=== PATIENT | male | born 1950 | race Caucasian/White ===

== ENCOUNTER 2023-01-12 11:41 | Outpatient (OUT) | payer MEDICARE, OTHER, SELFPAY ==
[2023-01-12 14:39] LABS: Prostate Specific Antigen Dx <0.13 ng/mL (<=4.00)
== END 2023-01-12 11:42 ==
LOC: LAB 11:49
PROVIDERS: PCP Internal Medicine; Visit Provider Urology
DX: N40.1 Benign prostatic hyperplasia with lower urinary tract symptoms (principal); Z85.46 Personal history of malignant neoplasm of prostate; N39.41 Urge incontinence; R31.21 Asymptomatic microscopic hematuria
CPT/HCPCS: 36415; 84153

== ENCOUNTER 2023-02-23 19:06 | Observation (INO) | payer MEDICARE, SELFPAY ==
[2023-02-23] VITALS (27 sets, daily range): BP systolic 121–160; BP diastolic 70–99; PULSE 66–111; RESP 12–23; TEMP 36.4; O2SAT 91–99; BMI 35.8
--- NOTE | 2023-02-23 19:41 | CT_ITS ---
The [address] [address] Patient Name: JERONIMO GOMEZ MRN: [id number] date: 1950 Sex: M Assigned Patient Location: ER Current Patient Location: ER Accession/Order Number: [id number] Exam Date: 02/23/2023 19:50 Report Date: 02/23/2023 20:12 At the request of: RAMIREZ LESTER Procedure: CT stroke head/brain wo con CT stroke head/brain wo con, 02/23/2023 7:50 PM EDT INDICATION: stroke COMPARISON: 12/19/2020 TECHNIQUE: Axial CT images of the brain from skull base to vertex, including portions of the face and sinuses, were obtained without contrast. Multiplanar reformatted images were generated and reviewed as needed. Dose reduction techniques were achieved by using automated exposure control and/or adjustment of mA and/or kV according to patient size and/or use of iterative reconstruction technique. FINDINGS: CEREBRUM: Age-appropriate atrophy is present, without visible acute hemorrhage or lesion. Periventricular low density change is demonstrated, consistent with chronic small vessel disease. CEREBELLUM: No edema, hemorrhage, mass, acute infarction, or inappropriate atrophy. BRAINSTEM: No acute infarct, hemorrhage or gross structural abnormality. CSF SPACES: Ventricles, cisterns, and sulci are appropriate for age. No hydrocephalus, subarachnoid hemorrhage, or mass. SKULL: No mass or other significant visible lesion. SINUSES: Limited views demonstrate no significant mucosal thickening or fluid. ORBITS: Limited views are unremarkable. OTHER: None. CT/CT stroke head/brain wo con IMPRESSION: Age-related deep white matter changes consistent with chronic small vessel disease superimposed on overall findings of age-appropriate cortical atrophy. No acute intracranial abnormality is otherwise identified. Critical results were NOTIFIED by TELEPHONE BY Dr. Linda Yen MD to JESSY Coulter At 02/23/2023 8:07 PM EDT. Electronically authenticated by: Linda YEN Date: 02/23/2023 20:12
--- NOTE | 2023-02-23 19:46 | CT_ITS ---
The [address] [address] Patient Name: JERONIMO GOMEZ MRN: [id number] date: 1950 Sex: M Assigned Patient Location: ER Current Patient Location: ER Accession/Order Number: [id number] Exam Date: 02/23/2023 20:00 Report Date: 02/23/2023 21:17 At the request of: RAMIREZ LESTER Procedure: CT angio head CT angio head, CT angio neck HISTORY: left hand weakness TECHNIQUE: CTA head and neck. Post-processed images {Maximum intensity Projection (MIP), Volume-rendered (VR), or Surface shaded display images (SSD)} were created, reviewed and archived. All CT scans at this facility use dose modulation, iterative reconstruction, and/or weight based dosing when appropriate to reduce radiation dose to as low as reasonably achievable. Contrast: IV administration of 100 cc Omnipaque 350 COMPARISON: MRI brain 02/28/2018 RESULT: NECK: Soft tissues: Within normal limits. Spine: Alignment is normal. Mild degenerative changes are present. Lungs: The imaged lungs are clear. CT ARTERIOGRAM: EXTRACRANIAL CIRCULATION: Aortic arch and branch vessels: Conventional 3-vessel arch branch anatomy. No significant stenosis in the proximal brachiocephalic vessels. Carotid Stenosis: Right Common: No significant stenosis. Right Internal Carotid Plaque: No significant plaque formation. Right Internal Carotid Stenosis (% by NASCET Criteria): 0% Left Common: No significant stenosis. Left Internal Carotid Plaque: There is progressive caliber attenuation of the left internal carotid artery with abrupt cutoff at the laceral segment to the level of the ICA/MCA junction. The left cavernous, clinoid and supraclinoid ICAs are markedly diminutive in caliber relative to the right. Left Internal Carotid Stenosis (% by NASCET Criteria): 0% Cervical Vertebral Arteries: Patency: Bilateral Dominance: Codominant INTRACRANIAL CIRCULATION: Anterior circulation: Azygous configuration of the ORA. Mild atherosclerotic calcification of the carotid siphons, clinoid and supraclinoid ICA, greater on the right without hemodynamically significant stenosis. As described above, there is marked caliber attenuation of the left cavernous, clinoid and supraclinoid ICA. The distal ACAs and MCAs are otherwise normal in caliber. A1 segments are codominant. Posterior circulation:. left [employer]. Mild atherosclerotic calcification of the bilateral distal V3 and V4 segments, slightly more prominent on the left without hemodynamically significant stenosis. Otherwise, the distal vertebral arteries, basilar trunk and fabric stretcher are normal in caliber. Proximal SCAs, AICAs and PICAs are patent. No vessel cut off, filling defect, significant focal narrowing or evidence of aneurysm. Opacified dural venous sinuses and major deep and superficial draining veins are patent. CT/CT angio head IMPRESSION: Abrupt cut off of the left ICA at the laceral segment to the cavernous segment, with marked caliber attenuation of the cavernous, clinoid and supraclinoid left ICA as described above. Otherwise, scattered calcified and noncalcified plaque throughout the intracranial and extracranial circulation without hemodynamically significant stenosis. COMMUNICATION: Communicated with: Emergency room physician by Eduardo on 02/23/2023 at 9:16 PM. Electronically authenticated by: STACIA HOOD Date: 02/23/2023 21:17
--- NOTE | 2023-02-23 19:46 | XR_ITS ---
[address] [address] Patient Name: JERONIMO GOMEZ MRN: [id number] date: 1950 Sex: M Assigned Patient Location: ER Current Patient Location: ER Accession/Order Number: [id number] Exam Date: 02/23/2023 20:10 Report Date: 02/23/2023 20:26 At the request of: RAMIREZ LESTER Procedure: XR chest 1V EXAMINATION: CHEST RADIOGRAPH (PORTABLE SINGLE VIEW AP) Exam Date/Time: 02/23/2023 8:10 PM EDT Clinical History: left hand weakness Comparison: Chest radiograph 12/19/2020 RESULT: Lines, tubes, and devices: None. Lungs and pleura: No focal consolidation. No pneumothorax. No pleural effusion. Cardiomediastinal silhouette: Stable cardiomediastinal silhouette. Other: No acute osseous process. XR/XR chest 1V IMPRESSION: No acute cardiopulmonary abnormality. Electronically authenticated by: STACIA HOOD Date: 02/23/2023 20:26
--- NOTE | 2023-02-23 19:46 | CT_ITS ---
The [address] [address] Patient Name: JERONIMO GOMEZ MRN: [id number] date: 1950 Sex: M Assigned Patient Location: ER Current Patient Location: ER Accession/Order Number: [id number] Exam Date: 02/23/2023 20:00 Report Date: 02/23/2023 21:17 At the request of: RAMIREZ LESTER Procedure: CT angio neck CT angio head, CT angio neck HISTORY: left hand weakness TECHNIQUE: CTA head and neck. Post-processed images {Maximum intensity Projection (MIP), Volume-rendered (VR), or Surface shaded display images (SSD)} were created, reviewed and archived. All CT scans at this facility use dose modulation, iterative reconstruction, and/or weight based dosing when appropriate to reduce radiation dose to as low as reasonably achievable. Contrast: IV administration of 100 cc Omnipaque 350 COMPARISON: MRI brain 02/28/2018 RESULT: NECK: Soft tissues: Within normal limits. Spine: Alignment is normal. Mild degenerative changes are present. Lungs: The imaged lungs are clear. CT ARTERIOGRAM: EXTRACRANIAL CIRCULATION: Aortic arch and branch vessels: Conventional 3-vessel arch branch anatomy. No significant stenosis in the proximal brachiocephalic vessels. Carotid Stenosis: Right Common: No significant stenosis. Right Internal Carotid Plaque: No significant plaque formation. Right Internal Carotid Stenosis (% by NASCET Criteria): 0% Left Common: No significant stenosis. Left Internal Carotid Plaque: There is progressive caliber attenuation of the left internal carotid artery with abrupt cutoff at the laceral segment to the level of the ICA/MCA junction. The left cavernous, clinoid and supraclinoid ICAs are markedly diminutive in caliber relative to the right. Left Internal Carotid Stenosis (% by NASCET Criteria): 0% Cervical Vertebral Arteries: Patency: Bilateral Dominance: Codominant INTRACRANIAL CIRCULATION: Anterior circulation: Azygous configuration of the ORA. Mild atherosclerotic calcification of the carotid siphons, clinoid and supraclinoid ICA, greater on the right without hemodynamically significant stenosis. As described above, there is marked caliber attenuation of the left cavernous, clinoid and supraclinoid ICA. The distal ACAs and MCAs are otherwise normal in caliber. A1 segments are codominant. Posterior circulation:. left CAD INTERN. Mild atherosclerotic calcification of the bilateral distal V3 and V4 segments, slightly more prominent on the left without hemodynamically significant stenosis. Otherwise, the distal vertebral arteries, basilar trunk and cell maker are normal in caliber. Proximal SCAs, AICAs and PICAs are patent. No vessel cut off, filling defect, significant focal narrowing or evidence of aneurysm. Opacified dural venous sinuses and major deep and superficial draining veins are patent. CT/CT angio neck IMPRESSION: Abrupt cut off of the left ICA at the laceral segment to the cavernous segment, with marked caliber attenuation of the cavernous, clinoid and supraclinoid left ICA as described above. Otherwise, scattered calcified and noncalcified plaque throughout the intracranial and extracranial circulation without hemodynamically significant stenosis. COMMUNICATION: Communicated with: Emergency room physician by Eduardo on 02/23/2023 at 9:16 PM. Electronically authenticated by: STACIA HOOD Date: 02/23/2023 21:17
--- NOTE | 2023-02-23 19:46 | ECG_ITS ---
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
--- NOTE | 2023-02-23 19:48 | ED.GENADUL1 ---
Documented by User: JESSY Salmon 02/23/23 21:55 HPI - General Adult General Chief complaint: Neuro Symptoms/Deficit Stated complaint: LEFT HAND UPPER INJURY Time Seen by Provider: 02/23/23 19:41 Source: patient Mode of arrival: walk-in History of Present Illness HPI narrative: patient is a 73-year-old male with a history of lung cancer in remission who presents to the emergency department for left hand weakness that began three hours ago. He states he was feeling weakness and numbness in his left hand. He feels as though the weakness and numbness slightly better at this time and he is able to move his fingers a little better but he still has the sensation of weakness. He has no history of stroke. He states he had a similar episode about a year ago but does not know what may have been the cause. He denies any injuries. He has no pain at this time. He takes a baby aspirin daily. He is able to ambulate. He denies headache, visual changes, chest pain, shortness of breath. No recent illness. He has no other extremity weakness. He has not had any changes in his speech. Related Data Home Medications Medication Instructions Recorded Confirmed amlodipine 5 mg tablet 5 mg PO BID 02/23/23 02/23/23 aspirin 81 mg capsule 81 mg PO DAILY 02/23/23 02/23/23 atenolol 50 mg tablet 50 mg PO Q24H 02/23/23 02/23/23 atorvastatin 40 mg tablet 40 mg PO DAILY 02/23/23 02/23/23 cetirizine 10 mg tablet 10 mg PO DAILY 02/23/23 02/23/23 fluticasone propionate 50 1 spray intranasal Q12H 02/23/23 02/23/23 mcg/actuation nasal spray,suspension glipizide 10 mg tablet 10 mg PO BID 02/23/23 02/23/23 levothyroxine 125 mcg tablet 125 mcg PO DAILY 02/23/23 02/23/23 (Euthyrox) metformin 1,000 mg tablet 1,000 mg PO BID 02/23/23 02/23/23 solifenacin 5 mg tablet 5 mg PO DAILY 02/23/23 02/23/23 tamsulosin 0.4 mg capsule 0.4 mg PO DAILY 02/23/23 02/23/23 Allergies Allergy/AdvReac Type Severity Reaction Status Date / Time No Known Drug Allergies Allergy Verified 02/23/23 19:34 Review of Systems ROS Constitutional Denies: fever or chills Eyes Denies: change in vision Cardiovascular Denies: chest pain Respiratory Denies: shortness of breath or cough Gastrointestinal Denies: nausea or vomiting Musculoskeletal Denies: back pain or neck pain Integumentary/Breast Denies: rash Neurological Reports: weakness in extremities; Denies: headache Exam Narrative Exam Narrative: Gen.: Awake, alert, in no distress Head: Normocephalic, atraumatic ENT: Moist mucous membranes Respiratory: No respiratory distress, lungs clear bilaterally Cardio: Regular rate and rhythm Extremities: weakness to burrer hand strength in the left hand Psych: Normal mood and affect Neuro: left hand burrer hand strength is slightly weaker than the right hand, patient is slow to move the fingers of the left hand Skin: Warm, dry, intact Constitutional Vital Signs, click to edit/add: Last Vital Signs Temp 97.6 F 02/23/23 19:29 Pulse 76 02/23/23 22:00 Resp 19 02/23/23 22:00 BP 151/86 H 02/23/23 22:00 Pulse Ox 95 02/23/23 22:00 O2 Del Method Room Air 02/23/23 19:29 Course Vital Signs Vital signs: Vital Signs Temperature 97.6 F 02/23/23 19:29 Pulse Rate 98 H 02/23/23 19:29 Respiratory Rate 16 02/23/23 19:29 Blood Pressure 148/99 H 02/23/23 19:29 Pulse Oximetry 99 02/23/23 19:29 Oxygen Delivery Method Room Air 02/23/23 19:29 Temperature 97.6 F 02/23/23 19:29 Pulse Rate 76 02/23/23 22:00 Respiratory Rate 19 02/23/23 22:00 Blood Pressure 151/86 H 02/23/23 22:00 Pulse Oximetry 95 02/23/23 22:00 Oxygen Delivery Method Room Air 02/23/23 19:29 Medical Decision Making MDM Narrative Medical decision making narrative: patient with no complaints of pain or nausea in the Emergency Room. Labs studies are stable and the patient was immediately sent for a noncontrast CT as well as CT and she'll of the head and neck. 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 Throughout his stay in the emergency department, the patient did have improvement of numbness to the left hand but did have continued symptoms. I discussed the case with Dr. Santa at [facility] for neuro-interventional service (2135pm) who was made aware of the patient's presentation to the Emergency Room and reviewed the patient's scans personally. He recommended aspirin and a loading dose of Plavix, admission to this facility for further workup and MRI. Tele-neurology consult as indicated. Dr. pugh was contacted ([phone]) for the hospitalist service and the patient is admitted to [facility] with telemetry for further evaluation and treatment. Patient is stable with stable blood pressure at time of admission to hospitalist service. Medical Records Medical records reviewed: Yes I reviewed the patient's medical records Lab Data Lab results reviewed: Yes I reviewed the patient's lab results Labs: Lab Results 02/23/23 02/23/23 Range/Units 19:45 19:49 WBC 9.2 (4.0-11.0) 10^3/uL RBC 4.69 L (4.70-6.10) 10^6/uL Hgb 14.8 (14.0-18.0) g/dL Hct 44.2 (42.0-54.0) % MCV 94.2 H (80.0-94.0) fL MCH 31.6 (25.9-34.0) pg MCHC 33.5 (29.9-35.2) g/dL RDW 14.2 (11.0-15.0) % Plt Count 149 L (150-450) 10^3/uL MPV 10.0 (9.5-13.5) fL Neut % (Auto) 74.4 (43.0-75.0) % Lymph % (Auto) 18.1 L (20.5-60.0) % [place] % (Auto) 6.0 (1.7-12.0) % Eos % (Auto) 0.9 (0.9-7.0) % Baso % (Auto) 0.3 (0.2-2.0) % Neut # (Auto) 6.9 H (1.4-6.5) 10^3/uL Lymph # (Auto) 1.7 (1.2-3.8) 10^3/uL [place] # (Auto) 0.6 (0.3-0.8) 10^3/uL Eos # (Auto) 0.1 (0.0-0.7) 10^3/uL Baso # (Auto) 0.0 (0.0-0.1) 10^3/uL Abs Immat Gran (auto) 0.03 (0.00-0.03) 10^3/uL Imm/Tot Granulo (auto) 0.3 (0.0-0.5) % PT 10.7 (9.0-11.6) sec INR 1.01 APTT 26.2 (22.3-36.2) sec Sodium 138 (136-145) mmol/L Potassium 4.0 (3.5-5.1) mmol/L Chloride 102 (98-107) mmol/L Carbon Dioxide 27.7 (21.0-32.0) mmol/L Anion Gap 12.3 BUN 14.0 (7.0-18.0) mg/dL Creatinine 1.20 (0.70-1.30) mg/dL Est GFR ( Amer) >60 (>=60) Est GFR (Non-Af Amer) 59 L (>=60) BUN/Creatinine Ratio 11.7 Glucose 106 (74-106) mg/dL Calcium 9.3 (8.5-10.1) mg/dL Total Bilirubin 0.6 (0.2-1.0) mg/dL AST 15 (15-37) U/L ALT 36 (16-63) U/L Alkaline Phosphatase 43 L (46-116) U/L Troponin I High Sens 10.4 (4.0-76.1) pg/mL Total Protein 7.9 (6.4-8.2) g/dL Albumin 4.5 (3.4-5.0) g/dL Globulin 3.4 g/dL Albumin/Globulin Ratio 1.3 Urine Color Lt. yellow (YELLOW) Urine Clarity Clear (CLEAR) Urine pH 6.5 (5.0-9.0) Ur Specific Stuart <=1.005 A (1.005-1.025) Urine Protein Negative (NEG/TRACE) mg/dL Urine Glucose (UA) Negative (NEGATIVE) mg/dL Urine Ketones Negative (NEGATIVE) mg/dL Urine Occult Blood Negative (NEGATIVE) Urine Nitrite Negative (NEGATIVE) Urine Bilirubin Negative (NEGATIVE) Urine Urobilinogen 0.2 (0.2-1.0) EU/dL Ur Leukocyte Esterase Negative (NEGATIVE) Imaging Data CT scan - head: Attestation: I have reviewed the pertinent imaging results. Radiologist's impression: Procedure: CT stroke head/brain wo con CT stroke head/brain wo con, 02/23/2023 7:50 PM EDT INDICATION: stroke COMPARISON: 12/19/2020 TECHNIQUE: Axial CT images of the brain from skull base to vertex, including portions of the face and sinuses, were obtained without contrast. Multiplanar reformatted images were generated and reviewed as needed. Dose reduction techniques were achieved by using automated exposure control and/or adjustment of mA and/or kV according to patient size and/or use of iterative reconstruction technique. FINDINGS: CEREBRUM: Age-appropriate atrophy is present, without visible acute hemorrhage or lesion. Periventricular low density change is demonstrated, consistent with chronic small vessel disease. CEREBELLUM: No edema, hemorrhage, mass, acute infarction, or inappropriate atrophy. BRAINSTEM: No acute infarct, hemorrhage or gross structural abnormality. CSF SPACES: Ventricles, cisterns, and sulci are appropriate for age. No hydrocephalus, subarachnoid hemorrhage, or mass. SKULL: No mass or other significant visible lesion. SINUSES: Limited views demonstrate no significant mucosal thickening or fluid. ORBITS: Limited views are unremarkable. OTHER: None. IMPRESSION: Age-related deep white matter changes consistent with chronic small vessel disease superimposed on overall findings of age-appropriate cortical atrophy. No acute intracranial abnormality is otherwise identified. Critical results were NOTIFIED by TELEPHONE BY Dr. Linda Yen MD to JESSY Coulter At 02/23/2023 8:07 PM EDT. Electronically authenticated by: Linda YEN Date: 02/23/2023 20:12 Procedure: CT angio head CT angio head, CT angio neck HISTORY: left hand weakness TECHNIQUE: CTA head and neck. Post-processed images {Maximum intensity Projection (MIP), Volume-rendered (VR), or Surface shaded display images (SSD)} were created, reviewed and archived. All CT scans at this facility use dose modulation, iterative reconstruction, and/or weight based dosing when appropriate to reduce radiation dose to as low as reasonably achievable. Contrast: IV administration of 100 cc Omnipaque 350 COMPARISON: MRI brain 02/28/2018 RESULT: NECK: Soft tissues: Within normal limits. Spine: Alignment is normal. Mild degenerative changes are present. Lungs: The imaged lungs are clear. CT ARTERIOGRAM: EXTRACRANIAL CIRCULATION: Aortic arch and branch vessels: Conventional 3-vessel arch branch anatomy. No significant stenosis in the proximal brachiocephalic vessels. Carotid Stenosis: Right Common: No significant stenosis. Right Internal Carotid Plaque: No significant plaque formation. Right Internal Carotid Stenosis (% by NASCET Criteria): 0% Left Common: No significant stenosis. Left Internal Carotid Plaque: There is progressive caliber attenuation of the left internal carotid artery with abrupt cutoff at the laceral segment to the level of the ICA/MCA junction. The left cavernous, clinoid and supraclinoid ICAs are markedly diminutive in caliber relative to the right. Left Internal Carotid Stenosis (% by NASCET Criteria): 0% Cervical Vertebral Arteries: Patency: Bilateral Dominance: Codominant INTRACRANIAL CIRCULATION: Anterior circulation: Azygous configuration of the ORA. Mild atherosclerotic calcification of the carotid siphons, clinoid and supraclinoid ICA, greater on the right without hemodynamically significant stenosis. As described above, there is marked caliber attenuation of the left cavernous, clinoid and supraclinoid ICA. The distal ACAs and MCAs are otherwise normal in caliber. A1 segments are codominant. Posterior circulation:. left IRON WORKER. Mild atherosclerotic calcification of the bilateral distal V3 and V4 segments, slightly more prominent on the left without hemodynamically significant stenosis. Otherwise, the distal vertebral arteries, basilar trunk and contamination consultant are normal in caliber. Proximal SCAs, AICAs and PICAs are patent. No vessel cut off, filling defect, significant focal narrowing or evidence of aneurysm. Opacified dural venous sinuses and major deep and superficial draining veins are patent. IMPRESSION: Abrupt cut off of the left ICA at the laceral segment to the cavernous segment, with marked caliber attenuation of the cavernous, clinoid and supraclinoid left ICA as described above. Otherwise, scattered calcified and noncalcified plaque throughout the intracranial and extracranial circulation without hemodynamically significant stenosis. COMMUNICATION: Communicated with: Emergency room physician by [employer] on 02/23/2023 at 9:16 PM. Electronically authenticated by: STACIA HOOD Date: 02/23/2023 21:17 ECG Data Attestation: I personally reviewed and interpreted this ECG as follows: (normal sinus rhythm at a rate of seventy-three, first-degree AV block, no acute ST elevation or ectopy. EKG reviewed by attending physician) Discharge Plan Discharge Chief Complaint: Neuro Symptoms/Deficit Clinical Impression: Transient cerebral ischemia Patient Disposition: Admitted as Observation Time of Disposition Decision: 21:53 Condition: Good Documented by User: Ava Reed MD 02/23/23 23:14 HPI - General Adult General Chief complaint: Neuro Symptoms/Deficit Stated complaint: LEFT HAND UPPER INJURY Time Seen by Provider: 02/23/23 19:41 Related Data Home Medications Medication Instructions Recorded Confirmed amlodipine 5 mg tablet 5 mg PO BID 02/23/23 02/23/23 aspirin 81 mg capsule 81 mg PO DAILY 02/23/23 02/23/23 atenolol 50 mg tablet 50 mg PO Q24H 02/23/23 02/23/23 atorvastatin 40 mg tablet 40 mg PO DAILY 02/23/23 02/23/23 cetirizine 10 mg tablet 10 mg PO DAILY 02/23/23 02/23/23 fluticasone propionate 50 1 spray intranasal Q12H 02/23/23 02/23/23 mcg/actuation nasal spray,suspension glipizide 10 mg tablet 10 mg PO BID 02/23/23 02/23/23 levothyroxine 125 mcg tablet 125 mcg PO DAILY 02/23/23 02/23/23 (Euthyrox) metformin 1,000 mg tablet 1,000 mg PO BID 02/23/23 02/23/23 solifenacin 5 mg tablet 5 mg PO DAILY 02/23/23 02/23/23 tamsulosin 0.4 mg capsule 0.4 mg PO DAILY 02/23/23 02/23/23 Allergies Allergy/AdvReac Type Severity Reaction Status Date / Time No Known Drug Allergies Allergy Verified 02/23/23 19:34 Exam Constitutional Vital Signs, click to edit/add: Last Vital Signs Temp 97.6 F 02/23/23 19:29 Pulse 76 02/23/23 22:00 Resp 19 02/23/23 22:00 BP 151/86 H 02/23/23 22:00 Pulse Ox 95 02/23/23 22:00 O2 Del Method Room Air 02/23/23 19:29 Course Vital Signs Vital signs: Vital Signs Temperature 97.6 F 02/23/23 19:29 Pulse Rate 98 H 02/23/23 19:29 Respiratory Rate 16 02/23/23 19:29 Blood Pressure 148/99 H 02/23/23 19:29 Pulse Oximetry 99 02/23/23 19:29 Oxygen Delivery Method Room Air 02/23/23 19:29 Temperature 97.6 F 02/23/23 19:29 Pulse Rate 76 02/23/23 22:00 Respiratory Rate 19 02/23/23 22:00 Blood Pressure 151/86 H 02/23/23 22:00 Pulse Oximetry 95 02/23/23 22:00 Oxygen Delivery Method Room Air 02/23/23 19:29 Medical Decision Making MDM Narrative Medical decision making narrative: patient with no complaints of pain or nausea in the Emergency Room. Labs studies are stable and the patient was immediately sent for a noncontrast CT as well as CT and she'll of the head and neck. 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 Throughout his stay in the emergency department, the patient did have improvement of numbness to the left hand but did have continued symptoms. I discussed the case with Dr. Santa at [facility] for neuro-interventional service (5pm) who was made aware of the patient's presentation to the Emergency Room and reviewed the patient's scans personally. He recommended aspirin and a loading dose of Plavix, admission to this facility for further workup and MRI. Tele-neurology consult as indicated. Dr. pugh was contacted ([phone]) for the hospitalist service and the patient is admitted to [facility] with telemetry for further evaluation and treatment. Patient is stable with stable blood pressure at time of admission to hospitalist service. Attending physician attestation I have seen and evaluated this patient. I have reviewed the mid-level provider?s documentation medical decision making and treatment plan. I agree with the mid-level provider?s assessment, and plan. Lab Data Labs: Lab Results 02/23/23 02/23/23 Range/Units 19:45 19:49 WBC 9.2 (4.0-11.0) 10^3/uL RBC 4.69 L (4.70-6.10) 10^6/uL Hgb 14.8 (14.0-18.0) g/dL Hct 44.2 (42.0-54.0) % MCV 94.2 H (80.0-94.0) fL MCH 31.6 (25.9-34.0) pg MCHC 33.5 (29.9-35.2) g/dL RDW 14.2 (11.0-15.0) % Plt Count 149 L (150-450) 10^3/uL MPV 10.0 (9.5-13.5) fL Neut % (Auto) 74.4 (43.0-75.0) % Lymph % (Auto) 18.1 L (20.5-60.0) % [place] % (Auto) 6.0 (1.7-12.0) % Eos % (Auto) 0.9 (0.9-7.0) % Baso % (Auto) 0.3 (0.2-2.0) % Neut # (Auto) 6.9 H (1.4-6.5) 10^3/uL Lymph # (Auto) 1.7 (1.2-3.8) 10^3/uL [place] # (Auto) 0.6 (0.3-0.8) 10^3/uL Eos # (Auto) 0.1 (0.0-0.7) 10^3/uL Baso # (Auto) 0.0 (0.0-0.1) 10^3/uL Abs Immat Gran (auto) 0.03 (0.00-0.03) 10^3/uL Imm/Tot Granulo (auto) 0.3 (0.0-0.5) % PT 10.7 (9.0-11.6) sec INR 1.01 APTT 26.2 (22.3-36.2) sec Sodium 138 (136-145) mmol/L Potassium 4.0 (3.5-5.1) mmol/L Chloride 102 (98-107) mmol/L Carbon Dioxide 27.7 (21.0-32.0) mmol/L Anion Gap 12.3 BUN 14.0 (7.0-18.0) mg/dL Creatinine 1.20 (0.70-1.30) mg/dL Est GFR ( Amer) >60 (>=60) Est GFR (Non-Af Amer) 59 L (>=60) BUN/Creatinine Ratio 11.7 Glucose 106 (74-106) mg/dL Calcium 9.3 (8.5-10.1) mg/dL Total Bilirubin 0.6 (0.2-1.0) mg/dL AST 15 (15-37) U/L ALT 36 (16-63) U/L Alkaline Phosphatase 43 L (46-116) U/L Troponin I High Sens 10.4 (4.0-76.1) pg/mL Total Protein 7.9 (6.4-8.2) g/dL Albumin 4.5 (3.4-5.0) g/dL Globulin 3.4 g/dL Albumin/Globulin Ratio 1.3 Urine Color Lt. yellow (YELLOW) Urine Clarity Clear (CLEAR) Urine pH 6.5 (5.0-9.0) Ur Specific Stuart <=1.005 A (1.005-1.025) Urine Protein Negative (NEG/TRACE) mg/dL Urine Glucose (UA) Negative (NEGATIVE) mg/dL Urine Ketones Negative (NEGATIVE) mg/dL Urine Occult Blood Negative (NEGATIVE) Urine Nitrite Negative (NEGATIVE) Urine Bilirubin Negative (NEGATIVE) Urine Urobilinogen 0.2 (0.2-1.0) EU/dL Ur Leukocyte Esterase Negative (NEGATIVE) Discharge Plan Discharge Chief Complaint: Neuro Symptoms/Deficit Clinical Impression: Transient cerebral ischemia Patient Disposition: Admitted as Observation Time of Disposition Decision: 21:53 Condition: Good
[2023-02-23 20:00] LABS: Basophils Percent Auto 0.3 % (0.2-2.0); Eosinophils Absolute Auto 0.1 10^3/uL (0.0-0.7); Eosinophils Percent Auto 0.9 % (0.9-7.0); Hematocrit 44.2 % (42.0-54.0); Hemoglobin 14.8 g/dL (14.0-18.0); Immature Granulocytes Abs Auto 0.03 10^3/uL (0.00-0.03); Immature Granulocytes Pct Auto 0.3 % (0.0-0.5); Lymphocytes Absolute Auto 1.7 10^3/uL (1.2-3.8); Lymphocytes Percent Auto 18.1 % (20.5-60.0); Mean Corpuscular HGB Conc 33.5 g/dL (29.9-35.2); Mean Corpuscular Hemoglobin 31.6 pg (25.9-34.0); Mean Corpuscular Volume 94.2 fL (80.0-94.0); Monocytes Absolute Auto 0.6 10^3/uL (0.3-0.8); Neutrophils Absolute Auto 6.9 10^3/uL (1.4-6.5); Neutrophils Percent Auto 74.4 % (43.0-75.0); Platelet Count 149 10^3/uL (150-450); Red Blood Count 4.69 10^6/uL (4.70-6.10); Red Cell Distribution Width 14.2 % (11.0-15.0); White Blood Count 9.2 10^3/uL (4.0-11.0)
[2023-02-23 20:14] LABS: Alanine Aminotransferase 36 U/L (16-63); Albumin Globulin Ratio 1.3; Albumin Level 4.5 g/dL (3.4-5.0); Alkaline Phosphatase 43 U/L (46-116); Anion Gap 12.3; Aspartate Amino Transferase 15 U/L (15-37); BUN Creatinine Ratio 11.7; Bilirubin Total 0.6 mg/dL (0.2-1.0); Calcium 9.3 mg/dL (8.5-10.1); Carbon Dioxide 27.7 mmol/L (21.0-32.0); Chloride 102 mmol/L (98-107); Estimated GFR (African America >60 (>=60); Estimated GFR (Non-African Ame 59 (>=60); Globulin 3.4 g/dL; Glucose 106 mg/dL (74-106); INR 1.01; Partial Thromboplastin Time 26.2 sec (22.3-36.2); Prothrombin Time 10.7 sec (9.0-11.6); Sodium 138 mmol/L (136-145); Total Protein 7.9 g/dL (6.4-8.2)
[2023-02-23 20:15] LABS: Bilirubin Urine NEGATIVE (NEGATIVE); Blood Urine NEGATIVE (NEGATIVE); Clarity Urine CLEAR (CLEAR); Color Urine LT. YELLOW (YELLOW); Glucose Urine UA NEGATIVE (NEGATIVE); Ketones Urine NEGATIVE (NEGATIVE); Leukocyte Esterase Urine NEGATIVE (NEGATIVE); Nitrite Urine NEGATIVE (NEGATIVE); Protein Urine NEGATIVE (NEG/TRACE); Specific Gravity Urine <=1.005 (1.005-1.025); Urobilinogen Urine 0.2 EU/dL (0.2-1.0); pH Urine 6.5 (5.0-9.0)
[2023-02-23 20:16] LABS: Troponin I High Sensitivity 10.4 pg/mL (4.0-76.1)
[2023-02-23 20:23] LABS: Urine Microscopic Indicated NO
[2023-02-23] MEDS: ASPIRIN 81 MG TAB.CHEW 324 MG PO (22:18)
[2023-02-23] MEDS: CLOPIDOGREL BISULFATE 75 MG TABLET 300 MG PO (22:18)
[2023-02-24] VITALS (51 sets, daily range): BP systolic 107–156; BP diastolic 51–87; PULSE 54–83; RESP 7–23; TEMP 36.5–36.6; O2SAT 92–97; BMI 35.0
--- NOTE | 2023-02-24 03:45 | CA_ITS ---
Patient: JERONIMO GOMEZ Exam Date: 02/24/2023 : 1950 Gender:M Ordering : DR Burke Cai . Admission #: [id number] Family : Order #: [id number] CLICK HERE TO VIEW EXAM ECHOCARDIOGRAM REPORT PROCEDURE: CA ECHO DOPPLER COMPLETE INDICATIONS: CVA COMPARISON: None. DESCRIPTION: COMPLETE ECHOCARDIOGRAM Real-time transthoracic echocardiography with 2D, M-mode, spectral and color flow Doppler performed. QUALITY: Technical quality was adequate. LEFT VENTRICLE: Normal chamber size. Mild concentric left ventricular hypertrophy. Global left ventricular systolic function is normal. LV EF: Visual estimation of left ventricular ejection fraction is 60%. DIASTOLIC: Diastolic function is indeterminate. ATRIAL SEPTUM: Intact atrial septum. Agitated saline contrast does not reveal an intra-cardiac shunt. LEFT ATRIUM: Normal chamber size. RIGHT ATRIUM: Normal chamber size. RIGHT VENTRICLE: Normal chamber size. Normal right ventricular systolic function. TRICUSPID VALVE: Normal mobility and thickness. No stenosis with trivial regurgitation. Unable to assess right-sided pressures due to lack of measurable tricuspid regurgitation. MITRAL VALVE: Normal mobility and thickness. No evidence of mitral valve stenosis. There is no mitral annular calcification. Trivial mitral regurgitation. AORTIC VALVE: Normal trileaflet appearance. Mildly calcified aortic valve. Normal mobility. No evidence of aortic valve stenosis. No aortic regurgitation. AORTIC ROOT: Normal diameter and appearance. PULMONIC VALVE: Normal thickness and mobility. No stenosis. No regurgitation. PERICARDIUM: No evidence of pericardial effusion. IVC: Not well visualized. PLEURA: CONCLUSION: 1. Mild concentric left-ventricular hypertrophy with normal systolic function. LVEF is 60%. 2. Normal right ventricular size and systolic function. 3. No significant valvular dysfunction. 4. No evidence of intracardiac shunt by agitated saline injection. Adult Echocardiography Procedure Report Left Ventricle LVEDD (3.7 - 5.6 cm): 4.39 cm LVESD (2.2 - 4.0 cm): 2.90 cm LVIVS thickness (0.6 - 1.2 cm): 1.23 cm LVPW thickness (0.5 - 1.0 cm): 1.25 cm e': 0.06 m/s E - e': 11.44 LVOT Max Gradient: 2.83 mm[Hg] LVOT Area (cm2): 0.84 m/s Peak Velocity (LVOT): 0.84 m/s Mean Velocity (LVOT): 0.58 m/s LVOT Diameter 1.91 cm Left Atrium LA Volume Index (2D A2C): 29.09 ml/m2 Left Atrium Systolic Dimension: 3.88 cm Mitral Valve MV E to A Ratio: 0.84 Mitral Valve A-Wave Peak Velocity: 0.84 m/s Mitral Valve E-Wave Peak Velocity: 0.71 m/s Right Ventricle RV Internal Diastolic Dimension: 2.81 cm Aorta AO Root Diam: 3.27 cm Ascending Ao Diam: 3.47 cm Aortic Valve AoV Area (Peak Gina): 1.82 cm2, 1.82 cm2 AoV Area (VTI): 2.02 cm2, 2.02 cm2 Peak Velocity(Antegrade Flow): 1.33 m/s Peak Gradient(Antegrade Flow): 7.03 mm[Hg] Mean Velocity(Antegrade Flow): 0.82 m/s Mean Gradient(Antegrade Flow): 3.22 mm[Hg] Velocity Time Integral: 29.49 cm Tricuspid Valve Peak Velocity (Regurgitant Flow): 1.89 m/s Pulmonic Valve Peak Velocity: 1.07 m/s Peak Gradient: 3.95 mm[Hg], 5.17 mm[Hg] Right Atrium Right Atrium Systolic Pressure: 27.28 ml, 27.28 ml Dictated by: Tray Flores M.D. on 02/25/2023 at 16:59 Approved by: Tray Flores M.D. on 02/25/2023 at 17:05
--- NOTE | 2023-02-24 03:55 | P.PN_ITS ---
Progress Note: Subjective Subjective Interval history: CC: Right upper extremity weakness HPI: Mr. Rinaldi is a very pleasant 73 years old gentleman who presents with above complaints. Patient stating that he been barbecuing when he suddenly felt weakness in his right arm. He continued to have difficulties to move with. Patient stating that he had similar episodes in the past but much less. Patient's past medical history significant for hypertension, dyslipidemia, diabetes. Patient has a history of lung cancer and last 4 years has been disease-free. Initial evaluation in the emergency room has been negative for acute findings. A full consultation was obtained with the teleneurologist who recommended hospital stay with a expanded work-up including MRI of the brain and echocardiogram with bubbles Exam Narrative Exam Narrative: Physical Exam: Not in distress, pleasant, lucid, cooperative, Head - atraumatic, eyes - pupils equal, round, reactive to light, extra ocular movement intact, MMM Neck - supple, thyroid not enlarged, LN not palpated Lungs - clear to auscultation, no dullness on percussion CVS - heart sounds S1, S2, no additional murmurs gallop, regular rate and rhythm Gastrointestinal?abdomen is soft, non-tender, non-distended, no organomegaly, positive bowel sounds Extremities no clubbing, cyanosis or edema Neurological?cranial nerve II?XII grossly intact, no meningeal signs, no cerebellar signs, no sensory deficit Musculoskeletal - joints, no effusions, ROM preserved Dermatological - the skin dry, warm, no rashes Psychiatric?patient is AAO X3, patient has normal affect Constitutional Vital Signs, click to edit/add: Last Vital Signs Temp 97.6 F 02/23/23 19:29 Pulse 67 02/24/23 03:20 Resp 16 02/24/23 03:20 BP 148/83 H 02/24/23 03:01 Pulse Ox 93 L 02/24/23 02:10 O2 Del Method Room Air 02/23/23 19:29 Progress Note: Objective Labs Labs: Short CBC 02/23/23 Range/Units 19:49 WBC 9.2 (4.0-11.0) 10^3/uL Hgb 14.8 (14.0-18.0) g/dL Hct 44.2 (42.0-54.0) % Plt Count 149 L (150-450) 10^3/uL BMP 02/23/23 19:49 Sodium 138 Potassium 4.0 Chloride 102 Carbon Dioxide 27.7 BUN 14.0 Creatinine 1.20 Glucose 106 Calcium 9.3 Liver Function 02/23/23 Range/Units 19:49 Total Bilirubin 0.6 (0.2-1.0) mg/dL AST 15 (15-37) U/L ALT 36 (16-63) U/L Alkaline Phosphatase 43 L (46-116) U/L Albumin 4.5 (3.4-5.0) g/dL Urine 02/23/23 Range/Units 19:45 Urine Color Lt. yellow (YELLOW) Urine Clarity Clear (CLEAR) Urine pH 6.5 (5.0-9.0) Ur Specific [place] <=1.005 A (1.005-1.025) Urine Protein Negative (NEG/TRACE) mg/dL Urine Glucose (UA) Negative (NEGATIVE) mg/dL ABG Attestation: I personally reviewed and interpreted this ABG as follows: Progress Note: A&P Assessment and Plan (1) Transient cerebral ischemia: Assessment and Plan: - patient admitted with acute neurological deficit - As per evaluation in ER patient did not qualify for a tPa treatment - Admit to telemetry - Frequent neuro-checks - Will obtain MRI of the brain - Will obtain an ECHO with bubbles - F/U with Neurologist for further recommendations Secondary prevention ? will make sure patient is on Full dose of EC ASA and at least moderate potency dose of Atorvastatin unless contraindicated Tertiary prevention ? fall/aspiration precautions are in place - DVT prophylaxis (2) HTN (hypertension): Assessment and Plan: Permissive hypertension going to be allowed Resume home medications, adjust as needed (3) Diabetes: Assessment and Plan: DM- continue with ADA diet - hold off oral hypoglycemic agents while in the hospital to avoid hypoglycemic episodes - frequent accuchecks (TID AC + HS) - will provide coverage with long acting insulin as well as short acting insulin with meals - adjust as needed - hypoglycemia protocol in place Plan Dyslipidemia ?started on statin As the provider for the telehealth service, I attest that I introduced myself to the patient, provided my credentials, disclosed by location and determined that based on a review of the patient's chart and discussion with members of the patient's treatment team, telemedicine via real-time, 2 way, and interactive audio and video platform is an appropriate and effective means of providing the service. ?The patient and I mutually agree this visit is appropriate for telemedicine. ?The virtual encounter was taken place from? [place], [place]. ?The encounter took approximately 35 minutes. ?The nurse was present during the entire time and I was able to move the stethoscope in appropriate directions. ?The patient was evaluated at the Hospital ? Portions of this note may be dictated using [employer] voice recognition software. Variances in spelling and vocabulary are possible and unintentional. Not all errors may be caught and/or corrected. Please notify the author if any discrepancies are noted and/or if the meaning of any statement is unclear.? ? Patient verbally consented for treatment via video visit with patient currently located at [facility] and provider located in [place]. Telemedicine Attestation Telemedicine Attestation I conducted this encounter from [[place]] via secure live, [id number] video conference with the patient, located at [facility] with [CVA]. Prior to the interview, the risks and benefits of telemedicine were discussed with the patient and verbal consent was obtained.
--- NOTE | 2023-02-24 04:12 | MR_ITS ---
[place] [id number] Patient Name: JERONIMO GOMEZ MRN: [id number] date: 1950 Sex: M Assigned Patient Location: [place] Current Patient Location: [place] Accession/Order Number: [id number] Exam Date: 02/24/2023 08:00 Report Date: 02/24/2023 09:08 At the request of: SAE Rafa SISTER Procedure: MR head/brain wo con EXAM: MR head/brain wo con CLINICAL INDICATION: Left hand weakness COMPARISON: CT head and CTA head/neck 02/23/2023. TECHNIQUE/PROTOCOL: Standard noncontrast protocol brain MRI performed (Sagittal T1 with axial T1, T2, GRE, FLAIR, and diffusion-weighted imaging). FINDINGS: Small patchy restricted diffusion in the posterior right frontal lobe/centrum semiovale (5904:43) demonstrates hyperintense T2/FLAIR parenchymal signal. This extends towards the cortical surface. Loss of normal flow void signal in the left ICA with reconstitution just before its terminus corresponds with occlusion seen on CTA 02/23/2023. Remainder of the intracranial flow voids are maintained. No extra-axial fluid collection, hydrocephalus, midline shift, or other mass effect. Faint patchy hyperintense T2/FLAIR periventricular and subcortical foci are likely on the basis of chronic microvascular angiopathic changes. Mild to moderate symmetric global volume loss without lobar predominance. Commensurate ventricular system caliber prominence. Small old right centrum semiovale lacunar infarction. Normal marrow signal. No soft tissue abnormalities. Mild scattered paranasal sinus mucosal thickening. Scant left mastoid effusion. MR/MR head/brain wo con IMPRESSION: 1. Small recent (acute/subacute) infarct in the posterior right frontal lobe/centrum semiovale. 2. Loss of normal flow void signal in the left ICA with reconstitution just before its terminus corresponds with occlusion seen on CTA 02/23/2023. Report was submitted to the clinical operation support team for expedited review by the provider. Electronically authenticated by: MICHELLE ZELAYA Date: 02/24/2023 09:08
[2023-02-24 05:51] LABS: PCO2 VBG 42.8 mmHg (40.0-52.0)
[2023-02-24 06:00] LABS: Anion Gap 10.8; BUN Creatinine Ratio 10.4; Calcium 8.6 mg/dL (8.5-10.1); Carbon Dioxide 28.8 mmol/L (21.0-32.0); Chloride 105 mmol/L (98-107); Estimated GFR (African America >60 (>=60); Estimated GFR (Non-African Ame >60 (>=60); Glucose 129 mg/dL (74-106); Magnesium 1.8 mg/dL (1.8-2.4); Potassium 3.6 mmol/L (3.5-5.1); Sodium 141 mmol/L (136-145)
[2023-02-24 07:01] LABS: Glucometer 109 mg/dL (74-106)
[2023-02-24] MEDS: ASPIRIN 81 MG TAB.CHEW PO (09:58)
[2023-02-24] MEDS: CETIRIZINE HCL 10 MG TABLET PO (09:58)
[2023-02-24] MEDS: SOLIFENACIN SUCCINATE 5 MG TABLET PO (09:58)
[2023-02-24] MEDS: FLUTICASONE PROPIONATE 50 MCG NASAL SPRAY 1 SPRAY NS (09:58)
[2023-02-24] MEDS: TAMSULOSIN HCL 0.4 MG CAPSULE PO (09:58)
[2023-02-24] MEDS: ATENOLOL 50 MG TABLET PO (09:58)
[2023-02-24] MEDS: LEVOTHYROXINE SODIUM 125 MCG TABLET PO (09:58)
--- NOTE | 2023-02-24 10:00 | P.HP_ITS ---
H&P: HPI History of Present Illness Chief complaint: LEFT HAND UPPER INJURY Narrative: Patient presented to the emergency room after acute episode of left hand weakness. His able to move his thumb but not significantly. Much weaker than the right. No difficulty with speech no difficulty swallowing. Evaluation emergency room was essentially unremarkable other than slowly improving left hand weakness. Patient was discussed with telestroke team. 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 They would like given the symptoms he currently has. Work-up to be completed [facility] Medical History (Updated 02/24/23 @ 20:23 by Burke Cai MD) Meds Home Medications and Allergies Home Medications Medication Instructions Recorded Confirmed Type amlodipine 5 mg tablet 5 mg PO BID 02/23/23 02/23/23 History aspirin 81 mg capsule 81 mg PO DAILY 02/23/23 02/23/23 History atenolol 50 mg tablet 50 mg PO Q24H 02/23/23 02/23/23 History atorvastatin 40 mg tablet 40 mg PO DAILY 02/23/23 02/23/23 History cetirizine 10 mg tablet 10 mg PO DAILY 02/23/23 02/23/23 History fluticasone propionate 50 1 spray intranasal Q12H 02/23/23 02/23/23 History mcg/actuation nasal spray,suspension glipizide 10 mg tablet 10 mg PO BID 02/23/23 02/23/23 History levothyroxine 125 mcg tablet 125 mcg PO DAILY 02/23/23 02/23/23 History (Euthyrox) metformin 1,000 mg tablet 1,000 mg PO BID 02/23/23 02/23/23 History solifenacin 5 mg tablet 5 mg PO DAILY 02/23/23 02/23/23 History clopidogrel 75 mg tablet 75 mg PO QDAY #30 tabs 02/24/23 Rx insulin NPH-regular 70-30 U-100 25 unit subcut QAM 02/24/23 02/24/23 History insulin 100 unit/mL subcutaneous pen (Humulin 70/30 U-100 MarkPen) tamsulosin 0.4 mg capsule (Flomax) 0.4 mg PO BID 02/24/23 02/24/23 History Allergies Allergy/AdvReac Type Severity Reaction Status Date / Time No Known Drug Allergies Allergy Verified 02/23/23 19:34 Exam Constitutional Vital Signs, click to edit/add: Last Vital Signs Temp 97.7 F 02/24/23 07:37 Pulse 63 02/24/23 07:37 Resp 18 02/24/23 07:37 BP 156/87 H 02/24/23 07:37 Pulse Ox 96 02/24/23 07:37 O2 Del Method Room Air 02/24/23 07:37 Common normals: no apparent distress Chest Common normals: inspection of chest normal Respiratory Common normals: normal respiratory effort, no retractions and clear to auscultation bilaterally Cardio Common normals: regular rhythm and no murmurs Jugular venous distention: JVD and other GI Common normals: Normal to inspection, nondistended, normoactive bowel sounds present Neuro Common normals: oriented x3, CN's II-XII intact bilaterally and moves all extremities (Noted decreased resolute professional strength left hand. Some disc of the coordination as ) Results Labs Labs: Short CBC 02/23/23 Range/Units 19:49 WBC 9.2 (4.0-11.0) 10^3/uL Hgb 14.8 (14.0-18.0) g/dL Hct 44.2 (42.0-54.0) % Plt Count 149 L (150-450) 10^3/uL BMP 02/23/23 02/24/23 19:49 05:40 Sodium 138 141 Potassium 4.0 3.6 Chloride 102 105 Carbon Dioxide 27.7 28.8 BUN 14.0 12.0 Creatinine 1.20 1.15 Glucose 106 129 H Calcium 9.3 8.6 Liver Function 02/23/23 Range/Units 19:49 Total Bilirubin 0.6 (0.2-1.0) mg/dL AST 15 (15-37) U/L ALT 36 (16-63) U/L Alkaline Phosphatase 43 L (46-116) U/L Albumin 4.5 (3.4-5.0) g/dL Urine 02/23/23 Range/Units 19:45 Urine Color Lt. yellow (YELLOW) Urine Clarity Clear (CLEAR) Urine pH 6.5 (5.0-9.0) Ur Specific [place] <=1.005 A (1.005-1.025) Urine Protein Negative (NEG/TRACE) mg/dL Urine Glucose (UA) Negative (NEGATIVE) mg/dL ABG ABG results: 02/24/23 05:40 VBG pH 7.430 VBG pCO2 42.8 Assessment and Plan Assessment and Plan (1) Transient cerebral ischemia: (2) HTN (hypertension): (3) Diabetes: (4) Right frontal lobe lesion: Plan Patient seen and evaluated in the emergency room for left hand weakness this is slowly improving. Not back to normal yet but definitely improved from previous. 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 He was given loading dose of Plavix. Recommendation from telestroke team will be to maintain on aspirin and Plavix. And follow-up as an outpatient. Patient comfortable discharge to home. Discharge patient home in improving but not resolved condition. Medications see list. See PCP STEFANO.
[2023-02-24] MEDS: AMLODIPINE BESYLATE 5 MG TABLET PO (10:13)
[2023-02-24] MEDS: CLOPIDOGREL BISULFATE 75 MG TABLET PO (10:30)
[2023-02-24 12:25] LABS: Glucometer 238 mg/dL (74-106)
--- NOTE | 2023-02-24 16:08 | SWNOTE1 ---
SW met with pt to discuss dc needs. Pt lives at home with his . Pt does have a walker and cane at home, he does sometimes use his cane. Pt is not current with any Home health and he does not feel at this time he needs any therapy in the home. Pt lives in a 1 story home. At this time pt denies any discharge needs. SW to follow as needed. SW reviewed DAILEY form with pt, pt voiced understanding, no questions at this time. Pt signed form, original given to pt and copy placed on chart.
[2023-02-24 16:24] LABS: Glucometer 249 mg/dL (74-106)
[2023-02-24] MEDS: INSULIN ASPART 300 UNIT/3 ML PEN SUBQ (17:19)
--- NOTE | 2023-02-24 18:29 | CA_ITS ---
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
--- NOTE | 2023-03-02 15:35 | CM.DCFOLLOWU ---
Person spoke with: patient How are you feeling? well How is your pain? no pain Did you understand your discharge instructions? yes Do you have any questions about your discharge instructions? no Were you given any prescriptions at discharge? yes Were you able to get your prescriptions filled? yes Do you understand how to take your medications as ordered? yes Do you have any questions about your follow up appointment and do you plan to keep your follow up appointment? no questions, has follow up on Monday 03/05 Is there anything else that you would like to discuss? voiced concerns about his extended stay down in the ER and not having access to bathroom, except urinal. Questions/Comments/Concerns/Other:
== END 2023-02-24 20:00 | disposition home or self-care (01) ==
LOC: ER 21:54 → MS 02-24 07:23
PROVIDERS: Internal Medicine; Physician Assistant; Admitting Provider Family Medicine; Emergency Provider Emergency Medicine; PCP Internal Medicine; Visit Provider Family Medicine
DX: I63.9 Cerebral infarction, unspecified (principal); I65.22 Occlusion and stenosis of left carotid artery; E11.9 Type 2 diabetes mellitus without complications; I10 Essential (primary) hypertension; E78.5 Hyperlipidemia, unspecified; I51.7 Cardiomegaly; R53.1 Weakness; Z85.118 Personal history of other malignant neoplasm of bronchus and lung; Z79.82 Long term (current) use of aspirin; Z79.84 Long term (current) use of oral hypoglycemic drugs; Z79.890 Hormone replacement therapy; Z79.4 Long term (current) use of insulin
CPT/HCPCS: 36415; 70450; 70496; 70498; 70551; 71045; 80048; 80053; 81003; 82800; 82948; 83735; 84484; 85025; 85610; 85730; 92610; 93005; 93270; 93306; 93356; 97162; 99285; G0378; Q3014; Q9967

== ENCOUNTER 2024-03-20 21:10 | Emergency (ER) | payer OTHER, MEDICARE, SELFPAY ==
[2024-03-20 21:20] VITALS: BP 142/80; PULSE 87; TEMP 36.6; O2SAT 95; BMI 34.7
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
--- NOTE | 2024-03-20 21:32 | ECG_ITS ---
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
[2024-03-20 22:08] VITALS: BP 122/90; PULSE 88; O2SAT 97
[2024-03-20 22:13] LABS: Basophils Percent Auto 0.5 % (0.2-2.0); Eosinophils Absolute Auto 0.1 10^3/uL (0.0-0.7); Eosinophils Percent Auto 1.2 % (0.9-7.0); Hematocrit 39.8 % (42.0-54.0); Hemoglobin 13.3 g/dL (14.0-18.0); Immature Granulocytes Abs Auto 0.04 10^3/uL (0.00-0.03); Immature Granulocytes Pct Auto 0.6 % (0.0-0.5); Lymphocytes Absolute Auto 1.3 10^3/uL (1.2-3.8); Lymphocytes Percent Auto 20.3 % (20.5-60.0); Mean Corpuscular HGB Conc 33.4 g/dL (29.9-35.2); Mean Corpuscular Hemoglobin 31.4 pg (25.9-34.0); Mean Corpuscular Volume 93.9 fL (80.0-94.0); Mean Platelet Volume 10.3 fL (9.5-13.5); Monocytes Absolute Auto 0.5 10^3/uL (0.3-0.8); Monocytes Percent Auto 7.4 % (1.7-12.0); Neutrophils Absolute Auto 4.6 10^3/uL (1.4-6.5); Platelet Count 139 10^3/uL (150-450); Red Blood Count 4.24 10^6/uL (4.70-6.10); Red Cell Distribution Width 14.1 % (11.0-15.0); White Blood Count 6.6 10^3/uL (4.0-11.0)
[2024-03-20] MEDS: ONDANSETRON PF 4 MG/2 ML VIAL IV (22:14)
[2024-03-20] MEDS: 0.9 % SODIUM CHLORIDE 1,000 ML 125 ML IV (22:14)
[2024-03-20] MEDS: MORPHINE SULFATE 4 MG/ML VIAL IV (22:23)
[2024-03-20 22:32] LABS: Alanine Aminotransferase 27 U/L (16-63); Albumin Globulin Ratio 1.3; Albumin Level 3.7 g/dL (3.4-5.0); Alkaline Phosphatase 46 U/L (46-116); Anion Gap 13.8; Aspartate Amino Transferase 8 U/L (15-37); BUN Creatinine Ratio 10.9; Bilirubin Total 0.6 mg/dL (0.2-1.0); Calcium 8.8 mg/dL (8.5-10.1); Carbon Dioxide 29.2 mmol/L (21.0-32.0); Chloride 98 mmol/L (98-107); Estimated GFR (African America >60 (>=60); Estimated GFR (Non-African Ame 55 (>=60); Globulin 2.8 g/dL; Glucose 178 mg/dL (74-106); Sodium 137 mmol/L (136-145); Total Protein 6.5 g/dL (6.4-8.2)
[2024-03-20 22:34] LABS: Troponin I High Sensitivity 9.3 pg/mL (4.0-76.1)
[2024-03-20] MEDS: ADACEL DIPH,PERTUSS(ACELL),TET VAC/PF 0.5 ML ADULT SYRINGE IM (23:05)
[2024-03-20] MEDS: 0.9 % SODIUM CHLORIDE 500 ML IV (23:19)
[2024-03-21] MEDS: BACITRACIN OINTMENT 28.4 GM TUBE 1 APPLIC TOPICAL (01:24)
[2024-03-21] MEDS: HYDROCODONE/ACET 5-325 MG TABLET 2 TAB PO (01:44)
== END 2024-03-21 02:00 | disposition home or self-care (01) ==
PROVIDERS: Emergency Provider Emergency Medicine; PCP Internal Medicine
DX: S20.212A Contusion of left front wall of thorax, initial encounter (principal); S30.1XXA Contusion of abdominal wall, initial encounter; S80.12XA Contusion of left lower leg, initial encounter; S80.11XA Contusion of right lower leg, initial encounter; M54.6 Pain in thoracic spine; M54.50 Low back pain, unspecified; V43.52XA Car driver injured in collision with other type car in traffic accident, initial encounter; E66.9 Obesity, unspecified; Z68.34 Body mass index [BMI] 34.0-34.9, adult; Z86.73 Personal history of transient ischemic attack (TIA), and cerebral infarction without residual deficits; Z23 Encounter for immunization
CPT/HCPCS: 36415; 71260; 72128; 72131; 73070; 73590; 74177; 80053; 84484; 85025; 90471; 90715; 93005; 96374; 96375; 99285; J2270; J2405; Q9967

== ENCOUNTER 2024-09-11 09:48 | Outpatient (OUT) | payer MEDICARE, OTHER, SELFPAY ==
--- NOTE | 2024-09-11 09:58 | XR_ITS ---
The [address] [address] Patient Name: JERONIMO GOMEZ MRN: [id number] date: 1950 Sex: M Assigned Patient Location: [facility] Current Patient Location: [facility] Accession/Order Number: [id number] Exam Date: 09/11/2024 10:00 Report Date: 09/11/2024 14:11 At the request of: FAYE MIRANDA Procedure: XR chest 2V EXAM: XR chest 2V HISTORY: Community Acquired Pneumonia due to Influenza A COMPARISON: 02/23/2023 TECHNIQUE: Upright PA and lateral chest x-ray FINDINGS: The heart is near the upper limits of normal in size. The vasculature is not distended. No acute infiltrate, effusion or pneumothorax is identified. Degenerative changes are seen in the spine, the osseous structures are grossly intact. XR/XR chest 2V IMPRESSION: No acute infiltrate or evidence of cardiac decompensation. The overall appearance of the chest is essentially unchanged. Electronically authenticated by: DAMI CADET Date: 09/11/2024 14:11
== END 2024-09-11 09:49 | disposition home or self-care (01) ==
LOC: RAD 09:51
DX: J09.X1 Influenza due to identified novel influenza A virus with pneumonia (principal)
CPT/HCPCS: 71046

== ENCOUNTER 2025-04-09 10:08 | Outpatient (OUT) | payer MEDICARE, SELFPAY ==
--- OUTSIDE RECORDS SUMMARY | 2025-03-28 14:00 | XMS_ITS | Encounter Summary ---
Author Organization [facility] Address [address] [place] [address] Care Team Providers Care Doctor Of Osteopathy Name Role Phone Tami Navarro WHITE GOODS APPLIANCE TECH.COOLING TOWER OPERATOR Unavailable [phone] Lizzy Stark RN Unavailable [phone] Shaikh MAVIS Dickerson Primary Care Provider [phone] Axel Liz MD Unavailable [phone] Source Comments In the event this information is protected by the Federal Confidentiality of Alcohol and Drug AbusePatient Records regulations: The Federal rules restrict any use of the information to criminally investigate or prosecute any alcohol or drug abuse patient.[facility] Reason for Referral * MRI/CT (Routine) - New Request Specialty Diagnoses / Procedures Referred By Contac t Referred To Contact CT IMAGING Diagnoses 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) Procedures CT CHEST W IVCON DIAGNOSTIC COMPUTED TOMOGRAPHY THORAX W/CONTRAST Axel Liz MD [address] [place] [address] [place] [address] Phone: tel: fax: [place] [phone] Referral ID Status Reason Start Date Expiration Date Visits Requested Visits Authorized [id number] New Request Auto-Generat ed Referral 03/27/2026 04/27/2026 1 1 Reason for Visit * Reason Comments Lung Cancer KEY Encounter Details Date Type Department Care Team (Latest Contact Info) Description 03/28/2025 2:00 PM EDT Visit (SP) Office Hematology/Oncology [address] [address] [place] [address] Axel Liz MD [address] [place] [address] [place] [address] 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) (Primary Dx); Malignant neoplasm of upper lobe, right bronchus or lung (HCC); Personal history of malignant neoplasm of prostate; Pneumonitis due to inhalation of other solids and liquids (HCC) Social History Tobacco Use Types Packs/Day Years Used Date Smoking Tobacco: Former Passive Smoke Exposure: Past Smokeless Tobacco: Never Comments:during high school Alcohol Use Standard Drinks/Week Comments No 0 (1 standard drink = 0.6 oz pur e alcohol) PHQ-2 Answer Date Recorded PHQ-2 score 0 03/16/2024 Area Deprivation Index Answer Date Juan rded National Score (1-100), lower number is lower ri sk 94 03/18/2023 State Score (1-10), lower number is lower risk 9 03/18/2023 Data from: https://www.neighborhoodatlas.medicine.[facility].edu/. Last address used for calculation [address] 03/18/2023 Sex and Gender Information Value Date Recorded Sex Assigned at Not on file Legal Sex Male 10:13 AM EST Gender Identity Not on file Sexual Orientation Not on file documented as of this encounter Last Filed Vital Signs Vital Sign Reading Time Taken Comments Blood Pressure 129/72 03/28/2025 1:58 PM EDT Pulse 72 03/28/2025 1:58 PM EDT Temperature 36.3 C (97.3 F) 03/28/2025 1:58 PM EDT Respiratory Rate 16 03/28/2025 1:58 PM EDT Oxygen Saturation 96% 03/28/2025 1:58 PM EDT Inhaled Oxygen Concentration - - Weight 107.2 kg (236 lb 5.3 oz) 03/28/2025 1:58 PM EDT Height 175 cm (5' 8.9 ) 03/28/2025 1:58 PM EDT Body Mass Index 35 03/28/2025 1:58 PM EDT documented in this encounter Patient Instructions * Patient Instructions* Axel Liz MD - 03/28/2025 2:[address] scans with labs in 51 weeks RTC in 52 weeks. documented in this encounter Progress Notes * Axel Liz MD - 03/28/2025 2:00 PM EDT Images from the original note were not included. NAME: Harrison Rinaldi [facility] NO.: [id number] DATE OF SERVICE: March 28, 2025 (Agusto) Some elements in this clinic note that are critical to medical decision making have been carefully reviewed and included from a prior clinic note dated: March 16, 2024 (Agusto) Referring Provider: Additional Clinicians involved in Harrison Rinaldi's care: Dr. Shaikh Dickerson (PCP in [place]), Dr. Alexander, Dr. Barrett, Dr. Morin DIAGNOSIS: NSCLCA Stage IV - NEL. CASE SUMMARY / ASSESSMENT: 75 year old man with. 1. 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 The patient presented with recurrent postobstructive pneumonia, and his baseline chest CT scan revealed a right lower lobe mass and suspicious mediastinal adenopathy. He underwent a bronchoscopy on 02/09/2018 and was found to have a mass in the right lower lobe bronchus, biopsy proven to be squamous cell carcinoma. PET scan obtained 03/02/2018 revealed a large right lung mass, mediastinal adenopathy, and a separate right paraspinal mass. CT directed biopsy of the right paraspinal mass 03/09/2018 revealed squamous cell carcinoma consistent with metastatic disease. Systemic therapy with carboplatin, taxol and pembrolizumab started 03/17/2018. The patient improved significantly after starting treatment. He had an apparent Taxol reaction after cycle 3. With cycle 4 the Taxol was changed to Abraxane. He received his fourth cycle of chemotherapy on 05/19/2018. Follow-up PET scan 06/02/2018 significantly improved. The patient subsequently received involved field radiation to the right lower lung, right hilar/precarinal area, and right paraspinal mass 07/04/18-07/25/18. The patient was started on maintenance pembrolizumab every 3 weeks on 06/09/2018. He had been tolerating pembrolizumab well and last received it on 05/12/2019. He subsequently developed cough with hypoxia, and his chest CT obtained 05/29/2019 revealed interval development of extensive patchy groundglass opacity throughout both lungs suspicious for immunotherapy induced pneumonitis. It was elected to discontinue pembrolizumab after his April 2019 infusion. Since then the patient has remained clinically stable with no evidence of disease recurrence. Most recent chest CT 03/09/2024 stable. At this time would recommend continued routine surveillance. Per patient request we will continue to see him on a yearly basis for follow-up, to include a yearly chest CT and labs. 2. Type 2 diabetes mellitus (HCC) - ICD9: 250.00, ICD10: E11.9 Currently stable. Continue medications per PCP/endocrinology. 3. Essential hypertension - ICD9: 401.9, ICD10: I10 Currently stable. Continue medications per PCP. 4. History of prostate cancer - ICD9: V10.46, ICD10: Z85.46 Diagnosed 2008. Status post seed implant with complete remission. No evidence of recurrence since. Continue follow-up with urology as indicated. 5. Chronic right knee arthritis Right total knee replacement 10/24/[address] Fajardo. 6. Hypothyroidism - ICD9: 244.9, ICD10: E03.9 Acquired hypothyroidism diagnosed July 2018, most likely secondary to pembrolizumab. Synthroid started at the time of diagnosis, with dose escalation as indicated. Currently on Synthroid 125 ??g daily. We will monitor the patient's TFTs and adjust accordingly. 7. Chronic lower back pain The patient has a long history of lower back pain, most likely secondary to spinal stenosis and unrelated to his lung cancer and treatment. Continue management per PCP/neurosurgery. 8. Acute CVA On 02/24/2023 the patient presented with acute left hand weakness and was diagnosed with an acute CVA. He was initially seen at [place] emergency room and transferred to [facility] for further management. Apparently intervention was not recommended and he was started on antiplatelet agents. With therapy his symptoms resolved. Continue management per PCP/neurology. SUMMARIZED PLAN OF CARE: CT scans with labs in 51 weeks RTC in 52 weeks. AI Assisted A/P: 1. 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) (C34.91) 2. Malignant neoplasm of upper lobe, right bronchus or lung (HCC) (C34.11) 3. Pneumonitis due to inhalation of other solids and liquids (HCC) (J69.8) Completed pembrolizumab infusions in 2019, with subsequent development of pneumonitis. Most recent CT scan demonstrates a stable 1.5 cm right lower lobe patchy opacity and additional subcentimeter nodular opacities (<5 mm), unchanged since 2019. Right parahilar opacities are most likely post-radiation changes. No evidence of disease progression. - Continue annual follow-up. - Discussed rationale for ongoing surveillance given history of stage IV disease. 4. Personal history of malignant neoplasm of prostate (Z85.46) History of prostate cancer diagnosed in 2008, managed with radiation therapy by Dr. Caraballo; ongoingsurveillance by Dr. Marquez. - Continue routine follow-up with Dr. Marquez. CASE HISTORY: Reverse Chronological Order 03/20/2025 - CT Chest: 1. No interval change since 03/09/24. 2. 1.5 cm right lower lobe patchy opacity and additional subcentimeter nodular opacities measuring less than 5 mm , stable. 3. Right perihilar opacities most likely related to post radiation change and other infectious/inflammatory etiologies, stable. 03/09/2024 CT chest: 1. No interval change since 03/11/23. 2. 1.6 cm right lower lobe patchy opacity and additional subcentimeter nodular opacities measuring less than 5 mm. 3. Right perihilar opacities most likely related to post radiation change and other infectious/inflammatory etiologies, stable. 03/11/2023 CT CHEST: 1. 1.8 cm nodular opacity at the right lower lobe is stable from prior examination of . Additional bilateral subcentimeter pulmonary nodules, unchanged. 2. Right perihilar opacities, stable. 3. No substantial intrathoracic adenopathy is identified. 09/10/2022 CT chest: 1. Stable appearance of 1.9 cm nodular opacity in the posterior right lower lobe. Additional bilateral nodular opacities also appear unchanged. No new or enlarging nodules are visualized. 2. Increasing consolidative opacity in the right perihilar and infrahilar regions, likely on the basis of evolving posttreatment change. 3. No evidence of bulky intrathoracic lymphadenopathy. 03/09/2022 CT brain: No evidence of enhancing intracranial lesion to suggest metastasis. 03/09/2022 CT CAP: 1. Dominant, 1.9 cm right lower lobe nodular opacity is again appreciated, stable from the prior summation of 09/10/2021, slightly more conspicuous in size from the more remote examination of 11/17/2019. Correlation with continued follow-up summations is recommended. 2. Numerous additional bilateral subcentimeter pulmonary nodules, unchanged. 3. No substantial intrathoracic adenopathy is identified. Stable CT examination of the abdomen and pelvis, without evidence for metastatic disease. 09/10/2021 CT CAP: 1. The dominant, 1.9 cm right lower lobe nodular opacity appears stable from prior study of 03/14/2021. 2. Persistent right perihilar airspace opacities, soft tissue prominence at the right infrahilar region, unchanged. Stable examination of the abdomen and pelvis, without CT evidence for metastatic disease. 03/14/2021 CT CAP: 1. 1.8 cm right lower lobe patchy opacity and additional subcentimeter nodular opacities measuring less than 5 mm, stable since 09/09/20. 2. Right perihilar opacities most likely related to post radiation change and other infectious/inflammatory etiologies, stable. 3. Mild groundglass opacities in bi lateral lung tobin, decreased. Consider follow-up to complete resolution. 1. No evidence of intra-abdominal/pelvic metastases. No interval change since 09/09/2020. 2. Diffuse colonic diverticulosis without evidence of diverticulitis. 3. Persistent subtle mucosal enhancement of the urinary bladder wall is suggestive of a cystitis. 12/19/[address] ([facility]): No acute intracranial abnormalities 09/09/2020 CT CAP: 1. Stable appearance of the 1.9 cm right lower lobe nodule. 2. Slight interval increase in size of a left lower lobe nodule which now measures 4 mm in size. Other previously visualized subcentimeter nodules are stable. No new nodules are visualized. 3. No evidence of bulky intrathoracic adenopathy.4. New patchy groundglass opacity noted throughout both lungs, possibly infectious/inflammatory in nature. 1. Stable CT of the abdomen and pelvis. No definite findings to suggest metastatic disease in the abdomen or pelvis. 2. Hepatic steatosis. 3. Colonic diverticulosis without evidence of diverticulitis. 03/11/2020 CT CAP 1. 1.9 cm right lower lobe patchy opacity and additional subcentimeter nodular opacities measuring is a 5 mm, stable since 11/17/2019. 2. Right perihilar opacities most likely related to post radiation change and other infectious/inflammatory etiologies, stable. 3. Mild groundglass opacities in leftlower lobe, decreased. 4. No evidence of new intrathoracic abnormalities. 1. No evidence of intra-abdominal/pelvic metastases. No interval change since 11/17/2019. 2. Diffusecolonic diverticulosis without evidence of diverticulitis. 01/19/2019 PET SCAN: 1. Neck: No suspicious hypermetabolic foci 2. Chest: Relatively stable right hilar/infrahilar soft tissue prominence with mild activity. Relatively stable right lower lobe lung nodule with mild activity with adjacent mildly active consolidative changes. 3. Abdomen and pelvis: No evidence of FDG avid metastases 4. Skeleton: No hypermetabolic osseous lesions. 07/11/2018 CT BRAIN: No new/acute intracranial pathology or abnormal enhancement. 06/02/2018 PET SCAN: 1. NECK: * No FDG avid neoplastic process.. 2. CHEST: * No new hypermetabolic lesions. Interval decreased in size and FDG uptake of previously noted right in infrahilar lung mass and subcarinal lymphadenopathy with mild residual FDG activity at the intensity level of the mediastinal blood pool background. * Previously noted hypermetabolic right lung base infiltrate have significantly decreased in size and FDG activity. Now appears as a 1.6x 1 cm nodule with minimal FDG activity. 3. ABDOMEN/PELVIS: * No FDG avid neoplastic process. 4. EXTREMITIES/SKELETON:* No suspicious FDG avid osseous lesion. HPI: Updated Visit, March 28, 2025: Alone today - also complains of productive cough. On 04/2019, patient with a history of prostate cancer diagnosed in 2008, was diagnosed with stage IV lung cancer. He was treated with pembrolizumab from 2018 to 2019, which resulted in pneumonitis. He completed his infusions in 2019, and since then, his condition has remained stable. A CT scan performed on 03/09/2024 showed no changes since 2019. A recent scan from a few weeks ago revealed a 1.5 cm right lower lobe patchy opacity and additional subcentimeter nodular opacities measuring less than 5 mm, both of which were stable. Opacities in the right parahilar region were noted, likely due to radiation changes. Patient's father from lung cancer in 2000 at the age of 73. 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 (Today???s Transcript does discuss diagnostic tests, so we will list them.) - CT Scan (most recent, date not provided): No interval change. 1.5 cm right lower lobe patchy opacity and additional subcentimeter nodular opacities (<5 mm), both stable. Right parahilar region opacities likely due to prior radiation. - (03/09/2024) CT Scan: No changes since 2019. Updated Visit, March 16, 2024 (Germain): This is a 74 year old male with a history of metastatic lung cancer, seen for scheduled follow-up. Since the patient's last visit here he has had no significant medical changes. He denies any unusualpain. No significant cough, shortness of breath, or other pulmonary symptoms. 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 He remains very active doing his hobbies and work around his house. REVIEW OF SYSTEMS Per HPI and otherwise negative by full review of organ systems. ECOG PERFORMANCE STATUS: 0 PHYSICAL EXAMINATION: Vitals: BP 129/72 Pulse 72 Temp (Src) 97.3 (Temporal) Resp 16 Ht 5' 8.898 (1.75m) Wt 236lb 5.3 oz (107.2kg) SpO2 96% BMI 35.00 kg/(m^2). Body surface area is 2.28 meters squared. Exam limited to gross visualization where appropriate. Gen.: This is an age-appropriate patient in no acute distress. Head: Appears atraumatic with no visible lesions. Eyes: Pupils equally round and reactive to light, extraocular muscles are intact. Neck: Supple. Respiratory: Appears to be respiring comfortably. Neurologic: Nonfocal to gross visualization. Alert and oriented ??3. Psychiatric: No evidence of inappropriate anxiety or depression. Skin: Visible areas of skin without rash, lesions, wounds or petechiae. ALLERGIES: ALLERGIES No Known Allergies MEDICATIONS: clopidogrel (PLAVIX) 75 mg tablet Take 75 mg by mouth. levothyroxine (SYNTHROID) 125 mcg tablet Take 1 tablet by mouth once daily. aspirin (ASPIR-81 ORAL) Take 81 mg by mouth once daily. solifenacin 10 mg tablet Take 10 mg by mouth once daily. glipiZIDE (GLUCOTROL) 5 mg tablet Take 10 mg by mouth twice daily. atorvastatin (LIPITOR) 20 mg tablet atorvastatin 20 mg tablet TAKE 1 TABLET BY MOUTH ONE TIME A DAY diclofenac, EC, (VOLTAREN) 75 mg EC tablet Take 75 mg by mouth twice daily. tamsulosin (FLOMAX) 0.4 mg Take 0.4 mg by mouth twice daily. atenolol (TENORMIN) 50 mg tablet Take 50 mg by mouth daily at bedtime. metFORMIN (GLUCOPHAGE) 500 mg tablet Take 500 mg by mouth twice daily with meals. amLODIPine (NORVASC) 5 mg tablet Take 5 mg by mouth once daily. insulin NPH-insulin regular injection (HumuLIN, NovoLIN 70/30) Inject subcutaneously twice daily with meals. albuterol HFA (VENTOLIN HFA) 90 mcg/actuation inhaler Inhale 2 Puffs as instructed. Cetirizine 10 mg cap Take by mouth. FISH OIL-DHA-EPA ORAL Take by mouth. fluticasone (FLONASE) 50 mcg/actuation nasal spray Use 1 [place] in each nostril once daily. lansoprazole (PREVACID) 15 mg capsule Take 15 mg by mouth every other day. iv contrast (will be provided with radiology test) CT Chest W -Inject, intravenously, once for 1 dose.No IV access, insert saline lock prior to the beginning of sedation, infusion, injection of imaging exam. Discontinue saline lock post exam. If Pt. has a central line or IVAD, may access for administration according to line specific nursing protocol. Once exam is complete flush line and de-accessaccording to line specific nursing protocol in the CT contrast administration guidelines link. amoxicillin-clavulanate potassium (AUGMENTIN) 875-125 mg per tablet Take 1 tablet by mouth every 12hours for 10 days. LABORATORY VALUES: WBC (k/uL) Date Value 03/20/2025 6.28 RBC (m/uL) Date Value 03/20/2025 4.37 Hemoglobin (g/dL) Date Value 03/20/2025 13.9 Hematocrit (%) Date Value 03/20/2025 41.2 MCV (fL) Date Value 03/20/2025 94.3 MCH (pg) Date Value 03/20/2025 31.8 MCHC (g/dL) Date Value 03/20/2025 33.7 RDW-CV (%) Date Value 03/20/2025 13.9 Platelet Count (k/uL) Date Value 03/20/2025 151 MPV (fL) Date Value 03/20/2025 9.5 Glucose (mg/dL) Date Value 03/20/2025 207 (H) BUN (mg/dL) Date Value 03/20/2025 13 Creatinine (mg/dL) Date Value 03/20/2025 0.99 Sodium (mmol/L) Date Value 03/20/2025 136 Potassium (mmol/L) Date Value 03/20/2025 4.6 Chloride (mmol/L) Date Value 03/20/2025 98 CO2 (mmol/L) Date Value 03/20/2025 27 Protein, Total (g/dL) Date Value 03/20/2025 6.4 Albumin (g/dL) Date Value 03/20/2025 4.3 Calcium, Total (mg/dL) Date Value 03/20/2025 9.9 Alkaline Phosphatase (U/L) Date Value 03/20/2025 61 Bilirubin, Total (mg/dL) Date Value 03/20/2025 0.6 AST (U/L) Date Value 03/20/2025 13 (L) ALT (U/L) Date Value 03/20/2025 17 Cholesterol, Total (mg/dL) Date Value 12/27/2024 117 Triglyceride (mg/dL) Date Value 12/27/2024 87 DIAGNOSIS: (C34.91) 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) (primary encounter diagnosis) Plan: CT CHEST W IVCON, iv contrast (will be provided with radiology test), COMPLETE BLOOD COUNT AND DIFFERENTIAL, COMPREHENSIVE METABOLIC PANEL (C34.11) Malignant neoplasm of upper lobe, right bronchus or lung (HCC) (Z85.46) Personal history of malignant neoplasm of prostate (J69.8) Pneumonitis due to inhalation of other solids and liquids (HCC) PAST MEDICAL HISTORY Diagnosis Date Carotid artery occlusion COVID Diabetes (HCC) type 1 History of prostate cancer Hyperlipidemia Hypertension Lung mass Squamous cell carcinoma Stroke (HCC) PAST SURGICAL HISTORY Procedure Laterality Date BRONCHOSCOPY PAST SURGICAL HISTORY OF Right 03/05/2023 Angioplasty-Rt stent SOCIAL HISTORY[1] FAMILY HISTORY Problem Relation Age of Onset other (lung cancer) Father I spent a total of 30 minutes on the date of service which included preparing to see the patient, [id number] patient care, completing clinical documentation, obtaining and/or reviewing separately obtained history, performing a medically appropriate examination, counseling and educating the patient/family/caregiver, ordering medications, tests, or procedures, independently interpreting results (not separately reported), communicating results to the patient/family/caregiver, and care coordination (not separately reported). Axel Liz MD, CPE Hematology and Oncology Services Provided at: [place], [place] CC: Abdoulaye Groves ([facility]) Shaikh Jayla MD [address] [address] [1] Social History Tobacco Use Smoking status: Former Passive exposure: Past Smokeless tobacco: Never Tobacco comments: during high school Vaping Use Vaping status: Never Used Substance Use Topics Alcohol use: No Drug use: Never documented in this encounter Plan of Treatment Upcoming Encounters Date Type Department Care Team (Latest Contact Info) Description 03/27/2026 1:45 PM EDT Appointment Radiology Pet CT [address] [address] [place] [address] Ct Chest with contrast 04/03/2026 2:00 PM EDT Visit (SP) Office Hematology/Oncology [address] [place] [address] Axel Liz MD [address] [place] [address] [place] [address] 1 year follow up Scheduled Orders Name Type Priority Associated Diagnoses Orde r Schedule CT CHEST W IVCON Radiology Routine 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) Expected: 03/27/2026 (Approximate), Expires: 04/27/2026 COMPLETE BLOOD COUNT AND DIFFERENTIAL Lab Routine 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) Expected: 03/27/2026 (Approximate), Expires: 03/28/2026 COMPREHENSIVE METABOLIC PANEL Lab Routine 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) Expected: 03/27/2026 (Approximate), Expires: 03/28/2026 documented as of this encounter Visit Diagnoses Diagnosis 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)- Primary Malignant neoplasm of upper lobe, right bronchus or lung (HCC) Personal history of malignant neoplasm of prostate Pneumonitis due to inhalation of other solids and liquids (HCC) documented in this encounter Care Teams Doctor Of Osteopathy Relationship Specialty Start Date End Date Shaikh Dickerson MD [address] [place] [address] PCP - General Primary Care 09/17/21 Tami Navarro APRN.COOLING TOWER OPERATOR [address] [place] [address] [place] [address] Nurse Practitioner Hematology/Oncology 03/11/18 Lizzy Stark, RN [address] [place] [address] Specialty Thermoforming Machine Operator Hematology/Oncology 03/09/19 Axel Liz MD [address] [facility] [address] [place] [address] Physician Hematology/Oncology 01/29/25 documented as of this encounter
--- OUTSIDE RECORDS SUMMARY | 2025-04-09 10:10 | XMS_ITS | Encounter Summary ---
Author Organization [facility] Address [address] [place] [address] Care Team Providers Care Oven Attendant Name Role Phone Kiran Terrell MD Primary Care Provider [phone] Susy Dickson HYBRID TECHNOLOGIST Unavailable [phone] Ravin Carr MD Primary Care Provider [phone] Encounter Details Date Type Department Care Team (Late st Contact Info) Description 03/17/2024 Orders Only [facility] [address] [place] [address] Shaikh Dickerson MD [address] [place] [address] Social History Tobacco Use Types Packs/Day Years Used Date Smoking Tobacco: Never Passive Smoke Exposure: Never Smokeless Tobacco: Never Alcohol Use Standard Drinks/Week Comments Never 0 (1 standard drink = 0.6 oz pur e alcohol) caffeine: 1-2 cups/day Humiliation, Afraid, Rape, and Kick questionnair e Answer Date Recorded Within the last year, have y ou been afraid of your partner or ex-partner? No 06/28/2023 Within the last year, have y ou been humiliated or emotionally abused in other ways by your partner or ex-partner? No Within the last year, have y ou been kicked, hit, slapped, or otherwise physically hurt by your partner or ex-partner? No 06/28/2023 Within the last year, have y ou been raped or forced to have any kind of sexual activity by your partner or ex-partner? No 06/28/2023 Social Connection and Isolat ion Panel [NHANES] Answer Date Recorded In a typical week, how many times do you talk on the phone with family, friends, or neighbors? Twice a week 06/28/2023 How often do you get togethe r with friends or relatives? Twice a week 06/28/2023 How often do you attend chur or orthodoxy services? More than 4 times per year 06/28/2023 Do you belong to any clubs o r organizations such as holiness groups, unions, fraternal or athletic groups, or school groups? Yes 06/28/2023 How often do you attend meet ings of the clubs or organizations you belong to? More than 4 times per year 06/28/2023 Are you , , di vorced, , never , or living with a partner? 06/28/2023 AUDIT-C Answer Date Recorded Q1: How often do you have a drink containing alcohol? Never 06/28/2023 Q2: How many drinks containi ng alcohol do you have on a typical day when you are drinking? Patient does not drink Q3: How often do you have si x or more drinks on one occasion? Never 06/28/2023 Overall Financial Resource Strain (CARDIA) Answe r Date Recorded How hard is it for you to pa y for the very basics like food, housing, medical care, and heating? Somewhat hard 06/28/2023 PHQ-2 Answer Date Recorded Patient Health Questionnaire-2 Score 0 01/03/2024 [facility] - Occupational Stress Questionnaire Answer Date Recorded Do you feel stress - tense, restless, nervous, or anxious, or unable to sleep at night because your mind is troubled all the time - these days? Only a little 06/28/2023 Exercise Vital Sign Answer Date Recorde d On average, how many days pe r week do you engage in moderate to strenuous exercise (like a brisk walk)? 3 days 06/28/2023 On average, how many minutes do you engage in exercise at this level? 30 min 06/28/2023 Hunger Vital Sign Answer Date Recorded Within the past 12 months, y ou worried that your food would run out before you got the money to buy more. Never true 06/28/20 Within the past 12 months, t he food you bought just didn't last and you didn't have money to get more. Never true 06/28/2023 PRAPARE - Transportation Answer Date Re corded In the past 12 months, has l ack of transportation kept you from medical appointments or from getting medications? No 10/2022 In the past 12 months, has l ack of transportation kept you from meetings, work, or from getting things needed for daily living? No 06/28/2023 Housing Stability Vital Sign Answer Alberto e Recorded In the last 12 months, was t here a time when you were not able to pay the mortgage or rent on time? No 06/28/2023 Number of Places Lived in the Last Year Not on f ile 06/28/2023 In the last 12 months, was t here a time when you did not have a steady place to sleep or slept in a fci (including now)? No 06/28/2023 Sex and Gender Information Value Date Recorded Sex Assigned at Not on file Legal Sex Male 7:34 PM EDT Gender Identity Not on file Sexual Orientation Not on file documented as of this encounter Plan of Treatment Upcoming Encounters Date Type Department Care Team (Late st Contact Info) Description 08/02/2025 1:45 PM EST Procedure Visit [facility] [address] [place] [address] Anne Lux, DPRalph [address] [place] [address] documented as of this encounter Procedures Procedure Name Priority Date/Time Associated Diagnosis Comments SCANNED LABS Routine 03/17/2024 9:32 AM EDT SCANNED LABS Routine 03/17/2024 8:03 AM EDT documented in this encounter Results * SCANNED LABS (03/17/2024 9:32 AM EDT) us [facility]G PERFORMABLES Final Resu lt * SCANNED LABS (03/17/2024 8:03 AM EDT) us [facility]G PERFORM[facility]LES Final Resu lt documented in this encounter Visit Diagnoses Not on filedocumented in this encounter Care Teams Oven Attendant Relationship Specialty Start Date End Date Kiran Terrell MD PCP - General Family Medicine 03/02/24 11/13/24 Ravin Crar MD [address] [place] [address] PCP - General Family Medicine 11/14/24 Susy Dickson NP Nurse Practitioner Family Medicine 03/02/24 11/13/24 documented as of this encounter
--- OUTSIDE RECORDS SUMMARY | 2025-04-09 10:10 | XMS_ITS | Clinical Summary ---
Author Organization [facility] Address [address] [place] [address] Care Team Providers Care Cornice Maker Name Role Phone Ravin Carr MD Primary Care Provider [phone] Allergies Active Allergy Reactions Criticality Noted Date Comments Dust Mite Extract Shortness of breath High 3 Molds & Smuts Shortness of breath High 03/02/2023 Medications aspirin 81 MG EC tablet as directed Orally Active fluticasone (Flonase) 50 MCG/ACT nasal spray instill 2 (TWO) spray IN EACH NOSTRIL DAILY Active insulin NPH-insulin regular (NovoLIN 70/30) (70-30) 100 UNIT/ML injection Inject 25 Units under the skin in the morning and 25 Units in the evening. Inject before meals. Active lansoprazole (Prevacid) [address] capsule 1 capsule 1 (one) time each day at the same time. Active Flomax 0.4 MG 24 hr capsule 1 capsule 1 (one) time each day at the same time. Active Multiple Vitamins-Minerals (CENTRUM SILVER 50+MEN PO) Take 1 tablet by mouth in the morning. 3 Active Insulin Syringe 31G X 12/08 0.5 ML misc Inject 1 Syringe under the skin 4 (four) times a day as needed. Active ascorbic acid (Vitamin C) 500 MG tablet Take 1 tablet by mouth in the morning. Active solifenacin (VESIcare) 10 MG tablet Take 1 tablet by mouth in the morning. Swallow tablet whole; do not crush, chew, or split.. Active loratadine (Claritin) 10 MG tablet Take by mouth Active levothyroxine (Synthroid) 137 MCG tabletIndications: Hypothyroidism, adult Take 137 mcg by mouth in the morning. Take before meals. 90 tablet 1 4 Active metFORMIN (Glucophage) 1000 MG tabletIndications: Type 2 diabetes mellitus with hyperglycemia (HCC) Take 1 tablet (1,000 mg) by mouth in the morning and 1 tablet (1,000 mg) before bedtime. 180 tablet 1 4 Active glipiZIDE (Glucotrol) 10 MG tabletIndications: Type 2 diabetes mellitus with hyperglycemia (HCC) Take 1 tablet (10 mg) by mouth in the morning and 1 tablet (10 mg) before bedtime. 180 tablet 1 4 Active atenolol (Tenormin) 50 MG tabletIndications: Essential (primary) hypertension TAKE 1 TABLET BY MOUTH DAILY 90 tablet 4 Active amLODIPine (Norvasc) 5 MG tabletIndications: Essential (primary) hypertension Take 1 tablet (5 mg) by mouth Daily 90 tablet 1 4 Active clopidogrel (Plavix) 75 MG tabletIndications: H/O: CVA (cerebrovascular accident) Take 1 tablet (75 mg) by mouth Daily 90 tablet 5 Active atorvastatin (Lipitor) 40 MG tabletIndications: Hyperlipidemia, unspecified TAKE 1 TABLET BY MOUTH DAILY 90 tablet 5 Active albuterol HFA 90 mcg/act inhaler Inhale 2 puffs every 4 (four) hours if needed 5 Active benzonatate (Tessalon) 100 MG capsule Take 100 mg by mouth in the morning and 100 mg in the evening and 100 mg before bedtime. 5 Active Active Problems Problem Noted Date Diagnosed Date Community acquired pneumonia due to influenza A virus 09/11/2024 Assessment & Plan (09/11/2024 9:43 AM EST): Went to urgent care on 09/06/2024 for influenza A symptoms. CXR was done. Showed pneumonia. Was treated with Azithromycin and prednisone. Completed course of both. Was given tessalon pearles for cough Admits: Mild cough intermittently Post nasal drip Wheezing noted to lungs bilaterally. Will order repeat CXR today and tx accordingly. Continue Flonase/Claritin/Tessalon Perles/albuterol PRN. Status post total right knee replacement 024 Benign prostatic hyperplasia (BPH) with post-voi d barbie 09/27/2023 Assessment & Plan (04/04/2024 10:37 AM EDT): Follows Dr. Marquez [facility]. Continue current regimen Urge incontinence 09/27/2023 Benign essential HTN 06/28/2023 Hyperlipidemia, mixed 06/28/2023 Assessment & Plan (04/04/2024 1:26 PM EDT): Currently taking Atorvastatin 40mg Denies any myalgias. Most recent Lipid panel Triglycerides were elevated slightly. Dietary modifications implemented. Continue current regimen. Assessment & Plan (01/03/2024 10:14 AM EDT): On lipitor. Check Lipid panel. Assessment & Plan (06/28/2023 3:33 PM EST): Co-morbidities: CVA, HTN, T2 DM Check Lipid panel Hypothyroidism, adult 06/28/2023 Overview (06/28/2023): Chemotherapy induced. Assessment & Plan (01/03/2024 10:12 AM EDT): Chemo induced. TSH above goal - levothyroxine increased to 137 mcg. Repeat TSH 12/16 -at goal. Assessment & Plan (09/27/2023 10:23 AM EST): Chemo induced. TSH above goal. Increase levothyroxine to 137 mcg. Check tsh in 2 months Assessment & Plan (06/28/2023 3:29 PM EST): On Levothyroxine. Check TSH, T3,T4 Essential hypertension 06/28/2023 Assessment & Plan (04/04/2024 1:25 PM EDT): Currently taking Amlodipine 5mg; Atenolol 50mg Checks BP at home; Averages are 130's Denies orthostatic changes, dizziness, cough, shortness of breath, swelling in extremities. Continue current regimen. Given BP log, advised pt to record BP and bring log back to next visit. Assessment & Plan (01/03/2024 10:09 AM EDT): BP well controlled. On average less than 130/90. Tolerating Anti hypertensive w/o adverse effects. C/w current regimen Assessment & Plan (09/27/2023 10:23 AM EST): BP well controlled. On average less than 130/90. Tolerating Anti hypertensive w/o adverse effects. Denies lightheadedness, dizziness, syncope, presyncope. Patient encouraged to continue with home BP monitoring and call office if he experiences orthostatic symptoms or persistently elevated BP. C/w current regimen Assessment & Plan (06/28/2023 3:28 PM EST): BP well controlled. On average less than 130/90. Tolerating Anti hypertensive w/o adverse effects. Denies lightheadedness, dizziness, syncope, presyncope. Patient encouraged to continue with home BP monitoring and call office if he experiences orthostatic symptoms or persistently elevated BP. C/w current regimen H/O: CVA (cerebrovascular accident) 06/28/2023 Assessment & Plan (06/28/2023 3:33 PM EST): Minimal residual numbness On ASA, PLAVIX and statin No weakness. Occlusion of left carotid artery 06/28/2023 Assessment & Plan (06/28/2023 3:29 PM EST): Occlusion of left carotid artery. Not Amenable for revascularization. Medical management. On ASA, Plavix and Statin. Encounter for Medicare annual wellness exam 10/2022 Assessment & Plan (06/28/2023 3:37 PM EST): Recommend Flu and Pneumonia Vaccine Negative Cologuard 04/16 Recommended to see Ophthalmology and Podiatry for Diabetic screening. Discussed code status with patient. He would prefer to remain Full code for now. He was encouraged to establish a living will and he agreed that he should and will start working on it. Lung cancer 07/26/2019 Overview (06/28/2023): Remission. In remission Recent CT CHEST 09/17 - a few lung nodules - unchanged, followed by Oncology. Assessment & Plan (04/04/2024 10:37 AM EDT): [facility] in [place]; Is in remission currently; Follows Dr. Groves yearly. Recommended yearly CT scans of chest Diabetes mellitus, type II 02/25/2018 Assessment & Plan (01/03/2024 10:14 AM EDT): A1C 7.7 07/17 On metformin, glipizide and Novolin 70/30 Reviewed FSBS - Range from 100-180, on average less than 150 No hypoglycemia C/w same. Order A1C. Asked patient to see an commercial relationship manager for an eye exam. Assessment & Plan (06/28/2023 3:33 PM EST): Follows Dr Zamorano. Check A1C, urine albumin/Creatinine History of prostate cancer 02/25/2018 Malignant neoplasm of lower lobe of right lung 0 02/25/2018 Type 2 diabetes mellitus with diabetic neuropath y 07/21/2013 Assessment & Plan (04/04/2024 10:38 AM EDT): Most recent labs: hemoglobin A1C 7.4% Average FSBS range from BGs range between 150 and 170 No episode of hypoglycemia No medication adverse effects reported by the patient. Patient educated on lifestyle modifications, dietary restrictions, signs and symptoms of hypoglycemia/hyperglycemia and importance of eating regular consistent meals. Stressed upon importance of checking blood glucose at home and bring blood glucose log to appointments. All questions, concerns answered and addressed. Encouraged to call office if persistent hypoglycemia/hyperglycemia on home glucose monitoring noted. Diabetic foot exam: Done @ Dr. Lux's office in [place], [place]: 02/2024 DM Eye Exam: Needs done; Assessment & Plan (09/27/2023 10:23 AM EST): A1C 7.7 07/[address] Zamorano, asking to take over his care. He is on metformin, glipizide and novolin/regular insulin Will follow up in 3 months. C/w same regimen Encounters Date Type Department Care Team Description 03/20/2025 1:45 PM EDT Procedure [facility] [address] [place] [address] Anne Lux W, DPM Type II or unspecified type diabetes mellitus with neurological manifestations, not stated as uncontrolled(250.60) (HCC) (Primary Dx); Onychomycosis; Pain in toes of both feet; Hammer toes of both feet 03/20/2025 Travel 03/20/2025 Clinisync Result Encounter [facility] External Department Unsolicited Provider, Generic External Data 03/20/2025 Clinisync Result Encounter [facility] External Department Unsolicited Provider, Generic External Data 03/19/2025 Travel from Last 3 Months Immunizations Immunization Administration Dates Next Due Influenza, High Dose Seasonal, Preservative Free 06/02/2018 Influenza, High-dose Seasona l, Quadrivalent, Preservative Free 06/18/2021,06/17/2020 Influenza, Unspecified 05/01/2021 Pfizer Purple Cap SARS-CoV-2 Vaccination 021 Pfizer SARS-CoV-2 Vaccination 5-11 y.o. 04/30/20 21 Tdap 03/20/2024 Family History Medical History Relation Name Comments Cancer Father Lung cancer Father Dementia Mother Hypertension Mother Diabetes Paternal Grandfather Diabetes Paternal Grandmother Relation Name Status Comments Brother x 2 Alive Daughter x 1 Alive Father Mother Paternal Grandfather Paternal Grandmother Sister x 2 Alive Son x 3 Alive Social History Tobacco Use Types Packs/Day Years Used Date Smoking Tobacco: Never Passive Smoke Exposure: Never Smokeless Tobacco: Never Tobacco Cessation:Counseling Given: Not Answered Alcohol Use Standard Drinks/Week Comments Never 0 [...] How often do you attend chur or sikhism services? More than 4 times per year 06/28/2023 Do you belong to any clubs o r organizations such as yarsani groups, unions, fraternal or athletic groups, or [...] Recorded Patient Health Questionnaire-2 Score 0 01/03/2024 [facility] - Occupational Stress Questionnaire Answer Date [...] money to buy more. Never true 06/28/20 23 Within the past 12 months, t he [...] place to sleep or slept in a fpc (including now)? No 06/28/2023 Sex and Gender Information Value Date Recorded Sex Assigned at Not on file Legal Sex Male 7:34 PM EDT Gender Identity Not on file Sexual Orientation Not on file Last Filed Vital Signs Vital Sign Reading Time Taken Comments Blood Pressure 130/68 09/11/2024 8:29 AM EST Pulse 71 09/11/2024 8:29 AM EST Temperature 37.1 C (98.7 F) 09/11/2024 8:29 AM EST Respiratory Rate 16 09/11/2024 8:29 AM EST Oxygen Saturation 97% 09/11/2024 8:29 AM EST Inhaled Oxygen Concentration - - Weight 104 kg (229 lb) 03/20/2025 1:41 PM EDT Height 175.3 cm (5' 9 ) 03/20/2025 1:41 PM EDT Body Mass Index 33.82 03/20/2025 1:41 PM EDT Plan of Treatment Upcoming Encounters Date Type Department Care Team (Late st Contact Info) Description 08/02/2025 1:45 PM EST Procedure Visit [facility] [address] [facility] [place] [id number] Anne Lux, DPM [address] [place] [address] Health Maintenance Due Date Last Done Comments Pneumococcal Vaccine: 65+ Ye ars (1 of 1 - PCV) 02/14/1998 Influenza Vaccine (#1) 2025 , 05/01/2021, 06/17/2020, Additional history exists Colorectal Cancer Screening Discontinued FIT-DNA Discontinued 04/12/2022 CT Colonography Discontinued Colonoscopy Discontinued FIT Discontinued FOBT Discontinued Sigmoidoscopy Discontinued Procedures Procedure Name Priority Date/Time Associated Diagnosis Comments CT CHEST WO IV CONTRAST 03/20/2025 8:08 AM EDT [facility] COMP METAB 2000 PNL SERPL Routine 03/20/2025 7:58 AM EDT [facility] CBC W AUTO DIFF BLD Routine 03/20/2025 7:58 AM EDT from Last 3 Months Results * CT chest wo IV contrast (03/20/2025 8:08 AM EDT) Anatomical Region Laterality Modality Body, Chest Computed Tomogra phy 03/20/2025 8:08 AM EDT Narrative 03/20/2025 10:14 AM EDT * * *Final Report* * * DATE OF EXAM: Mar 20 2025 8:08AM [facility] 0541 - CT CHEST WO IVCON / PROCEDURE REASON: Malignant neoplasm of unspecified part of unspecified bronchus or lung (HCC) * * * * Physician Interpretation * * * * RESULT: EXAMINATION: CHEST CT WITHOUT CONTRAST CLINICAL HISTORY: Lung cancer follow-up Technique: Spiral CT acquisition of the chest from the thoracic inlet to the upper abdomen without contrast. MQ: CTCWO_6 CT Radiation dose: Integrated Dose-length product (DLP) for this visit = 314 mGy*cm CT Dose Reduction Employed: Automated exposure control (AEC) Comparison: 03/09/24 RESULT: Limitations: None. Lines, tubes, and devices: None. Lung parenchyma and airways: 1.5 x 1.4 cm right lower lobe patchy opacity (4: 166), stable. Right perihilar consolidative opacities are again noted most likely related to post radiation change and other infectious/inflammatory etiologies, stable. Subcentimeter nodular opacities measuring less than 5 mm are stable. For example: Right upper lobe (4: 41, 86) Left lower lobe (4: 87) No new airspace opacities. The central airways are patent. Pleural space: No pleural effusion. No pleural thickening. Lower neck, lymph nodes, and mediastinum: Partially calcified mediastinal lymph nodes, stable. Heart, pericardium, and thoracic vessels: The thoracic aorta and main pulmonary artery are normal in caliber. Heart is mildly enlarged. Atherosclerotic coronary artery calcifications are noted. No pericardial effusion or thickening. Bones and soft tissues: No new osseous abnormalities. Upper abdomen: No evidence of an adrenal mass. Sports Writer (topogram) images: No additional findings. IMPRESSION: 1. No interval change since 03/09/24. 2. 1.5 cm right lower lobe patchy opacity and additional subcentimeter nodular opacities measuring less than 5 mm , stable. 3. Right perihilar opacities most likely related to post radiation change and other infectious/inflammatory etiologies, stable. Transcribe Date/Time: Mar 20 2025 9:38A Dictated by: STEVEN PRIEST MD This examination was interpreted and the report reviewed and electronically signed by: STEVEN PRIEST MD on Mar 20 2025 10:12AM EST Thank you for allowing us to participate in the care of your patient. Should there be any questions regarding this interpretation, please call [phone]. If you are unable to reach us at the number above, please feel free to contact [facility] at [phone]. [id number]^ACN Procedure Note Radiology, Radiologist, - 03/20/2025 * * *Final Report* * * DATE OF EXAM: Mar 20 2025 8:08AM [facility] 0541 - CT CHEST WO IVCON / PROCEDURE REASON: Malignant neoplasm of unspecified part of unspecified bronchus or lung (HCC) * * * * Physician Interpretation * * * * RESULT: EXAMINATION: CHEST CT WITHOUT CONTRAST CLINICAL HISTORY: Lung cancer follow-up Technique: Spiral CT acquisition of the chest from the thoracic inlet to the upper abdomen without contrast. MQ: CTCWO_6 CT Radiation dose: Integrated Dose-length product (DLP) for this visit = 314 mGy*cm CT Dose Reduction Employed: Automated exposure control (AEC) Comparison: 03/09/24 RESULT: Limitations: None. Lines, tubes, and devices: None. Lung parenchyma and airways: 1.5 x 1.4 cm right lower lobe patchy opacity (4: 166), stable. Right perihilar consolidative opacities are again noted most likely related to post radiation change and other infectious/inflammatory etiologies, stable. Subcentimeter nodular opacities measuring less than 5 mm are stable. For example: Right upper lobe (4: 41, 86) Left lower lobe (4: 87) No new airspace opacities. The central airways are patent. Pleural space: No pleural effusion. No pleural thickening. Lower neck, lymph nodes, and mediastinum: Partially calcified mediastinal lymph nodes, stable. Heart, pericardium, and thoracic vessels: The thoracic aorta and main pulmonary artery are normal in caliber. Heart is mildly enlarged. Atherosclerotic coronary artery calcifications are noted. No pericardial effusion or thickening. Bones and soft tissues: No new osseous abnormalities. Upper abdomen: No evidence of an adrenal mass. Sports Writer (topogram) images: No additional findings. IMPRESSION: 1. No interval change since 03/09/24. 2. 1.5 cm right lower lobe patchy opacity and additional subcentimeter nodular opacities measuring less than 5 mm , stable. 3. Right perihilar opacities most likely related to post radiation change and other infectious/inflammatory etiologies, stable. Transcribe Date/Time: Mar 20 2025 9:38A Dictated by: STEVEN PRIEST MD This examination was interpreted and the report reviewed and electronically signed by: STEVEN PRIEST MD on Mar 20 2025 10:12AM EST Thank you for allowing us to participate in the care of your patient. Should there be any questions regarding this interpretation, please call [phone]. If you are unable to reach us at the number above, please feel free to contact [facility] at [phone]. [id number] us Generic External Data Provider IMG CT PROCEDURES Final Result * [facility] CBC W AUTO DIFF BLD (03/20/2025 7:58 AM EDT) [facility] WBC # BLD AUTO 6.28 3.70 - 11.00 k/uL [facility] RBC # BLD AUTO 4.37 4.20 - 6.00 m/uL [facility] HGB BLD-MCNC 13.9 13.0 - 17.0 g/dL [facility] HCT VFR BLD AUTO 41.2 39.0 - 51.0 % [facility] MCV RBC AUTO 94.3 80.0 - 100.0 fL [facility] MCH RBC QN AUTO 31.8 26.0 - 34.0 pg [facility] MCHC RBC AUTO-MCNC 33.7 30.5 - 36.0 g/dL [facility] RDW RBC-RTO 13.9 11.5 - 15.0 % [facility] PLATELET # BLD AUTO 151 150 - 400 k/uL [facility] PMV BLD AUTO 9.5 9.0 - 12.7 fL [facility] NEUTROPHILS/LEUK NFR BLD AUTO 56.1 % [facility] NEUTROPHILS # BLD AUTO 3.52 1.45 - 7.50 k/uL [facility] LYMPHOCYTES/LEUK NFR BLD AUTO 28.7 % [facility]CF LYMPHOCYTES # BLD AUTO 1.80 1.00 - 4.00 k/uL [facility] MONOCYTES/LEUK NFR BLD AUTO 8.9 % [facility] MONOCYTES # BLD AUTO 0.56 <0.87 k/uL [facility] EOSINOPHIL/LEUK NFR BLD AUTO 4.9 % [facility]CF EOSINOPHIL # BLD AUTO 0.31 <0.46 k/uL [facility] BASOPHILS/LEUK NFR BLD AUTO 0.6 % [facility]CF BASOPHILS # BLD AUTO 0.04 <0.11 k/uL [facility] IMM GRANULOCYTES/LEUK NFR BLD AUTO 0.8 % [facility] IMM GRANULOCYTES # BLD AUTO 0.05 <0.10 k/uL [facility] NRBC/100 WBC BLD-RTO 0.0 /100 WBC [facility] NRBC # BLD AUTO <0.01 <0.01 k/uL [facility] DIFFERENTIAL METHOD BLD Auto [facility] 03/20/2025 7:58 AM EDT 03/20/2025 7:58 AM EDT Narrative FEI - 03/20/2025 8:01 AM EDT Specimen Type: BLOOD SPECIMEN Ordering Facility: [facility] Address: [address] [place] [address] Original Ordering Provider: DONNA BRAY us Generic External Data Provider [facility] F inal Result [facility] [address] [place] [address] * (ABNORMAL) [facility] COMP METAB 2000 PNL SERPL (03/20/2025 7:58 AM EDT) [facility] PROT SERPL-MCNC 6.4 6.3 - 8.0 g/dL [facility] ALBUMIN SERPL-MCNC 4.3 3.9 - 4.9 g/dL [facility] CALCIUM SERPL-MCNC 9.9 8.5 - 10.2 mg/dL [facility] BILIRUB SERPL-MCNC 0.6 0.2 - 1.3 mg/dL [facility] ALP SERPL-[facility] 61 38 - 113 U/L [facility] AST SERPL-CCNC 13(L) 14 - 40 U/L [facility] ALT SERPL-CCNC 17 10 - 54 U/L [facility] GLUCOSE SERPL-MCNC 207(H) 74 - 99 mg/dL [facility] Comment: The [place] Diabetes Association (ADA) provides guidance for cutoff values for fasting glucose and random glucose. The ADA defines fasting as no caloric intake for at least 8 hours. Fasting plasma glucose results between 100 to 125 mg/dL indicate increased risk for diabetes (prediabetes). Fasting plasma glucose results greater than or equal to 126 mg/dL meet the criteria for diagnosis of diabetes. In the absence of unequivocal hyperglycemia, results should be confirmed by repeat testing. In a patient with classic symptoms of hyperglycemia or hyperglycemic crisis, random plasma glucose results greater than or equal to 200 mg/dL meet the criteria for diagnosis of diabetes. Reference: Standards of Medical Care in Diabetes 2016, [place] Diabetes Association. Diabetes Care. 2016.39(Suppl 1). [facility] BUN SERPL-[facility] 13 9 - 24 mg/dL [facility] CREAT SERPL-MCNC 0.99 0.73 - 1.22 mg/dL [facility] SODIUM SERPL-SCNC 136 136 - 144 mmol/L [facility] POTASSIUM SERPL-SCNC 4.6 3.7 - 5.1 mmol/L [facility] CHLORIDE SERPL-SCNC 98 98 - 107 mmol/L [facility] CO2 SERPL-SCNC 27 22 - 30 mmol/L [facility] ANION GAP SERPL-SCNC 11 8 - 15 mmol/L [facility] EGFRCR SERPLBLD CKD-EPI 2020 78 >=60 mL/min/1.7 3m??? [facility] Comment:Estimated Glomerular Filtration Rate (eGFR) is calculated using the 2020 CKD-EPI creatinine equation. This equation utilizes serum creatinine, sex, and age as parameters. The creatinine assay has traceable calibration to isotope dilution- mass spectrometry. Refer to KDIGO guidelines for clinical interpretation. In patients with unstable renal function, e.g. those with acute kidney injury, the eGFR may not accurately reflect actual GFR. 03/20/2025 7:58 AM EDT 03/20/2025 7:58 AM EDT Narrative [facility] - 03/20/2025 8:29 AM EDT Specimen Type: BLOOD SPECIMEN Ordering Facility: [facility] Address: [address] [place] [address] Original Ordering Provider: DONNA BRAY us Generic External Data Provider [facility] F inal Result [facility] [address] [place] [address] from Last 3 Months Insurance MEDICARE Care Teams Cornice Maker Relationship Specialty Start Date End Date Ravin Carr MD [address] [place] [address] PCP - General Family Medicine 11/14/24
--- OUTSIDE RECORDS SUMMARY | 2025-04-09 10:10 | XMS_ITS | Encounter Summary ---
Author Organization [facility] Address [address] [place] [address] Care Team Providers Care Edgerman Name Role Phone Shaikh MAVIS Dickerson Primary Care Provider [phone] Shaikh MAVIS Dickerson Primary Care Provider [phone] Kiran Terrell MD Primary Care Provider [phone] Susy Dickson PROCUREMENT FORESTER Unavailable [phone] Ravin Carr MD Primary Care Provider [phone] Reason for Visit * Reason Comments Med Refill Encounter Details Date Type Department Care Team (Late st Contact Info) Description 09/08/2023 [facility]ill [facility] [address] [place] [address] Shaikh Dickerson MD [address] [place] [phone] Essential (primary) hypertension Social History Tobacco Use Types Packs/Day Years [...] How often do you attend chur or shinto services? More than 4 times per year 06/28/2023 Do you belong to any clubs o r organizations such as sabianist groups, unions, fraternal or athletic groups, or [...] Date Recorded Patient Health Questionnaire-2 Score 0 06/28/2023 [facility] - Occupational Stress [...] place to sleep or slept in a snf (including now)? No 06/28/2023 Sex and Gender Information Value Date Recorded Sex Assigned at Not on file Legal Sex Male 7:34 PM EDT Gender Identity Not on file Sexual Orientation Not on file documented as of this encounter Miscellaneous Notes * Telephone Encounter - Shaikh Jayla MD - 09/09/2023 11:25 AM EST Approving, but needs appt for additional refills. documented in this encounter Plan of Treatment Upcoming Encounters Date Type Department Care Team (Late st Contact Info) Description 08/02/2025 1:45 PM EST Procedure Visit [facility] [address] [place] [address] Anne Lux DPRalph [address] [place] [address] documented as of this encounter Visit Diagnoses Diagnosis Essential (primary) hypertension Unspecified essential hypertension documented in this encounter Care Teams Edgerman Relationship Specialty Start Date End Date Shaikh Dickerson MD PCP - General Internal Medicine 02/05/23 09/26/23 Shaikh Dickerson MD [address] [place] [address] PCP - General Internal Medicine 09/27/23 03/01/24 Kiran Terrell MD [address] [place] [address] PCP - General Family Medicine 03/02/24 11/13/24 Ravin Carr MD [address] [place] [address] PCP - General Family Medicine 11/14/24 Susy Dickson NP [address] [place] [id number] Nurse Practitioner Family Medicine 03/02/24 11/13/24 documented as of this encounter
--- OUTSIDE RECORDS SUMMARY | 2025-04-09 10:10 | XMS_ITS | Encounter Summary ---
Author Organization [facility] Address [address] [place] [address] Care Team Providers Care Sound Mixer Name Role Phone Kiran Terrell MD Primary Care Provider [phone] Susy Dickson PLANT MACHINIST Unavailable [phone] Rvain Carr MD Primary Care Provider [phone] Encounter Details Date Type Department Care Team (Late st Contact Info) Description 03/21/2024 Orders Only [facility] [address] [place] [address] Alysia Crocker MD [address] [place], [place] [id number] Social History Tobacco Use Types Packs/Day Years [...] How often do you attend chur or anglican services? More than 4 times per year 06/28/2023 Do you belong to any clubs o r organizations such as pentecostal groups, unions, fraternal or athletic groups, or [...] Recorded Patient Health Questionnaire-2 Score 0 01/03/2024 [facility] - Occupational Stress [...] place to sleep or slept in a senior care (including now)? No 06/28/2023 Sex and Gender Information Value Date Recorded Sex Assigned at Not on file Legal Sex Male 7:34 PM EDT Gender Identity Not on file Sexual Orientation Not on file documented as of this encounter Plan of Treatment Upcoming Encounters Date Type Department Care Team (Late st Contact Info) Description 08/02/2025 1:45 PM EST Procedure [facility] [address] [place] [address] Anne Lux, DPM [address] [place], [place] [id number] documented as of this encounter Procedures Procedure Name Priority Date/Time Associated Diagnosis Comments CT ABDOMEN & PELVIS W Routine 03/20/2024 10:12 AM EDT XR TIBIA FIBULA 2 VIEWS BILATERAL Routine 03/20/2024 10:08 AM EDT XR TIBIA FIBULA 2 VIEWS RIGHT Routine 03/20/2024 10:[address] THORACIC SPINE W/O CONTRAST* Routine 03/20/2024 10:06 AM EDT documented in this encounter Results * CT ABDOMEN & PELVIS W (03/20/2024 10:12 AM EDT) Anatomical Region Laterality Modality Radiographic Corrina ging Alysia Crocker MD IMG XR PROCEDURES Final Result * XR tibia fibula 2 views right (03/20/2024 10:08 AM EDT) Anatomical Region Laterality Modality Lower Extremities, Lower Leg Right Rad iographic Imaging Alysia Crocker MD IMG XR PROCEDURES Final Result * XR tibia fibula 2 views bilateral (03/20/2024 10:08 AM EDT) Anatomical Region Laterality Modality Lower Extremities, Lower Leg Right Rad iographic Imaging Alysia Crocker MD IMG XR PROCEDURES Final Result * CT THORACIC SPINE W/O CONTRAST* (03/20/2024 10:06 AM EDT) Anatomical Region Laterality Modality Radiographic Corrina ging Alysia Crocker MD IMG XR PROCEDURES Final Result documented in this encounter Visit Diagnoses Not on filedocumented in this encounter Care Teams Sound Mixer Relationship Specialty Start Date End Date Kiran Terrell MD PCP - General Family Medicine 03/02/24 11/13/24 Ravin Carr MD [facility] [place] [address] PCP - General Family Medicine 11/14/24 Susy Dickson NP Nurse Practitioner Family Medicine 03/02/24 11/13/24 documented as of this encounter
--- OUTSIDE RECORDS SUMMARY | 2025-04-09 10:10 | XMS_ITS | Encounter Summary ---
Author Organization [facility] Address [address] [facility] [place] [address] Care Team Providers Care Cleaner And Polisher Name Role Phone Kiran Terrell MD Primary Care Provider [phone] Susy Dickson SAFETY ANALYST Unavailable [phone] Ravin Carr MD Primary Care Provider [phone] Encounter Details Date Type Department Care Team (Late st Contact Info) Description 03/09/2024 Clinisync Result Encounter [facility] External Department Unsolicited Provider, Generic External Data Social History Tobacco Use Types Packs/Day Years [...] 06/28/2023 How often do you attend chur ch or worship services? More than 4 times per year 06/28/2023 Do you belong to any clubs o r organizations such as zoroastrianism groups, unions, fraternal or athletic groups, or [...] Recorded Patient Health Questionnaire-2 Score 0 01/03/2024 [facility] - Occupational [...] place to sleep or slept in a [place] health care facility (including now)? No 06/28/2023 Sex and Gender Information Value Date Recorded Sex Assigned at Not on file Legal Sex Male 7:34 PM EDT Gender Identity Not on file Sexual Orientation Not on file documented as of this encounter Plan of Treatment Upcoming Encounters Date Type Department Care Team (Late st Contact Info) Description 08/02/2025 1:45 PM EST Procedure Visit [facility] [address] [place] [address] Anne Lux, DPRalph [address] [place] [address] documented as of this encounter Procedures Procedure Name Priority Date/Time Associated Diagnosis Comments CT CHEST WO IV CONTRAST 03/09/2024 11:17 AM EDT documented in this encounter Results * CT chest wo IV contrast (03/09/2024 11:17 AM EDT) Anatomical Region Laterality Modality Body, Chest Computed Tomogra phy 03/09/2024 11:1 7 AM EDT Narrative 03/09/2024 6:16 PM EDT * * *Final Report* * * DATE OF EXAM: Mar 09 2024 11:17AM [facility] 0541 - CT CHEST WO IVCON / [...] Dose-length product (DLP) for this visit = 354 mGy*cm CT Dose Reduction Employed: Automated exposure control (AEC) Comparison: 03/11/23 RESULT: Limitations: None. Lines, tubes, and devices: None. Lung parenchyma and airways: 1.6 x 1.2 cm right lower lobe patchy opacity (4:187), stable. Right perihilar consolidative opacities are again noted most likely related to post radiation change and other infectious/inflammatory etiologies, stable. Subcentimeter nodular opacities measuring less than 5 mm are stable. For example: Right upper lobe (4:59, 100) Left lower lobe (4: 104) No new airspace opacities. The central airways [...] tissues: No new osseous abnormalities. Upper abdomen: Please refer to the abdomen CT scan report for the abdomen findings. Pyrotechnic Assembler (topogram) images: No additional findings. IMPRESSION: 1. No interval change since 03/11/23. 2. 1.6 cm right lower lobe patchy opacity and additional subcentimeter nodular opacities measuring less than 5 mm. 3. Right perihilar opacities most likely related to post radiation change and other infectious/inflammatory etiologies, stable. Transcribe Date/Time: Mar 09 2024 5:45P Dictated by: STEVEN PRIEST MD This examination was interpreted and the report reviewed and electronically signed by: STEVEN PRIEST MD on Mar 09 2024 6:14PM EST Thank you for allowing us to participate in the care of your patient. Should there be any questions regarding this interpretation, please call [phone]. If you are unable to reach us at the number above, please feel free to contact [facility] at [phone]. [id number]^[email or web address]^ACN Procedure Note Radiology, Radiologist, - 03/10/2024 * * *Final Report* * * DATE OF EXAM: Mar 09 2024 11:17AM [facility] 0541 - CT CHEST WO IVCON / [...] Dose-length product (DLP) for this visit = 354 mGy*cm CT Dose Reduction Employed: Automated exposure control (AEC) Comparison: 03/11/23 RESULT: Limitations: None. Lines, tubes, and devices: None. Lung parenchyma and airways: 1.6 x 1.2 cm right lower lobe patchy opacity (4:187), stable. Right perihilar consolidative opacities are again noted most likely related to post radiation change and other infectious/inflammatory etiologies, stable. Subcentimeter nodular opacities measuring less than 5 mm are stable. For example: Right upper lobe (4:59, 100) Left lower lobe (4: 104) No new airspace opacities. The central airways [...] tissues: No new osseous abnormalities. Upper abdomen: Please refer to the abdomen CT scan report for the abdomen findings. Pyrotechnic Assembler (topogram) images: No additional findings. IMPRESSION: 1. No interval change since 03/11/23. 2. 1.6 cm right lower lobe patchy opacity and additional subcentimeter nodular opacities measuring less than 5 mm. 3. Right perihilar opacities most likely related to post radiation change and other infectious/inflammatory etiologies, stable. Transcribe Date/Time: Mar 09 2024 5:45P Dictated by: STEVEN PRIEST MD This examination was interpreted and the report reviewed and electronically signed by: STEVEN PRIEST MD on Mar 09 2024 6:14PM EST Thank you for allowing us to participate in the care of your patient. Should there be any questions regarding this interpretation, please call [phone]. If you are unable to reach us at the number above, please feel free to contact [facility] at [phone]. [id number]^[email or web address]^ACN us Generic External Data Provider IMG CT PROCEDURES Final Result documented in this encounter Visit Diagnoses Not on filedocumented in this encounter Care Teams Cleaner And Polisher Relationship Specialty Start Date End Date Kiran Terrell MD PCP - General Family Medicine 03/02/24 11/13/24 Ravin Carr MD [address] [place] [address] PCP - General Family Medicine 11/14/24 Susy Dickson NP Nurse Practitioner Family Medicine 03/02/24 11/13/24 documented as of this encounter
--- OUTSIDE RECORDS SUMMARY | 2025-04-09 10:11 | XMS_ITS | Clinical Summary ---
Author Organization [facility] Address [address] [place] [address] Care Team Providers Care Aircraft Life Support Fitter Name Role Phone Unavailable Primary Care Provider Unavailabl e Social History Tobacco Use Types Packs/Day Years Used Date Smoking Tobacco: Never Assessed [place] Safety & Environment Answer Date Rec orded Fear of Current or Ex-Partner Not on file Emotionally Abused Not on file 09/16/2023 Physically Abused Not on file 09/16/2023 Sexually Abused Not on file 09/16/2023 Physically or Sexually Abused Not on file Sex and Gender Information Value Date Recorded Sex Assigned at Not on file Legal Sex Male 11:01 PM EDT Gender Identity Not on file Sexual Orientation Not on file Last Filed Vital Signs Vital Sign Reading Time Taken Comments Blood Pressure 130/78 04/28/2019 1:21 PM EDT Pulse - - Temperature - - Respiratory Rate - - Oxygen Saturation 97% 04/28/2019 1:21 PM EDT Inhaled Oxygen Concentration - - Weight 106 kg (234 lb) 04/28/2019 1:19 PM EDT Height 175.3 cm (5' 9 ) 04/28/2019 1:18 PM EDT Body Mass Index 34.56 04/28/2019 1:18 PM EDT Plan of Treatment Health Maintenance Due Date Last Done Comments Diabetes: Hemoglobin A1C 1950 Medicare Annual Wellness (AWV) 1950 Diabetes: Retinopathy Screening 02/14/1958 Depression Screening 1960 Diabetes: Urine Protein Screening 02/14/1967 Adult Tetanus 02/14/1970 Pneumococcal Vaccine: 50+ Ye ars (1 of 1 - PCV) 02/14/1998 Zoster Vaccines (1 of 2) 02/14/1998 Fall Risk Screening 02/14/2013 COVID-19 Vaccine ( - 2023-2 5 season) 2025 Influenza Vaccine (#1) 2025 HIB Vaccines Aged Out No longer eligi ble based on patient's age to complete this topic HPV Vaccines Aged Out No longer eligi ble based on patient's age to complete this topic IPV Vaccines Aged Out No longer eligi ble based on patient's age to complete this topic Meningococcal B Vaccine Aged Out No l onger eligible based on patient's age to complete this topic Meningococcal Vaccine Aged Out No mark krystal eligible based on patient's age to complete this topic Rotavirus Vaccines Aged Out No longer eligible based on patient's age to complete this topic Insurance MEDICARE Member Subscriber Plan / Payer (Ef fective 2013-Present) Name:Harrison Rinaldi Member ID:[id number] Relation to Subscriber:Self Name:Harrison Rinaldi Subscriber ID:[id number] Payer ID:[id number] Group ID:Not on file Type:Medicare Address: [facility] [id number]
--- OUTSIDE RECORDS SUMMARY | 2025-04-09 10:11 | XMS_ITS | Encounter Summary ---
Author Organization [facility] Address [address] [place] [address] Care Team Providers Care Wearing Apparel Assembler Name Role Phone Shaikh MAVIS Dickerson Primary Care Provider [phone] Shaikh MAVIS Dickerson Primary Care Provider [phone] Kiran Terrell MD Primary Care Provider [phone] Susy Dickson CASHIER TUBE ROOM Unavailable [phone] Ravin Carr MD Primary Care Provider [phone] Reason for Visit * Reason Comments Med Refill Encounter Details Date Type Department Care Team (Late st Contact Info) Description 06/23/2023 Refill [facility] [address] [place] [address] Shaikh Dickerson MD [address] [place] [address] Type 2 diabetes mellitus with hyperglycemia (HCC) Social History Tobacco Use Types Packs/Day Years Used Date Smoking Tobacco: Never Alcohol Use Standard Drinks/Week Comments Not Currently 0 (1 standard drink = 0.6 oz pur e alcohol) caffeine: 1-2 cups/day Sex and Gender Information Value Date Recorded Sex Assigned at Not on file Legal Sex Male 7:34 PM EDT Gender Identity Not on file Sexual Orientation Not on file documented as of this encounter Miscellaneous Notes * Telephone Encounter - Shaikh Jayla MD - 06/23/2023 1:22 PM EST Approving, but needs appt for additional refills. documented in this encounter Plan of Treatment Upcoming Encounters Date Type Department Care Team (Late st Contact Info) Description 08/02/2025 1:45 PM EST Procedure Visit [facility] [address] [place] [address] Anne Lux, DPM [address] [place], [place] [phone] documented as of this encounter Visit Diagnoses Diagnosis Type 2 diabetes mellitus with hyperglycemia (HCC) documented in this encounter Care Teams Wearing Apparel Assembler Relationship Specialty Start Date End Date Shaikh Dickerson MD PCP - General Internal Medicine 02/05/23 09/26/23 Shaikh Dickerson MD [address] [place] [address] PCP - General Internal Medicine 09/27/23 03/01/24 Kiran Terrell MD [address] [place] [address] PCP - General Family Medicine 03/02/24 11/13/24 Ravin Carr MD [address] [place] [address] PCP - General Family Medicine 11/14/24 Susy Dickson NP [address] [place] [address] Nurse Practitioner Family Medicine 03/02/24 11/13/24 documented as of this encounter
--- OUTSIDE RECORDS SUMMARY | 2025-04-09 10:11 | XMS_ITS | Encounter Summary ---
Author Organization [facility] Address [address] [place] [address] Care Team Providers Care Tube Washer Name Role Phone Abdoulaye Groves MD Unavailable Unavail able Tami Navarro APRN.PLANT ASSIGNER Unavailable [phone] Ravin Carr MD Primary Care Provider [phone] Lizzy Stark RN Unavailable [phone] Shaikh MAVIS Dickerson Primary Care Provider [phone] Axel Liz MD Unavailable [phone] Source Comments In the event this information is protected by the Federal Confidentiality of Alcohol and Drug AbusePatient Records regulations: The Federal rules restrict any use of the information to criminally investigate or prosecute any alcohol or drug abuse patient.[facility] Encounter Details Date Type Department Care Team (Latest Contact Info) Description 09/09/2020 H&P External-NonCCF Provider, External, KEYLA Do not enter address information under generic External Provider. Social History Tobacco Use Types Packs/Day Years Used Date Smoking Tobacco: Former Smokeless Tobacco: Never Comments:during high school Alcohol Use Standard Drinks/Week Comments No 0 (1 standard drink = 0.6 oz pur e alcohol) PHQ-2 Answer Date Recorded PHQ-2 score 0 01/23/2020 Area Deprivation Index Answer Date Juan rded National Score (1-100), lower number is lower ri sk Not on file 07/03/2020 State Score (1-10), lower number is lower risk N ot on file 07/03/2020 Data from: https://www.neighborhoodatlas.medicine.[facility].edu/. Last address used for calculation Not on file 07/03/2020 Sex and Gender Information Value Date Recorded Sex Assigned at Not on file Legal Sex Male 10:13 AM EST Gender Identity Not on file Sexual Orientation Not on file COVID-19 Exposure Response Date Recorded In the last month, have you been in contact with someone who was confirmed or suspected to have Coronavirus / COVID-19? No / Unsure 09/09/2020 9:02 AM EST documented as of this encounter Plan of Treatment Upcoming Encounters Date Type Department Care Team (Latest Contact Info) Description 03/27/2026 1:45 PM EDT Appointment Radiology Pet CT [address] [place] [address] [place] [address] Ct Chest with contrast 04/03/2026 2:00 PM EDT Visit (SP) Office Hematology/Oncology [address] [place] [address] [place] [address] Axel Liz MD [address] [place] [address] [place] [address] 1 year follow up documented as of this encounter Visit Diagnoses Not on filedocumented in this encounter Care Teams Tube Washer Relationship Specialty Start Date End Date Ravin Carr MD [address] [place] [address] [place] [address] PCP - General Family Medicine 11/24/18 09/16/21 Shaikh Dickerson MD [address] [place] [address] PCP - General Primary Care 09/17/21 Abduolaye Groves MD Referring Hematology 03/11/18 01/28/25 Tami Navarro APRN.PLANT ASSIGNER [address] [place] [address] Nurse Practitioner Hematology/Oncology 03/11/18 Lizzy Stark, ART [address] [place] [address] Specialty Head Mixer Hematology/Oncology 03/09/19 Axel Liz MD [address] [place] [address] Physician Hematology/Oncology 01/29/25 documented as of this encounter
--- OUTSIDE RECORDS SUMMARY | 2025-04-09 10:11 | XMS_ITS | Clinical Summary ---
Author Organization [facility] Address [id number] [address] [place] [address] Care Team Providers Care Senior Java Software Engineer Name Role Phone Shaikh MAVIS Dickerson Primary Care Provider [phone] Allergies Active Allergy Reactions Criticality Noted Date Comments House Dust Shortness Of Breath High 03/02/2023 Mold Shortness Of Breath High 03/02/2023 Medications amLODIPine (NORVASC) 5 mg tablet Take 1 tablet every day by oral route. Active aspirin 81 mg as directed Orally Active tamsulosin (FLOMAX) 0.4 mg capsule Take 1 capsule every day by oral route. 2 Active spironolactone (ALDACTONE) 25 mg tablet Take 1 tablet every day by oral route. Active spironolacton-h ydroCHLOROthiaz (ALDACTAZIDE) 25-25 mg per tablet Take 1 tablet every day by oral route. Active solifenacin (VESICARE) 5 mg tablet Take 1 tablet (5 mg total) by mouth in the morning. Active pembrolizumab (KEYTRUDA IV) Active montelukast (SINGULAIR) 10 mg tablet Take 1 tablet every day by oral route. Active metFORMIN (GLUCOPHAGE) 500 mg tablet Take 1 tablet twice a day by oral route. Active loratadine (CLARITIN) 10 mg tablet Take 1 tablet every day by oral route. Active levothyroxine (SYNTHROID, LEVOTHROID) 125 MCG tablet Take 1 tablet every day by oral route. 2 Active lansoprazole (PREVACID) 15 mg capsule Take 1 capsule every other day by oral route. Active insulin NPH and regular human (NovoLIN 70/30 U-100 Insulin) 100 unit/mL (70-30) injection Inject 25 units every day by subcutaneous route. Active glipiZIDE (GLUCOTROL) 10 mg tablet Take 1 tablet twice a day by oral route. Active fluticasone propionate (FLONASE) 50 mcg/actuation nasal spray instill 2 (TWO) spray IN EACH NOSTRIL DAILY Active docosahexaenoic acid-epa 120-180 mg capsule Take 1 capsule twice a day by oral route. Active diclofenac (VOLTAREN) 75 mg EC tablet Take 1 tablet (75 mg total) by mouth in the morning and 1 tablet (75 mg total) before bedtime. Active clopidogreL (PLAVIX) 75 mg tablet Take 1 tablet (75 mg total) by mouth in the morning. 3 Active cetirizine (ZyrTEC) 10 mg tablet Take 1 tablet (10 mg total) by mouth in the morning. Active atorvastatin (LIPITOR) 40 mg tablet Take 1 tablet (40 mg total) by mouth in the morning. 3 Active atenoloL (TENORMIN) 50 mg tablet Take 1 tablet (50 mg total) by mouth in the morning. Active albuterol (VENTOLIN HFA) 90 mcg/actuation inhaler Inhale 2 puffs. 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 Social History Tobacco Use Types Packs/Day Years Used Date Smoking Tobacco: Never Assessed Childcare Answer Date Recorded Childcare Unknown 01/04/2019 Employment Answer Date Recorded Employment Unknown 01/04/2019 Purpose - Life Answer Date Recorded Purpose and direction in life Unknown Sex and Gender Information Value Date Recorded Sex Assigned at Not on file Legal Sex Male 11:41 AM EDT Gender Identity Not on file Sexual Orientation Not on file Last Filed Vital Signs Vital Sign Reading Time Taken Comments Blood Pressure 123/72 03/05/2023 12:15 PM EDT Pulse 66 03/05/2023 12:15 PM EDT Temperature 36.7 C (98.1 F) 03/05/2023 9:57 AM EDT Respiratory Rate 18 03/05/2023 12:15 PM EDT Oxygen Saturation 96% 03/05/2023 12:15 PM EDT Inhaled Oxygen Concentration - - Weight 109.8 kg (242 lb) 03/05/2023 9:57 AM EDT Height 175.3 cm (5' 9 ) 03/05/2023 9:57 AM EDT Body Mass Index 35.74 03/05/2023 9:57 AM EDT Plan of Treatment Health Maintenance Due Date Last Done Comments Depression Screening 1962 Tobacco Screening 1962 DTaP,Tdap and Td Vaccines (1 - Tdap) 02/14/1967 Zoster (Shingles) Vaccine (1 of 2) 02/14/1998 Fall Risk Screening 02/14/2013 COVID-19 Vaccine (3 - 2023-2 5 season) 2024 06/03/2021, 04/30/2021, 04/14/2021, Additional history exists Influenza Vaccine 03/26/2025 06/18/2021, , 06/17/2020, Additional history exists Medical Devices Not on file Insurance MEDICARE Care Teams Senior Java Software Engineer Relationship Specialty Start Date End Date Shaikh Dickerson MD PCP - General Internal Medicine 02/25/23
--- OUTSIDE RECORDS SUMMARY | 2025-04-09 10:11 | XMS_ITS | Encounter Summary ---
Author Organization [facility] Address [address] [facility] [place] [address] Care Team Providers Care Donations Attendant Name Role Phone Shaikh MAVIS Dickerson Primary Care Provider [phone] Shaikh MAVIS Dickerson Primary Care Provider [phone] Kiran Terrell MD Primary Care Provider [phone] Susy Dickson BOOMSWING OPERATOR Unavailable [phone] Ravin Carr MD Primary Care Provider [phone] Encounter Details Date Type Department Care Team (Late st Contact Info) Description 03/02/2023 Abstract [facility] [address] [place] [id number] Dragan Wilson, CASSIE [address] [place] [address] Social History Tobacco Use Types Packs/Day Years Used Date Smoking Tobacco: Never Tobacco Cessation:Counseling Given: Not Answered Alcohol Use Standard Drinks/Week Comments Not Currently [...] Description 08/02/2025 1:45 PM EST Procedure Visit [facility] [address] [place] [address] Anne Lux, DPM [address] [place], [place] [address] documented as of this encounter Visit Diagnoses Not on filedocumented in this encounter Care Teams Donations Attendant Relationship Specialty Start Date End Date Shaikh Dickerson MD PCP - General Internal Medicine 02/05/23 09/26/23 Shaikh Dickerson MD [address] [place] [address] PCP - General Internal Medicine 09/27/23 03/01/24 Kiran Terrell MD [address] [place] [address] PCP - General Family Medicine 03/02/24 11/13/24 Ravin Carr MD [address] [place] [address] PCP - General Family Medicine 11/14/24 Susy Dickson NP [address] [place] [address] Nurse Practitioner Family Medicine 03/02/24 11/13/24 documented as of this encounter
--- OUTSIDE RECORDS SUMMARY | 2025-04-09 10:11 | XMS_ITS | Encounter Summary ---
Author Organization [facility] Address [address] [place] [address] Care Team Providers Care Painter Railroad Car Name Role Phone Shaikh MAVIS Dickerson Primary Care Provider [phone] Shaikh MAVIS Dickerson Primary Care Provider [phone] Kiran Terrell MD Primary Care Provider [phone] Susy Dickson CATALOGUE AND SPECIAL PRODUCTS MANAGER Unavailable [phone] Ravin Carr MD Primary Care Provider [phone] Encounter Details Date Type Department Care Team (Late st Contact Info) Description 07/21/2023 Orders Only [facility] [address] [place] [address] Shaikh Dickerson MD [address] [place] [address] Social History Tobacco Use Types [...] How often do you attend chur or jehovah's witness services? More than 4 times per year 06/28/2023 Do you belong to any clubs o r organizations such as evangelical groups, unions, fraternal or athletic groups, or [...] Recorded Patient Health Questionnaire-2 Score 0 06/28/2023 [facility] - Occupational Stress [...] place to sleep or slept in a alf (including now)? No 06/28/2023 Sex and Gender Information Value Date Recorded Sex Assigned at Not on file Legal Sex Male 7:34 PM EDT Gender Identity Not on file Sexual Orientation Not on file documented as of this encounter Plan of Treatment Upcoming Encounters Date Type Department Care Team (Late st Contact Info) Description 08/02/2025 1:45 PM EST Procedure Visit [facility] [address] [place] [id number] Anne Lux DPR[facility] [address] [place], [place] [id number] documented as of this encounter Visit Diagnoses Not on filedocumented in this encounter Care Teams Painter Railroad Car Relationship Specialty Start Date End Date Shaikh Dickerson MD PCP - General Internal Medicine 02/05/23 09/26/23 Shaikh Dickerson MD [address] [place] [phone] PCP - General Internal Medicine 09/27/23 03/01/24 Kiran Terrell MD [address] [place] [address] PCP - General Family Medicine 03/02/24 11/13/24 Ravin Carr MD [address] [place] [address] PCP - General Family Medicine 11/14/24 Susy Dickson NP [address] [place] [address] Nurse Practitioner Family Medicine 03/02/24 11/13/24 documented as of this encounter
--- OUTSIDE RECORDS SUMMARY | 2025-04-09 10:11 | XMS_ITS | Encounter Summary ---
Author Organization [facility] Address [address] [place] [address] Care Team Providers Care Tar Man Name Role Phone Tami Navarro SCRAPER LOADER OPERATOR.COMBINATION WELDER Unavailable [phone] Lizzy Stark RN Unavailable [phone] Shaikh MAVIS Dickerson Primary Care Provider [phone] Axel Liz MD Unavailable [phone] Source Comments In the event this information is protected by the Federal Confidentiality of Alcohol and Drug AbusePatient Records regulations: The Federal rules restrict any use of the information to criminally investigate or prosecute any alcohol or drug abuse patient.[facility] Encounter Details Date Type Department Care Team (Latest Contact Info) Description 03/28/2025 Travel Social History Tobacco Use Types Packs/Day Years [...] is lower risk 9 03/18/2023 Data from: https://www.neighborhoodatlas.[facility].edu/. Last address used for calculation [address] 03/18/2023 Sex and Gender Information Value Date Recorded Sex Assigned at Not on file Legal Sex Male 10:13 AM EST Gender Identity Not on file Sexual Orientation Not on file documented as of this encounter Plan of Treatment Upcoming Encounters Date Type Department Care Team (Latest Contact Info) Description 03/27/2026 1:45 PM EDT Appointment Radiology Pet CT [address] [place] [address] [place] [address] Ct Chest with contrast 04/03/2026 2:00 PM EDT Visit (SP) Office Hematology/Oncology [facility] [place] [address] Axel Liz MD [address] [place] [address] [place] [address] 1 year follow up documented as of this encounter Visit Diagnoses Not on filedocumented in this encounter Care Teams Tar Man Relationship Specialty Start Date End Date Shaikh Dickerson MD [address] [place] [address] PCP - General Primary Care 09/17/21 Tami Navarro APRN.CNP [facility] [place] [address] Nurse Practitioner Hematology/Oncology 03/11/18 Lizzy Stark, ART [address] [place] [address] [place] [address] Specialty Payment Collector Hematology/Oncology 03/09/19 Axel Liz MD [address] [place] [address] [place] [address] Physician Hematology/Oncology 01/29/25 documented as of this encounter
--- OUTSIDE RECORDS SUMMARY | 2025-04-09 10:11 | XMS_ITS | Encounter Summary ---
Author Organization [facility] Address [id number] [address] [place] [address] Care Team Providers Care Project Management It Specialist Name Role Phone Shaikh MAVIS Dickerson Primary Care Provider [phone] Encounter Details Date Type Department Care Team (Late st Contact Info) Description 02/24/2023 Orders Only [facility] [employer] External Film Storage [facility] [place] [address] Transcribe, Orders Support User Pain (Primary Dx) Social History Tobacco Use Types Packs/Day Years [...] as of this encounter Plan of Treatment Not on file documented as of this encounter Results * CT angiogram carotid (02/23/2023 8:10 PM EDT) us Scanning Provider External IMG CT ORDERABLES Fin al Result * CT angiogram head (02/23/2023 8:05 PM EDT) us Scanning Provider External IMG CT ORDERABLES Fin al Result * CT brain without contrast stroke alert (02/23/2023 7:55 PM EDT) us Scanning Provider External IMG CT ORDERABLES Fin al Result documented in this encounter Visit Diagnoses Diagnosis Pain- Primary Generalized pain documented in this encounter Care Teams Project Management It Specialist Relationship Specialty Start Date End Date Shaikh Dickerson MD PCP - General Internal Medicine 02/25/23 documented as of this encounter
--- OUTSIDE RECORDS SUMMARY | 2025-04-09 10:11 | XMS_ITS | Encounter Summary ---
Author Organization [facility] Address [id number] [address] [place] [address] Care Team Providers Care Yarder Name Role Phone Shaikh MAVIS Dickerson Primary Care Provider [phone] Reason for Visit * Reason Onset Date Comments Care Navigation 03/08/2023 Encounter Details Date Type Department Care Team (Late st Contact Info) Description 03/08[facility]20[facility] [address] [place] [phone] Ginette Buenrostro RN Care Navigation Social History Tobacco Use Types Packs/Day Years [...] encounter Miscellaneous Notes * Telephone Encounter - Ginette Buenrostro RN - 03/08/2023 11:22 AM EDT Contact Type: Direct contact - Phone call with patient - general Reason For Call: Neurology Care Navigation Update Assessment: Patient reports that he is doing ok . He feels things are getting back to normal. Hereports that the groin site is healing and without any signs of bleeding or infection. Plan/Goals: patient to call CN with any questions/concerns or any new, returning or worsening symptoms. Patient does have CN's direct line. Intervention: CN called patient and received update Questions: None at this time documented in this encounter Plan of Treatment Not on file documented as of this encounter Visit Diagnoses Not on filedocumented in this encounter Care Teams Yarder Relationship Specialty Start Date End Date Shaikh Dickerson MD PCP - General Internal Medicine 02/25/23 documented as of this encounter
--- OUTSIDE RECORDS SUMMARY | 2025-04-09 10:11 | XMS_ITS | Clinical Summary ---
Author Organization [facility] Address [address] [place] [address] Care Team Providers Care Manager Intensive Care Name Role Phone Tami Navarro APRN.SKETCH MAKER Unavailable [phone] Lizzy Stark RN Unavailable [phone] Shaikh MAVIS Dickerson Primary Care Provider [phone] Axel Liz MD Unavailable [phone] Allergies No known active allergies Medications atenolol (TENORMIN) 50 mg tablet Take 50 mg by mouth daily at bedtime. 1 02/06/20 18 Active metFORMIN (GLUCOPHAGE) 500 mg tablet Take 500 mg by mouth twice daily with meals. 1 02/06/20 18 Active amLODIPine (NORVASC) 5 mg tablet Take 5 mg by mouth once daily. Active insulin NPH-insulin regular injection (HumuLIN, NovoLIN 70/30) Inject subcutaneously twice daily with meals. Active albuterol HFA (VENTOLIN HFA) 90 mcg/actuation inhaler Inhale 2 Puffs as instructed. Active Cetirizine 10 mg cap Take by mouth. Activ e FISH OIL-DHA-EPA ORAL Take by mouth. Activ e fluticasone (FLONASE) 50 mcg/actuation nasal spray Use 1 Bradford in each nostril once daily. Active lansoprazole (PREVACID) 15 mg capsule Take 15 mg by mouth every other day. Active tamsulosin (FLOMAX) 0.4 mg Take 0.4 mg by mouth twice daily. Active diclofenac, EC, (VOLTAREN) 75 mg EC tablet Take 75 mg by mouth twice daily. Active atorvastatin (LIPITOR) 20 mg tablet atorvastatin 20 mg tablet TAKE 1 TABLET BY MOUTH ONE TIME A DAY Active glipiZIDE (GLUCOTROL) 5 mg tablet Take 10 mg by mouth twice daily. 03/06/20 20 Active solifenacin 10 mg tablet Take 10 mg by mouth once daily. 01/06/20 22 Active aspirin (ASPIR-81 ORAL) Take 81 mg by mouth once daily. Active clopidogrel (PLAVIX) 75 mg tablet Take 75 mg by mouth. 02/25/20 23 Active levothyroxine (SYNTHROID) 125 mcg tablet Take 1 tablet by mouth once daily. 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 Discontinue saline lock post exam. If Pt. has a central line or IVAD, may access for administration according to line specific nursing protocol. Once exam is complete flush line and de-access according to line specific nursing protocol in the CT contrast administration guidelines link. 1 each 03/28/20 25 Active amoxicillin-cl avulanate potassium (AUGMENTIN) 875-125 mg per tablet Take 1 tablet by mouth every 12 hours for 10 days. 20 tablet 03/28/20 25 025 Active Problems Problem Noted Date Diagnosed Date Primary malignant neoplasm o f right lung metastatic to other site 03/28/2025 Hypothyroidism 08/12/2018 Cancer associated pain 03/25/2018 Malaise and fatigue 03/11/2018 Malignant neoplasm of lower lobe of right lung 0 02/25/2018 Type 2 diabetes mellitus wit hout complication, without long-term current use of insulin 02/25/2018 Essential hypertension 02/25/2018 History of prostate cancer 02/25/2018 Encounters Date Type Department Care Team Description 03/28/2025 2:00 PM EDT Visit (SP) Office Hematology/Oncology [address] [place] [address] [place] [address] Axel Liz MD 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) (Primary Dx); Malignant neoplasm of upper lobe, right bronchus or lung (HCC); Personal history of malignant neoplasm of prostate; Pneumonitis due to inhalation of other solids and liquids (HCC) 03/28/2025 Travel 03/20/2025 7:33 AM EDT - 03/20/2025 11:59 PM EDT Hospital Encounter Radiology Pet CT [address] [place] [address] Malignant neoplasm of unspecified part of unspecified bronchus or lung (HCC) [C34.90] Discharge Disposition: Home 03/20/2025 Results Follow-Up Hematology/Oncology [address] [place] [address] Janell Dukes PA-C Care Coordination (CT Results) 03/20/2025 Travel 02/06/2025 Telephone Hematology/Oncology [address] [place] [address] Kat Schmidt RN from Last 3 Months Immunizations Immunization Administration Dates Next Due COVID-19 original vaccine, a ge 5 yr - 11 yr, monovalent (PFIZER-BIONTECH) 04/30/2021 influenza (HD-IIV3) vaccine, age 65+ yr, high dose, trivalent, PF (FLUZONE HIGH-DOSE) 06/02/2018 influenza (HD-IIV4) vaccine, age 65+ yr, high dose, quadrivalent, PF (FLUZONE HIGH-DOSE) 06/18/2021,06/17/2020 influenza (LAIV) vaccine, na lara, unspecified formulation 05/01/2021 influenza vaccine, unspecified formulation 05/01 tetanus diphtheria pertussis (Tdap) vaccine, age 7+ yr (ADACEL, BOOSTRIX) 03/20/2024 Family History Medical History Relation Comments lung cancer Father Relation Status Comments Father Social History Tobacco Use Types Packs/Day Years Used Date Smoking Tobacco: Former Passive Smoke Exposure: Past Smokeless Tobacco: Never Tobacco Cessation:Counseling Given: Not Answered Comments:during high school Alcohol Use Standard Drinks/Week Comments No 0 (1 standard drink = 0.6 oz pur e alcohol) PHQ-2 Answer Date Recorded PHQ-2 score 0 03/16/2024 Area Deprivation Index Answer Date Juan rded National Score (1-100), lower number is lower ri sk 94 03/18/2023 State Score (1-10), lower number is lower risk 9 03/18/2023 Data from: https://www.neighborhoodatlas.med[facility].edu/. Last address used for calculation [address] 03/18/2023 Sex and Gender Information Value [...] Mass Index 35 03/28/2025 1:58 PM EDT Plan of Treatment Upcoming Encounters Date Type Department Care Team (Latest Contact Info) Description 03/27/2026 1:45 PM EDT Appointment Radiology Pet CT [address] [place] [address] Ct Chest with contrast 04/03/2026 2:00 PM EDT Visit (SP) Office Hematology/Oncology [address] [place] [address] Axel Liz MD [address] [place] [address] [place] [address] 1 year follow up Health Maintenance Due Date Last Done Comments Diabetic Foot Exam 02/14/1958 Dilated Retinal Exam 02/14/1958 Annual PCP Team Chronic Dise ase Visit 02/14/1966 Anxiety Screening 02/14/1966 Depression Screening 02/14/1966 Hepatitis C Screening 02/14/1966 Pneumococcal Vaccine: 50+ (1 of 2 - PCV) 02/14/1967 Shingrix Vaccine (1 of 2) 02/14/1998 Medicare Annual Wellness Visit 01/23/2013 RSV Vaccine (1 - 1-dose 75+ series) 02/14/2023 Urine Albumin:Creatinine Ratio 07/13/2024 07/13/2023 , 07/13/2023 Advance Directive Discussion 07/26/2024 Influenza Vaccine (#1) 2025 , 05/01/2021, 05/01/2021, Additional history exists HbA1C 06/28/2025 12/27/2024, 06/0 10/2024, 03/16/2024, Additional history exists LDL Cholesterol 12/27/2025 12/27/2024, 06/0 10/2024, 03/16/2024, Additional history exists DTaP,Tdap,Td Vaccine (2 - Td or Tdap) 03/20/2034 03/20/2024 Cologuard (FIT-DNA) Discontinued 04/12/2022 Colorectal Cancer Screening Discontinued CT Colonography Discontinued Colonoscopy Discontinued Fecal Occult Blood Discontinued Sigmoidoscopy Discontinued Procedures Procedure Name Priority Date/Time Associated Diagnosis Comments CT CHEST WO IVCON Routine 03/20/2025 8:0 8 AM EDT Malignant neoplasm of unspecified part of unspecified bronchus or lung (HCC) COMPREHENSIVE METABOLIC PANEL Routine 03/20/2025 7:58 AM EDT Malignant neoplasm of unspecified part of unspecified bronchus or lung (HCC) CBC + DIFF Routine 03/20/2025 7:58 AM EDT Malignant neoplasm of unspecified part of unspecified bronchus or lung (HCC) HEMOGLOBIN A1C Routine 12/27/2024 11:19 AM EDT Type 2 diabetes mellitus with other specified complication, unspecified whether correction insulin use (HCC) Unspecified hypothyroidism Hyperlipidemia, unspecified hyperlipidemia type Personal history of malignant neoplasm of prostate LIPID PANEL, FASTING Routine 12/27/2024 11:19 AM EDT Type 2 diabetes mellitus with other specified complication, unspecified whether correction insulin use (HCC) Unspecified hypothyroidism Hyperlipidemia, unspecified hyperlipidemia type Personal history of malignant neoplasm of prostate ALBUMIN/CREATININE RATIO, URINE Routine 07/13/2023 12:01 PM EST Unspecified essential hypertension Mixed hyperlipidemia Occlusion of left carotid artery Routine general medical examination at a health care facility Type 2 diabetes mellitus without complication, unspecified whether termite treater insulin use (HCC) Unspecified hypothyroidism from Last 3 Months or Most Recently Relevant to Health Maintenance Results * CT CHEST WO IVCON (03/20/2025 8:08 AM EDT) Anatomical Region Laterality Modality Chest Nuclear Medicine , Nuclear Medicine 03/20/2025 8:08 AM EDT Impressions 03/20/2025 10:14 AM EDT IMPRESSION: 1. No interval change since 03/09/24. [...] any questions regarding this interpretation, please call [phone]. If you are unable to reach us at the number above, please feel free to contact [facility] eRadiology at [phone]. Narrative 03/20/2025 10:14 AM EDT * * *Final Report* * * DATE OF EXAM: Mar 20 2025 8:08AM [facility] 0541 - CT CHEST WO [...] abdomen: No evidence of an adrenal mass. Team Psychologist (topogram) images: No additional findings. Procedure Note Provider, [facility] - 03/20/2025 * * *Final Report* * * DATE OF EXAM: Mar 20 2025 8:08AM [facility] 0541 - CT CHEST WO [...] abdomen: No evidence of an adrenal mass. Team Psychologist (topogram) images: No additional findings. IMPRESSION IMPRESSION: 1. No interval change since 03/09/24. [...] any questions regarding this interpretation, please call [phone]. If you are unable to reach us at the number above, please feel free to contact [facility] at [phone]. us Janell Dukes PA-C CT-[facility] Final Result * (ABNORMAL) COMPREHENSIVE METABOLIC PANEL (03/20/2025 7:58 AM EDT) Protein, Total 6.4 6.3 - 8.0 g/dL 03/20/2025 8:29 AM EDT [facility] Albumin 4.3 3.9 - 4.9 g/dL 03/20/2025 8:29 AM EDT [facility] Calcium, Total 9.9 8.5 - 10.2 mg/dL 03/20/2025 8:29 AM EDT [facility] Bilirubin, Total 0.6 0.2 - 1.3 mg/dL 03/20/2025 8:29 AM EDT [facility] Alkaline Phosphatase 61 38 - 113 U/L 03/20/2025 8:29 AM [facility] AST 13(L) 14 - 40 U/L 03/20/2025 8:29 AM [facility] ALT 17 10 - 54 U/L 03/20/2025 8:29 AM [facility] Glucose 207(H) 74 - 99 mg/dL 03/20/2025 8:29 AM [facility] Comment: The [place] Diabetes Association (ADA) provides guidance for cutoff [...] Standards of Medical Care in Diabetes 2016, [place] Diabetes Association. Diabetes Care. 2016.39(Suppl 1). BUN 13 9 - 24 mg/dL 03/20/2025 8:29 AM [facility] Creatinine 0.99 0.73 - 1.22 mg/dL 03/20/2025 8:29 AM [facility] Sodium 136 136 - 144 mmol/L 03/20/2025 8:29 AM [facility] Potassium 4.6 3.7 - 5.1 mmol/L 03/20/2025 8:29 AM [facility] Chloride 98 98 - 107 mmol/L 03/20/2025 8:29 AM [facility] CO2 27 22 - 30 mmol/L 03/20/2025 8:29 AM [facility] Anion Gap 11 8 - 15 mmol/L 03/20/2025 8:29 AM [facility] Estimated Glomerular Filtration Rate 78 >=60 mL/min/1. 73m 03/20/2025 8:29 AM EDT [facility] Comment:Estimated Glomerular Filtration Rate (eGFR) is calculated using the 2020 CKD-EPI creatinine equation. This equation utilizes serum creatinine, sex, and age as parameters. The creatinine assay has traceable calibration to isotope dilution- mass spectrometry. Refer to KDIGO guidelines for clinical interpretation. In patients with unstable renal function, e.g. those with acute kidney injury, the eGFR may not accurately reflect actual GFR. Blood BLOOD SPECIMEN / Unknown Venipuncture / Unknown 03/20/2025 7:58 AM EDT 03/20/2025 7:58 AM EDT us Janell Dukes PA-C LABORATORY Final Result [facility] [address] [place] [address] * COMPLETE BLOOD COUNT AND DIFFERENTIAL (03/20/2025 7:58 AM EDT) WBC 6.28 3.70 - 11.00 k/uL 03/20/2025 8:01 AM EDT [facility] RBC 4.37 4.20 - 6.00 m/uL 03/20/2025 8:01 AM EDT [facility] Hemoglobin 13.9 13.0 - 17.0 g/dL 03/20/2025 8:01 AM T [facility] Hematocrit 41.2 39.0 - 51.0 % 03/20/2025 8:01 AM EDT [facility] MCV 94.3 80.0 - 100.0 fL 03/20/2025 8:01 AM EDT [facility] MCH 31.8 26.0 - 34.0 pg 03/20/2025 8:01 AM EDT [facility] MCHC 33.7 30.5 - 36.0 g/dL 03/20/2025 8:01 AM EDT [facility] RDW-CV 13.9 11.5 - 15.0 % 03/20/2025 8:01 AM EDT [facility] Platelet Count 151 150 - 400 k/uL 03/20/2025 8:01 AM EDT [facility] MPV 9.5 9.0 - 12.7 fL 03/20/2025 8:01 AM EDT [facility] Neutrophils % 56.1 % 03/20/2025 8:01 AM EDT [facility] Abs Neut 3.52 1.45 - 7.50 k/uL 03/20/2025 8:01 AM EDT [facility] Lymphocytes % 28.7 % 03/20/2025 8:01 AM EDT [facility] Abs Lymph 1.80 1.00 - 4.00 k/uL 03/20/2025 8:01 AM EDT [facility] Monocytes % 8.9 % 03/20/2025 8:01 AM EDT [facility] Abs [place] 0.56 <0.87 k/uL 03/20/2025 8:01 AM EDT [facility] Eosinophils % 4.9 % 03/20/2025 8:01 AM EDT [facility] Abs Eosin 0.31 <0.46 k/uL 03/20/2025 8:01 AM EDT [facility] Basophils % 0.6 % 03/20[facility] Abs Baso 0.04 <0.11 k/uL 03/20/2025 8:01 AM EDT [facility] Immature Granulocytes % 0.8 % 03/20/2025 8:01 AM EDT [facility] Abs Immature Gran 0.05 <0.10 k/uL 025 8:01 AM EDT [facility] NRBC 0.0 /100 WBC 03/20/2025 8:01 AM EDT [facility] Absolute nRBC <0.01 <0.01 k/uL 03/20/2025 8:01 AM EDT [facility] Diff Type Auto 03/20/2025 8:01 AM EDT [facility] Blood BLOOD SPECIMEN / Unknown Venipuncture / Unknown 03/20/2025 7:58 AM EDT 03/20/2025 7:58 AM EDT Janell Dukes PA-C LABORATORY Final Result [facility] [address] [place] [address] * (ABNORMAL) LIPID PANEL, FASTING (12/27/2024 11:19 AM EDT) Cholesterol, Total 117 <200 mg/dL 12/28/2024 12:27 AM [facility] Comment: <200 mg/dL, Desirable 200-239 mg/dL, Borderline high >239 mg/dL, High Triglyceride 87 <150 mg/dL 12/28/2024 12:27 AM T [facility] Comment: <150 mg/dL, Normal 150-199 mg/dL, Borderline high 200-499 mg/dL, High >499 mg/dL, Very high HDL Cholesterol 39(L) >39 mg/dL 12:27 AM [facility] Comment: 40-59 mg/dL, Acceptable >59 mg/dL, High: Negative risk factor for coronary heart disease <40 mg/dL, Low: Positive risk factor for coronary heart disease LDL Cholesterol, Calculated 61 <100 mg/dL 12/28/2024 12:27 AM T [facility] Comment: <100 mg/dL, Optimal 100-129 mg/dL, Near optimal/above optimal 130-159 mg/dL, Borderline high 160-189 mg/dL, High >189 mg/dL, Very high Secondary prevention optimal LDL Cholesterol levels are recommended to be <70 mg/dL LDL cholesterol is calculated using the Roberts-NIH equation. Non HDL Cholesterol 78 <130 mg/dL 12/28/2024 12:27 AM [facility] Comment: <130 mg/dL, Optimal 130-159 mg/dL, Near optimal/above optimal 160-189 mg/dL, Borderline high 190-219 mg/dL, High >219 mg/dL, Very high Secondary prevention optimal non HDL Cholesterol levels are recommended to be <100 mg/dL VLDL Cholesterol 13 <30 mg/dL 12/29/19 12:27 AM EDT [facility] TC:HDL Ratio 3.00 <5.10 12/28/2024 12:27 AM EDT [facility] LDL:HDL Ratio 1.56 <2.54 12/28/2024 12:27 AM EDT [facility] Comment: Reference: 1. National Cholesterol Education Program ATP III Guideline At-A-Glance Quick Desk Reference: National Heart, Lung, and Blood [place]. National Institutes of Health. 2001: NIH Publication No. 01-3305. 2. An International Atherosclerosis Society position paper: global recommendations for the management of dyslipidemia: executive summary, Atherosclerosis. 2014: 232(2):410-413. Fasting Time 12 hrs 12/28/2024 12:27 AM EDT [facility] Blood BLOOD SPECIMEN / Unknown Venipuncture / Unknown 12/27/2024 11:19 AM EDT 12/27/2024 11:19 AM EDT Mago Ruvalcaba TEMPLER HEAD.[facility] LABORATORY Final Result [facility] [address] [facility] Desk [address] [address], [facility] [address] [place] [address] * (ABNORMAL) HEMOGLOBIN A1C (12/27/2024 11:19 AM EDT) Hemoglobin A1C 6.8(H) 4.3 - 5.6 % 12/27/2024 6:36 PM EDT [facility] Comment:[place] Diabetes As sociation guidelines indicate that patients with HgbA1c in the range 5.7-6.4% are at increased risk for development of diabetes, and intervention by lifestyle modification may be beneficial. HgbA1c greater or equal to 6.5% is considered diagnostic of diabetes. Estimated Average Glucose 148 mg/dL 12/27/2024 6:36 PM EDT [facility] Comment:eAG: (Estimated aver age glucose) is a calculated value from HgbA1c and is service support representative of the average blood glucose level in the last 2-3 month period. Blood BLOOD SPECIMEN / Unknown Venipuncture / Unknown 12/27/2024 11:19 AM EDT 12/27/2024 11:19 AM EDT us Mago Ruvalcaba TEMPLER HEAD.SKETCH MAKER LABORATORY Final Result Performing Organization Address City/[facility]/ZIP Co de Phone Number [facility] [address] [facility] [place] [address], * ALBUMIN/CREAT RATIO RND UR (07/13/2023 12:01 PM EST) Pathologist [facility] Creatinine, Ur Random (UCRR) 53.3 20.0 - 300.0 mg/dL 07/20/2023 1:38 PM EST [facility] Albumin, Urine Random <12.0 mg/L 07/20/2023 1:38 PM EST [facility] Albumin/Creat Ratio <23 <30 mg/g 07/20/2023 1:38 PM EST [facility] Comment: Adult Male and Female Nephrotic Criteria: <30 mg/g is considered normal to mildly increased 30-300 mg/g is considered moderately increased >300 mg/g is considered severely increased KDIGO. (2013). KDIGO 2012 Clinical Practice Guideline for the Evaluation and Management of Chronic Kidney Disease. Official Journal of the International Society of Nephrology, 3(1), 1-150. Urine Random URINE SPECIMEN / Unknown Non Blood / Unknown 07/13/2023 12:01 PM EST 07/13/2023 12:01 PM EST us Shaikh Jayla GAMBLE LABORATORY Edited Result - Final [facility] [address] [facility] [address], from Last 3 Months or Most Recently Relevant to Health Maintenance Insurance MEDICARE SELF PAY Care Teams Manager Intensive Care Relationship Specialty Start Date End Date Shaikh Dickerson MD [address] [facility] [place] [address] PCP - General Primary Care 09/17/21 Tami Navarro APRN.CNP [address] [facility] [place] [address] Nurse Practitioner Hematology/Oncology 03/11/18 Lizzy Stark, RAT [address] [facility] [address] [place] [address] Specialty Tip Cutter Hematology/Oncology 03/09/19 Axel Liz MD [address] [place] [address] Physician Hematology/Oncology 01/29/25
--- OUTSIDE RECORDS SUMMARY | 2025-04-09 10:11 | XMS_ITS | Encounter Summary ---
Author Organization [facility] Address [address] [place] [address] Care Team Providers Care Guide Name Role Phone Shaikh MAVSI [place] Primary Care Provider [phone] Shaikh MAVIS [place] Primary Care Provider [phone] Kiran Terrell MD Primary Care Provider [phone] Susy Dickson MACHINE OPERATIONS SUPERVISOR Unavailable [phone] Ravin Carr MD Primary Care Provider [phone] Encounter Details Date Type Department Care Team (Late st Contact Info) Description 05/14/2023 Abstract [facility] [address] [place] [address] Anne Lux, DPM [address] [place] [address] Social History Tobacco Use Types Packs/Day Years [...] Procedure Visit [facility] [address] [place] [address] Anne Lux, DPM [address] [place], [place] [id number] documented as of this encounter Visit Diagnoses Not on filedocumented in this encounter Care Teams Guide Relationship Specialty Start Date End Date Shaikh Dickerson MD PCP - General Internal Medicine 02/05/23 09/26/23 Shaikh Dickerson MD [address] [place] [address] PCP - General Internal Medicine 09/27/23 03/01/24 Kiran Terrell MD [address] [place] [address] PCP - General Family Medicine 03/02/24 11/13/24 Ravin Carr MD [address] [place] [address] PCP - General Family Medicine 11/14/24 Susy Dickson NP [address] [place] [address] Nurse Practitioner Family Medicine 03/02/24 11/13/24 documented as of this encounter
--- OUTSIDE RECORDS SUMMARY | 2025-04-09 10:11 | XMS_ITS ---
Author Organization [facility] Address [address] [place] [address] Care Team Providers Care Sugar Presser Name Role Phone Tami Navarro CAMPAIGN MARKETING SPECIALIST.GPS FIELD DATA COLLECTOR Unavailable [phone] Lizzy Stark RN Unavailable [phone] Shaikh MAVIS [place] Primary Care Provider [phone] Axel Liz MD Unavailable [phone] Active Problems Problem Noted Date Diagnosed Date Primary malignant neoplasm o f right lung metastatic to other site 03/28/2025 Hypothyroidism 08/12/2018 Cancer associated pain 03/25/2018 Malaise and fatigue 03/11/2018 Malignant neoplasm of lower lobe of right lung 0 02/25/2018 Type 2 diabetes mellitus wit hout complication, without long-term current use of insulin 02/25/2018 Essential hypertension 02/25/2018 History of prostate cancer 02/25/2018 Current Treatment and Therapy Plans No current plan information found. Past Treatment and Therapy Plans ONCOLOGY REGIMEN Plan Name Start Date Discontinue Date Treatment Medications Discontinue Reason Plan Provider Cycles PEMBROLIZUMAB 200 PACLITAXEL 200 CARBOPLATIN 6 D1 - Q21D THEN PEMBROLIZUMAB 200 D1 - Q21D 8 07/08/2020 CARBOplatin iv piggyback (PARAPLATIN)PA CLitaxel iv piggyback (TAXOL)PACLita xel protein-bound iv infusion 5 mg/mL (ABRAXANE)pemb rolizumab IV infusion (KEYTRUDA) Abdoulaye Graham MD 19 of 35 cycles started
--- NOTE | 2025-04-09 10:15 | CT_ITS ---
The [address] [address] Patient Name: JERONIMO GOMEZ MRN: [id number] date: 1950 Sex: M Assigned Patient Location: CT Current Patient Location: CT Accession/Order Number: [id number] Exam Date: 04/09/2025 11:05 Report Date: 04/09/2025 12:32 At the request of: JAKE STYLES NP Procedure: CT abdomen pelvis wo/w con CT ABDOMEN AND PELVIS WITHOUT AND WITH INTRAVENOUS CONTRAST COMPARISON: 03/20/2024 CLINICAL DATA: Gross hematuria. History of prostate cancer and radiation seed. Spiral images were obtained through the abdomen and pelvis before and after intravenous administration of 100 cc of Omnipaque 300. This CT exam was performed using one or more following dose reduction techniques: Automated exposure control, adjustment of the mA and/or kV according to patient size, or use of iterative reconstruction technique. Limited cuts through the lung bases show minimal scarring or atelectasis. There is redemonstration of a nodule at the right costophrenic angle with central calcification, not significantly changed in size or appearance. No calcified gallstones are identified. No intrahepatic masses are seen. There are calcified splenic granulomas. The pancreas is atrophic. No adrenal nodularity is seen. There is mild bilateral perinephric fibrofatty stranding. Precontrast, no renal, ureteral or bladder stones are seen. Following contrast administration, the renal nephrograms are symmetric. There is a small lower pole right renal cyst. There is no hydronephrosis. There is mild atherosclerotic plaque involving the aorta, iliac and some of the visceral arteries. There are small mesenteric lymph nodes and subtle hazy density at the root of the mesentery, possibly minor mesenteric panniculitis. There is no ascites. Small bowel loops are not dilated. There is stool throughout the colon. Scattered colonic diverticula are visualized. There is subtle thoracolumbar levoscoliotic curvature. Mild degenerative changes are present at the spine. Images through the pelvis show no dilated small bowel. The appendix is not definitely seen. Mild distal colonic stool is noted. There are some additional colonic diverticula, without associated active inflammation. There are clips at the mesentery at the upper pelvis. There is a small prostate which contains radiation seeds. The urinary bladder is not fully distended. The wall is slightly thickened. No intraluminal abnormalities are present. There is a tiny umbilical hernia containing fat. No adenopathy or ascites is seen. CT/CT abdomen pelvis wo/w con IMPRESSION: GRANULOMATOUS CHANGES. NO OBSTRUCTIVE UROPATHY OR STONE DISEASE. SMALL RIGHT RENAL CYST. SLIGHT URINARY BLADDER WALL THICKENING. THIS MAY BE RELATED TO INCOMPLETE DISTENTION HOWEVER CORRELATION IS RECOMMENDED TO EXCLUDE ANY POSSIBILITY OF CYSTITIS. PROSTATE RADIATION SEEDS, ALSO PRESENT ON THE PRIOR. DIVERTICULOSIS. Impression dictated by: Marcela Hemphill M.D. 04/09/2025 12:32 PM Dictation Location: [place] [address] Electronically authenticated by: [id number] Y Date: 04/09/2025 12:32
--- OUTSIDE RECORDS SUMMARY | 2025-04-09 10:15 | XMS_ITS | CCD ---
Author Organization [facility] Care Team Providers Care Property Coordinator Name Role Phone PHYSICIAN, DEFAULT Unavailable Unavailable PHYSICIAN, DEFAULT Unavailable Unavailable AMBGERARDO MELISA Unavailable Unavailable ABBEY CEVALLOS Admitting Unavailable ABBEY CEVALLOS Attending Unavailable MART ABBEY JANNIE Primary Care Unavailable ABBEY CEVALLOS Consulting Unavailable CHASE BLOUNT Consulting Unavailable MART, ABBEY JANNIE Admitting Unavailable MART ABBEYCHAD VALDERRAMA Attending Unavailable MART, ABBEY JANNIE Primary Care Unavailable MART ABBEY JANNIE Admitting Unavailable MART ABBEY JANNIE Attending Unavailable MART, ABBEY JANNIE Primary Care Unavailable ROSS ABBEY JANNIE Admitting Unavailable MART ABBEY JANNIE Attending Unavailable MART, ABBEY JANNIE Primary Care Unavailable ABBEY CEVALLOS Consulting Unavailable DR BEATRIZ LAU Admitting Unavailable JUDI, DR HENDERSON Attending Unavailable SHAIKH Tanya DICKERSON Primary Care Unavailable DR BEATRIZ LAU Consulting Unavailable SHAIKH DICKERSON Primary Care Physician Abdoulaye rGoves MD Unavailable Ramon CALL CENTER RN.Sharee JUAREZy Unavailable Mi CORDOVA Celia Unavailable Stevo Dickerson MDikh Primary Care Provider [phone] Abdoulaye Groves MD Unavailable [phone] Ramon [facility] RN.ANN, Neetu Unavailable [phone] Mi CORDOVA, Celia Unavailable [phone] Stevo Dickerson MDikh Primary Care Provider [phone] Martina Morrow Unavailable Mi CORDOVA, Celia Unavailable [phone] Jayla GAMBLE [facility] Primary Care Provider [phone] Abbey Cevallos MD Primary Care Provider Kiran Terrell MD Primary Care Provider [phone] Yessi FUR BLOWER OPERATOR, Faye Unavailable Leanna Mckeon APRN Attending Provider [phone] Abbey Cevallos MD Primary Care Provider Leanna Mckeon Attending Unavailable Leanna Mckeon Admitting Unavailable Abbey Cevallos Primary Care Unavailable Leanna Mckeon APRN Attending Provider [phone] Abbey Cevallos MD Primary Care Provider Abbey Cevallos MD Primary Care Provider Abbey Cevallos Primary Care Physician Axel Garcia MD Unavailable Shane Echevarria Primary Care Physician MD Abbey Cevallos Attending Unavailable MD Abbey Cevallos Attending Unavailable MD Abbey Cevallos Attending Unavailable MD Abbey Cevallos Attending Unavailable Beatriz LAU Attending Unavailable MD Abbey Cevallos Admitting Unavailable MD Abbey Cevallos Attending Unavailable MD Abbey Cevallos Attending Unavailable FAYE DICKSON Attending UnavailANNE Gutierrez Attending Unavailable FAYE DICKSON Attending UnavailANNE Gutierrez Attending Unavailable ANNE CAMACHO Attending Unavailable ABDOULAYE GROVES Referring Unavailabl AXEL Greco Attending Unavailable FAWWAD, KHAN Primary Care Unavailable SHANE ECHEVARRIA Referring Unavailable FAWWAD, [facility] Primary Care Unavailable ABDOULAYE GROVES Referring Unavailabl e FAWWAD, [facility] Primary Care Unavailable ABDOULAYE GROVES Referring Unavailabl e FAWWAD, [facility] Primary Care Unavailable OrLilliana redd Admitting Unavailable Lilliana Hsu Attending Unavailable Abbey Cevallos Attending Unavailable Abbey Cevallos Attending Unavailable Beatriz LAU Attending Unavailable Beatriz LAU Attending Unavailable Lilliana Hsu Attending Unavailable Abbey Cevallos Admitting Unavailable Abbey Cevallos Attending Unavailable Lilliana Hsu Admitting Unavailable Lilliana Hsu Attending Unavailable Abbey Cevallos Attending Unavailable Abbey Cevallos Admitting Unavailable Allergies Allergy Classification Reported Allergen(s) Allergy Type Date of Onset Reaction(s) Facility Dust (1 source) Dust Substance Allergy Difficulty breathing (finding) [facility] Mold Extract (1 source) Mold Extract Drug Allergy Difficulty breathing (finding) [facility] (10 sources) Dust; Translations: [dust] Propensity to adverse reactions (disorder) 3 Difficulty breathing (finding) [facility] (10 sources) Mold Extract; Translations: [mold] Drug Allergy 3 Difficulty breathing (finding) [facility] (1 source) perfume; Translations: [perfume] Propensity to adverse reactions (disorder) 3 [facility] (1 source) smoke; Translations: [smoke] Propensity to adverse reactions (disorder) 3 [facility] (20 sources) House dust mite Propensity to adverse reactions 3 Shortness of breath [facility] (20 sources) Mold Extract Drug Allergy 3 Shortness of breath [facility] (2 sources) No Known Medication Allergies; Translations: [No Known Medication Allergies] Propensity to adverse reactions (disorder) [facility] Rep[facility] NEGATED: Highlighted row has been ruled out!Unclassified (1 source) Drug allergy [facility] NEGATED: Highlighted row has been ruled out! (1 source) Drug allergy [facility] NEGATED: Highlighted row has been ruled out! (1 source) Drug allergy [facility] NEGATED: Highlighted row has been ruled out! (1 source) Drug allergy [facility] NEGATED: Highlighted row has been ruled out! (1 source) Drug allergy [facility] Medications Current Medications Medication Drug Class(es) Dates Sig (Normalized) Sig (Original) [id number] 200 actuat albuterol 0.09 mg/actuat metered dose inhaler (20 sources) beta2-Adrenergic Agonist Start: 09-05-2024 take 2 puff(s) by inhalation every four hours albuterol HFA 90 mcg/act inhaler Inhale 2 puffs every 4 (four) hours if needed 09/05/2024 Active Start: 09-05-2024 take 1 puff(s) by in halation every four hours Albuterol Sulfate 90 mcg/actuation HFA aerosol inhaler Active 2 PUFF INHALATION Q4H 1 September 05, 2024 1:00am Start: 03-09-2018 take 1 puff(s) by in halation every four to six hours as needed for wheezing Albuterol Sulfate (Ventolin Hfa) 90 mcg/actuation Hfa Aerosol Inhaler Active 2 PUFF INHALATION EVERY 4-6 HOURS as needed for Shortness Of Breath Or Wheezing March 09, 2018 12:00am albuterol HFA (V ENTOLIN HFA) 90 mcg/actuation inhaler Inhale 2 Puffs as instructed. Active Comment on above: Inhale 2 Puffs as in structed. amLODIPine 5 mg oral tablet (20 sources) Dihydropyridine Calcium Channel Edita Start: take 1 tablet by mouth once daily amLODIPine 5 mg Tab 5 mg = 1 tab(s), Oral, Daily, # 90 tab(s), Refills(s) 3, Pharmacy: [id number], 176, cm, 01/02/25 10:47:00 EDT, Height/Length Dosing, 107, kg, 01/02/25 10:47:00 EDT, Weight Dosing Start Date: 01/10/25 Status: Ordered Quantity: 90.0 Unit: tab(s) Repeat number: 4 Start: 01-05-2022 amlodipine Ora l, Daily, Refills(s) 0 Start Date: 01/05/22 Status: Ordered Repeat number: 1 Start: 01-05-2022 amlodipine Ora l, Daily, Refills(s) 0 Start Date: 01/05/22 Status: Ordered Start: 03-09-2018 End: 07-05-2024 take 1 tablet by mouth once daily amLODIPine (Norvasc) 5 MG tablet Indications: Essential (primary) hypertension Take 1 tablet (5 mg) by mouth Daily 90 tablet 1 07/05/2024 Active Comment on above: Take 5 mg by mouth o nce daily. amoxicillin 875 mg / clavulanate 125 mg oral tablet (3 sources) Penicillin-class Antibacterial Start: 04-05-2025 amoxicillin-clavulan ate 875 mg-125 mg Tab 1 tab(s), Refill(s) 0 Start Date: 04/05/25 Status: Ordered Repeat number: 1 Start: 03-28-2025 End: 04-07-2025 take 1 tablet by mouth every twelve hours amoxicillin-clavulanate potassium (AUGMENTIN) 875-125 mg per tablet Take 1 tablet by mouth every 12 hours for 10 days. 20 tablet 03/28/2025 04/07/2025 Active Start: 11-18-2017 take 1 tablet by mary th every twelve hours Amoxicillin-Pot Clavulanate 875-125 MG 1 tablet Orally every 12 hrs for 10 day(s) Oct, Not-Taking Ascorbic Acid (20 sources) Vitamin C Start: 01-02-2025 Vitamin C Refi lls(s) 0 Start Date: 01/02/25 Status: Ordered Repeat number: 1 take 1 tablet by mouth in the mo rning ascorbic acid (Vitamin C) 500 MG tablet Take 1 tablet by mouth in the morning. Active aspirin 81 mg oral capsule (20 sources) Platelet Aggregation Inhibitor, Nonsteroidal Anti-inflammatory Drug Start: 01-10-2024 take 1 mg by mouth every twenty-four hours aspirin 81 mg oral capsule mg cap(s), Oral, q24hr, Refills(s) 0 Start Date: 01/10/24 Status: Ordered Repeat number: 1 Start: 10-26-2018 take 1 tablet by mary th twice daily Aspirin 81 mg Tablet,Delayed Release (Dr/Ec) Active 81 MG PO Twice daily 0 October 26, 2018 12:00am Start: 03-09-2018 End: 10-10-2018 take 1 tablet by mouth once daily Aspirin (Aspirin Low Dose) 81 mg Tablet,Delayed Release (Dr/Ec) Discontinued 1 TAB PO Daily March 09, 2018 12:00am October 10, 2018 11:48am take 81 mg by mouth once daily a spirin (ASPIR-81 ORAL) Take 81 mg by mouth once daily. Active Comment on above: Take 81 mg by mouth once daily. atorvastatin 40 mg oral tablet (20 sources) HMG-CoA Reductase Inhibitor Start: take 1 tablet by mouth once daily atorvastatin 40 mg Tab 40 mg = 1 tab(s), Oral, Daily, # 90 tab(s), Refills(s) 4, Pharmacy: [facility] #[id number], 176, cm, 10/02/24 7:52:00 EDT, Height/Length Dosing, 108, kg, 10/02/24 7:52:00 EDT, Weight Dosing Start Date: 12/21/24 Status: Ordered Quantity: 90.0 Unit: tab(s) Repeat number: 5 Start: 09-13-2023 End: 09-11-2024 take 1 tablet by mouth once daily atorvastatin (Lipitor) 40 MG tablet Indications: Hyperlipidemia, unspecified TAKE 1 TABLET BY MOUTH DAILY 90 tablet 09/11/2024 Active Start: 01-08-2023 atorvastatin O ral, Daily Start Date: 01/08/23 Status: Ordered Start: 03-09-2018 End: 10-10-2018 take 1 tablet by mouth once daily Atorvastatin (Lipitor) 20 mg Tablet Discontinued 20 MG PO Daily March 09, 2018 12:00am October 10, 2018 12:15pm Comment on above: atorvastatin 20 mg t ablet TAKE 1 TABLET BY MOUTH ONE TIME A DAY azithromycin 250 mg oral tablet (2 sources) Macrolide Antimicrobial Start: 09-05-19 Azithromycin 250 mg tablet Active 0 PO .COMPLEX September 05, 2024 1:00am For 250 mg dose pack: take 500 mg today (day 1), then 250 mg for 4 days (days 2-5) PO benzonatate 100 mg oral capsule (13 sources) Non-narcotic Antitussive Start: 09-05-19 take 1 capsule by mouth in the morning, then take 1 capsule by mouth in the evening, then take 1 capsule by mouth at bedtime benzonatate (Tessalon) 100 MG capsule Take 100 mg by mouth in the morning and 100 mg in the evening and 100 mg before bedtime. 09/05/2024 Active Centrum Silver (8 sources) Start: 01-09-20 Centrum Silver Oral, Daily, Refill(s) 0 Start Date: 01/08/23 Status: Ordered Repeat number: 1 Start: 01-08-2023 Centrum Silver Oral, Daily, Refill(s) 0 Start Date: 01/08/23 Status: Ordered cetirizine hydrochloride 10 mg oral tablet (20 sources) Histamine-1 Receptor Antagonist Start: 03-09-2018 End: 09-11-2024 take 1 tablet by mouth once daily in the morning Cetirizine (Zyrtec) 10 mg Tablet Active 10 MG PO Every morning March 09, 2018 12:00am Cetirizine 10 mg cap Take by mouth. Active Comment on above: Take by mouth. clopidogrel 75 mg oral tablet (20 sources) P2Y12 Platelet Inhibitor Start: 12-04-2024 take 1 tablet by mouth once daily clopidogrel 75 mg Tab 75 mg = 1 tab(s), Oral, Daily, # 90 tab(s), Refills(s) 4, Pharmacy: [facility] #[id number], 176, cm, 10/02/24 7:52:00 EDT, Height/Length Dosing, 108, kg, 10/02/24 7:52:00 EDT, Weight Dosing Start Date: 12/04/24 Status: Ordered Quantity: 90.0 Unit: tab(s) Repeat number: 5 Start: 02-24-2023 End: 08-30-2024 clopidogrel (PLAVIX) 75 mg t ablet Take 75 mg by mouth. 02/24/2023 Active Comment on above: Take 75 mg by mouth. dextromethorphan hydrobromide 1.5 mg/ml / pyrilamine maleate 1.5 mg/ml oral solution (1 source) Uncompetitive Y-jlyxpi-Q-aspartate Receptor Antagonist, Sigma-1 Agonist Start: 08-04-19 [place] DM 7.5-7.5 MG/5ML 10 ml Orally every 6-8 hours as needed for 8 days Jul, Active docusate sodium 50 mg / sennosides, residential 8.6 mg oral tablet (3 sources) Start: 10-11-19 19 take 1 tablet by mouth twice daily Sennosides-Docusa te Sodium 8.6-50 mg Tablet Active 1 TAB PO Twice daily October 10, 2018 12:00am empagliflozin 10 mg oral tablet (4 sources) Sodium-Glucose Cotransporter 2 Inhibitor Start: 01-04-20 21 take 1 mg by mouth once daily in the morning Jardiance 10 mg oral tablet mg tab(s), Oral, qAM, Refills(s) 0 Start Date: 01/03/21 Status: Ordered FISH OIL-DHA-EPA ORAL (15 sources) FISH OIL-DHA-EPA ORAL Take by mouth. Active FISH OIL-DHA-EPA ORAL Take by mouth. 0 Active Comment on above: Take by mouth. Fish Oils (4 sources) Start: 01-01-2020 Fish Oil Oral, Refill(s) 0 Start Date: 01/01/20 Status: Ordered fluticasone propionate 0.093 mg/actuat metered dose nasal spray (20 sources) Corticosteroid Start: 01-08-2023 fluticasone 93 mcg/inh nasal spray BID Start Date: 01/08/23 Status: Ordered Repeat number: 1 Start: 03-09-2018 Fluticasone Pr opionate (Flonase Allergy Relief) 50 mcg/actuation Vernon,Suspension Active 1 SPRAY INTRANASAL As Directed as needed for Congestion March 09, 2018 12:00am take 1 spray(s) nasa l route once daily fluticasone (FLONASE) 50 mcg/actuation nasal spray Use 1 Vernon in each nostril once daily. Active take 2 spray(s) nasa l route once daily fluticasone (Flonase) 50 MCG/ACT nasal spray instill 2 (TWO) spray IN EACH NOSTRIL DAILY Active take 1-2 spray(s) na lara route once daily at bedtime FLONASE 50 mcg 1-2 sprays each NOSTRIL QHS Active Comment on above: Use 1 Vernon in each nostril once daily. gabapentin 100 mg oral capsule (2 sources) Anti-epileptic Agent Start: 5 take 1 capsule by mouth three times daily gabapentin 100 mg Cap 100 mg = 1 cap(s), Oral, TID, # 90 cap(s), Refills(s) 0, Pharmacy: [facility] #[id number], 176, cm, 10/02/24 7:52:00 EDT, Height/Length Dosing, 108, kg, 10/02/24 7:52:00 EDT, Weight Dosing Start Date: 10/02/24 Status: Ordered Quantity: 90.0 Unit: cap(s) Repeat number: 1 glipiZIDE 10 mg oral tablet (20 sources) Sulfonylurea Start: 4 take 1 tablet by mouth once daily glipiZIDE 10 mg Tab 10 mg = 1 tab(s), Oral, Daily, # 90 tab(s), Refills(s) 0, Pharmacy: [facility] #[id number], 176, cm, 01/02/25 10:47:00 EDT, Height/Length Dosing, 107, kg, 01/02/25 10:47:00 EDT, Weight Dosing Start Date: 02/02/25 Status: Ordered Quantity: 90.0 Unit: tab(s) Repeat number: 1 Start: 03-06-2020 take 2 tablets by mo ut twice daily glipiZIDE (GLUCOTROL) 5 mg tablet Take 10 mg by mouth twice daily. 03/06/2020 Active Start: 01-01-2020 glipiZIDE Oral , Daily, Refills(s) 0 Start Date: 01/01/20 Status: Ordered Repeat number: 1 Start: 01-01-2020 glipiZIDE Oral , Daily, Refills(s) 0 Start Date: 01/01/20 Status: Ordered Start: 03-09-2018 End: 06-30-2024 take 1 tablet by mouth in the morning glipiZIDE (Glucotrol) 10 MG tablet Indications: Type 2 diabetes mellitus with hyperglycemia (CMS/HCC) Take 1 tablet (10 mg) by mouth in the morning and 1 tablet (10 mg) before bedtime. 180 tablet 1 07/03/2024 Active take 1 tablet by mary every twenty-four hours glipiZIDE 10 MG 1 tablet Orally Once a day Active Comment on above: Take 10 mg by mouth twice daily. Handicap placards (1 source) Start: 018 Handicap placards as directed for PERMANENT Apr, Active hydroCHLOROthiazide 25 mg / spironolactone 25 mg oral tablet (4 sources) Thiazide Diuretic, Aldosterone Antagonist Start: take 1 tablet by mouth once daily [place] chlorothiaz 25-25 mg Tablet Active 1 TAB PO Daily March 09, 2018 12:00am insulin isophane / insulin, regular, human (20 sources) Insulin Start: 023 Novolin 70/30 SubCutaneous Start Date: 01/08/23 Status: Ordered Repeat number: 1 Start: 01-08-2023 Novolin 70/30 SubCutaneous Start Date: 01/08/23 Status: Ordered Start: 10-10-2018 Insulin Nph An d Regular Human (Novolin 70/30 U-100 Insulin) 100 unit/mL (70-30) Suspension Active 25 UNIT SUBCUT Every morning October 10, 2018 12:00am Start: 10-10-2018 Insulin Nph An d Regular Human (Novolin 70/30 U-100 Insulin) 100 unit/mL (70-30) Suspension Active 13 UNIT SUBCUT Daily before supper October 10, 2018 12:00am Start: 03-09-2018 End: 10-10-2018 inject 1 [IU] by subcutaneous injection once at bedtime Insulin Nph And Regular Human 100 unit/mL (70-30) Insulin Pen Discontinued 13 UNIT SUBCUT Bedtime March 09, 2018 12:00am October 10, 2018 12:19pm takes 1 unit more for every 10 above 125 fsbs Start: 03-09-2018 End: 10-10-2018 Insulin Nph And Regular Erin n (Humulin 70/30 U-100 Kwikpen) 100 unit/mL (70-30) Insulin Pen Discontinued 25 UNITS SUBCUT Every morning March 09, 2018 12:00am October 10, 2018 12:18pm takes 1 more unit more for every 10 above 125 fsbs Start: 03-09-2018 End: 10-10-2018 inject 1 [IU] by subcutaneous injection once at bedtime Insulin Nph And Regular Human 100 unit/mL (70-30) Insulin Pen Discontinued 13 UNIT SUBCUT Bedtime March 08, 2018 11:00pm October 10, 2018 11:19am takes 1 unit more for every 10 above 125 fsbs Start: 03-09-2018 End: 10-10-2018 Insulin Nph And Regular Erin n (Humulin 70/30 U-100 Kwikpen) 100 unit/mL (70-30) Insulin Pen Discontinued 25 UNITS SUBCUT Every morning March 08, 2018 11:00pm October 10, 2018 11:18am takes 1 more unit more for every 10 above 125 fsbs insulin NPH-insu mariama regular injection (HumuLIN, NovoLIN 70/30) Inject subcutaneously twice daily with meals. Active inject 25 [IU] by georges bcutaneous injection in the morning insulin NPH-insulin regular (NovoLIN 70/30) (70-30) 100 UNIT/ML injection Inject 25 Units under the skin in the morning and 25 Units in the evening. Inject before meals. Active NovoLIN 70/30 (7 0-30) 100 UNIT/ML Subcutaneous Active Comment on above: Inject subcutaneousl y twice daily with meals. iv contrast (will be provided with radiology test) (1 source) Start: 03-28-2025 iv contrast (will be provided with radiology test) Indications: Primary malignant neoplasm of right lung metastatic [...] CT contrast administration guidelines link. 1 each 03/28/2025 Active Prevacid (20 sources) Proton Pump Inhibitor Start: 01-02-2025 Prevacid Oral, PRN Other (see comment), Refills(s) 0 Start Date: 01/02/25 Status: Ordered Repeat number: 1 Start: 03-09-2018 Lansoprazole 1 5 mg Capsule,Delayed Release(Dr/Ec) Active 15 MG PO Q48H March 09, 2018 12:00am take 1 capsule by [facility] every other day lansoprazole (PREVACID) 15 mg capsule Take 15 mg by mouth every other day. Active lansoprazole (Pr evacid) [address] capsule 1 capsule 1 (one) time each day at the same time. Active Comment on above: Take 15 mg by mouth every other day. levothyroxine sodium 0.137 mg oral tablet (20 sources) l-Thyroxine Start: 02-19-2025 take 1 tablet by mouth once daily Synthroid 137 mcg (0.137 mg) Tab 137 mcg = 1 tab(s), Oral, Daily, # 90 tab(s), Refills(s) 4, Pharmacy: [id number], 176, cm, 02/12/25 16:11:00 EDT, Height/Length Dosing, 105.8, kg, 02/12/25 16:11:00 EDT, Weight Dosing Start Date: 02/19/25 Status: Ordered Quantity: 90.0 Unit: tab(s) Repeat number: 5 Start: 09-05-2024 Levothyroxine 137 mcg tablet Active MCG PO September 05, 2024 1:00am Start: 09-05-2024 Levothyroxine 137 mcg tablet Active MCG PO September 05, 2024 12:00am Start: 01-03-2024 End: 12-24-2024 take 1 tablet by mouth before mealtime levothyroxine (Synthroid) 137 MCG tablet Indications: Hypothyroidism, adult Take 137 mcg by mouth in the morning. Take before meals. 90 tablet 1 06/27/2024 Active Start: 06-26-2021 End: 03-18-2023 take 1 tablet by mouth once daily levothyroxine (SYNTHROID) 125 mcg tablet Take 1 tablet by mouth once daily. 90 tablet 1 07/13/2023 12:01 PM EST 03/18/2023 Active Start: 01-01-2020 Synthroid Oral , Daily, Refills(s) 0 Start Date: 01/01/20 Status: Ordered Repeat number: 1 Start: 01-01-2020 Synthroid Oral , Daily, Refills(s) 0 Start Date: 01/01/20 Status: Ordered Start: 10-10-2018 End: 09-05-2024 take 1 tablet by mouth once daily in the morning Levothyroxine 75 mcg Tablet Discontinued 75 MCG PO Every morning October 10, 2018 12:00am September 05, 2024 3:31pm take 1 tablet by mary once daily in the morning Synthroid 100 MCG 1 tablet on an empty stomach in the morning Orally Once a day for 30 day(s) Active take 1 tablet by mary th once daily in the morning Levothyroxine Sodium 75 MCG 1 tablet on an empty stomach in the morning Orally Once a day for 30 day(s) Active Comment on above: Take 1 tablet by mary th once daily. Claritin (20 sources) Start: 01-01-2020 Claritin Daily , Refills(s) 0 Start Date: 01/01/20 Status: Ordered Repeat number: 1 Start: 01-01-2020 Claritin Daily , Refills(s) 0 Start Date: 01/01/20 Status: Ordered loratadine (Clar itin) 10 MG tablet Take by mouth Active take 1 capsule by mo [facility] once daily Claritin 10 MG 1 capsule Orally Once a day Not-Taking metFORMIN hydrochloride 1000 mg oral tablet (20 sources) Biguanide Start: 07-03-2024 take 1 tablet by mouth twice daily metformin 1000 mg Tab 1,000 mg = 1 tab(s), Oral, BID, # 180 tab(s), Refills(s) 0, Pharmacy: [id number], 176, cm, 01/02/25 10:47:00 EDT, Height/Length Dosing, 107, kg, 01/02/25 10:47:00 EDT, Weight Dosing Start Date: 02/07/25 Status: Ordered Quantity: 180.0 Unit: tab(s) Repeat number: 1 Start: 12-30-2023 End: 06-30-2024 take 1 tablet by mouth twice daily metFORMIN (Glucophage) 1000 MG tablet Indications: Type 2 diabetes mellitus with hyperglycemia (CMS/HCC) TAKE 1 TABLET BY MOUTH TWICE DAILY 180 tablet 1 12/30/2023 06/30/2024 Discontinued (Reorder) Start: 01-01-2020 Glucophage Ora l, Refills(s) 0 Start Date: 01/01/20 Status: Ordered Repeat number: 1 Start: 01-01-2020 Glucophage Ora l, Refills(s) 0 Start Date: 01/01/20 Status: Ordered Start: 02-05-2018 End: 09-05-2024 take 1 tablet by mouth twice daily at mealtime metFORMIN (GLUCOPHAGE) 500 mg tablet Take 500 mg by mouth twice daily with meals. 1 02/05/2018 Active Comment on above: Take 500 mg by mouth twice daily with meals. montelukast 10 mg oral tablet (3 sources) Leukotriene Receptor Antagonist Start: 8 take 1 tablet by mouth once daily at bedtime Montelukast (Singulair) 10 mg Tablet Active 10 MG PO Daily at bedtime March 09, 2018 12:00am morphine sulfate 2 mg/ml oral solution (3 sources) Opioid Agonist Start: 9 take 10 mg by mouth every six hours as needed for pain Morphine 10 mg/5 mL Solution Active 10 MG PO Q6H as needed for Pain October 10, 2018 12:00am Multiple Vitamins-Minerals (CENTRUM SILVER 50+MEN PO) (20 sources) Start: 3 take 1 tablet by mouth in the morning Multiple Vitamins-Minerals (CENTRUM SILVER 50+MEN PO) Take 1 tablet by mouth in the morning. 01/08/2023 Active Cnamc-5p-Epv-Epa-Fis h Oil (Fish Oil) 120 mg-180 mg- 60 mg-1,200 mg Capsule,Delayed Release(Dr/Ec) (3 sources) Start: take 1 tablet by mouth twice daily Uucmw-9h-Mzo-Epa-Fis h Oil (Fish Oil) 120 mg-180 mg- 60 mg-1,200 mg Capsule,Delayed Release(Dr/Ec) Active 1 TAB PO Twice daily March 09, 2018 12:00am Start: 03-09-2018 take 1 tablet by mary th twice daily Plddj-2d-May-Epa-Fish Oil (Fish Oil) 120 mg-180 mg- 60 mg-1,200 mg Capsule,Delayed Release(Dr/Ec) Active 1 TAB PO Twice daily March 08, 2018 11:00pm predniSONE 20 mg oral tablet (3 sources) Start: 09-11-2024 End: 09-16-2024 take 2 tablets by mouth once daily predniSONE (Deltasone) 20 MG tablet Indications: Community acquired pneumonia due to influenza A virus Take 2 tablets (40 mg) by mouth Daily for 5 days 10 tablet 09/11/2024 09/16/2024 Active Start: 09-05-2024 take 1 tablet by mary th twice daily Prednisone 20 mg tablet Active 20 MG PO Twice daily 10 September 05, 2024 1:00am solifenacin succinate 10 mg oral tablet (20 sources) Cholinergic Muscarinic Antagonist Start: 01-05-2022 End: 02-07-2026 take 1 tablet by mouth once daily Vesicare 10 mg Tab 10 mg = 1 tab(s), Oral, Daily, X 90 day(s), # 90 tab(s), Refills(s) 3, Pharmacy: [id number], 176, cm, 02/12/25 16:11:00 EDT, Height/Length Dosing, 105.8, kg, 02/12/25 16:11:00 EDT, Weight Dosing Start Date: 02/12/25 Stop Date: 02/07/26 Status: Ordered Quantity: 90.0 Unit: tab(s) Repeat number: 4 Start: 01-05-2022 take 1 tablet by mary th once daily solifenacin (VESICARE) 5 mg tablet Take 5 mg by mouth once daily. 0 01/05/2022 Active VESIcare Active Comment on above: Take 5 mg by mouth o nce daily. Spironolactone (4 sources) Aldosterone Antagonist Start: 01-04-20 spironolactone Refills(s) 0 Start Date: 01/03/21 Status: Ordered tamsulosin hydrochloride 0.4 mg oral capsule (20 sources) alpha-Adrenergic Edita Start: 10-11-19 End: 02-08-20 take 1 capsule by mouth twice daily tamsulosin 0.4 mg Cap 0.4 mg = 1 cap(s), Oral, BID, X 90 day(s), # 180 cap(s), Refills(s) 3, Pharmacy: [id number], 176, cm, 02/12/25 16:11:00 EDT, Height/Length Dosing, 105.8, kg, 02/12/25 16:11:00 EDT, Weight Dosing Start Date: 02/12/25 Stop Date: 02/07/26 Status: Ordered Quantity: 180.0 Unit: cap(s) Repeat number: 4 Flomax 0.4 MG 24 hr capsule 1 capsule 1 (one) time each day at the same time. Active Comment on above: Take 0.4 mg by mouth twice daily. traMADol hydrochloride 50 mg oral tablet (3 sources) Opioid Agonist Start: 9 take 1 tablet by mouth every six hours as needed for pain Tramadol 50 mg Tablet Active 50 MG PO Q6H as needed for Pain October 10, 2018 12:00am valACYclovir 1000 mg oral tablet (3 sources) Herpesvirus Nucleoside Analog DNA Polymerase Inhibitor, Herpes Simplex Virus Nucleoside Analog DNA Polymerase Inhibitor, Herpes Zoster Virus Nucleoside Analog DNA Polymerase Inhibitor Start: valacyclovir 1 g Tab Oral, Refills(s) 0 Start Date: 10/02/24 Status: Ordered Repeat number: 1 Start: 09-29-2024 Valacyclovir 1 gram tablet Active 1000 MG PO Every 8 hours September 29, 2024 1:00am Vitamin D (2 sources) Start: 01-02-2025 Vitamin D See Instructions, Refills(s) 0 Start Date: 01/02/25 Status: Ordered Repeat number: 1 Completed/Discontinued Medications Medication Drug Class(es) Dates Sig (Normalized) Sig (Original) acetaminophen 325 mg / oxyCODONE hydrochloride 5 mg oral tablet (10 sources) Opioid Agonist Start: 03-09-2018 End: 10-31-2018 take 2 tablets by mouth every four to six hours as needed for pain Oxycodone-Acetamino phen (Percocet) 5-325 mg tablet Discontinued 2 TAB PO EVERY 4-6 HOURS as needed for pain 30 5 October 26, 2018 October 30, 2018 12:00am October 31, 2018 12:02am take 1 tablet by mouth every six hours Percocet 5-325 MG 1 tablet as needed Orally every 6 hrs Not-Taking Aspir-81 81 MG (1 source) take 1 tablet by mouth once daily Aspir-81 81 MG 1 tablet Orally Once a day Not-Taking atenolol 50 mg oral tablet (20 sources) beta-Adrenergic Edita Start: 02-02-2025 take 1 tablet by mouth once daily atenolol 50 mg Tab 50 mg = 1 tab(s), Oral, Daily, TAKE 1 TABLET BY MOUTH ONCE DAILY, # 90 tab(s), Refills(s) 0, Pharmacy: [id number], 176, cm, 01/02/25 10:47:00 EDT, Height/Length Dosing, 107, kg, 01/02/25 10:47:00 EDT, Weight Dosing Start Date: 02/02/25 Status: Ordered Quantity: 90.0 Unit: tab(s) Repeat number: 1 Start: 01-01-2020 Tenormin Oral, Daily, Refills(s) 0 Start Date: 01/01/20 Status: Ordered Start: 02-05-2018 End: 07-05-2024 take 1 tablet by mouth once daily at bedtime atenolol (TENORMIN) 50 mg tablet Take 50 mg by mouth daily at bedtime. 1 02/05/2018 Active Comment on above: Take 50 mg by mouth daily at bedtime. celecoxib 200 mg oral capsule (3 sources) Nonsteroidal Anti-inflammatory Drug Start: 018 End: 019 take 1 capsule by mouth twice daily Celecoxib (Celebrex) 200 mg Capsule Discontinued 200 MG PO Twice daily March 09, 2018 12:00am October 10, 2018 12:16pm Centrum Silver 50+Men (1 source) Centrum Silver 5 0+Men Not-Taking cholecalciferol 0.025 mg oral capsule (3 sources) Vitamin D Start: End: take 1 capsule by mouth twice daily Cholecalciferol (Vitamin D3) (Vitamin D3) 1,000 unit Capsule Discontinued 1000 UNIT PO Twice daily March 09, 2018 12:00am October 10, 2018 12:16pm ciprofloxacin 500 mg oral tablet (1 source) Quinolone Antimicrobial Start: take 1 tablet by mouth once daily Cipro 500 mg Tab 500 mg = 1 tab(s), Oral, Daily, Take 1 tablet the day before the procedure and 1 tablet after the procedure, # 2 tab(s), Refills(s) 0, Pharmacy: [id number], 176, cm, 04/05/25 14:45:00 EDT, Height/Length Dosing, 108.1, kg, 04/05/25 14:45:00 EDT, Weight Dosing Start Date: 04/05/25 Status: Ordered Quantity: 2.0 Unit: tab(s) Repeat number: 1 diclofenac sodium 75 mg delayed release oral tablet (20 sources) Nonsteroidal Anti-inflammatory Drug Start: End: take 1 tablet by mouth twice daily Diclofenac Sodium 75 mg Tablet,Delayed Release (Dr/Ec) Discontinued 75 MG PO Twice daily October 10, 2018 12:00am October 26, 2018 1:09pm Comment on above: Take 75 mg by mouth twice daily. hyaluronate (5 sources) Start: Nolanartz Jul, 25 mg Start: 07-25-2018 Supartz Jun 25 mg Start: 07-18-2018 Supartz Jun 25 mg Start: 07-11-2018 Supartz Jun 25 mg Start: 07-04-2018 Supartz Jun 25 mg hydrOXYzine pamoate 25 mg oral capsule (1 source) Antihistamine Start: 10-19-2018 take 1 capsule by mouth every eight hours Vistaril 25 MG 1 capsule as needed Orally every 8 hrs for 30 day(s) Do not fill until 10/23/18. Sep, Not-Taking ibuprofen 200 mg oral tablet (3 sources) Nonsteroidal Anti-inflammatory Drug Start: 10-10-2018 End: 10-26-2018 take 2 tablets by mouth three to four times daily as needed for pain Ibuprofen 200 mg Tablet Discontinued 400 MG PO 3 to 4 times per day as needed for Pain October 10, 2018 12:00am October 26, 2018 1:09pm meloxicam 15 mg oral tablet (3 sources) Nonsteroidal Anti-inflammatory Drug Start: 10-10-2018 End: 10-26-2018 take 1 tablet by mouth once daily in the morning Meloxicam 15 mg Tablet Discontinued 15 MG PO Every morning October 10, 2018 12:00am October 26, 2018 1:09pm Multi For Her 50+ - (1 source) Multi For Her 50 + - Orally Not-Taking Lfukjnvp-Hux-Gt-Ly copen-Lutein (Centrum Silver) 0.4-300-250 mg-mcg-mcg Tablet (3 sources) Start: 03-09-2018 End: 10-10-2018 take 1 tablet by mouth once daily Jhhmhper-Cld-Yx-Ly copen-Lutein (Centrum Silver) 0.4-300-250 mg-mcg-mcg Tablet Discontinued 1 TAB PO Daily March 09, 2018 12:00am October 10, 2018 12:16pm Start: 03-09-2018 End: 10-10-2018 take 1 tablet by mouth once daily Wtgtlmkm-Dka-Nu-Lycopen-Lutein (Centrum Silver) 0.4-300-250 mg-mcg-mcg Tablet Discontinued 1 TAB PO Daily March 08, 2018 11:00pm October 10, 2018 11:16am naproxen sodium 220 mg oral capsule (5 sources) Nonsteroidal Anti-inflammatory Drug Start: 03-09-2018 End: 10-10-2018 take 1 capsule by mouth twice daily as needed for pain Naproxen Sodium 220 mg Capsule Discontinued 220 MG PO Twice daily as needed for Pain March 09, 2018 12:00am October 10, 2018 12:15pm take 1 tablet by mouth every twe lve hours Naproxen 250 MG 1 tablet Orally Twice a day Not-Taking take 1 tablet by mary th every twelve hours at mealtime as needed Aleve 220 MG 1 tablet with food or milk as needed Orally every 12 hrs Not-Taking ProAir HFA 108 (90 Base) MCG/ACT (1 source) Start: 11-18-2017 take 2 puff(s) by inhalation every four to six hours as needed ProAir HFA 108 (90 Base) MCG/ACT 2 puffs as needed Inhalation every 4-6 hrs Oct, Not-Taking Triamcinolone (5 sources) Corticosteroid Start: 01-09-2020 Kenalog -40 mg Dec, 40 mg Start: 04-26-2018 Kenalog -40 mg Apr, 40 mg Start: 11-22-2017 Kenalog -40 mg Oct, 40 mg Start: 06-24-2017 Kenalog -40 mg May, Start: 12-24-2016 KENALOG - 10 m g Dec, Vitamin D-3 1000 UNIT (1 source) take 1 capsule by mouth once daily Vitamin D-3 1000 UNIT 1 capsule Orally Once a day Not-Taking vitamin e 90 mg oral capsule (3 sources) Start: 03-09-2018 End: 10-10-2018 Vitamin E 200 unit Capsule Discontinued 180 UNIT PO Daily March 09, 2018 12:00am October 10, 2018 12:17pm Problems Active Problems Problem Classification Problem Date Documented Date Episodic/Chronic Acquired foot deformities (2 sources) Hammer toe; Translations: [Other hammer toe(s) (acquired), right foot] 07-11-2024 Chronic Acute cerebrovascular disease (5 sources) Cerebrovascular accident 01-10-2024 Chronic Cancer of bronchus; lung (20 sources) Malignant tumor of lung; Translations: [Malignant neoplasm of unspecified part of right bronchus or lung] Onset: 02-25-2018 10-13-2019 Chronic Comment on above: chemo/radiation tx Cancer of prostate (10 sources) Malignant tumor of prostate; Translations: [Malignant neoplasm of prostate] 01-01-2020 Chronic Comment on above: radium seeds implant ed 07/11/2009 Cancer of prostate (20 sources) Personal history of malignant neoplasm of prostate; Translations: [History of malignant neoplasm of prostate] Onset: 02-25-2018 Episodic Cancer; other and unspecified primary (4 sources) History of malignant neoplasm of thoracic cavity structure 10-02-2024 Episodic Cancer; other respiratory and intrathoracic (2 sources) Malignant neoplasm of lower respiratory tract 02-06-2025 Chronic Diabetes mellitus with complications (20 sources) Neuropathy due to type 2 diabetes mellitus; Translations: [Type 2 diabetes mellitus with diabetic neuropathy, unspecified] Onset: 07-21-2013 03-04-2023 Chronic Diabetes mellitus without complication (20 sources) Type 2 diabetes mellitus without complications; Translations: [Diabetes mellitus] Onset: 02-25-2018 Chronic Comment on above: linked DM with HLD p er OP CDI policy. Diabetes mellitus without complication (7 sources) Glycosuria 01-01-2020 Episodic Disorders of lipid metabolism (20 sources) Hyperlipidemia; Translations: [Hyperlipidemia, unspecified] Onset: 06-28-2023 10-13-2019 Chronic Diverticulosis and diverticulitis (9 sources) Diverticular disease 10-13-2019 Chronic Essential hypertension (20 sources) Hypertensive disorder; Translations: [Essential hypertension] Onset: 02-25-2018 10-13-2019 Chronic Genitourinary symptoms and ill-defined conditions (20 sources) Urge incontinence; Translations: [Urge incontinence of urine] Onset: 01-05-2022 Chronic Genitourinary symptoms and ill-defined conditions (13 sources) Nocturia; Translations: [Microscopic hematuria] Onset: 01-08-2023 01-01-2020 Episodic Hyperplasia of prostate (20 sources) Benign prostatic hypertrophy with outflow obstruction; Translations: [Benign prostatic hyperplasia with lower urinary tract symptoms] Onset: 01-05-2022 Chronic Immunizations and screening for infectious disease (1 source) Contact with and (suspected) exposure to other viral communicable diseases Episodic Lung disease due to external agents (2 sources) Pneumonitis; Translations: [Pneumonitis due to inhalation of other solids and liquids] Onset: 03-28-2025 03-28-2025 Episodic Mycoses (3 sources) Onychomycosis; Translations: [Tinea unguium] 07-11-2024 Episodic Occlusion or stenosis of precerebral arteries (20 sources) Left carotid artery occlusion; Translations: [Occlusion and stenosis of left carotid artery] Onset: 06-28-2023 06-28-2023 Chronic Osteoarthritis (3 sources) Osteoarthritis of right knee joint; Translations: [Unilateral primary osteoarthritis, right knee] Chronic Other aftercare (2 sources) Long-term current use of anticoagulant; Translations: [correction (current) use of anticoagulants] Onset: 01-10-2024 Episodic Other aftercare (1 source) Long-term current use of drug therapy; Translations: [terminal operator (current) use of antithrombotics/antip latelets] Onset: 04-05-2025 Episodic Other circulatory disease (20 sources) History of cerebrovascular accident; Translations: [Personal history of transient ischemic attack (TIA), and cerebral infarction without residual deficits] Onset: 06-28-2023 06-28-2023 Episodic Comment on above: added per 09/29/2024 query response. Other circulatory disease (4 sources) Other specified symptoms and signs involving the circulatory and respiratory systems; Translations: [Other symptoms involving respiratory system and chest] Onset: 09-05-2024 09-05-2024 Episodic Other connective tissue disease (20 sources) History of total knee arthroplasty; Translations: [Presence of right artificial knee joint] Onset: 01-03-2024 01-03-2024 Chronic Other connective tissue disease (1 source) Dupuytren's contracture; Translations: [Palmar fascial fibromatosis [Dupuytren]] Episodic Other connective tissue disease (3 sources) Pain of toes of bilateral feet; Translations: [Pain in right toe(s)] 07-11-2024 Episodic Other diseases of bladder and urethra (3 sources) Neurogenic dysfunction of the urinary bladder; Translations: [Neuromuscular dysfunction of bladder, unspecified] Onset: 01-10-2024 Chronic Other diseases of bladder and urethra (5 sources) Neurogenic bladder 01-10-2024 Chronic Other diseases of kidney and ureters (1 source) Urinary tract obstruction; Translations: [Other obstructive and reflux uropathy] Onset: 04-05-2025 Episodic Other male genital disorders (9 sources) Impotence of organic origin 10-13-2019 Chronic Other nervous system disorders (15 sources) Pain due to neoplastic disease; Translations: [Neoplasm related pain (acute) (chronic)] Onset: 03-25-2018 03-25-2018 Chronic Other nutritional; endocrine; and metabolic disorders (8 sources) Body mass index 30+ - obesity 10-02-2024 Chronic Other screening for suspected conditions (not mental disorders or infectious disease) (9 sources) Raised prostate specific antigen 01-01-2020 Episodic Other upper respiratory disease (2 sources) Seasonal allergic rhinitis; Translations: [Other seasonal allergic rhinitis] 09-29-2024 Chronic Other upper respiratory disease (1 source) Other seasonal allergic rhinitis Chronic Other upper respiratory infections (1 source) Acute pharyngitis, unspecified Episodic Pneumonia (except that caused by tuberculosis or sexually transmitted disease) (2 sources) Pneumonia, unspecified organism; Translations: [Pneumonia, organism unspecified] 09-05-2024 Episodic Residual codes; unclassified (4 sources) Obstructive sleep apnea (adult) (pediatric); Translations: [OBSTRUCTIVE SLEEP APNEA] Onset: 04-01-2021 Chronic Screening and history of mental health and substance abuse codes (4 sources) Ex-smoker 10-02-2024 Episodic Spondylosis; intervertebral disc disorders; other back problems (3 sources) Spondylosis without myelopathy or radiculopathy, lumbar region; Translations: [Other intervertebral disc displacement, lumbar region] Onset: 02-07-2021 Chronic Thyroid disorders (20 sources) Hypothyroidism; Translations: [Hypothyroidism caused by drug] Onset: 08-12-2018 10-13-2019 Chronic Unclassified (6 sources) Asymptomatic microscopic hematuria 01-08-2023 Unclassified (5 sources) Drug therapy finding 01-10-2024 Unclassified (4 sources) Long-term current use of insulin 09-29-2024 Comment on above: Current Medication L ist includes Novolin 70/30. added per OP CDI policy. Unclassified (1 source) Long-term current use of drug therapy 04-05-2025 Viral infection (6 sources) Herpes zoster; Translations: [Zoster without complications] 09-29-2024 Episodic Past or Other Problems Problem Classification Problem Date Documented Da te Episodic/Chronic Influenza (14 sources) Pneumonia caused by Influenza A virus; Translations: [Influenza due to identified novel influenza A virus with pneumonia] Onset: 09-11-2024 09-11-2024 Episodic Malaise and fatigue (15 sources) Malaise and fatigue; Translations: [Other malaise] Onset: 03-11-2018 03-11-2018 Episodic Spondylosis; intervertebral disc disorders; other back problems (4 sources) Dorsalgia, unspecified; Translations: [DORSALGIA UNSPECIFIED] Onset: 01-29-2021 Episodic Unclassified (1 source) 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) 03-28-2025 Results Test Name Value Interpretation Reference Range Facility Ambulatory Visit Summaryon 0 04-05-2025 Ambulatory Visit Summary Ambulatory Visit Summary JERONIMO GOMEZ :1950 Visit Date:04/05/2025 Ambulatory Visit Instructions Your Diagnosis Gross hematuria History of prostate cancer Neurogenic bladder BPH with urinary obstruction Antiplatelet or antithrombotic long-term use Other obstructive and reflux uropathy Tests Performed CT Urogram -- Results Pending -- Please visit your patient portal for your results or contact your primary care physician. Your Care Team Attending Physician - CARLOS Hsu APRN, [place] [facility] Primary Care Physician - Shane Garrido This Is Your Medications List ciprofloxacin (Cipro 500 mg Tab) Contact prescribing physician if questions or concerns amlodipine (amLODIPine 5 mg Tab) amoxicillin-clavulanate (amoxicillin-clavulanate 875 mg-125 mg Tab) ascorbic acid (Vitamin C) aspirin (aspirin 81 mg oral capsule) atenolol (atenolol 50 mg Tab) atorvastatin (atorvastatin 40 mg Tab) clopidogrel (clopidogrel 75 mg Tab) ergocalciferol (Vitamin D) fluticasone nasal (fluticasone 93 mcg/inh nasal spray) glipiZIDE (glipiZIDE 10 mg Tab) insulin isophane-insulin regular (Novolin 70/30) lansoprazole (Prevacid) levothyroxine (Synthroid 137 mcg (0.137 mg) Tab) loratadine (Claritin) metformin (metformin 1000 mg Tab) multivitamin with minerals (Centrum Silver) solifenacin (Vesicare 10 mg Tab) tamsulosin (tamsulosin 0.4 mg Cap) Procedures Performed Cystoscopy (08/16/2018), Cystoscopy (10/03/2012), Seed implantation into prostate (07/11/2009), TRUS (transrectal ultrasound) guided cryoablation of prostate (02/26/2009), TRUS (transrectal ultrasound) guided cryoablation of prostate (02/18/2009), TRUS (transrectal ultrasound) guided cryoablation of prostate (10/16/2008), Colectomy, Cystoscopy, H/O: vasectomy, Knee replacement. Discharge Vitals Temperature (Temporal Artery) 37 ???C Heart Rate (Peripheral) 60 Respiratory Rate 16 Blood Pressure 124/65 Height 176 cm Height 69 in Weight 108.1 kg Weight 238.319 lb BMI 34.9 What to do next Scheduled Follow-Up Appointments 2024 1:40 PM EST With: Mart GAMBLE, Abbey Manriquez Where: [facility] [id number]- Wednesday2025 1:00 PM EDT With: Where: [address] [address]- Wednesday2025 1:15 PM EDT With: Beatriz LAU MD Where: [facility] [address] [address]- You Need to Schedule the Following Appointments Follow Up with JUDI GAMBLE, Beatriz Bell, URL When: Comments: cysto Where: [address] [place] [address]- Medications What How Much When Instructions New ciprofloxacin (Cipro 500 mg Tab) 1 Tablets By Mouth Every day Take 1 tablet the day before the procedure and 1 tablet after the procedure Pickup at [id number] Unchanged amlodipine (amLODIPine 5 mg Tab) 1 Tablets By Mouth Every day Contact prescribing physician if questions or concerns Unchanged amoxicillin-clavulanate (amoxicillin-clavulanate 875 mg-125 mg Tab) 1 Tablets Contact prescribing physician if questions or concerns Unchanged ascorbic acid (Vitamin C) Contact prescribing physician if questions or concerns Unchanged aspirin (aspirin 81 mg oral capsule) By Mouth Every 24 hours Contact prescribing physician if questions or concerns Unchanged atenolol (atenolol 50 mg Tab) 1 Tablets By Mouth Every day TAKE 1 TABLET BY MOUTH ONCE DAILY Contact prescribing physician if questions or concerns Unchanged atorvastatin (atorvastatin 40 mg Tab) 1 Tablets By Mouth Every day Contact prescribing physician if questions or concerns Unchanged clopidogrel (clopidogrel 75 mg Tab) 1 Tablets By Mouth Every day Contact prescribing physician if questions or concerns Unchanged ergocalciferol (Vitamin D) See instructions Contact prescribing physician if questions or concerns Unchanged fluticasone nasal (fluticasone 93 mcg/ inh nasal spray) 2 times a day Contact prescribing physician if questions or concerns Unchanged glipiZIDE (glipiZIDE 10 mg Tab) 1 Tablets By Mouth Every day Contact prescribing physician if questions or concerns Unchanged insulin isophane-insulin regular (Novolin 70/ 30) Subcutaneous Contact prescribing physician if questions or concerns Unchanged lansoprazole (Prevacid) By Mouth As needed for Other (see comment) Contact prescribing physician if questions or concerns Unchanged levothyroxine (Synthroid 137 mcg (0.137 mg) Tab) 1 Tablets By Mouth Every day Contact prescribing physician if questions or concerns Unchanged loratadine (Claritin) Every day Contact prescribing physician if questions or concerns Unchanged metformin (metformin 1000 mg Tab) 1 Tablets By Mouth 2 times a day Contact prescribing physici (more content not included)... Normal [facility] Urology Office/Clinic Noteon 04-05-2025 Urology Office/Clinic Note Urology Office/Clinic Note Chief Complaint gross hematuria HPI Staff Pt phoned stating that he had seen small traces of blood in his underwear on 2 occasions but then it cleared up and he did not see anymore until this morning. He has given a dark brown urine sample today with some small clots in it today. PRW Pt last seen 02/12/25. Dx: hx of prostate cancer, neurogenic bladder, BPH with urinary obstruction and anticoagulated. Tamsulosin BID. IPSS score of 8 today. Nocturia x2. Urgency about half the time. Weak stream less than half the time. Frequency less than 1 in 5x. Pt states that he does not typically have dysuria but in the past few days he has noticed a tenderness in his bladder region. He states that his has recently said to him that she has noticed an increase in his frequency of urination. History of Present Illness I have reviewed and verified the staff HPI to be accurate for this encounter. Portions of this record may have been created with voice recognition artificial intelligence software, specifically [place] [employer], Heap and or Analyze Re. Substitutions may have occurred due to the inherent limitations of voice recognition and artificial intelligence software. Review of Systems PHQ Score Initial Depression Screen Score: 0 SCORE Physical Exam Vitals & Measurements T: 37 ???C(Temporal Artery) HR: 60(Peripheral) RR: 16 BP: 124/65 HT: 69 in HT: 176 cm WT: 108.1 kg WT: 238.319 lb BMI: 34.9 General: Well developed, well nourished, in no acute distress. Assessment/Plan PRW pt 1. Gross hematuria (R31.0: Gross hematuria) Pt reports droplets of blood per the urethra over the weekend, small clots. This morning started having apparent gross hematuria, small clots. Denies any associated urinary sxs or perineal pressure. Denies any strenuous activities or medications changes. Pt is on plavix, which increases risk for gross hematuria. Does also have hs of brachytherapy of prostate 2008 and radiation to lungs 2017. UA today w/o signs of infection. Discussed potential etiologies and implications of hematuria with patient. These include: Prostatic disease (prostatitis, BPH, cancer), trauma (recent catheterization, etc), Tumor (renal, urothelial, prostatic, urethral, etc), infection/inflammation (UTI, cystitis, recent catheterization, interstitial cystitis, radiation), stones, obstructive uropathy (urolithiasis, stricture, etc), nephritis (glomeurlonephritis, Alport's syndrome, Wilder's IgA nephropathy, interstitial nephritis, etc), Tuberculosis, thrombosis (renal vein thrombosis, renal infarct, pseudoaneurysm, etc) and hematologic (bleeding disorders, anticoagulation, sickle cells disease, etc) We discussed further workup including additional urine studies, CTU, cysto. He agrees to move forward. -Urine sent for culture, cytology. -CTU -cysto w/ FISH The risks and benefits for cystoscopy have been discussed. The risks include bleeding, infection, and irritation of the bladder and urinary channel, among others. The patient, after being informed of procedural details and after questions have been answered, wishes to proceed. Full informed consent has been obtained. Will order Local anesthesia. Ordered: Urine Culture Urine Cytology ([facility]) Urnls Dip Stick Auto w/o Microscopy POC [id number] 2. History of prostate cancer (Z85.46: Personal history of malignant neoplasm of prostate) PSA: 01/12/23 - <0.13 11/30/23 - <0.02 01/16/25 - <0.02 S/p Brachytherapy 07/11/09. PSA remains undetectable -plan to f/u January 2026 w/ PSA 3. Neurogenic bladder (N31.9: Neuromuscular dysfunction of bladder, unspecified) on solifenacin 01 mg QD w/o SEs -not addressed today 4. BPH with urinary obstruction (N40.1: Benign prostatic hyperplasia with lower urinary tract symptoms) IPSS 8, QoL 5 taking tamsulosin 0.4 mg QD w/o SEs -not addressed today 5. Antiplatelet or antithrombotic long-term use (Z79.02: correction (current) use of antithrombotics/antiplatel ets) on [employer] risk of periop complications, bleeding Other obstructive and reflux uropathy (N13.8: Other obstructive and reflux uropathy) Follow-up With When Contact Information JUDI GAMBLE, Beatriz Bell, URL [address] [place] [address]- Additional Instructions: cysto Patient Education Hematuria, Adult Problem List/Past Medical History Ongoing Anticoagulated Antiplatelet or antithrombotic long-term use BMI 34.0-34.9,adult BPH with urinary obstruction Diverticular disease Former smoker Gross hematuria History of cerebrovascular accident History of prostate cancer Hx of cancer of lung Hyperlipidemia Hypertension Hypothyroidism Long-term insulin use Neurogenic bladder Nocturia Obesity (BMI 30-39.9) Organic impotence Shingles Type 2 diabetes mellitus with hyperlipidemia Historical Elevated PSA Prostate cancer Stroke Procedure/Surgical History Cystoscopy (07/27 (more content not included)... Normal [facility] Comment on above: Result Comment: Elec tronically Signed By: CARLOS Hsu APRN, Lilliana Wagoner\.br\Date and Time Signed: 04/05/25 15:20 EDT CNOVSPon 03-28-2025 CNOVSP Visit (SP) Office (H EMASA) -- JERONIMO GOMEZ ([id number]) 1950 M Date Time Provider Department 03/28/25 2:00 PM AXEL GARCIA During your visit today, we recorded the following information about you: Temperature Pulse Respiration Blood pressure 97.3 degrees 72/minute 16/minute 129/72 Weight Height 107.2 kg 1.75 m Axel Garcia MD 03/28/2025 8:12 PM Signed NAME: Jeronimo Gomez CLINIC NO.: [id number] DATE OF SERVICE: March 28, 2025 (Agusto) Some elements in this clinic note that are critical to medical decision making have been carefully reviewed and included from a prior clinic note dated: March 16, 2024 (Agusto) Referring Provider: Additional Clinicians involved in Jeronimo Gomez's care: Dr. Shaikh Dickerson (PCP in [place]), Dr. Alexander, Dr. Barrett, Dr. Morin DIAGNOSIS: [...] escalation as indicated. Currently on Synthroid 125 ?g daily. We will monitor the patient's TFTs [...] acute CVA. He was initially seen at [place] emergency room and transferred to [facility] for further management. Apparently intervention was not [...] infusions in 2019, with subsequent development of pneumonit (more content not included)... Normal [facility] CBC W Auto Differential pane l (Bld)on 03-20-2025 Basophils (Bld) [#/Vol] 0.04 10*3/uL Normal <0.11 [facility] Comment on above: Order Comment: Speci men Type: BLOOD SPECIMEN Ordering Facility: [facility] Address: [address] [place] [address] Performed By: #### 5 7021-8 #### [facility] CLIA [id number] [address] [place] [address]5726 Basophils/100 WBC (Bld) 0.6 % Normal [facility] Comment on above: Order Comment: Speci men Type: BLOOD SPECIMEN Ordering Facility: [facility] Address: [address] [place] [address] Performed By: #### 5 7021-8 #### [facility] CLIA [id number] [address] [place] [address] 77782 Differential cell count method Nom (Bld) Auto Normal [facility] Comment on above: Order Comment: Speci men Type: BLOOD SPECIMEN Ordering Facility: [facility] Address: [address] [place] [address] Performed By: #### 5 7021-8 #### [facility] CLIA [id number] [address] [place] [address] 76591 Eosinophils (Bld) [#/Vol] 0.31 10*3/uL Normal <0.46 [facility] Comment on above: Order Comment: Speci men Type: BLOOD SPECIMEN Ordering Facility: [facility] Address: [address] [place] [address] Performed By: #### 5 7021-8 #### [facility] CLIA [id number] [address] [place] [address] 05179 Eosinophils/100 WBC (Bld) 4.9 % Normal [facility] Comment on above: Order Comment: Speci men Type: BLOOD SPECIMEN Ordering Facility: [facility] Address: [address] [place] [address] Performed By: #### 5 7021-8 #### [facility] CLIA [id number] [address] [place] [address]128 Erythrocyte distribution width (RBC) [Ratio] 13.9 % Normal 11.5-15.0 [facility] Comment on above: Order Comment: Speci men Type: BLOOD SPECIMEN Ordering Facility: [facility] Address: [address] [place] [address] Performed By: #### 5 7021-8 #### [facility] CLIA [id number] [address] [place] [address] 82731 Hematocrit (Bld) [Volume fraction] 41.2 % Normal 39.0-51.0 [facility] Comment on above: Order Comment: Speci men Type: BLOOD SPECIMEN Ordering Facility: [facility] Address: [address] [place] [address] Performed By: #### 5 7021-8 #### [facility] CLIA [id number] [address] [place] [address] 33509 Hemoglobin (Bld) [Mass/Vol] 13.9 g/dL Normal 13.0-17.0 [facility] Comment on above: Order Comment: Speci men Type: BLOOD SPECIMEN Ordering Facility: [facility] Address: [address] [place] [address] Performed By: #### 5 7021-8 #### [facility] CLIA [id number] [address] [place] [address] 64038 Immature granulocytes (Bld) [#/Vol] 0.05 10*3/uL Normal <0.10 [facility] Comment on above: Order Comment: Speci men Type: BLOOD SPECIMEN Ordering Facility: [facility] Address: [address] [place] [address] Performed By: #### 5 7021-8 #### [facility] CLIA [id number] [address] [place] [address] 58020 Immature granulocytes/100 WBC (Bld) 0.8 % Normal [facility] Comment on above: Order Comment: Speci men Type: BLOOD SPECIMEN Ordering Facility: [facility] Address: [address] [place] [address] Performed By: #### 5 7021-8 #### [facility] CLIA [id number] [address] [place] [address] Lymphocytes (Bld) [#/Vol] 1.80 10*3/uL Normal 1.00-4.00 [facility] Comment on above: Order Comment: Speci men Type: BLOOD SPECIMEN Ordering Facility: [facility] Address: [address] [place] [address] Performed By: #### 5 7021-8 #### [facility] CLIA [id number] [address] [place] [address] Lymphocytes/100 WBC (Bld) 28.7 % Normal [facility] Comment on above: Order Comment: Speci men Type: BLOOD SPECIMEN Ordering Facility: [facility] Address: [address] [place], [place] [address] Performed By: #### 5 7021-8 #### [facility] CLIA [id number] [address] [place] [address] 37433 MCH (RBC) [Entitic mass] 31.8 pg Normal 26.0-34.0 [facility] Comment on above: Order Comment: Speci men Type: BLOOD SPECIMEN Ordering Facility: [facility] Address: [address] [place] [address] Performed By: #### 5 7021-8 #### [facility] CLIA [id number] [address] [place] [address] 56738 MCHC (RBC) [Mass/Vol] 33.7 g/dL Normal 30.5-36.0 [facility] Comment on above: Order Comment: Speci men Type: BLOOD SPECIMEN Ordering Facility: [facility] Address: [address] [place] [address] Performed By: #### 5 7021-8 #### [facility] CLIA [id number] [address] [place] [address] 25077 MCV (RBC) [Entitic vol] 94.3 fL Normal 80.0-100.0 [facility] Comment on above: Order Comment: Speci men Type: BLOOD SPECIMEN Ordering Facility: [facility] Address: [address] [place] [address] Performed By: #### 5 7021-8 #### [facility] CLIA [id number] [address] [place] [address] 38611 Monocytes (Bld) [#/Vol] 0.56 10*3/uL Normal <0.87 [facility] Comment on above: Order Comment: Speci men Type: BLOOD SPECIMEN Ordering Facility: [facility] Address: [address] [place] [address] Performed By: #### 5 7021-8 #### [facility] CLIA [id number] [address] [place] [address] 71792 Monocytes/100 WBC (Bld) 8.9 % Normal [facility] Comment on above: Order Comment: Speci men Type: BLOOD SPECIMEN Ordering Facility: [facility] Address: [address] [place] [address] Performed By: #### 5 7021-8 #### [facility] CLIA [id number] [address] [place] [address] 72551 Neutrophils (Bld) [#/Vol] 3.52 10*3/uL Normal 1.45-7.50 [facility] Comment on above: Order Comment: Speci men Type: BLOOD SPECIMEN Ordering Facility: [facility] Address: [address] [place] [address] Performed By: #### 5 7021-8 #### [facility] CLIA [id number] [address] [place] [address] 43748 Neutrophils/100 WBC (Bld) 56.1 % Normal [facility] Comment on above: Order Comment: Speci men Type: BLOOD SPECIMEN Ordering Facility: [facility] Address: [address] [place] [address] Performed By: #### 5 7021-8 #### [facility] CLIA [id number] [address] [place] [address] 07641 Nucleated RBC (Bld) [#/Vol] 10*3/uL Normal <0.01 [facility] Comment on above: Order Comment: Speci men Type: BLOOD SPECIMEN Ordering Facility: [facility] Address: [address] [place] [address] Performed By: #### 5 7021-8 #### [facility] CLIA [id number] [address] [place] [address] 28563 Nucleated RBC/100 WBC (Bld) [Ratio] 0.0 /100 WBC Normal [facility] Comment on above: Order Comment: Speci men Type: BLOOD SPECIMEN Ordering Facility: [facility] Address: [address] [place] [address] Performed By: #### 5 7021-8 #### [facility] CLIA [id number] [address] [place] [address] 96919 Platelet mean volume (Bld) [Entitic vol] 9.5 fL Normal 9.0-12.7 [facility] Comment on above: Order Comment: Speci men Type: BLOOD SPECIMEN Ordering Facility: [facility] Address: [address] [place] [address] Performed By: #### 5 7021-8 #### [facility] CLIA [id number] [address] [place] [address] 18358 Platelets (Bld) [#/Vol] 151 10*3/uL Normal 150-400 [facility] Comment on above: Order Comment: Speci men Type: BLOOD SPECIMEN Ordering Facility: [facility] Address: [address] [place] [address] Performed By: #### 5 7021-8 #### [facility] CLIA [id number] [address] [place] [address] 49601 RBC (Bld) [#/Vol] 4.37 10*6/uL Normal 4.20-6.00 [facility] Comment on above: Order Comment: Speci men Type: BLOOD SPECIMEN Ordering Facility: [facility] Address: [address] [place] [address] Performed By: #### 5 7021-8 #### [facility] CLIA [id number] [address] [place] [address] WBC (Bld) [#/Vol] 6.28 10*3/uL Normal 3.70-11.00 [facility] Comment on above: Order Comment: Speci men Type: BLOOD SPECIMEN Ordering Facility: [facility] Address: [address] [place] [address] Performed By: #### 5 7021-8 #### [facility] CLIA [id number] [address] [place] [address] [facility] CBC W AUTO DIFF BLDon Basophils/100 WBC (Bld) 0.6 % [facility] BASOPHILS # BLD AUTO 0.04 [facility] DIFFERENTIAL METHOD BLD Auto [facility] EOSINOPHIL # BLD AUTO 0.31 [facility] LYMPHOCYTES # BLD AUTO 1.8 [facility] MONOCYTES # BLD AUTO 0.56 [facility] NEUTROPHILS # BLD AUTO 3.52 [facility] NRBC # BLD AUTO <0.01 [facility] NRBC/100 WBC BLD-RTO 0 /100 WBC [facility] PLATELET # BLD AUTO 151 [facility] PMV BLD AUTO 9.5 fL 9.0 - 12.7 fL [facility] WBC # BLD AUTO 6.28 [facility] Eosinophils/100 WBC (Bld) 4.9 % [facility] Erythrocyte distribution width (RBC) [Ratio] 13.9 % 11.5 - 15.0 % [facility] Hematocrit (Bld) [Volume fraction] 41.2 % 39.0 - 51.0 % [facility] Hemoglobin (Bld) [Mass/Vol] 13.9 g/dL 13.0 - 17.0 g/dL [facility] IMM GRANULOCYTES # BLD AUTO 0.05 [facility] IMM GRANULOCYTES/LEUK NFR BLD AUTO 0.8 % [facility] Lymphocytes/100 WBC (Bld) 28.7 % [facility] MCH (RBC) [Entitic mass] 31.8 pg 26.0 - 34.0 pg [facility] MCHC (RBC) [Mass/Vol] 33.7 g/dL 30.5 - 36.0 g/dL [facility] MCV (RBC) [Entitic vol] 94.3 fL 80.0 - 100.0 fL [facility] Monocytes/100 WBC (Bld) 8.9 % [facility] Neutrophils/100 WBC (Bld) 56.1 % [facility] RBC (Bld) [#/Vol] 4.37 10*6/uL 4.20 - 6.0 0 m/uL [facility] Specimen Type: BLOOD SPECIMEN Ordering Facility: [facility] Address: [address] [place] [address] Original Ordering Provider: JANELL ENAMORADO [facility] CT CHEST WO IVCONon 03-20-20 CT CHEST WO IVCON * * *Final Report* * * DATE OF EXAM: Mar 20 2025 8:08AM [facility] 0541 - CT CHEST WO IVCON [...] abdomen: No evidence of an adrenal mass. [facility] (topogram) images: No additional findings. IMPRESSION: 1. No interval change since 03/09/24. 2. 1.5 cm right lower lobe patchy opacity and additional subcentimeter nodular opacities measuring less than 5 mm , stable. 3. Right perihilar opacities most likely related to post radiation change and other infectious/inflammatory etiologies, stable. Transcribe Date/Time: Mar 20 2025 9:38A Dictated by: SETVEN PRIEST MD This examination was interpreted and the report reviewed and electronically signed by: STEVEN PRIEST MD on Mar 20 2025 10:12AM EST Thank you for allowing us to participate in the care of your patient. Should there be any questions regarding this interpretation, please call [phone]. If you are unable to reach us at the number above, please feel free to contact [facility] eRadiology at [phone]. [id number] Normal [facility] CT Chest WO contraston 03-20 * * *Final Report* * * DATE OF EXAM: Mar 20 2025 8:08AM [facility] 0541 - CT CHEST WO IVCON [...] abdomen: No evidence of an adrenal mass. [facility] (topogram) images: No additional findings. IMPRESSION: 1. [...] any questions regarding this interpretation, please call [phone]. If you are unable to reach us at the number above, please feel free to contact [facility] at [phone]. [id number]^[email or web address]^SI^ACN [facility], Radiologi MD homer - 03/20/2025 * * *Final Report* * * DATE OF EXAM: Mar 20 2025 8:08AM [facility] 0541 - CT CHEST WO IVCON [...] abdomen: No evidence of an adrenal mass. [facility] (topogram) images: No additional findings. IMPRESSION: 1. [...] any questions regarding this interpretation, please call [phone]. If you are unable to reach us at the number above, please feel free to contact [facility] at [phone]. [id number]^[email or web address]^SI^ACN [facility] IMPRESSION: 1. No interval change since 03/09/24. [...] any questions regarding this interpretation, please call [phone]. If you are unable to reach us at the number above, please feel free to contact [facility] at [phone]. DIVISION OF RADIOLOGY * * *Final Report* * * DATE OF EXAM: Mar 20 2025 8:08AM [facility] 0541 - CT CHEST WO IVCON [...] abdomen: No evidence of an adrenal mass. [facility] (topogram) images: No additional findings. DIVISION OF RADIOLOGY Provider, Major Darby - 03/20/2025 * * *Final Report* * * DATE OF EXAM: Mar 20 2025 8:08AM [facility] 0541 - CT CHEST WO IVCON [...] abdomen: No evidence of an adrenal mass. [facility] (topogram) images: No additional findings. IMPRESSION IMPRESSION: [...] any questions regarding this interpretation, please call [phone]. If you are unable to reach us at the number above, please feel free to contact [facility] eRadiology at [phone]. [facility] Radiology Study observation (narrative) [facility] Radiology Study observation (narrative) [facility] [employer] CT Chest WO contrastOrdered By: Radiologist Radiology on 03-20-2025 [facility] Work Phone: Comprehensive metabolic 2000 panelon 03-20-2025 Albumin [Mass/Vol] 4.3 g/dL Normal 3.9-4.9 [facility] Comment on above: Order Comment: Speci men Type: BLOOD SPECIMEN Ordering Facility: [facility] Address: [address] [place] [address] Performed By: #### 2 4323-8 #### [facility] CLIA [id number] [address] [place] [address] ALP [Catalytic activity/Vol] 61 U/L Normal 38-113 [facility] Comment on above: Order Comment: Speci men Type: BLOOD SPECIMEN Ordering Facility: [facility] Address: [address] [place] [address] Performed By: #### 2 4323-8 #### [facility] CLIA [id number] [address] [place] [address] 85062 ALT [Catalytic activity/Vol] 17 U/L Normal 10-54 [facility] Comment on above: Order Comment: Speci men Type: BLOOD SPECIMEN Ordering Facility: [facility] Address: [address] [place] [address] Performed By: #### 2 4323-8 #### [facility] CLIA [id number] [address] [place] [address] 86292 Anion gap [Moles/Vol] 11 mmol/L Normal 8-15 [facility] Comment on above: Order Comment: Speci men Type: BLOOD SPECIMEN Ordering Facility: [facility] Address: [address] [place] [address] Performed By: #### 2 4323-8 #### [facility] CLIA [id number] [address] [place] [address] AST [Catalytic activity/Vol] 13 U/L Low 14-40 [facility] Comment on above: Order Comment: Speci men Type: BLOOD SPECIMEN Ordering Facility: [facility] Address: [address] [place] [address] Performed By: #### 2 4323-8 #### [facility] CLIA [id number] [address] [place] [address] Bilirubin [Mass/Vol] 0.6 mg/dL Normal 0.2-1.3 [facility] Comment on above: Order Comment: Speci men Type: BLOOD SPECIMEN Ordering Facility: [facility] Address: [address] [place] [address] Performed By: #### 2 4323-8 #### [facility] CLIA [id number] [address] [place] [address]9427 Calcium [Mass/Vol] 9.9 mg/dL Normal 8.5-10.2 [facility] Comment on above: Order Comment: Speci men Type: BLOOD SPECIMEN Ordering Facility: [facility] Address: [address] [place] [address] Performed By: #### 2 4323-8 #### [facility] CLIA [id number] [address] [place] [address] 49263 Chloride [Moles/Vol] 98 mmol/L Normal 98-107 [facility] Comment on above: Order Comment: Speci men Type: BLOOD SPECIMEN Ordering Facility: [facility] Address: [address] [place] [address] Performed By: #### 2 4323-8 #### [facility] CLIA [id number] [address] [place] [address] CO2 [Moles/Vol] 27 mmol/L Normal 22-30 [facility] Comment on above: Order Comment: Speci men Type: BLOOD SPECIMEN Ordering Facility: [facility] Address: [address] [place] [address] Performed By: #### 2 4323-8 #### [facility] CLIA [id number] [address] [place] [address] Creatinine [Mass/Vol] 0.99 mg/dL Normal 0.73-1.22 [facility] Comment on above: Order Comment: Weston dove Type: BLOOD SPECIMEN Ordering Facility: [facility] Address: [address] [place] [address] Performed By: #### 2 4323-8 #### [facility] CLIA [id number] [address] [place] [address] eGFRcr SerPlBld CKD-EPI 2020 78 mL/min/1.73m??? Normal >=60 [facility] Comment on above: Order Comment: Weston dove Type: BLOOD SPECIMEN Ordering Facility: [facility] Address: [address] [place] [address] Result Comment: Mary mated Glomerular Filtration Rate (eGFR) is calculated using the 2020 CKD-EPI creatinine equation. This equation utilizes serum creatinine, sex, and age as parameters. The creatinine assay has traceable calibration to isotope dilution-mass spectrometry. Refer to KDIGO guidelines for clinical interpretation. In patients with unstable renal function, e.g. those with acute kidney injury, the eGFR may not accurately reflect actual GFR. Performed By: #### 2 4323-8 #### [facility] CLIA [id number] [address] [place] [address]321 Glucose [Mass/Vol] 207 mg/dL High 74-99 [facility] Comment on above: Order Comment: Weston dove Type: BLOOD SPECIMEN Ordering Facility: [facility] Address: [address] [place], [place] [address] Result Comment: The Citizen [place] Diabetes Association (ADA) provides guidance for cutoff [...] Standards of Medical Care in Diabetes 2016, Citizen [place] Diabetes Association. Diabetes Care. 2016.39(Suppl 1). Performed By: #### 2 4323-8 #### [facility] CLIA [id number] [address] [place] [address] Potassium [Moles/Vol] 4.6 mmol/L Normal 3.7-5.1 [facility] Comment on above: Order Comment: Speci men Type: BLOOD SPECIMEN Ordering Facility: [facility] Address: [address] [place] [address] Performed By: #### 2 4323-8 #### [facility] CLIA [id number] [address] [place] [address] 47189 Protein [Mass/Vol] 6.4 g/dL Normal 6.3-8.0 [facility] Comment on above: Order Comment: Speci men Type: BLOOD SPECIMEN Ordering Facility: [facility] Address: [address] [address] Performed By: #### 2 4323-8 #### [facility] CLIA [id number] [address] [place] [address] 64451 Sodium [Moles/Vol] 136 mmol/L Normal 136-144 [facility] Comment on above: Order Comment: Speci men Type: BLOOD SPECIMEN Ordering Facility: [facility] Address: [address] [address] Performed By: #### 2 432-8 #### [facility] CLIA [id number] [address] [place] [address]4616 Urea nitrogen [Mass/Vol] 13 mg/dL Normal 9-24 [facility] Comment on above: Order Comment: Speci men Type: BLOOD SPECIMEN Ordering Facility: [facility] Address: [address] [place] [address] Performed By: #### 2 4323-8 #### [facility] CLIA [id number] [address] [place], [place] [address] Ambulatory Visit Summaryon 0 02-12-2025 Ambulatory Visit Summary Ambulatory Visit Summary JERONIMO GOMEZ :1950 Visit Date:02/12/2025 Ambulatory Visit Instructions Your Diagnosis History of prostate cancer Neurogenic bladder BPH with urinary obstruction Anticoagulated Your Care Team Attending Physician - JUDI GAMBLE, Beatriz Bell Primary Care Physician - Shane Garrido This Is Your Medications List solifenacin (Vesicare 10 mg Tab) tamsulosin (tamsulosin 0.4 mg Cap) Contact prescribing physician if questions or concerns amlodipine (amLODIPine 5 mg Tab) ascorbic acid (Vitamin C) aspirin (aspirin 81 mg oral capsule) atenolol (atenolol 50 mg Tab) atorvastatin (atorvastatin 40 mg Tab) clopidogrel (clopidogrel 75 mg Tab) ergocalciferol (Vitamin D) fluticasone nasal (fluticasone 93 mcg/inh nasal spray) glipiZIDE (glipiZIDE 10 mg Tab) insulin isophane-insulin regular (Novolin 70/30) lansoprazole (Prevacid) levothyroxine (Synthroid) loratadine (Claritin) metformin (metformin 1000 mg Tab) multivitamin with minerals (Centrum Silver) Procedures Performed Cystoscopy (08/16/2018), Cystoscopy (10/03/2012), Seed implantation into prostate (07/11/2009), TRUS (transrectal ultrasound) guided cryoablation of prostate (02/26/2009), TRUS (transrectal ultrasound) guided cryoablation of prostate (02/18/2009), TRUS (transrectal ultrasound) guided cryoablation of prostate (10/16/2008), Colectomy, Cystoscopy, H/O: vasectomy, Knee replacement. Discharge Vitals Temperature (Temporal Artery) 37 ???C Heart Rate (Peripheral) 64 Respiratory Rate 18 Blood Pressure 132/67 Height 176 cm Height 69 in Weight 105.8 kg Weight 233.249 lb BMI 34.16 What to do next Scheduled Follow-Up Appointments 2024 1:40 PM EST With: Mart GAMBLE, Abbey Manriquez Where: [facility] Medicine [place] [id number] 1:00 PM EDT With: Where: [facility] [place] [address] [place] [id number]- You Need to Schedule the Following Appointments Follow Up with JUDI GAMBLE, YANIQUE Campos When: Where: [facility] [address], [place] [address]- Medications What How Much When Instructions Changed solifenacin (Vesicare 10 mg Tab) 1 Tablets By Mouth Every day Duration: 90 Days Pickup at [facility] Changed tamsulosin (tamsulosin 0.4 mg Cap) 1 Capsules By Mouth 2 times a day Duration: 90 Days Pickup at [facility] Unchanged amlodipine (amLODIPine 5 mg Tab) 1 Tablets By Mouth Every day Contact prescribing physician if questions or concerns Unchanged ascorbic acid (Vitamin C) Contact prescribing physician if questions or concerns Unchanged aspirin (aspirin 81 mg oral capsule) By Mouth Every 24 hours Contact prescribing physician if questions or concerns Unchanged atenolol (atenolol 50 mg Tab) 1 Tablets By Mouth Every day TAKE 1 TABLET BY MOUTH ONCE DAILY Contact prescribing physician if questions or concerns Unchanged atorvastatin (atorvastatin 40 mg Tab) 1 Tablets By Mouth Every day Contact prescribing physician if questions or concerns Unchanged clopidogrel (clopidogrel 75 mg Tab) 1 Tablets By Mouth Every day Contact prescribing physician if questions or concerns Unchanged ergocalciferol (Vitamin D) See instructions Contact prescribing physician if questions or concerns Unchanged fluticasone nasal (fluticasone 93 mcg/ inh nasal spray) 2 times a day Contact prescribing physician if questions or concerns Unchanged glipiZIDE (glipiZIDE 10 mg Tab) 1 Tablets By Mouth Every day Contact prescribing physician if questions or concerns Unchanged insulin isophane-insulin regular (Novolin 70/ 30) Subcutaneous Contact prescribing physician if questions or concerns Unchanged lansoprazole (Prevacid) By Mouth As needed for Other (see comment) Contact prescribing physician if questions or concerns Unchanged levothyroxine (Synthroid) By Mouth Every day Contact prescribing physician if questions or concerns Unchanged loratadine (Claritin) Every day Contact prescribing physician if questions or concerns Unchanged metformin (metformin 1000 mg Tab) 1 Tablets By Mouth 2 times a day Contact prescribing physician if questions or concerns Unchanged multivitamin with minerals (Centrum Silver) By Mouth Every day Contact prescribing physician if questions or concerns Pharmacy Information [facility]: [address] [place] [id number] [phone] Allergies Dust (Difficulty breathing) Mold (Difficulty breathing) No Known Medication Allergies Problems Ongoing - Any problem that you are currently receiving treatment for. Anticoagulated BMI 34.0-34.9,adult BPH with urinary obstruction Diverticular disease Former smoker History of cerebrovascular accident History of prostate cancer Hx of cancer of lung Hyperli (more content not included)... Normal [facility] Urology Office/Clinic Noteon 02-12-2025 Urology Office/Clinic Note Urology Office/Clinic Note Chief Complaint 1 year with PSA HPI Staff 1 year f/u with PSA Dx: hx of prostate cancer (Brachytherapy 2008), neurogenic bladder, BPH with urinary obstruction and anticoagulated. PSA: 01/16/25 - <0.02 Vesicare 10mg qd and Tamsulosin BID Pt states that he feels he is doing well. He has no urinary complaints at this time. History of Present Illness Tests reviewed: UA, PSA I have reviewed the previous health record information and history for this patient from Dr. Lau. I have reviewed and verified the staff HPI to be accurate for this encounter. Review of Systems PHQ Score Initial Depression Screen Score: 0 SCORE ROS - Provider Constitutional: denies weight loss, denies hot flashes. Eyes: denies eye problems. Gastrointestinal: denies nausea, denies vomiting. Cardiovascular: denies chest pain or angina. Integumentary: no dryness Musculoskeletal: denies musculoskeletal symptoms. ENMT: denies otolaryngeal symptoms. Respiratory: no shortness of breath. Heme/Lymph: denies easy bleeding tendency, denies easy bruising tendency. Psychiatric: no confusion, no anxiety. Genitourinary: See HPI. Physical Exam Vitals & Measurements T: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 [facility] CLIA [id number] [address] [place] [address] 23853 Lymphocytes (Bld) [#/Vol] 1.85 10*3/uL Normal 1.00-4.00 [facility] Comment on above: Order Comment: Speci men Type: BLOOD SPECIMEN Ordering Facility: Tonia Kaufman MD Address: [address] [place] [address] Performed By: #### 5 7021-8 #### [facility] CLIA [id number] [address] [place] [address] 32363 Lymphocytes/100 WBC (Bld) 34.4 % Normal [facility] Comment on above: Order Comment: Speci men Type: BLOOD SPECIMEN Ordering Facility: Tonia Kaufman MD Address: [address] [place] [address] Performed By: #### 5 7021-8 #### [facility] CLIA [id number] [address] [place] [address] 79638 MCH (RBC) [Entitic mass] 31.7 pg Normal 26.0-34.0 [facility] Comment on above: Order Comment: Speci men Type: BLOOD SPECIMEN Ordering Facility: Tonia Kaufman MD Address: [address] [place] [address] Performed By: #### 5 7021-8 #### [facility] CLIA [id number] [address] [place] [address] 97242 MCHC (RBC) [Mass/Vol] 33.6 g/dL Normal 30.5-36.0 [facility] Comment on above: Order Comment: Speci men Type: BLOOD SPECIMEN Ordering Facility: Tonia Kaufman MD Address: [address] [place] [address] Performed By: #### 5 7021-8 #### [facility] CLIA [id number] [address] [place] [address] 70721 MCV (RBC) [Entitic vol] 94.5 fL Normal 80.0-100.0 [facility] Comment on above: Order Comment: Speci men Type: BLOOD SPECIMEN Ordering Facility: Tonia Kaufman MD Address: [address] [place] [address] Performed By: #### 5 7021-8 #### [facility] CLIA [id number] [address] [place] [address] 90922 Monocytes (Bld) [#/Vol] 0.41 10*3/uL Normal <0.87 [facility] Comment on above: Order Comment: Speci men Type: BLOOD SPECIMEN Ordering Facility: Tonia Kaufman MD Address: [address] [place] [address] Performed By: #### 5 7021-8 #### [facility] CLIA [id number] [address] [place] [address] 37764 Monocytes/100 WBC (Bld) 7.6 % Normal [facility] Comment on above: Order Comment: Speci men Type: BLOOD SPECIMEN Ordering Facility: Tonia Kaufman MD Address: [address] [place] [address] Performed By: #### 5 7021-8 #### [facility] CLIA [id number] [address] [place] [address] 90278 Neutrophils (Bld) [#/Vol] 2.94 10*3/uL Normal 1.45-7.50 [facility] Comment on above: Order Comment: Speci men Type: BLOOD SPECIMEN Ordering Facility: Tonia Kaufman MD Address: [address] [place] [address] Performed By: #### 5 7021-8 #### [facility] CLIA [id number] [address] [place] [address] 89320 Neutrophils/100 WBC (Bld) 54.6 % Normal [facility] Comment on above: Order Comment: Speci men Type: BLOOD SPECIMEN Ordering Facility: Tonia Kaufman MD Address: [address] [place] [address] Performed By: #### 5 7021-8 #### [facility] CLIA [id number] [address] [place] [address] 59120 Nucleated RBC (Bld) [#/Vol] 10*3/uL Normal <0.01 [facility] Comment on above: Order Comment: Speci men Type: BLOOD SPECIMEN Ordering Facility: Tonia Kaufman MD Address: [address] [place] [address] Performed By: #### 5 7021-8 #### [facility] CLIA [id number] [address] [place] [address] 28111 Nucleated RBC/100 WBC (Bld) [Ratio] 0.0 /100 WBC Normal [facility] Comment on above: Order Comment: Speci men Type: BLOOD SPECIMEN Ordering Facility: Tonia Kaufman MD Address: [address] [place] [address] Performed By: #### 5 7021-8 #### [facility] CLIA [id number] [address] [place] [address] 61040 Platelet mean volume (Bld) [Entitic vol] 9.7 fL Normal 9.0-12.7 [facility] Comment on above: Order Comment: Speci men Type: BLOOD SPECIMEN Ordering Facility: Tonia Kaufman MD Address: [address] [place] [address] Performed By: #### 5 7021-8 #### [facility] CLIA [id number] [address] [place], [place] [address] Platelets (Bld) [#/Vol] 146 10*3/uL Low 150-400 [facility] Comment on above: Order Comment: Speci men Type: BLOOD SPECIMEN Ordering Facility: Tonia Kaufman MD Address: [address] [place] [address] Result Comment: No c lot detected.Results checked and verified. Performed By: #### 5 7021-8 #### [facility] CLIA [id number] [address] [address] RBC (Bld) [#/Vol] 4.35 10*6/uL Normal 4.20-6.00 [facility] Comment on above: Order Comment: Speci men Type: BLOOD SPECIMEN Ordering Facility: Tonia Kaufman MD Address: [address] [place] [address] Performed By: #### 5 7021-8 #### [facility] CLIA [id number] [address] [place], [place] [address] WBC (Bld) [#/Vol] 5.38 10*3/uL Normal 3.70-11.00 [facility] Comment on above: Order Comment: Speci men Type: BLOOD SPECIMEN Ordering Facility: Tonia Kaufman MD Address: [address] [place] [address] Performed By: #### 5 7021-8 #### [facility] CLIA [id number] [address] [place], [place] [address] [facility] CBC W AUTO DIFF BLDon Basophils/100 WBC (Bld) 0.2 % [facility] BASOPHILS # BLD AUTO <0.03 [facility] DIFFERENTIAL METHOD BLD Auto [facility] EOSINOPHIL # BLD AUTO 0.14 [facility] LYMPHOCYTES # BLD AUTO 1.85 [facility] MONOCYTES # BLD AUTO 0.41 [facility] NEUTROPHILS # BLD AUTO 2.94 [facility] NRBC # BLD AUTO <0.01 [facility] NRBC/100 WBC BLD-RTO 0 /100 WBC [facility] PLATELET # BLD AUTO 146 Low [facility] Comment on above: No clot detected.Res ults checked and verified. [facility] PMV BLD AUTO 9.7 fL 9.0 - 12.7 fL [facility] WBC # BLD AUTO 5.38 [facility] Eosinophils/100 WBC (Bld) 2.6 % [facility] Erythrocyte distribution width (RBC) [Ratio] 14.2 % 11.5 - 15.0 % [facility] Hematocrit (Bld) [Volume fraction] 41.1 % 39.0 - 51.0 % [facility] Hemoglobin (Bld) [Mass/Vol] 13.8 g/dL 13.0 - 17.0 g/dL [facility] IMM GRANULOCYTES # BLD AUTO 0.03 NINF [facility] IMM GRANULOCYTES/LEUK NFR BLD AUTO 0.6 % [facility] Interpretation and review of laboratory results Abnormal [facility] Lymphocytes/100 WBC (Bld) 34.4 % [facility] MCH (RBC) [Entitic mass] 31.7 pg 26.0 - 34.0 pg [facility] MCHC (RBC) [Mass/Vol] 33.6 g/dL 30.5 - 36.0 g/dL [facility] MCV (RBC) [Entitic vol] 94.5 fL 80.0 - 100.0 fL [facility] Monocytes/100 WBC (Bld) 7.6 % [facility] Neutrophils/100 WBC (Bld) 54.6 % [facility] RBC (Bld) [#/Vol] 4.35 10*6/uL 4.20 - 6.0 0 m/uL [facility] Specimen Type: BLOOD SPECIMEN Ordering Facility: Tonia Kaufman MD Address: [address] [place] [address] Original Ordering Provider: SHANE ENAMORADO [facility] Comprehensive metabolic 2000 panelon 12-27-2024 Albumin [Mass/Vol] 4.1 g/dL Normal 3.9-4.9 [facility] Comment on above: Order Comment: Speci men Type: BLOOD SPECIMEN Ordering Facility: Tonia Kaufman MD Address: [address] [place] [address] Performed By: #### 2 4323-8 #### [facility] CLIA [id number] [address] [id number] [place] ALP [Catalytic activity/Vol] 48 U/L Normal 38-113 [facility] Comment on above: Order Comment: Speci men Type: BLOOD SPECIMEN Ordering Facility: Tonia Kaufman MD Address: [address] [place] [address] Performed By: #### 2 4323-8 #### [facility] CLIA [id number] [address] [place] [address] [place] ALT [Catalytic activity/Vol] 21 U/L Normal 10-54 [facility] Comment on above: Order Comment: Speci men Type: BLOOD SPECIMEN Ordering Facility: Tonia Kaufman MD Address: [address] [place] [address] Performed By: #### 2 4323-8 #### [facility] CLIA [id number] [address] [place] [address] [place] Anion gap [Moles/Vol] 13 mmol/L Normal 8-15 [facility] Comment on above: Order Comment: Speci men Type: BLOOD SPECIMEN Ordering Facility: Tonia Kaufman MD Address: [address] [place] [address] Performed By: #### 2 4323-8 #### [facility] CLIA [id number] [address] [place] [address] [place] AST [Catalytic activity/Vol] 16 U/L Normal 14-40 [facility] Comment on above: Order Comment: Speci men Type: BLOOD SPECIMEN Ordering Facility: Tonia Kaufman MD Address: [address] [place] [address] Performed By: #### 2 4323-8 #### [facility] CLIA [id number] [address] [id number] [place] Bilirubin [Mass/Vol] 0.7 mg/dL Normal 0.2-1.3 [facility] Comment on above: Order Comment: Speci men Type: BLOOD SPECIMEN Ordering Facility: Tonia Kaufman MD Address: [address] [place] [address] Performed By: #### 2 4323-8 #### [facility] CLIA [id number] [address] [place], [place] [address] [place] Calcium [Mass/Vol] 9.6 mg/dL Normal 8.5-10.2 [facility] Comment on above: Order Comment: Speci men Type: BLOOD SPECIMEN Ordering Facility: Tonia Kaufman MD Address: [address] [place] [address] Performed By: #### 2 4323-8 #### [facility] CLIA [id number] [address] [place], [place] [address] [place] Chloride [Moles/Vol] 98 mmol/L Normal 98-107 [facility] Comment on above: Order Comment: Speci men Type: BLOOD SPECIMEN Ordering Facility: Tonia Kaufman MD Address: [address] [place] [address] Performed By: #### 2 4323-8 #### [facility] CLIA [id number] [address] [place] [address] [place] CO2 [Moles/Vol] 23 mmol/L Normal 22-30 [facility] Comment on above: Order Comment: Speci men Type: BLOOD SPECIMEN Ordering Facility: Tonia Kaufman MD Address: [address] [place] [address] Performed By: #### 2 4323-8 #### [facility] CLIA [id number] [address] [address] [place] Creatinine [Mass/Vol] 0.88 mg/dL Normal 0.73-1.22 [facility] Comment on above: Order Comment: Speci men Type: BLOOD SPECIMEN Ordering Facility: Tonia Kaufman MD Address: [address] [place] [address] Performed By: #### 2 4323-8 #### [facility] CLIA [id number] [address] [address] [place] Creatinine and Glomerular filtration rate.predicted panel (S/P/Bld) 89 mL/min/1.73m??? Normal >=60 [facility] Comment on above: Order Comment: Weston dove Type: BLOOD SPECIMEN Ordering Facility: Tonia Kaufman MD Address: [address] [place] [address] Result Comment: Mary mated Glomerular Filtration Rate (eGFR) is calculated using the 2020 CKD-EPI creatinine equation. This equation utilizes serum creatinine, sex, and age as parameters. The creatinine assay has traceable calibration to isotope dilution-mass spectrometry. Refer to KDIGO guidelines for clinical interpretation. In patients with unstable renal function, e.g. those with acute kidney injury, the eGFR may not accurately reflect actual GFR. Performed By: #### 2 4323-8 #### [facility] CLIA [id number] [address] [address] [place] Glucose [Mass/Vol] 126 mg/dL High 74-99 [facility] Comment on above: Order Comment: Weston dove Type: BLOOD SPECIMEN Ordering Facility: Tonia Kaufman MD Address: [address] [place] [address] Result Comment: The [place] Diabetes Association (ADA) provides guidance for cutoff [...] Standards of Medical Care in Diabetes 2016, [place] Diabetes Association. Diabetes Care. 2016.39(Suppl 1). Performed By: #### 2 4323-8 #### [facility] CLIA [id number] [address] [address] [place] Potassium [Moles/Vol] 4.3 mmol/L Normal 3.7-5.1 [facility] Comment on above: Order Comment: Speci men Type: BLOOD SPECIMEN Ordering Facility: Tonia Kaufman MD Address: [address] [place] [address] Performed By: #### 2 4323-8 #### [facility] CLIA [id number] [address] [place] [address] [place] Protein [Mass/Vol] 6.4 g/dL Normal 6.3-8.0 [facility] Comment on above: Order Comment: Speci men Type: BLOOD SPECIMEN Ordering Facility: Tonia Kaufman MD Address: [address] [place] [address] Performed By: #### 2 4323-8 #### [facility] CLIA [id number] [address] [place], [place] [address] [place] Sodium [Moles/Vol] 134 mmol/L Low 136-144 [facility] Comment on above: Order Comment: Speci men Type: BLOOD SPECIMEN Ordering Facility: Tonia Kaufman MD Address: [address] [place] [address] Performed By: #### 2 4323-8 #### [facility] CLIA [id number] [address] [id number] [place] Urea nitrogen [Mass/Vol] 11 mg/dL Normal 9-24 [facility] Comment on above: Order Comment: Speci men Type: BLOOD SPECIMEN Ordering Facility: Tonia Kaufman MD Address: [address] [place] [address] Performed By: #### 2 4323-8 #### [facility] CLIA [id number] [address] [place], [place] [address] [place] HbA1c (Bld)on 12-27-2024 Average glucose Estimated from glycated hemoglobin (Bld) [Mass/Vol] 148 mg/dL Normal [facility] Comment on above: Order Comment: Speci men Type: BLOOD SPECIMEN Ordering Facility: Tonia Kaufman MD Address: [address] [place] [address] Result Comment: eAG: (Estimated average glucose) is a calculated value from HgbA1c and is vaccine customer representative of the average blood glucose level in the last 2-3 month period. Performed By: #### 5 5454-3 #### [facility] CLIA [id number] [address] [place] [address] [place] HbA1c (Bld) [Mass fraction] 6.8 % High 4.3-5.6 [facility] Comment on above: Order Comment: Speci men Type: BLOOD SPECIMEN Ordering Facility: Tonia Kaufman MD Address: [address] [place] [address] Result Comment: [place] Diabetes Association guidelines indicate that patients with HgbA1c in the range 5.7-6.4% are at increased risk for development of diabetes, and intervention by lifestyle modification may be beneficial. HgbA1c greater or equal to 6.5% is considered diagnostic of diabetes. Performed By: #### 5 5454-3 #### [facility] CLIA [id number] [address] [place], [place] [address] [place] Lipid 1996 panelon 5 Cholesterol [Mass/Vol] 117 mg/dL Normal <200 [facility] Comment on above: Order Comment: Weston petty Type: BLOOD SPECIMEN Ordering Facility: Tonia Kaufman MD Address: [address] [place] [address] Result Comment: <200 mg/dL, Desirable 200-239 mg/dL, Borderline high >239 mg/dL, High Performed By: #### 3 016-3 #### [facility] CLIA [id number] [address] [place], [place] [address] [place] #### 65595-3 #### [facility] CLIA [id number] [address] [id number] [place] [facility] CLIA [id number] [address] [place] [address] Cholesterol in HDL [Mass/Vol] 39 mg/dL Low >39 [facility] Comment on above: Order Comment: Speci men Type: BLOOD SPECIMEN Ordering Facility: Tonia Kaufman MD Address: [address] [place] [address] Result Comment: 40-5 9 mg/dL, Acceptable >59 mg/dL, High: Negative risk factor for coronary heart disease <40 mg/dL, Low: Positive risk factor for coronary heart disease Performed By: #### 3 016-3 #### [facility] CLIA [id number] [facility] [address] [place] #### 72615-4 #### [facility] CLIA [id number] [address] [place] [address] OF [facility] CLIA [id number] [address] [place] [address] Cholesterol in LDL [Mass/Vol] 61 mg/dL Normal <100 [facility] Comment on above: Order Comment: Speci men Type: BLOOD SPECIMEN Ordering Facility: Tonia Kaufman MD Address: [address] [place] [address] Result Comment: <100 mg/dL, Optimal 100-129 mg/dL, Near optimal/above optimal 130-159 mg/dL, Borderline high 160-189 mg/dL, High >189 mg/dL, Very high Secondary prevention optimal LDL Cholesterol levels are recommended to be <70 mg/dL LDL cholesterol is calculated using the Roberts-NIH equation. Performed By: #### 3 016-3 #### [facility] CLIA [id number] [address] [place] [address] [place] #### 59761-7 #### [facility] CLIA [id number] [address] [place] [address] OF [facility] CLIA [id number] [address] [place] [address] Cholesterol in LDL/Cholesterol in HDL [Mass ratio] 1.56 {ratio} Normal <2.54 [facility] Comment on above: Order Comment: Speci men Type: BLOOD SPECIMEN Ordering Facility: Tonia Kaufman MD Address: [address] [place] [address] Result Comment: Refe charito: 1. National Cholesterol Education Program ATP III Guideline At-A-Glance Quick Desk Reference: National Heart, Lung, and Blood [place]. National Institutes of Health. 2001: NIH Publication No. 01-3305. 2. An International Atherosclerosis Society position paper: global recommendations for the management of dyslipidemia: executive summary, Atherosclerosis. 2014: 232(2):410-413. Performed By: #### 3 016-3 #### [facility] CLIA [id number] [address] [place] [address] [place] #### 52385-9 #### [facility] CLIA [id number] [address] [place] [address] STATES OF [facility] CLIA [id number] [address] [place] [address] Cholesterol in VLDL [Mass/Vol] 13 mg/dL Normal <30 [facility] Comment on above: Order Comment: Speci men Type: BLOOD SPECIMEN Ordering Facility: Tonia Kaufman MD Address: [address] [place] [address] Performed By: #### 3 016-3 #### [facility] CLIA [id number] [address] [place] [address] [place] #### 23083-9 #### [facility] CLIA [id number] [facility] [place] [id number] [place] OF [facility] CLIA [id number] [address] [place] [address] Cholesterol non HDL [Mass/Vol] 78 mg/dL Normal <130 [facility] Comment on above: Order Comment: Speci men Type: BLOOD SPECIMEN Ordering Facility: Tonia Kaufman MD Address: [address], [place] [address] Result Comment: <130 mg/dL, Optimal 130-159 mg/dL, Near optimal/above optimal 160-189 mg/dL, Borderline high 190-219 mg/dL, High >219 mg/dL, Very high Secondary prevention optimal non HDL Cholesterol levels are recommended to be <100 mg/dL Performed By: #### 3 016-3 #### [facility] CLIA [id number] [address] [place] [address] [place] #### 35647-0 #### [facility] CLIA [id number] [address] [place] [id number] [facility] CLIA [id number] [address] [address] Cholesterol.total/C holesterol in HDL [Mass ratio] 3.00 {ratio} Normal <5.10 [facility] Comment on above: Order Comment: Speci men Type: BLOOD SPECIMEN Ordering Facility: Tonia Kaufman MD Address: [address] [place] [address] Performed By: #### 3 016-3 #### [facility] CLIA [id number] [address] [place] [address] [place] #### 08819-9 #### [facility] CLIA [id number] [address] [place] [address] OF [facility] CLIA [id number] [address] [place] [address] FASTING TIME 12 hrs Normal [facility] Comment on above: Order Comment: Speci men Type: BLOOD SPECIMEN Ordering Facility: Tonia Kaufman MD Address: [address] [place] [address] Performed By: #### 3 016-3 #### [facility] CLIA [id number] [address] [place] [address] [place] #### 49718-4 #### [facility] CLIA [id number] [address] [place] [address] LAB CLIA [id number] [address] [place], [place] [id number] Triglyceride [Mass/Vol] 87 mg/dL Normal <150 [facility] Comment on above: Order Comment: Speci men Type: BLOOD SPECIMEN Ordering Facility: Tonia Kaufman MD Address: [address] [place] [address] Result Comment: <150 mg/dL, Normal 150-199 mg/dL, Borderline high 200-499 mg/dL, High >499 mg/dL, Very high Performed By: #### 3 016-3 #### [facility] CLIA [id number] [address] [place] [address] [place] #### 36328-3 #### [facility] CLIA [id number] [address] [place] [address] [place] [facility] CLIA [id number] [address] [place] [address] PSA SerPl-mCncon 12-27-2024 Prostate specific Ag [Mass/Vol] ng/mL Normal <2.60 [facility] Comment on above: Order Comment: Speci men Type: BLOOD SPECIMEN Ordering Facility: Tonia Kaufman MD Address: [address] [place] [address] Result Comment: Tota l PSA test methodology used is the Electrochemiluminescence Immunoassay by [employer]. Total PSA values by differing methodologies cannot be interchanged. Performed By: #### 2 857-1 #### [facility] CLIA [id number] [address] [place] [address] [place] TSH SerPl-aCncon 12-27-2024 TSH Qn 0.344 m[IU]/L Normal 0.270-4.200 [facility] Comment on above: Order Comment: Speci men Type: BLOOD SPECIMEN Ordering Facility: Tonia Kaufman MD Address: [address] [place] [address] Performed By: #### 3 016-3 #### [facility] CLIA [id number] [address] [place] [address] [place] #### [id number] #### [facility] CLIA [id number] [address] [place] [id number] [place] [facility] CLIA [id number] [address] [place] [address] CHEMISTRYOrdered By: SYSTEM SYSTEM on 12-26-2024 Albumin DL <= 20 mg/L (U) [Mass/Vol] 1.1 mg/dL Normal 0.0 - 1.9 mg/dL Remisol Chem Albumin/Creatinine DL <= 20 mg/L (U) [Mass ratio] 10.9 mg/gm Cr Normal 0.0 - 30.0 mg/gm Cr [facility] Comment on above: Interpretive Data: 3 0-300 mg/g Cr indicates an increased risk for diabetic nephropathy. >300 mg/g Cr is consistent with clinical nephropathy. U Creatinine 101.3 mg/dL Invalid Interpretation Code Remisol Chem U MA/Cr Ratioon 12-26-2024 Microalb/Cr Ratio 10.9 mg/gm Cr Normal .0-30.0 [facility] Comment on above: Result Comment: 30-3 00 mg/g Cr indicates an increased risk for diabetic nephropathy. >300 mg/g Cr is consistent with clinical nephropathy. Performed By: #### 1 [id number] #### [facility] [address] [place] [address] U Creatinine 101.3 mg/dL Invalid Interpretation Code [facility] Comment on above: Performed By: #### 1 [id number] #### [facility] [address] [place] [address] U Microalb 1.1 mg/dL Normal 0.0-1.9 [facility] Comment on above: Performed By: #### 1 [id number] #### [facility] [address] [place] [address] Ambulatory Visit Summaryon 0 10-02-2024 Ambulatory Visit Summary Ambulatory Visit Summary JERONIMO GOMEZ :1950 Visit Date:10/02/2024 Ambulatory Visit Instructions Your Diagnosis Type 2 diabetes mellitus with hyperlipidemia Long-term insulin use History of cerebrovascular accident Former smoker Cancer of lung stage 4 Hypothyroidism Hypertension Hyperlipidemia BMI 34.0-34.9,adult Obesity (BMI 30-39.9) Shingles Your Care Team Attending Physician - Mart GAMBLE, Abbey Manriquez Primary Care Physician - JAYLA GAMBLE, This Is Your Medications List gabapentin (gabapentin 100 mg Cap) Contact prescribing physician if questions or concerns amlodipine aspirin (aspirin 81 mg oral capsule) atenolol (Tenormin) atorvastatin clopidogrel (clopidogrel 75 mg Tab) fluticasone nasal (fluticasone 93 mcg/inh nasal spray) glipiZIDE insulin isophane-insulin regular (Novolin 70/30) levothyroxine (Synthroid) loratadine (Claritin) metformin (Glucophage) multivitamin with minerals (Centrum Silver) solifenacin (Vesicare 10 mg Tab) tamsulosin (tamsulosin 0.4 mg Cap) valacyclovir (valacyclovir 1 g Tab) Procedures Performed Cystoscopy (08/16/2018), Cystoscopy (10/03/2012), Seed implantation into prostate (07/11/2009), TRUS (transrectal ultrasound) guided cryoablation of prostate (02/26/2009), TRUS (transrectal ultrasound) guided cryoablation of prostate (02/18/2009), TRUS (transrectal ultrasound) guided cryoablation of prostate (10/16/2008), Colectomy, Cystoscopy, H/O: vasectomy, Knee replacement. Discharge Vitals Temperature (Tympanic) 36.5 ???C Heart Rate (Peripheral) 76 Respiratory Rate 18 Blood Pressure 128/82 Height 176 cm Height 69 in Weight 108 kg Weight 238.099 lb BMI 34.87 What to do next Scheduled Follow-Up Appointments Wednesday 10:00 AM EDT With: Where: [address] [address]- Wednesday 9:30 AM EDT With: Where: [address] [address]- Wednesday 10:30 AM EDT With: Mart GAMBLE, Abbey Manriquez Where: [address] [address]- Medications What How Much When Instructions New gabapentin (gabapentin 100 mg Cap) 1 Capsules By Mouth 3 times a day Pickup at [facility] Unchanged amlodipine By Mouth Every day Contact prescribing physician if questions or concerns Unchanged aspirin (aspirin 81 mg oral capsule) By Mouth Every 24 hours Contact prescribing physician if questions or concerns Unchanged atenolol (Tenormin) By Mouth Every day Contact prescribing physician if questions or concerns Unchanged atorvastatin By Mouth Every day Contact prescribing physician if questions or concerns Unchanged clopidogrel (clopidogrel 75 mg Tab) Contact prescribing physician if questions or concerns Unchanged fluticasone nasal (fluticasone 93 mcg/ inh nasal spray) 2 times a day Contact prescribing physician if questions or concerns Unchanged glipiZIDE By Mouth Every day Contact prescribing physician if questions or concerns Unchanged insulin isophane-insulin regular (Novolin 70/ 30) Subcutaneous Contact prescribing physician if questions or concerns Unchanged levothyroxine (Synthroid) By Mouth Every day Contact prescribing physician if questions or concerns Unchanged loratadine (Claritin) Every day Contact prescribing physician if questions or concerns Unchanged metformin (Glucophage) By Mouth Contact prescribing physician if questions or concerns Unchanged multivitamin with minerals (Centrum Silver) By Mouth Every day Contact prescribing physician if questions or concerns Unchanged solifenacin (Vesicare 10 mg Tab) 1 Tablets By Mouth Every day Duration: 30 Days Contact prescribing physician if questions or concerns Unchanged tamsulosin (tamsulosin 0.4 mg Cap) 1 Capsules By Mouth 2 times a day Contact prescribing physician if questions or concerns Unchanged valacyclovir (valacyclovir 1 g Tab) By Mouth Contact prescribing physician if questions or concerns Pharmacy Information [facility]: [address] [place] [id number] [phone] Allergies Dust (Difficulty breathing) Mold (Difficulty breathing) No Known Medication Allergies Problems Ongoing - Any problem that you are currently receiving treatment for. Anticoagulated Asymptomatic microscopic hematuria BMI 34.0-34.9,adult BPH with urinary obstruction Cancer of lung stage 4 Diverticular disease Former smoker Glycosuria History of cerebrovascular accident History of prostate cancer Hyperlipidemia Hypertension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 (01/19/23 11:56 AM) Normal Clear [facility] UA Auto SS Color (U) Yellow (01/19/23 11:56 AM) Normal Yellow [facility] UA Auto SS Epithelial cells.squamous LM.HPF (Urine sed) [#/Area] 0-2 /HPF Normal 0-2/HPF [facility] UA Auto SS Glucose Test strip (U) [Mass/Vol] Trace *ABN* (01/19/23 11:56 AM) Invalid Interpretation Code Negative [facility] UA Auto SS Hemoglobin Ql (U) Negative (01/19/23 11:56 AM) Normal Negative [facility] UA Auto SS Ketones (U) [Mass/Vol] Negative (01/19/23 11:56 AM) Normal Negative [facility] UA Auto SS [place].plasma/Lith ium.RBC (Bld) [Mass ratio] 0-3 /HPF Normal 0-3/HPF [facility] UA Auto SS Mucus Ql (Urine sed) 1+ (01/19/23 11:56 AM) Normal [facility] UA Auto SS Nitrite Ql (U) Negative (01/19/23 11:56 AM) Normal Negative [facility] UA Auto SS pH (U) 5.0 *NA* (01/19/23 11:56 AM) Invalid Interpretation Code 5.0 - 9.0 [facility] UA Auto SS Protein (U) [Mass/Vol] Negative (01/19/23 11:56 AM) Normal Negative [facility] UA Auto SS Specific gravity (U) [Rel density] 1.025 *NA* (01/19/23 11:56 AM) Invalid Interpretation Code 1.005 - 1.030 [facility] UA Auto SS UA Spec Desc Random Urine (01/19/23 11:56 AM) Normal [facility] Auto SS Urobilinogen Qn (U) 0.9912442 {Paddy'U}/dL Normal 0.0 - 1.0 EU/dL [facility] UA Auto SS WBC Auto Ql (U) Negative (01/19/23 11:56 AM) Normal Negative [facility] UA Auto SS WBC LM.HPF (Urine sed) [#/Area] 0-5 /HPF Normal 0-5/HPF [facility] UA Auto SS CT Chest WO contraston 09-10 IMPRESSION: 1. Stable appearance of 1.9 cm nodular opacity in the posterior right lower lobe. Additional bilateral nodular opacities also appear unchanged. No new or enlarging nodules are visualized. 2. Increasing consolidative opacity in the right perihilar and infrahilar regions, likely on the basis of evolving posttreatment change. 3. No evidence of bulky intrathoracic lymphadenopathy. Transcribe Date/Time: Sep 10 2022 5:08P Dictated by: BRAYDEN LEAHY MD This examination was interpreted and the report reviewed and electronically signed by: BRAYDEN LEAHY MD on Sep 10 2022 5:27PM EST Thank you for allowing us to participate in the care of your patient. Should there be any questions regarding this interpretation, please call [phone]. If you are unable to reach us at the number above, please feel free to contact [facility] at [phone]. DIVISION OF RADIOLOGY * * *Final Report* * * DATE OF EXAM: Sep 10 2022 12:53PM [facility] 0541 - CT CHEST WO IVCON / PROCEDURE REASON: Non-small cell lung cancer (NSCLC), monitor * * * * Physician Interpretation * * * * RESULT: EXAMINATION: CHEST CT WITHOUT CONTRAST CLINICAL HISTORY: Non-small cell lung cancer. Technique: Spiral CT acquisition of the chest from the thoracic inlet to the upper abdomen without contrast. MQ: CTCWO_6 CT Radiation dose: Integrated Dose-length product (DLP) for this visit = 317 mGy*cm CT Dose Reduction Employed: Automated exposure control (AEC) Comparison: CT chest performed 03/09/2022 RESULT: Limitations: None. Lines, tubes, and devices: None. Lung parenchyma and airways: No dense lobar consolidation is identified. There is mild bibasal atelectasis. Again noted is a nodular opacity at the posterior aspect of the right base (4:162) measuring 1.9 x 1 cm, stable. There is a stable 3 mm nodular opacity in the right apex (4:35). There is a stable subpleural 4 mm nodule in the left lower lobe (4:81). Increasing consolidative opacity is noted in the right perihilar and infrahilar regions, likely on the basis of posttreatment change. No new or enlarging nodules are visualized. The central airways are widely patent. Pleural space: No pleural effusion. No pleural thickening. Lower neck, lymph nodes, and mediastinum: Calcified mediastinal nodes are seen, in keeping with prior granulomatous disease. No bulky mediastinal or hilar adenopathy is noted. Heart, pericardium, and thoracic vessels: The thoracic aorta and main pulmonary artery are normal in caliber. The cardiac chambers are normal in size. Mild coronary artery atherosclerotic calcification is noted. No pericardial effusion or thickening. Bones and soft tissues: Multilevel degenerative changes noted in the thoracic spine. No destructive osseous lesions are seen. Superficial soft tissues are unremarkable. Upper abdomen: No abnormality in the imaged upper abdomen. [facility] [employer] (topogram) images: No additional findings. DIVISION OF RADIOLOGY Provider, [facility] - 09/10/2022 * * *Final Report* * * DATE OF EXAM: Sep 10 2022 12:53PM [facility] 0541 - CT CHEST WO IVCON / PROCEDURE REASON: Non-small cell lung cancer (NSCLC), monitor * * * * Physician Interpretation * * * * RESULT: EXAMINATION: CHEST CT WITHOUT CONTRAST CLINICAL HISTORY: Non-small cell lung cancer. Technique: Spiral CT acquisition of the chest from the thoracic inlet to the upper abdomen without contrast. MQ: CTCWO_6 CT Radiation dose: Integrated Dose-length product (DLP) for this visit = 317 mGy*cm CT Dose Reduction Employed: Automated exposure control (AEC) Comparison: CT chest performed 03/09/2022 RESULT: Limitations: None. Lines, tubes, and devices: None. Lung parenchyma and airways: No dense lobar consolidation is identified. There is mild bibasal atelectasis. Again noted is a nodular opacity at the posterior aspect of the right base (4:162) measuring 1.9 x 1 cm, stable. There is a stable 3 mm nodular opacity in the right apex (4:35). There is a stable subpleural 4 mm nodule in the left lower lobe (4:81). Increasing consolidative opacity is noted in the right perihilar and infrahilar regions, likely on the basis of posttreatment change. No new or enlarging nodules are visualized. The central airways are widely patent. Pleural space: No pleural effusion. No pleural thickening. Lower neck, lymph nodes, and mediastinum: Calcified mediastinal nodes are seen, in keeping with prior granulomatous disease. No bulky mediastinal or hilar adenopathy is noted. Heart, pericardium, and thoracic vessels: The thoracic aorta and main pulmonary artery are normal in caliber. The cardiac chambers are normal in size. Mild coronary artery atherosclerotic calcification is noted. No pericardial effusion or thickening. Bones and soft tissues: Multilevel degenerative changes noted in the thoracic spine. No destructive osseous lesions are seen. Superficial soft tissues are unremarkable. Upper abdomen: No abnormality in the imaged upper abdomen. [facility] [employer] (topogram) images: No additional findings. IMPRESSION IMPRESSION: 1. Stable appearance of 1.9 cm nodular opacity in the posterior right lower lobe. Additional bilateral nodular opacities also appear unchanged. No new or enlarging nodules are visualized. 2. Increasing consolidative opacity in the right perihilar and infrahilar regions, likely on the basis of evolving posttreatment change. 3. No evidence of bulky intrathoracic lymphadenopathy. Transcribe Date/Time: Sep 10 2022 5:08P Dictated by: BRAYDEN LEAHY MD This examination was interpreted and the report reviewed and electronically signed by: BRAYDEN LEAHY MD on Sep 10 2022 5:27PM EST Thank you for allowing us to participate in the care of your patient. Should there be any questions regarding this interpretation, please call [phone]. If you are unable to reach us at the number above, please feel free to contact [facility] eRadiology at [phone]. [facility] Radiology Study observation (narrative) [facility] CT Chest WO contrastOrdered By: Ccf Provider on 09-10-2022 [facility] COVID/FLU/RSV RT-PCRon 08-04 SARS-CoV-2 (COVID-19) RNA SIERRA+probe Ql (Unsp spec) Negative [employer] Other COVID/FLU/RSV RT-PCR Negative [employer] Other Quick Strepon 08-04-2022 S. pyogenes Org specific cx Ql (Throat) Negative [employer] Other Quick Strep [employer] Other No Panel Informationon 03-10 Interpretation and review of laboratory results Normal [facility] T4/FTI/T4Uon 03-10-2022 FTI 7.2 ug/dL 5.3 - 10.8 ug/dL [facility] T4 [Mass/Vol] 7.3 ug/dL 5.5 - 10.2 ug/dL [facility] T4 uptake [Mass/Vol] 1.01 0.91 - 1.19 [facility] TSH BLDon 03-10-2022 TSH Qn 3.200 m[IU]/L [facility] CBC W Auto Differential pane l (Bld)on 03-09-2022 Basophils (Bld) [#/Vol] [facility] Basophils/100 WBC (Bld) 0.3 % [facility] Differential cell count method Nom (Bld) Auto [facility] Eosinophils (Bld) [#/Vol] 0.14 10*3/uL [facility] Eosinophils/100 WBC (Bld) 2.3 % [facility] Erythrocyte distribution width (RBC) [Ratio] 13.9 % 11.5 - 15.0 % [facility] Hematocrit (Bld) [Volume fraction] 42.1 % 39.0 - 51.0 % [facility] Hemoglobin (Bld) [Mass/Vol] 14.0 g/dL 13.0 - 17.0 g/dL [facility] Immature granulocytes (Bld) [#/Vol] [facility] Immature granulocytes/100 WBC (Bld) 0.3 % [facility] Interpretation and review of laboratory results Abnormal [facility] Lymphocytes (Bld) [#/Vol] 2.45 10*3/uL [facility] Lymphocytes/100 WBC (Bld) 40.7 % [facility] MCH (RBC) [Entitic mass] 31.5 pg 26.0 - 34.0 pg [facility] MCHC (RBC) [Mass/Vol] 33.3 g/dL 30.5 - 36.0 g/dL [facility] MCV (RBC) [Entitic vol] 94.8 fL 80.0 - 100.0 fL [facility] Monocytes (Bld) [#/Vol] 0.42 10*3/uL [facility] Monocytes/100 WBC (Bld) 7.0 % [facility] Neutrophils (Bld) [#/Vol] 2.97 10*3/uL [facility] Neutrophils/100 WBC (Bld) 49.4 % [facility] Nucleated RBC (Bld) [#/Vol] NINF [facility] Nucleated RBC/100 WBC (Bld) [Ratio] 0.0 % /100 WBC [facility] Platelet mean volume (Bld) [Entitic vol] 10.3 fL 9.0 - 12.7 fL [facility] Platelets (Bld) [#/Vol] 147 10*3/uL Low [facility] Comment on above: Sample checked for c lot RBC (Bld) [#/Vol] 4.44 10*6/uL 4.20 - 6.0 0 m/uL [facility] WBC (Bld) [#/Vol] 6.02 10*3/uL [facility] This is an appended report. These results have been appended to a previously verified report. [facility] CT Abdomen and Pelvis W cont rast Slava 03-09-2022 IMPRESSION: Stable CT examination of the abdomen and pelvis, without evidence for metastatic disease. Transcribe Date/Time: Mar 09 2022 4:25P Dictated by: DENZEL CHAPIN MD This examination was interpreted and the report reviewed and electronically signed by: DENZEL CHAPIN MD on Mar 09 2022 4:35PM EST Thank you for allowing us to participate in the care of your patient. Should there be any questions regarding this interpretation, please call [phone]. If you are unable to reach us at the number above, please feel free to contact [facility] eRadiology at [phone]. DIVISION OF RADIOLOGY * * *Final Report* * * DATE OF EXAM: Mar 09 2022 2:11PM [facility] 0530 - CT ABD/PEL W IVCON / PROCEDURE REASON: Malignant neoplasm of unspecified part of unspecified bronchus or lung (HCC) * * * * Physician Interpretation * * * * RESULT: EXAMINATION: CT ABDOMEN AND PELVIS WITH IV CONTRAST CLINICAL HISTORY: Lung carcinoma. TECHNIQUE: CT of the abdomen and pelvis was performed using standard technique, scanning from just above the dome of the diaphragm to the symphysis pubis. MQ: CTAP_3 Contrast: IV: 125 ml of Omnipaque 300 Oral: 900 ml of 50ML Omnipaque [address] Radiation dose: Integrated Dose-length product (DLP) for this visit = 3228 mGy*cm. CT Dose Reduction Employed: Automated exposure control (AEC) COMPARISON: 09/10/2021 RESULT: Liver: Mild, diffuse hepatic steatosis. No mass. Biliary Tract: No bile duct dilation. The gallbladder appears unremarkable. Spleen: No splenomegaly. No mass. Pancreas: No mass or ductal dilatation. Adrenal glands: No mass. Kidneys: No enhancing mass or hydronephrosis. 8 mm right renal hypodensity, likely related to a cyst, stable. Small area of cortical scarring at the lower pole the right kidney, unchanged. GI Tract: No bowel wall thickening or dilation. Sigmoid diverticulosis, without CT evidence for acute diverticulitis. Lymph nodes: No substantial mesenteric, retroperitoneal, or pelvic lymphadenopathy is identified. Mesentery: No ascites. No mass. Retroperitoneum: No mass. Vasculature: - Abdominal aorta and iliac arteries: Atherosclerotic calcifications without aneurysm. - Celiac and SMA: Patent. - Portal venous system (SMV, splenic vein, portal vein and branches): Patent. - Hepatic veins: Patent. Pelvis: No free fluid or pelvic mass. Prostate seed implants remain in place. The urinary bladder is poorly distended, mild, diffuse bladder wall thickening is again noted, unchanged. No substantial inguinal adenopathy is identified. Bones/Soft Tissues: Mild degenerative change within the lumbar spine. No osseous destructive process is appreciated. [employer] (topogram) images: No additional findings. DIVISION OF RADIOLOGY Provider, [facility] - 03/09/2022 * * *Final Report* * * DATE OF EXAM: Mar 09 2022 2:11PM [facility] 0530 - CT ABD/PEL W IVCON / PROCEDURE REASON: Malignant neoplasm of unspecified part of unspecified bronchus or lung (HCC) * * * * Physician Interpretation * * * * RESULT: EXAMINATION: CT ABDOMEN AND PELVIS WITH IV CONTRAST CLINICAL HISTORY: Lung carcinoma. TECHNIQUE: CT of the abdomen and pelvis was performed using standard technique, scanning from just above the dome of the diaphragm to the symphysis pubis. MQ: CTAP_3 Contrast: IV: 125 ml of Omnipaque 300 Oral: 900 ml of 50ML Omnipaque [address] Radiation dose: Integrated Dose-length product (DLP) for this visit = 3228 mGy*cm. CT Dose Reduction Employed: Automated exposure control (AEC) COMPARISON: 09/10/2021 RESULT: Liver: Mild, diffuse hepatic steatosis. No mass. Biliary Tract: No bile duct dilation. The gallbladder appears unremarkable. Spleen: No splenomegaly. No mass. Pancreas: No mass or ductal dilatation. Adrenal glands: No mass. Kidneys: No enhancing mass or hydronephrosis. 8 mm right renal hypodensity, likely related to a cyst, stable. Small area of cortical scarring at the lower pole the right kidney, unchanged. GI Tract: No bowel wall thickening or dilation. Sigmoid diverticulosis, without CT evidence for acute diverticulitis. Lymph nodes: No substantial mesenteric, retroperitoneal, or pelvic lymphadenopathy is identified. Mesentery: No ascites. No mass. Retroperitoneum: No mass. Vasculature: - Abdominal aorta and iliac arteries: Atherosclerotic calcifications without aneurysm. - Celiac and SMA: Patent. - Portal venous system (SMV, splenic vein, portal vein and branches): Patent. - Hepatic veins: Patent. Pelvis: No free fluid or pelvic mass. Prostate seed implants remain in place. The urinary bladder is poorly distended, mild, diffuse bladder wall thickening is again noted, unchanged. No substantial inguinal adenopathy is identified. Bones/Soft Tissues: Mild degenerative change within the lumbar spine. No osseous destructive process is appreciated. [employer] (topogram) images: No additional findings. IMPRESSION IMPRESSION: Stable CT examination of the abdomen and pelvis, without evidence for metastatic disease. Transcribe Date/Time: Mar 09 2022 4:25P Dictated by: DENZEL CHAPIN MD This examination was interpreted and the report reviewed and electronically signed by: DENZEL CHAPIN MD on Mar 09 2022 4:35PM EST Thank you for allowing us to participate in the care of your patient. Should there be any questions regarding this interpretation, please call [phone]. If you are unable to reach us at the number above, please feel free to contact [facility] eRadiology at [phone]. [facility] CT Chest W contrast Slava IMPRESSION: 1. Dominant, 1.9 cm right lower lobe nodular opacity is again appreciated, stable from the prior summation of 09/10/2021, slightly more conspicuous in size from the more remote examination of 11/17/2019. Correlation with continued follow-up summations is recommended. 2. Numerous additional bilateral subcentimeter pulmonary nodules, unchanged. 3. No substantial intrathoracic adenopathy is identified. Transcribe Date/Time: Mar 09 2022 4:10P Dictated by: DENZEL CHAPIN MD This examination was interpreted and the report reviewed and electronically signed by: DENZEL CHAPIN MD on Mar 09 2022 4:35PM EST Thank you for allowing us to participate in the care of your patient. Should there be any questions regarding this interpretation, please call [phone]. If you are unable to reach us at the number above, please feel free to contact [facility] at [phone]. DIVISION OF RADIOLOGY * * *Final Report* * * DATE OF EXAM: Mar 09 2022 2:11PM [facility] 0539 - CT CHEST W IVCON / PROCEDURE REASON: Malignant neoplasm of unspecified part of unspecified bronchus or lung (HCC) * * * * Physician Interpretation * * * * RESULT: EXAMINATION: CHEST CT WITH CONTRAST CLINICAL HISTORY: Non-small cell lung cancer (NSCLC), monitor Technique: Spiral CT acquisition of the chest from the thoracic inlet to the upper abdomen following IV contrast. MQ: CTCW_6 Contrast: 125 mL Omnipaque [address] Radiation dose: Integrated Dose-length product (DLP) for this visit = 3228 mGy*cm CT Dose Reduction Employed: Automated exposure control (AEC) Comparison: CT chest 09/10/2021, 11/17/2019. RESULT: Limitations: None. Lines, tubes, and devices: None. Lung parenchyma , airways, and pleural space: Mild elevation of the right hemidiaphragm, associated right basilar compressive atelectasis, stable. No consolidative process or pleural effusion is appreciated. The trachea and major airways appear patent. The 1.9 x 1.0 cm cm nodular opacity at the posterior aspect of the right lower lobe is again appreciated, stable from the recent study of , minimally progressed in size from the more remote examination dated 11/17/2019 at which time it measured approximately 1.7 cm in maximal diameter, 160, series 4. Several additional bilateral 4 mm or less bilateral pulmonary nodules are again identified: For example, within the right upper lobe, images 41 and 68, series 4. Within the subpleural left lower lobe, image 87, series 4. Lower neck, lymph nodes, and mediastinum: The visualized thyroid gland is stable. No substantial supraclavicular or axillary lymphadenopathy is identified. Scattered subcentimeter mediastinal lymph nodes are again identified, unchanged. Mediastinal granulomatous calcification is noted. No substantial mediastinal or hilar adenopathy is identified. Heart, pericardium, and thoracic vessels: Coronary artery calcification is noted. The thoracic aorta is normal in caliber. No substantial pericardial effusion. Bones/Soft Tissues: Degenerative change involving the thoracic spine. No osseous destructive process is appreciated. Upper Abdomen: A CT examination of the abdomen has been performed concurrently and will be dictated separately. [employer] (topogram) images: No additional findings. DIVISION OF RADIOLOGY Provider, [facility] - 03/09/2022 * * *Final Report* * * DATE OF EXAM: Mar 09 2022 2:11PM [facility] 0539 - CT CHEST W IVCON / PROCEDURE REASON: Malignant neoplasm of unspecified part of unspecified bronchus or lung (HCC) * * * * Physician Interpretation * * * * RESULT: EXAMINATION: CHEST CT WITH CONTRAST CLINICAL HISTORY: Non-small cell lung cancer (NSCLC), monitor Technique: Spiral CT acquisition of the chest from the thoracic inlet to the upper abdomen following IV contrast. MQ: CTCW_6 Contrast: 125 mL Omnipaque [address] Radiation dose: Integrated Dose-length product (DLP) for this visit = 3228 mGy*cm CT Dose Reduction Employed: Automated exposure control (AEC) Comparison: CT chest 09/10/2021, 11/17/2019. RESULT: Limitations: None. Lines, tubes, and devices: None. Lung parenchyma , airways, and pleural space: Mild elevation of the right hemidiaphragm, associated right basilar compressive atelectasis, stable. No consolidative process or pleural effusion is appreciated. The trachea and major airways appear patent. The 1.9 x 1.0 cm cm nodular opacity at the posterior aspect of the right lower lobe is again appreciated, stable from the recent study of , minimally progressed in size from the more remote examination dated 11/17/2019 at which time it measured approximately 1.7 cm in maximal diameter, 160, series 4. Several additional bilateral 4 mm or less bilateral pulmonary nodules are again identified: For example, within the right upper lobe, images 41 and 68, series 4. Within the subpleural left lower lobe, image 87, series 4. Lower neck, lymph nodes, and mediastinum: The visualized thyroid gland is stable. No substantial supraclavicular or axillary lymphadenopathy is identified. Scattered subcentimeter mediastinal lymph nodes are again identified, unchanged. Mediastinal granulomatous calcification is noted. No substantial mediastinal or hilar adenopathy is identified. Heart, pericardium, and thoracic vessels: Coronary artery calcification is noted. The thoracic aorta is normal in caliber. No substantial pericardial effusion. Bones/Soft Tissues: Degenerative change involving the thoracic spine. No osseous destructive process is appreciated. Upper Abdomen: A CT examination of the abdomen has been performed concurrently and will be dictated separately. [employer] (topogram) images: No additional findings. IMPRESSION IMPRESSION: 1. Dominant, 1.9 cm right lower lobe nodular opacity is again appreciated, stable from the prior summation of 09/10/2021, slightly more conspicuous in size from the more remote examination of 11/17/2019. Correlation with continued follow-up summations is recommended. 2. Numerous additional bilateral subcentimeter pulmonary nodules, unchanged. 3. No substantial intrathoracic adenopathy is identified. Transcribe Date/Time: Mar 09 2022 4:10P Dictated by: DENZEL CHAPIN MD This examination was interpreted and the report reviewed and electronically signed by: DENZEL CHAPIN MD on Mar 09 2022 4:35PM EST Thank you for allowing us to participate in the care of your patient. Should there be any questions regarding this interpretation, please call [phone]. If you are unable to reach us at the number above, please feel free to contact [facility] eRadiology at [phone]. [facility] CT Head WO and W contrast IV on 03-09-2022 IMPRESSION: No evidence of enhancing intracranial lesion to suggest metastasis. Transcribe Date/Time: Mar 09 2022 2:58P Dictated by: HUBER ROSAS MD This examination was interpreted and the report reviewed and electronically signed by: HUBER ROSAS MD on Mar 09 2022 3:01PM EST Thank you for allowing us to participate in the care of your patient. Should there be any questions regarding this interpretation, please call [phone]. If you are unable to reach us at the number above, please feel free to contact [facility] at [phone]. 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 MQ: CTBWOW_1 Contrast: 125 mL Omnipaque [address] Radiation dose: Integrated Dose-Length Product (DLP) for this visit = 4.2, 761.4, 761.4 mGy*cm CT Dose Reduction Employed: Automated exposure control (AEC) COMPARISON: 05/11/2018. RESULT: [employer] (topogram) images: No additional findings. Post-operative change: None. Acute change: No evidence of an acute intracranial process. Hemorrhage: There is no evidence of acute intracranial hemorrhage. ECASS hemorrhagic transformation score: Not Applicable Mass Lesion / Mass Effect: There is no evidence of an intracranial mass or extraaxial fluid collection. No abnormal parenchymal enhancement is appreciated. No significant mass effect. Chronic change: None apparent. Parenchyma: There is mild generalized volume loss. Ventricles: Ventricular enlargement concordant with the degree of parenchymal volume loss. Paranasal sinuses and skull base: The visualized paranasal sinuses are clear. The skull base and imaged soft tissues are unremarkable. 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 MQ: CTBWOW_1 Contrast: 125 mL Omnipaque [address] Radiation dose: Integrated Dose-Length Product (DLP) for this visit = 4.2, 761.4, 761.4 mGy*cm CT Dose Reduction Employed: Automated exposure control (AEC) COMPARISON: 05/11/2018. RESULT: [employer] (topogram) images: No additional findings. Post-operative change: None. Acute change: No evidence of an acute intracranial process. Hemorrhage: There is no evidence of acute intracranial hemorrhage. ECASS hemorrhagic transformation score: Not Applicable Mass Lesion / Mass Effect: There is no evidence of an intracranial mass or extraaxial fluid collection. No abnormal parenchymal enhancement is appreciated. No significant mass effect. Chronic change: None apparent. Parenchyma: There is mild generalized volume loss. Ventricles: Ventricular enlargement concordant with the degree of parenchymal volume loss. Paranasal sinuses and skull base: The visualized paranasal sinuses are clear. The skull base and imaged soft tissues are unremarkable. IMPRESSION IMPRESSION: No evidence of enhancing intracranial lesion to suggest metastasis. Transcribe Date/Time: Mar 09 2022 2:58P Dictated by: HUBER ROSAS MD This examination was interpreted and the report reviewed and electronically signed by: HUBER ROSAS MD on Mar 09 2022 3:01PM EST Thank you for allowing us to participate in the care of your patient. Should there be any questions regarding this interpretation, please call [phone]. If you are unable to reach us at the number above, please feel free to contact [facility] eRadiology at [phone]. [facility] CT Head WO and W contrast IV Ordered By: [facility] Provider on 03-09-2022 [facility] Comprehensive metabolic 2000 panelOrdered By: Ernesto Rivera on 03-09-2022 Albumin [Mass/Vol] 4.6 g/dL 3.9 - 4.9 g/dL [facility] ALP [Catalytic activity/Vol] 47 U/L 38 - 113 U/L [facility] ALT [Catalytic activity/Vol] 39 U/L 10 - 54 U/L [facility] Anion gap [Moles/Vol] 9 mmol/L 9 - 18 mmol/L [facility] AST [Catalytic activity/Vol] 23 U/L 14 - 40 U/L [facility] Bilirubin [Mass/Vol] 0.5 mg/dL 0.2 - 1.3 mg/dL [facility] Calcium [Mass/Vol] 10.1 mg/dL 8.5 - 10. 2 mg/dL [facility] Chloride [Moles/Vol] 101 mmol/L 97 - 105 mmol/L [facility] CO2 [Moles/Vol] 29 mmol/L 22 - 30 mmol/L [facility] Creatinine [Mass/Vol] 1.10 mg/dL 0.73 - 1.22 mg/dL [facility] GFR/1.73 sq M.predicted among non-blacks MDRD (S/P/Bld) [Vol rate/Area] 70 mL/min/{1.73_m2} - PINF [facility] Comment on above: Estimated Glomerular Filtration Rate (eGFR) is calculated using the 2020 CKD-EPI creatinine equation. This equation utilizes serum creatinine, sex, and age as parameters. The creatinine assay has traceable calibration to isotope dilution-mass spectrometry. Refer to KDIGO guidelines for clinical interpretation. In patients with unstable renal function, e.g. those with acute kidney injury, the eGFR may not accurately reflect actual GFR. Glucose [Mass/Vol] 118 mg/dL High 74 - 99 mg/dL [facility] Comment on above: The [place] Diabete s Association (ADA) provides guidance for cutoff values [...] Standards of Medical Care in Diabetes 2016, [place] Diabetes Association. Diabetes Care. 2016.39(Suppl 1). Interpretation and review of laboratory results Abnormal [facility] Potassium [Moles/Vol] 4.9 mmol/L 3.7 - 5.1 mmol/L [facility] Protein [Mass/Vol] 6.8 g/dL 6.3 - 8.0 g/dL [facility] Sodium [Moles/Vol] 139 mmol/L 136 - 144 mmol/L [facility] Urea nitrogen [Mass/Vol] 16 mg/dL 9 - 24 mg/dL [facility] No Panel Informationon 03-09 Radiology Study observation (narrative) [facility] CT Abdomen and Pelvis W cont rast Slava 09-11-2021 IMPRESSION: Stable examination of the abdomen and pelvis, without CT evidence for metastatic disease. Transcribe Date/Time: Sep 10 2021 12:59P Dictated by: DENZEL CHAPIN MD This examination was interpreted and the report reviewed and electronically signed by: DENZEL CHAPIN MD on Sep 11 2021 10:35AM EST Thank you for allowing us to participate in the care of your patient. Should there be any questions regarding this interpretation, please call [phone]. If you are unable to reach us at the number above, please feel free to contact [facility] eRadiology at [phone]. DIVISION OF RADIOLOGY * * *Final Report* * * DATE OF EXAM: Sep 10 2021 8:56AM [facility] 0530 - CT ABD/PEL W IVCON / PROCEDURE REASON: Malignant neoplasm of lower lobe of right lung (HCC) * * * * Physician Interpretation * * * * RESULT: EXAMINATION: CT ABDOMEN AND PELVIS WITH IV CONTRAST CLINICAL HISTORY: Lung carcinoma TECHNIQUE: CT of the abdomen and pelvis was performed using standard technique, scanning from just above the dome of the diaphragm to the symphysis pubis. MQ: CTAP_3 Contrast: IV: 150 ml of Omnipaque 300 Oral: 900 ml of 50 ml of Omnipaque [address] Radiation dose: Integrated Dose-length product (DLP) for this visit = 1672 mGy*cm. CT Dose Reduction Employed: mAs-kVp adjusted based on patient size-age COMPARISON: 03/14/2021. RESULT: Liver: No mass. Biliary Tract: No bile duct dilation. The gallbladder appears unremarkable. Spleen: No splenomegaly. No mass. Pancreas: No mass or ductal dilatation. Adrenal glands: No mass. Kidneys: No enhancing mass or hydronephrosis. 9 mm right renal hypodensity likely relates to a cyst, stable. GI Tract: No bowel wall thickening or dilation. Scattered diverticula throughout the colon are appreciated. There is no CT evidence for acute diverticulitis. Lymph nodes: No substantial mesenteric, retroperitoneal, or pelvic lymphadenopathy. Mesentery: No ascites. No mass. Retroperitoneum: No mass. Vasculature: - Abdominal aorta and iliac arteries: Atherosclerotic calcifications without aneurysm. - Celiac and SMA: Patent. - Portal venous system (SMV, splenic vein, portal vein and branches): Patent. - Hepatic veins: Patent. Pelvis: No free fluid or pelvic mass. Multiple prostate seed implants are noted. Degenerative change involving the lumbar spine. No osseous destructive process. Lower Thorax: A CT examination of the chest has been performed concurrently and will be dictated separately. [employer] (topogram) images: No additional findings. DIVISION OF RADIOLOGY Provider, [facility] - 09/11/2021 * * *Final Report* * * DATE OF EXAM: Sep 10 2021 8:56AM [facility] 0530 - CT ABD/PEL W IVCON / PROCEDURE REASON: Malignant neoplasm of lower lobe of right lung (HCC) * * * * Physician Interpretation * * * * RESULT: EXAMINATION: CT ABDOMEN AND PELVIS WITH IV CONTRAST CLINICAL HISTORY: Lung carcinoma TECHNIQUE: CT of the abdomen and pelvis was performed using standard technique, scanning from just above the dome of the diaphragm to the symphysis pubis. MQ: CTAP_3 Contrast: IV: 150 ml of Omnipaque 300 Oral: 900 ml of 50 ml of Omnipaque [address] Radiation dose: Integrated Dose-length product (DLP) for this visit = 1672 mGy*cm. CT Dose Reduction Employed: mAs-kVp adjusted based on patient size-age COMPARISON: 03/14/2021. RESULT: Liver: No mass. Biliary Tract: No bile duct dilation. The gallbladder appears unremarkable. Spleen: No splenomegaly. No mass. Pancreas: No mass or ductal dilatation. Adrenal glands: No mass. Kidneys: No enhancing mass or hydronephrosis. 9 mm right renal hypodensity likely relates to a cyst, stable. GI Tract: No bowel wall thickening or dilation. Scattered diverticula throughout the colon are appreciated. There is no CT evidence for acute diverticulitis. Lymph nodes: No substantial mesenteric, retroperitoneal, or pelvic lymphadenopathy. Mesentery: No ascites. No mass. Retroperitoneum: No mass. Vasculature: - Abdominal aorta and iliac arteries: Atherosclerotic calcifications without aneurysm. - Celiac and SMA: Patent. - Portal venous system (SMV, splenic vein, portal vein and branches): Patent. - Hepatic veins: Patent. Pelvis: No free fluid or pelvic mass. Multiple prostate seed implants are noted. Degenerative change involving the lumbar spine. No osseous destructive process. Lower Thorax: A CT examination of the chest has been performed concurrently and will be dictated separately. [employer] (topogram) images: No additional findings. IMPRESSION IMPRESSION: Stable examination of the abdomen and pelvis, without CT evidence for metastatic disease. Transcribe Date/Time: Sep 10 2021 12:59P Dictated by: DENZEL CHAPIN MD This examination was interpreted and the report reviewed and electronically signed by: DENZEL CHAPIN MD on Sep 11 2021 10:35AM EST Thank you for allowing us to participate in the care of your patient. Should there be any questions regarding this interpretation, please call [phone]. If you are unable to reach us at the number above, please feel free to contact [facility] eRadiology at [phone]. [facility] CT Abdomen and Pelvis W cont rast IVOrdered By: [facility]cf Provider on 09-11-2021 [facility] CT Chest W contrast Slava IMPRESSION: 1. The dominant, 1.9 cm right lower lobe nodular opacity appears stable from prior study of 03/14/2021. 2. Persistent right perihilar airspace opacities, soft tissue prominence at the right infrahilar region, unchanged. Transcribe Date/Time: Sep 10 2021 12:39P Dictated by: DENZEL CHAPIN MD This examination was interpreted and the report reviewed and electronically signed by: DENZEL CHAPIN MD on Sep 11 2021 10:35AM EST Thank you for allowing us to participate in the care of your patient. Should there be any questions regarding this interpretation, please call [phone]. If you are unable to reach us at the number above, please feel free to contact [facility] eRadiology at [phone]. DIVISION OF RADIOLOGY * * *Final Report* * * DATE OF EXAM: Sep 10 2021 8:56AM [facility] 0539 - CT CHEST W IVCON / PROCEDURE REASON: Malignant neoplasm of unspecified part of unspecified bronchus or lung (HCC) * * * * Physician Interpretation * * * * RESULT: EXAMINATION: CHEST CT WITH CONTRAST Indication: Lung carcinoma Technique: Spiral CT acquisition of the chest from the thoracic inlet to the upper abdomen following IV contrast. M: CTCW_4 Contrast: 150 mL Omnipaque [address] Dose-Length Product: 1672 mGy*cm CT Dose Reduction Employed: mAs-kVp adjusted based on patient size-age Comparison: CT chest 03/14/2021 RESULT: Limitations: None. Lines, tubes, and devices: None. Lung parenchyma , airways, and pleural space: Mild elevation of the right hemidiaphragm, stable. Right perihilar opacities, likely on the basis of prior radiation therapy, stable. No new consolidative process or pleural effusion. The trachea and major airways appear patent. Approximate 1.9 x 1.0 cm nodular opacity at the posterior aspect of the right lower lobe appears relatively stable in size, previously 1.8 x 1.1 cm, image 164, series 3. 3 mm subpleural right upper lobe nodule, image 42, series 3, stable. Punctate 2 mm right upper lobe nodule, image 69, series 3, stable. Additional 3 mm or less left-sided nodules, for example, images 62 and 85, series 3, stable. Lower neck, lymph nodes, and mediastinum: The visualized thyroid gland appears unremarkable. No substantial supraclavicular or axillary lymphadenopathy. No substantial mediastinal or hilar adenopathy is appreciated. Right infrahilar soft tissue prominence, stable. Heart, pericardium, and thoracic vessels: The thoracic aorta is normal in caliber. Coronary artery calcification is noted. No substantial pericardial effusion. Bones/Soft Tissues: Degenerative change involving the thoracic spine. No osseous destructive process. Upper Abdomen: A CT examination of the abdomen has been performed concurrently and will be dictated separately. [employer] (topogram) images: No additional findings. DIVISION OF RADIOLOGY Provider, [facility] - 09/11/2021 * * *Final Report* * * DATE OF EXAM: Sep 10 2021 8:56AM [facility] 0539 - CT CHEST W IVCON / PROCEDURE REASON: Malignant neoplasm of unspecified part of unspecified bronchus or lung (HCC) * * * * Physician Interpretation * * * * RESULT: EXAMINATION: CHEST CT WITH CONTRAST Indication: Lung carcinoma Technique: Spiral CT acquisition of the chest from the thoracic inlet to the upper abdomen following IV contrast. M: CTCW_4 Contrast: 150 mL Omnipaque [address] Dose-Length Product: 1672 mGy*cm CT Dose Reduction Employed: mAs-kVp adjusted based on patient size-age Comparison: CT chest 03/14/2021 RESULT: Limitations: None. Lines, tubes, and devices: None. Lung parenchyma , airways, and pleural space: Mild elevation of the right hemidiaphragm, stable. Right perihilar opacities, likely on the basis of prior radiation therapy, stable. No new consolidative process or pleural effusion. The trachea and major airways appear patent. Approximate 1.9 x 1.0 cm nodular opacity at the posterior aspect of the right lower lobe appears relatively stable in size, previously 1.8 x 1.1 cm, image 164, series 3. 3 mm subpleural right upper lobe nodule, image 42, series 3, stable. Punctate 2 mm right upper lobe nodule, image 69, series 3, stable. Additional 3 mm or less left-sided nodules, for example, images 62 and 85, series 3, stable. Lower neck, lymph nodes, and mediastinum: The visualized thyroid gland appears unremarkable. No substantial supraclavicular or axillary lymphadenopathy. No substantial mediastinal or hilar adenopathy is appreciated. Right infrahilar soft tissue prominence, stable. Heart, pericardium, and thoracic vessels: The thoracic aorta is normal in caliber. Coronary artery calcification is noted. No substantial pericardial effusion. Bones/Soft Tissues: Degenerative change involving the thoracic spine. No osseous destructive process. Upper Abdomen: A CT examination of the abdomen has been performed concurrently and will be dictated separately. [employer] (topogram) images: No additional findings. IMPRESSION IMPRESSION: 1. The dominant, 1.9 cm right lower lobe nodular opacity appears stable from prior study of 03/14/2021. 2. Persistent right perihilar airspace opacities, soft tissue prominence at the right infrahilar region, unchanged. Transcribe Date/Time: Sep 10 2021 12:39P Dictated by: DENZEL CHAPIN MD This examination was interpreted and the report reviewed and electronically signed by: DENZEL CHAPIN MD on Sep 11 2021 10:35AM EST Thank you for allowing us to participate in the care of your patient. Should there be any questions regarding this interpretation, please call [phone]. If you are unable to reach us at the number above, please feel free to contact [facility] eRadiology at [phone]. [facility] No Panel Informationon 09-10 Radiology Study observation (narrative) [facility] GLYCOHEMOGLOBIN A1Con 2020 ADA RECOMMENDATION ADA THERAPEUTIC TARG ET 6.0 - 7.0 ACTION SUGGESTED > 7.0 Normal [facility] Comment on above: Performed By: #### A 1C #### [facility] [address], [place] [address] Radha Medrano Glucose [Mass/Vol] 183 mg/dL Normal [facility] Comment on above: Performed By: #### A 1C #### [facility] [address], [place] [address] Radha Medrano HbA1c (Bld) [Mass fraction] 8.0 % Critically high <=6.0 [facility] Comment on above: Performed By: #### A 1C #### [facility] [address], [place] [address] Radha Medrano MICROALBUMIN, RAND URon 07-0 mALB 1.3 mg/L Normal <=30.0 [facility] Comment on above: Performed By: #### M ALBR #### [facility] [address], [place] [address] Radha Marcela MRI LSPINE WO CONon 01-30-20 21 MRI LSPINE WO CON Exam: MR scan lumbar spine without contrast TECHNIQUE: Sagittal T1, XI T2, STIR, axial T1 and T2 images without contrast performed through the lumbar spine. COMPARISON: None. HISTORY: Chronic lumbar spine pain, left leg pain. FINDINGS: T10-T11 through S2 evaluated in the sagittal plane. The vertebral bodies and the disc spaces are normal in height and alignment. Marrow signal is normal. The conus lies at T12 and is normal in appearance. Mild foraminal narrowing to the left of midline L5-S1. L5-S1: No evidence of stenosis. L4-L5: Mild facet arthropathy without stenosis. L3-L4: Disc bulge and mild effacement thecal sac. L2-L3: No evidence of stenosis. L1-L2: No evidence of stenosis. The vertebral bodies and the disc spaces are otherwise normal in appearance. IMPRESSION: Mild discogenic disease and facet arthropathy without central spinal canal or foraminal stenosis. Electronically authenticated by: Noah BLOUNT Date: 2021-01-29 13:51 Normal [facility] PROF 14(COMP METB)on 021 Albumin [Mass/Vol] 3.9 g/dL Normal 3.5-5.0 [facility] Comment on above: Performed By: #### C MP #### [facility] [address] [place], [place] [id number] Radha Marcela Albumin/Globulin [Mass ratio] 1.3 {ratio} Normal [facility] Comment on above: Performed By: #### C MP #### [facility] [address] [place] [address] Radha Marcela ALP [Catalytic activity/Vol] 47 U/L Normal 38-126 [facility] Comment on above: Performed By: #### C MP #### [facility] [address] [place], [place] [id number] Radha Marcela ALT [Catalytic activity/Vol] 55 U/L Normal 21-72 [facility] Comment on above: Performed By: #### C MP #### [facility] [address] [place], [place] [id number] Radha Marcela Anion gap [Moles/Vol] 15.5 mmol/L Normal [facility] Comment on above: Performed By: #### C MP #### [facility] [address] [place], [place] [phone] Radha Marcela AST [Catalytic activity/Vol] 23 U/L Normal 17-59 [facility] Comment on above: Performed By: #### C MP #### [facility] [address] [place], [place] [phone] Radha Marcela Bilirubin [Mass/Vol] 0.8 mg/dL Normal 0.2-1.3 [facility] Comment on above: Performed By: #### C MP #### [facility] [address] [place], [place] [id number] Radha Marcela Calcium [Mass/Vol] 9.2 mg/dL Normal 8.4-10.2 [facility] Comment on above: Performed By: #### C MP #### [facility] [address] [place] [id number] Radha Marcela Chloride [Moles/Vol] 103 mmol/L Normal 98-107 [facility] Comment on above: Performed By: #### C MP #### [facility] [address] [place] [id number] Radha Marcela CO2 [Moles/Vol] 25.9 mmol/L Normal 22.0-30.0 [facility] Comment on above: Performed By: #### C MP #### [facility] [address] [place] [address] Radha Marcela Creatinine [Mass/Vol] 1.27 mg/dL Critically high 0.66-1.25 [facility] Comment on above: Performed By: #### C MP #### [facility] [address] [place] [address] Radha Marcela EGFR-AF [place]ONG [place]ONGER >60 Normal >=60 [facility] Comment on above: Performed By: #### C MP #### [facility] [address] [place], [place] [phone] Radha Marcela EGFR-NON AF [place]ER 56 mL/min/1.73m2 Critically low >=60 [facility] Comment on above: Performed By: #### C MP #### [facility] [address] [place], [place] [phone] Radha Marcela Globulin (S) [Mass/Vol] 3.0 g/dL Normal [facility] Comment on above: Performed By: #### C MP #### [facility] [address] [place], [place] [id number] Radha Marcela Glucose [Mass/Vol] 236 mg/dL Critically high 74-106 [facility] Comment on above: Performed By: #### C MP #### [facility] [address] [place] [address] Radha Marcela Potassium [Moles/Vol] 4.4 mmol/L Normal 3.4-5.0 [facility] Comment on above: Performed By: #### C MP #### [facility] [address], [place] [address] Radha Marcela Protein [Mass/Vol] 6.9 g/dL Normal 6.1-8.2 [facility] Comment on above: Performed By: #### C MP #### [facility] [address], [place] [address] Radha Marcela Sodium [Moles/Vol] 140 mmol/L Normal 137-145 [facility] Comment on above: Performed By: #### C MP #### [facility] [address], [place] [address] Radha Marcela Urea nitrogen [Mass/Vol] 19.0 mg/dL Normal 9.0-20.0 [facility] Comment on above: Performed By: #### C MP #### [facility] [address], [place] [address] Radha Marcela Urea nitrogen/Creatinine [Mass ratio] 15.0 mg/mg Normal [facility] Comment on above: Performed By: #### C MP #### [facility] [address], [place] [address] Radha Marcela Vital Signs Date Time Vital Sign Value Performing Clinician Facility 03-28-2025 13:58-0400 Body height 175 cm Axel Garcia MD Work Phone: [facility] 03-28-2025 13:58-0400 Body mass index (BMI) [Ratio] 35 kg/m2 Axel Garcia MD Work Phone: [facility] 03-28-2025 13:58-0400 Body temperature 97.3 [degF] Axel Garcia MD Work Phone: [facility] 03-28-2025 13:58-0400 Body weight 107.2 kg Axel Garcia MD Work Phone: [facility] 03-28-2025 13:58-0400 Diastolic blood pressure 72 mm[Hg] Axel Garcia MD Work Phone: [facility] 03-28-2025 13:58-0400 Heart rate 72 /min Axel Garcia MD Work Phone: [facility] 03-28-2025 13:58-0400 Respiratory rate 16 /min Axel Garcia MD Work Phone: [facility] 03-28-2025 13:58-0400 SaO2% (BldA) [Mass fraction] 96 % Axel Garcia MD Work Phone: [facility] 03-28-2025 13:58-0400 Systolic blood pressure 129 mm[Hg] Axel Garcia MD Work Phone: [facility] 03-20-2025 13:41-0400 Body height 175.3 cm Anne Camacho DPM Work Phone: [facility] 03-20-2025 13:41-0400 Body mass index (BMI) [Ratio] 33.82 kg/m2 Anne Camacho DPM Work Phone: [facility] 03-20-2025 13:41-0400 Body weight 103.87 kg Anne Camacho DPM Work Phone: [facility] 11-14-2024 13:37-0400 Body height 175.3 cm Anne Camacho DPM Work Phone: [facility] 11-14-2024 13:37-0400 Body mass index (BMI) [Ratio] 33.37 kg/m2 Anne Camacho DPM Work Phone: [facility] 11-14-2024 13:37-0400 Body weight 102.51 kg Anne Camacho DPM Work Phone: [facility] 09-29-2024 09:20-0500 Body height 175.26 cm Abbey Cevallos MD Work Phone: [facility] [place] 09-29-2024 09:20-0500 Body mass index (BMI) [Ratio] 41 kg/m2 Abbey Cevallos MD Work Phone: [facility] [place] 09-29-2024 09:20-0500 Body temperature 98.4 [degF] Abbey Cevallos MD Work Phone: [facility] [place] 09-29-2024 09:20-0500 Body weight 126.09 kg Abbey Cevallos MD Work Phone: [facility] [place] 09-29-2024 09:20-0500 Diastolic blood pressure 73 mm[Hg] Abbey Cevallos MD Work Phone: [facility] [place] 09-29-2024 09:20-0500 Heart rate 69 /min Abbey Cevallos MD Work Phone: [facility] [place] 09-29-2024 09:20-0500 Respiratory rate 18 /min Abbey Cevallos MD Work Phone: [facility] [place] 09-29-2024 09:20-0500 SaO2% (BldA) [Mass fraction] 98 % Abbey Cevallos MD Work Phone: [facility] [place] 09-29-2024 09:20-0500 Systolic blood pressure 137 mm[Hg] Abbey Cevallos MD Work Phone: [facility] [place] 09-11-2024 08:29-0500 Body height 175.3 cm Faye Dickson FUR BLOWER OPERATOR Work Phone: [facility] 09-11-2024 08:29-0500 Body mass index (BMI) [Ratio] 33.37 kg/m2 Faye Dickson FUR BLOWER OPERATOR Work Phone: [facility] 09-11-2024 08:29-0500 Body temperature 98.71 [degF] Faye Dickson FUR BLOWER OPERATOR Work Phone: [facility] 09-11-2024 08:29-0500 Body weight 102.51 kg Faye Dickson FUR BLOWER OPERATOR Work Phone: [facility] 09-11-2024 08:29-0500 Diastolic blood pressure 68 mm[Hg] Faye Dickson FUR BLOWER OPERATOR Work Phone: [facility] 09-11-2024 08:29-0500 Heart rate 71 /min Faye Ibarrazpatrick FUR BLOWER OPERATOR Work Phone: [facility] 09-11-2024 08:29-0500 Respiratory rate 16 /min Faye Dickson FUR BLOWER OPERATOR Work Phone: [facility] 09-11-2024 08:29-0500 SaO2% (BldA) [Mass fraction] 97 % Faye Dickson FUR BLOWER OPERATOR Work Phone: [facility] 09-11-2024 08:29-0500 Systolic blood pressure 130 mm[Hg] Faye Dickson FUR BLOWER OPERATOR Work Phone: [facility] 09-05-2024 14:43-0500 Body height 175.26 cm Abbey Cevallos MD Work Phone: [facility] [place] 09-05-2024 14:43-0500 Body mass index (BMI) [Ratio] 34.6 kg/m2 Abbey Cevallos MD Work Phone: [facility] [place] 09-05-2024 14:43-0500 Body temperature 97.9 [degF] Abbey Cevallos MD Work Phone: [facility] [place] 09-05-2024 14:43-0500 Body weight 106.25 kg Abbey Cevallos MD Work Phone: [facility] [place] 09-05-2024 14:43-0500 Diastolic blood pressure 76 mm[Hg] Abbey Cevallos MD Work Phone: [facility] [place] 09-05-2024 14:43-0500 Heart rate 72 /min Abbey Cveallos MD Work Phone: [facility] [place] 09-05-2024 14:43-0500 Respiratory rate 18 /min Abbey Cevallos MD Work Phone: [facility] [place] 09-05-2024 14:43-0500 SaO2% (BldA) [Mass fraction] 98 % Abbey Cevallos MD Work Phone: [facility] [place] 09-05-2024 14:43-0500 Systolic blood pressure 136 mm[Hg] Abbey Cevallos MD Work Phone: [facility] [place] 07-11-2024 09:39-0500 Body height 175.3 cm Annesabrina Camacho DPM Work Phone: [facility] 07-11-2024 09:39-0500 Body mass index (BMI) [Ratio] 34.85 kg/m2 Anne Jose J DPM Work Phone: [facility] 07-11-2024 09:39-0500 Body weight 107.05 kg Anne Camacho DPM Work Phone: [facility] 04-04-2024 10:06-0400 Body height 175.3 cm Faye Dickson FUR BLOWER OPERATOR Work Phone: [facility] 04-04-2024 10:06-0400 Body mass index (BMI) [Ratio] 34.85 kg/m2 Faye Dickson FUR BLOWER OPERATOR Work Phone: [facility] 04-04-2024 10:06-0400 Body temperature 97.11 [degF] Faye Dickson FUR BLOWER OPERATOR Work Phone: [facility] 04-04-2024 10:06-0400 Body weight 107.05 kg Faye Dickson FUR BLOWER OPERATOR Work Phone: [facility] 04-04-2024 10:06-0400 Diastolic blood pressure 58 mm[Hg] Faye Dickson FUR BLOWER OPERATOR Work Phone: [facility] 04-04-2024 10:06-0400 Heart rate 71 /min Faye Dickson FUR BLOWER OPERATOR Work Phone: [facility] 04-04-2024 10:06-0400 Respiratory rate 20 /min Faye Dickson FUR BLOWER OPERATOR Work Phone: [facility] 04-04-2024 10:06-0400 SaO2% (BldA) [Mass fraction] 98 % Faye Dickson FUR BLOWER OPERATOR Work Phone: [facility] 04-04-2024 10:06-0400 Systolic blood pressure 130 mm[Hg] Faye Ibarrakev REYNA Work Phone: [facility] 03-16-2024 14:28-0400 Body height 175 cm Abdoulaye Groves MD Work Phone: [facility] 03-16-2024 14:28-0400 Body mass index (BMI) [Ratio] 34.84 kg/m2 Abdoulaye Groves MD Work Phone: [facility] 03-16-2024 14:28-0400 Body temperature 97 [degF] Abdoulaye Groves MD Work Phone: [facility] 03-16-2024 14:28-0400 Body weight 106.7 kg Abdoulaye Groves MD Work Phone: [facility] 03-16-2024 14:28-0400 Diastolic blood pressure 82 mm[Hg] Abdoulaye Groves MD Work Phone: [facility] 03-16-2024 14:28-0400 Heart rate 89 /min Abdoulaye Groves MD Work Phone: [facility] 03-16-2024 14:28-0400 Respiratory rate 16 /min Abdoulaye Groves MD Work Phone: [facility] 03-16-2024 14:28-0400 SaO2% (BldA) [Mass fraction] 98 % Abdoulaye Groves MD Work Phone: [facility] 03-16-2024 14:28-0400 Systolic blood pressure 164 mm[Hg] Abdoulaye Groves MD Work Phone: [facility] 01-10-2024 09:57-0400 Blood Pressure Location Beatriz LAU [facility] 01-10-2024 09:57-0400 Diastolic blood pressure 83 mm[Hg] Beatriz LAU [facility] 01-10-2024 09:57-0400 Heart rate 77 /min Beatriz LAU [facility] 01-10-2024 09:57-0400 Respiratory rate 16 /min Beatriz LAU [facility] 01-10-2024 09:57-0400 Systolic blood pressure 137 mm[Hg] Beatriz LAU [facility] 03-18-2023 13:43-0400 Body height 175 cm Abdoulaye Groves MD Work Phone: [facility] 03-18-2023 13:43-0400 Body temperature 97.81 [degF] Abdoulaye Groves MD Work Phone: [facility] 03-18-2023 13:43-0400 Body weight 109.5 kg Abdoulaye Groves MD Work Phone: [facility] 03-18-2023 13:43-0400 Diastolic blood pressure 75 mm[Hg] Abdoulaye Groves MD Work Phone: [facility] 03-18-2023 13:43-0400 Heart rate 79 /min Abdoulaye Groves MD Work Phone: [facility] 03-18-2023 13:43-0400 Respiratory rate 16 /min Abdoulaye Groves MD Work Phone: [facility] 03-18-2023 13:43-0400 SaO2% (BldA) [Mass fraction] 97 % Abdoulaye Groves MD Work Phone: [facility] 03-18-2023 13:43-0400 Systolic blood pressure 142 mm[Hg] Abdoulaye Groves MD Work Phone: [facility] 01-08-2023 10:12-0400 Blood Pressure Location Beatriz LAU [facility] 01-08-2023 10:12-0400 Diastolic blood pressure 73 mm[Hg] Beatriz LAU [facility] 01-08-2023 10:12-0400 Heart rate 68 /min Beatriz LAU [facility] 01-08-2023 10:12-0400 Respiratory rate 18 /min Beatriz LAU [facility] 01-08-2023 10:12-0400 Systolic blood pressure 137 mm[Hg] Beatriz LAU [facility] 08-04-2022 13:15-0500 Body height 175.26 cm Martina Morrow Other [employer] Other 08-04-2022 13:15-0500 Body mass index (BMI) [Ratio] 35.44 kg/m2 Martina Morrow Other [employer] Other 08-04-2022 13:15-0500 Body temperature 97.6 [degF] Martina Morrow Other [employer] Other 08-04-2022 13:15-0500 Body weight 108.86 kg Martina Morrow Other [employer] Other 08-04-2022 13:15-0500 Respiratory rate 18 /min Martina Morrow Other [employer] Other 08-04-2022 13:15-0500 SaO2% (BldA) [Mass fraction] 98 % Martina Morrow Other [employer] Other 03-12-2022 13:37-0400 Body height 175 cm Abdoulaye Groves MD Work Phone: [facility] 03-12-2022 13:37-0400 Body temperature 97.2 [degF] Abdoulaye Groves MD Work Phone: [facility] 03-12-2022 13:37-0400 Body weight 110.04 kg Abdoulaye Groves MD Work Phone: [facility] 03-12-2022 13:37-0400 Diastolic blood pressure 70 mm[Hg] Abdoulaye Groves MD Work Phone: [facility] 03-12-2022 13:37-0400 Heart rate 68 /min Abdoulaye Groves MD Work Phone: [facility] 03-12-2022 13:37-0400 Respiratory rate 16 /min Abdoulaye Groves MD Work Phone: [facility] 03-12-2022 13:37-0400 SaO2% (BldA) [Mass fraction] 97 % Abdoulaye Groves MD Work Phone: [facility] 03-12-2022 13:37-0400 Systolic blood pressure 147 mm[Hg] Abdoulaye Groves MD Work Phone: [facility] 01-05-2022 09:43-0400 Blood Pressure Location Beatriz LAU [facility] 01-05-2022 09:43-0400 Diastolic blood pressure 70 mm[Hg] Beatriz LAU [facility] 01-05-2022 09:43-0400 Heart rate 68 /min Beatriz LAU [facility] 01-05-2022 09:43-0400 Systolic blood pressure 131 mm[Hg] Beatriz LAU [facility] Encounters Encounter Date Encounter Type Care Provider Facility Start: 04-05-2025 End: 04-05-2025 ambulatory Lilliana Hsu Facility[facility] Start: 04-05-2025 End: 04-05-2025 Patient encounter procedure Lilliana Hsu [facility] Janice Start: 03-28-2025 End: 03-28-2025 Office outpatient visit 25 minutes Axel Garcia MD Work Phone: Hematology/Oncology Comment on above: 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) (Primary Dx); Malignant neoplasm of upper lobe, right bronchus or lung (HCC); Personal history of malignant neoplasm of prostate; Pneumonitis due to inhalation of other solids and liquids (HCC) Start: 03-28-2025 End: 03-28-2025 ambulatory ABDOULAYE GROVES Facility:[facility] Start: 03-20-2025 End: 03-20-2025 Clinisync Result Encounter Generic External Data Provider [facility] External Department Unsolicited Start: 03-20-2025 End: 03-20-2025 Clinisync Result Encounter Generic External Data Provider [facility] External Department Unsolicited Start: 03-20-2025 End: 03-20-2025 Follow-up encounter Janell Dukes PA-C Work Phone: Hematology/Oncology Comment on above: Care Coordination (C T Results) Start: 03-20-2025 End: 03-20-2025 Patient encounter procedure Anne Camacho DPM Work Phone: [facility] Comment on above: 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, not stated as uncontrolled(250.60) (HCC) (Primary Dx); Onychomycosis; Pain in toes of both feet; Hammer toes of both feet Start: 03-20-2025 End: 03-20-2025 ambulatory ANNE CAMACHO Not Available Start: 03-20-2025 End: 03-20-2025 ambulatory ABDOULAYE GROVES Facility:[facility] Start: 03-20-2025 ambulatory ABDOULAYE GROVES Fa cility:[facility] Start: 03-20-2025 End: 03-20-2025 Subsequent hospital visit by physician Arrival Time Radiology Work Phone: [facility]iology [facility] Comment on above: Malignant neoplasm o f unspecified part of unspecified bronchus or lung (HCC) [C34.90] Start: 02-12-2025 End: 02-12-2025 ambulatory Beatriz R LAU Facility:[facility] Start: 02-12-2025 End: 02-12-2025 Patient encounter procedure Beatriz LAU [facility] Start: 02-06-2025 End: 02-06-2025 Telephone encounter Kat Schmidt RN Hematology/Oncology Start: 01-02-2025 End: 01-02-2025 ambulatory MD Abbey Cevallos Facility:[facility] Start: 01-02-2025 End: 01-02-2025 ambulatory MD Abbey Cevallos Facility:[facility] Start: 12-27-2024 End: 12-27-2024 Clinisync Result Encounter Generic External Data Provider [facility] External Department Unsolicited Start: 12-27-2024 End: 12-27-2024 Clinisync Result Encounter Generic External Data Provider [facility] External Department Unsolicited Start: 12-27-2024 End: 12-27-2024 ambulatory SHANE ECHEVARRIA Facility:[facility] Start: 12-27-2024 End: 12-27-2024 Lab Drop off Abbey Cevallos [facility] Start: 12-27-2024 End: 12-27-2024 ambulatory MD Abbey Cevallos Facility:[facility] Start: 12-26-2024 End: 12-26-2024 Lab Drop off Abbey Cevallos [facility] Start: 12-26-2024 End: 12-26-2024 ambulatory MD Abbey Cevallos Facility:[facility] Start: 11-14-2024 End: 11-14-2024 Bamboo flowsheet Anne Camacho DPM Work Phone: [facility] Start: 11-14-2024 End: 11-14-2024 Bamboo flowsheet Anne Camacho DPM Work Phone: [facility] Start: 11-14-2024 End: 11-14-2024 Patient encounter procedure Anne Camacho DPM Work Phone: [facility] Comment on above: 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, not stated as uncontrolled(250.60) (CMS/[facility]) (Primary Dx); Onychomycosis; Pain in toes of both feet Start: 11-14-2024 End: 11-14-2024 ambulatory ANNE CAMACHO Not Available Start: 10-02-2024 End: 10-02-2024 ambulatory MD Abbey Cevallos Facility:[facility] Start: 09-29-2024 End: 09-29-2024 ambulatory Abbey Cevallos MD Work Phone: [facility] Work Phone: Start: 09-29-2024 End: 09-29-2024 Patient encounter procedure Abbey Cevallos MD Work Phone: [facility] Work Phone: Start: 09-27-2024 ambulatory MD Abbey Cevallos Facility :[facility] Start: 09-11-2024 End: 09-11-2024 Clinisync Result Encounter Faye Dickson FUR BLOWER OPERATOR Work Phone: [facility] External Department Unsolicited Start: 09-11-2024 End: 09-11-2024 Clinisync Result Encounter Faye Dickson FUR BLOWER OPERATOR Work Phone: [facility] External Department Unsolicited Start: 09-11-2024 End: 09-11-2024 Refill Faye Dickson FUR BLOWER OPERATOR Work Phone: [facility] Comment on above: Hyperlipidemia, unsp ecified ([facility]) Start: 09-11-2024 End: 09-11-2024 Office outpatient visit 15 minutes Faye Dickson FUR BLOWER OPERATOR Work Phone: [facility] Comment on above: Community acquired p neumonia due to influenza A virus (Primary Dx) Start: 09-11-2024 End: 09-11-2024 Orders Only Faye Dickson FUR BLOWER OPERATOR Work Phone: [facility] Comment on above: Community acquired p neumonia due to influenza A virus (Primary Dx) Start: 09-05-2024 End: 09-05-2024 ambulatory Abbey Cevallos MD Work Phone: [facility] Work Phone: Start: 09-05-2024 End: 09-05-2024 Patient encounter procedure Abbey Cevallos MD Work Phone: [facility] Work Phone: Start: 08-30-2024 End: 08-30-2024 Refill Spring Xiao MA [facility] Comment on above: H/O: CVA (cerebrovas cular accident) (Primary Dx) Start: 07-11-2024 End: 07-11-2024 Bamboo flowsheet Anne Camacho DPM Work Phone: [facility] Start: 07-11-2024 End: 07-11-2024 Bamboo flowsheet Anne Camacho DPM Work Phone: [facility] Start: 07-11-2024 End: 07-11-2024 Patient encounter procedure Anne Camacho DPM Work Phone: [facility] Comment on above: 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, not stated as uncontrolled(250.60) ([facility]) (Primary Dx); Onychomycosis; Hammer toes of both feet; Pain in toes of both feet Start: 07-11-2024 End: 07-11-2024 ambulatory ANNE CAMACHO Not Available Start: 07-05-2024 End: 07-05-2024 Refill Faye Dickson FUR BLOWER OPERATOR Work Phone: [facility] Comment on above: Essential (primary) hypertension ([facility]) Start: 07-05-2024 End: 07-05-2024 Refill Spring Xiao MA [facility] Comment on above: Essential (primary) hypertension ([facility]) Start: 06-30-2024 End: 07-03-2024 Refill Faye Dickson FUR BLOWER OPERATOR Work Phone: [facility] Comment on above: Type 2 diabetes mare itus with hyperglycemia ([facility]) Start: 06-27-2024 End: 06-27-2024 Refill Spring Xiao MA [facility] Comment on above: Hypothyroidism, adul t ([facility]) Start: 04-17-2024 ambulatory Beatriz Phan ty:[facility] Start: 04-04-2024 End: 04-04-2024 Bamboo flowsheet Faye Dickson FUR BLOWER OPERATOR Work Phone: [facility] Start: 04-04-2024 End: 04-04-2024 Bamboo flowsheet Faye Dickson FUR BLOWER OPERATOR Work Phone: [facility] Start: 04-04-2024 End: 04-04-2024 Office outpatient visit 25 minutes Faye Dickson FUR BLOWER OPERATOR Work Phone: [facility] Comment on above: Essential hypertensi on (Primary Dx); Benign prostatic hyperplasia (BPH) with post-void dribbling; Hyperlipidemia, mixed ([facility]); Type 2 diabetes mellitus with diabetic neuropathy, with long-term current use of insulin ([facility]) Start: 04-04-2024 End: 04-04-2024 ambulatory FAYE DICKSON Not Available Start: 03-21-2024 End: 03-21-2024 Refill Judith Cotto MA [facility] Comment on above: Essential (primary) hypertension (CMS/HCC); Hyperlipidemia, unspecified (CMS/HCC) Start: 03-16-2024 End: 03-16-2024 ambulatory Abdoulaye Groves MD Work Phone: Hematology/Oncology Comment on above: 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) (Primary Dx) Start: 03-16-2024 End: 03-16-2024 Patient encounter procedure Abdoulaye Groves MD Work Phone: Hematology/Oncology Start: 03-16-2024 End: 03-16-2024 Clinisync Result Encounter Generic External Data Provider [facility] External Department Unsolicited Start: 03-16-2024 End: 03-16-2024 Clinisync Result Encounter Generic External Data Provider [facility] External Department Unsolicited Start: 03-09-2024 End: 03-09-2024 Subsequent hospital visit by physician Arrival Time Radiology Work Phone: [facility]iology [facility] Start: 01-10-2024 End: 01-10-2024 Patient encounter procedure Beatriz LAU [facility] Start: 06-28-2023 Patient encounter procedure Generic Provider [facility] Start: 03-18-2023 End: 03-18-2023 Refill Abdoulaye Groves MD Work Phone: [facility] Comment on above: Refill Request 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) (Primary Dx) Start: 03-11-2023 End: 03-11-2023 Subsequent hospital visit by physician Arrival Time Radiology Work Phone: Radiology [facility] Start: 01-19-2023 End: 01-19-2023 Lab Drop off Beatriz LAU [facility] Start: 01-19-2023 End: 01-19-2023 Patient encounter procedure JULIANA SERRANO [facility] Start: 01-08-2023 End: 01-08-2023 Patient encounter procedure Beatriz LAU [facility] Start: 09-17-2022 Orders Only Frances Guerrero RN Hematol ogy/Oncology Comment on above: Type 2 diabetes mare itus without complication, without long- term current use of insulin (HCC) (Primary Dx); Hyperlipidemia, unspecified hyperlipidemia type Start: 09-10-2022 End: 09-10-2022 Subsequent hospital visit by physician Arrival Time Radiology Work Phone: [facility]iology [facility] Start: 08-04-2022 End: 08-04-2022 ambulatory Martina Morrow Other [employer] Other Start: 08-04-2022 Office outpatient vi sit 25 minutes Martina Morrow [facility] [place] Start: 07-24-2022 Refill Theresa Cortés [facility] Work Phone: [facility] Comment on above: Refill Request Start: 03-12-2022 End: 03-12-2022 ambulatory Abdoulaye Groves MD Work Phone: Hematology/Oncology Comment on above: 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) (Primary Dx); Hypothyroidism due to medication; History of prostate cancer; Type 2 diabetes mellitus without complication, without long-term current use of insulin (HCC); Essential hypertension Start: 03-12-2022 End: 03-12-2022 Patient encounter procedure Abdoulaye Groves MD Work Phone: [facility] Start: 03-09-2022 End: 03-09-2022 Subsequent hospital visit by physician Arrival Time Radiology Work Phone: Radiology [facility] Comment on above: 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) [C34.91] Start: 01-05-2022 End: 01-05-2022 Patient encounter procedure Beatriz LAU [facility] Janice Start: 01-02-2022 End: 01-03-[address] BEATRIZ LAU Facility:[facility] Start: 09-10-2021 End: 09-10-2021 Subsequent hospital visit by physician Arrival Time Radiology Work Phone: Radiology [facility] Comment on above: Malignant neoplasm o f lower lobe of right lung (HCC) [C34.31] Start: 04-01-2021 End: 04-02-2021 ambulatory ABBEY CEVALLOS Facility:[facility] Start: 02-04-2021 End: 02-05-2021 ambulatory ABBEY CEVALLOS Facility:[facility] Start: 01-29-2021 End: 01-30-2021 ambulatory ABBEY CEVALLOS Facility:[facility] Start: 07-22-2018 End: 07-23-2018 Patient encounter procedure DEFAULT PHYSICIAN Facility:[facility] Procedures Date Procedure Procedure Detail Performing Clinician Start: 03-20-2025 Ct thorax w/o contra st material Generic External Data Provider Start: 03-20-2025 [facility] CBC W AUTO DIFF BLD Generic External Data Provider Start: 12-27-2024 [facility] CBC W AUTO DIFF BLD Generic External Data Provider Start: 09-11-2024 XR CHEST 2V Faye F itzpatrick FUR BLOWER OPERATOR Work Phone: Start: 09-05-2024 Plain chest X-ray Jose Cevallos MD Work Phone: Start: 03-16-2024 [facility] CBC W AUTO DIFF BLD Generic External Data Provider Start: 03-09-2024 Ct thorax w/o contra st material Abdoulaye Groves MD Work Phone: Start: 03-11-2023 Ct thorax w/o contra st material Abdoulaye Groves MD Work Phone: Start: 09-10-2022 Ct thorax w/o contra st material Abdoulaye Groves MD Work Phone: Start: 03-09-2022 Ct abdomen & pelvis w/contrast material Abdoulaye Groves MD Work Phone: Start: 03-09-2022 Ct head/brain w/o & w/contrast material Abdoulaye Groves MD Work Phone: Start: 03-09-2022 Ct thorax w/contrast material Abdoulaye Groves MD Work Phone: Start: 03-09-2022 Blood count complete auto&auto difrntl wbc Abdoulaye Groves MD Work Phone: Start: 02-02-2022 Adult depression scr eening assessment Abdoulaye Groves MD Work Phone: Start: 01-02-2022 PSA screening ABBEY URBINA Comment on above: Performed By: #### P SAD #### [facility] [address] [place] [address] Dr. Shantanu Matthews Start: 09-10-2021 Ct abdomen & pelvis w/contrast material Abdoulaye Groves MD Work Phone: Start: 09-10-2021 Ct thorax w/contrast material Abdoulaye Groves MD Work Phone: Start: 08-16-2018 Cystoscopy Beatrizjob RIVASS Start: 10-03-2012 Cystoscopy Beatriz WA TERS Start: 07-11-2009 Implantation of radi oactive seed into prostate Beatriz LAU Start: 02-26-2009 Ultrasonography guid ed transrectal cryoablation of prostate Beatriz LAU Comment on above: positive pathology r eport Start: 02-18-2009 Ultrasonography guid ed transrectal cryoablation of prostate Beatriz LAU Comment on above: BX is negitive Start: 10-16-2008 Ultrasonography guid ed transrectal cryoablation of prostate Beatriz LAU Comment on above: Atypical cells found in this bx Arthroplasty of knee Beatriz LAU Cystoscopy Beatrizjob LAU Excision of colon Beatriz WA TERS H/O: vasectomy Beatriz Stevens Comment on above: 1981 Plan of Treatment Date Care Activity Detail Author Start: 03-20-2034 Urine microalbumin profile DTaP,Tdap,Td Vaccine (2 - Td or Tdap) [facility] Start: 04-03-2026 End: 04-03-2026 Follow-up encounter 04/03/2026 2:00 PM EDT Visit (SP) Office Hematology/Oncology [address] [place] [address] Axel Garcia MD [address] [place] [address] 1 year follow up Hematology/Oncology Comment on above: 1 year follow up Start: 03-27-2026 End: 03-28-2026 CBC W Auto Differential panel - Blood COMPLETE BLOOD COUNT AND DIFFERENTIAL Lab Routine 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) Expected: 03/27/2026 (Approximate), Expires: 03/28/2026 [facility] Comment on above: Expected: 03/27/2026 (Approximate), Expires: 03/28/2026 Start: 03-27-2026 End: 03-28-2026 Comprehensive metabolic 2000 panel - Serum or Plasma COMPREHENSIVE METABOLIC PANEL Lab Routine 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) Expected: 03/27/2026 (Approximate), Expires: 03/28/2026 [facility] Comment on above: Expected: 03/27/2026 (Approximate), Expires: 03/28/2026 Start: 03-27-2026 End: 04-27-2026 CT Chest W contrast IV CT CHEST W IVCON Radiology Routine 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) Expected: 03/27/2026 (Approximate), Expires: 04/27/2026 [facility] Work Phone: Comment on above: Expected: 03/27/2026 (Approximate), Expires: 04/27/2026 Start: 03-27-2026 End: 03-27-2026 Patient encounter procedure 03/27/2026 1:45 PM EDT Appointment Radiology Pet CT [address] [place] [address] Ct Chest with contrast Radiology Pet CT Comment on above: Ct Chest with contra st Start: 02-18-2026 ambulatory Ambulatory Facility:[facility] Start: 01-02-2026 ambulatory Ambulatory Facility:[facility] Start: 12-27-2025 Hepatitis B surface antibody level LDL Cholesterol [facility] Start: 08-02-2025 End: 08-02-2025 Patient encounter procedure 08/02/2025 1:45 PM EST Procedure Visit [facility] [address] [place] [id number] Anne Camacho DPRalph [address] [place], [place] [id number] [facility] Start: 07-05-2025 ambulatory Ambulatory Facility:[facility] Start: 06-28-2025 Hemoglobin A1c measurement HbA1C [facility] Start: 03-28-2025 End: 03-28-2025 Follow-up encounter 03/28/2025 2:00 PM EDT Visit (SP) Office Hematology/Oncology [address] [place] [address] Axel Garcia MD [address] [place] [address] 1 [address] follow up after [address] scan Hematology/Oncology Comment on above: 1 year follow up aft er CT scan Start: 03-26-2025 Influenza vaccination [facility] Start: 03-20-2025 End: 03-20-2025 Patient encounter procedure [facility] Start: 03-16-2025 Hepatitis B surface antibody level LDL Cholesterol [facility] Start: 03-15-2025 End: 03-15-2025 Follow-up encounter Hematology/Oncology Comment on above: 1 year follow up aft er CT scan Start: 03-08-2025 End: 03-08-2025 Patient encounter procedure Radiology Pet CT Comment on above: CT CHEST WO IV lab Start: 02-06-2025 End: 05-08-2025 CBC W Auto Differential panel - Blood COMPLETE BLOOD COUNT AND DIFFERENTIAL Lab Routine Malignant neoplasm of unspecified part of unspecified bronchus or lung (HCC) Expected: 02/06/2025, Expires: 05/08/2025 [facility] Comment on above: Expected: 02/06/2025 , Expires: 05/08/2025 Start: 02-06-2025 End: 05-08-2025 Comprehensive metabolic 2000 panel - Serum or Plasma COMPREHENSIVE METABOLIC PANEL Lab Routine Malignant neoplasm of unspecified part of unspecified bronchus or lung (HCC) Expected: 02/06/2025, Expires: 05/08/2025 [facility] Comment on above: Expected: 02/06/2025 , Expires: 05/08/2025 Start: 11-14-2024 End: 11-14-2024 Patient encounter procedure [facility] Comment on above: Arrived Start: 10-09-2024 End: 10-09-2024 Patient encounter procedure 10/09/2024 2:20 PM EDT Office Visit [facility] [address] [place] [address] Ольга Whittington NP [address] [place] [id number] [facility] Start: 10-03-2024 End: 10-03-2024 Patient encounter procedure 10/03/2024 9:30 AM EDT Office Visit [facility] [address] [place] [address] Faye Dickson NP [address] [place] [address] [facility] Start: 09-16-2024 Hemoglobin A1c measurement HbA1C [facility] Start: 09-11-2024 End: 09-11-2025 XR Chest 2 Views XR chest 2 views Imaging High Priority Community acquired pneumonia due to influenza A virus Expected: 09/11/2024, Expires: [facility]11[facility]: Comment on above: Expected: 09/11/2024 , Expires: 09/11/2025 Start: 09-05-2024 Plain chest X-ray XR chest 2V* [facility] Start: 09-05-2024 XR Chest 2 Views [facility] Start: 07-26-2024 Advance Directive Discussion Advance Directive Discussion [facility] Start: 07-21-2024 Urine screening for protein Diabetes: Urine Protein Screening [facility] Start: 07-13-2024 Hepatitis B screening Urine Al bumin:Creatinine Ratio [facility] Start: 07-11-2024 End: 07-11-2024 Patient encounter procedure [facility] Comment on above: Arrived Start: 06-28-2024 Medicare Annual Wellness (AWV) Medicare Annual Wellness (AWV) [facility] Start: 06-16-2024 Hemoglobin A1c measurement Diabetes: Hemoglobin A1C [facility] Start: 04-04-2024 End: 04-04-2024 Patient encounter procedure [facility] Comment on above: Malignant neoplasm o f lower lobe of right lung (CMS/HCC) (Primary Dx); Essential hypertension; Benign prostatic hyperplasia (BPH) with post-void dribbling; Type 2 diabetes mellitus without complication, without long-term current use of insulin (CMS/HCC); Hyperlipidemia, mixed (CMS/HCC) Start: 03-26-2024 Covid-19 Vaccine ( season) Covid-19 Vaccine ( season) [facility] Start: 03-26-2024 Covid-19 Vaccine ( season) Covid-19 Vaccine ( season) [facility] Start: 03-26-2024 Influenza vaccination Influenza Vacc ine (#1) [facility] Start: 03-09-2024 End: 05-09-2024 CBC W Auto Differential panel - Blood CBC + DIFF Lab Routine 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) Expected: 03/09/2024 (Approximate), Expires: 05/09/2024 [facility] Work Phone: Comment on above: Expected: 03/09/2024 (Approximate), Expires: 05/09/2024 Start: 03-09-2024 End: 05-09-2024 Comprehensive metabolic 2000 panel - Serum or Plasma COMP METABOLIC PANEL Lab Routine 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) Expected: 03/09/2024 (Approximate), Expires: 05/09/2024 [facility] Work Phone: Comment on above: Expected: 03/09/2024 (Approximate), Expires: 05/09/2024 Start: 10-20-2023 Hemoglobin A1c measurement Diabetes: Hemoglobin A1C [facility] Start: 09-18-2023 Hepatitis B surface antibody level LDL CHOLESTEROL [facility] Start: 07-26-2023 Advance Directive Discussion Advance Directive Discussion [facility] Start: 03-26-2023 Covid-19 Vaccine () Covid-19 Vaccine () [facility] Start: 03-26-2023 Influenza vaccination INFLUENZA (#1) [facility] [facility] Start: 03-18-2023 Hemoglobin A1c/Hemoglobin.total in Blood HBA1C [facility] Start: 02-14-2023 RSV Vaccine (1 - 1-d ose 75+ series) RSV Vaccine (1 - 1-dose 75+ series) [facility] Start: 02-02-2023 Adult depression screening assessment DEPRESSION SCREENING [facility] Start: 09-17-2022 End: 11-17-2022 CBC W Auto Differential panel - Blood CBC + DIFF Lab Routine Type 2 diabetes mellitus without complication, without long-term current use of insulin (HCC) Hyperlipidemia, unspecified hyperlipidemia type Expected: 09/17/2022, Expires: 11/17/2022 [facility] Work Phone: Comment on above: Expected: 09/17/2022 , Expires: 11/17/2022 Start: 09-17-2022 End: 11-17-2022 Comprehensive metabolic 2000 panel - Serum or Plasma COMP METABOLIC PANEL Lab Routine Type 2 diabetes mellitus without complication, without long-term current use of insulin (HCC) Hyperlipidemia, unspecified hyperlipidemia type Expected: 09/17/2022, Expires: 11/17/2022 [facility] Work Phone: Comment on above: Expected: 09/17/2022 , Expires: 11/17/2022 Start: 09-17-2022 End: 11-17-2022 Hemoglobin A1c in Blood HGB A1C Lab Routine Type 2 diabetes mellitus without complication, without long-term current use of insulin (HCC) Hyperlipidemia, unspecified hyperlipidemia type Expected: 09/17/2022, Expires: 11/17/2022 [facility] Work Phone: Comment on above: Expected: 09/17/2022 , Expires: 11/17/2022 Start: 09-17-2022 End: 11-17-2022 Lipid 1996 panel - Serum or Plasma LIPID PANEL BASIC Lab Routine Type 2 diabetes mellitus without complication, without long-term current use of insulin (HCC) Hyperlipidemia, unspecified hyperlipidemia type Expected: 09/17/2022, Expires: 11/17/2022 [facility] Work Phone: Comment on above: Expected: 09/17/2022 , Expires: 11/17/2022 Start: 07-26-2022 ADVANCE DIRECTIVE DISCUSSION ADVANCE DIRECTIVE DISCUSSION [facility] Start: 07-26-2022 DEPRESSION ASSESSMENT DEPRESSION ASS ESSMENT [facility] Start: 03-26-2022 Influenza vaccination INFLUENZA (#1) [facility] Start: 09-14-2021 COVID-19 VACCINE (3 - Booster for Pfizer series) COVID-19 VACCINE (3 - Booster for Pfizer series) [facility] Start: 07-26-2021 ADVANCE DIRECTIVE DISCUSSION ADVANCE DIRECTIVE DISCUSSION [facility] Start: 06-09-2021 COVID-19 VACCINE (3 - Booster for Pfizer series) COVID-19 VACCINE (3 - Booster for Pfizer series) [facility] Start: 06-09-2021 COVID-19 VACCINE (3 - Pfizer series) COVID-19 VACCINE (3 - Pfizer series) [facility] Start: 01-23-2013 Medicare Annual Wellness Visit Medicare Annual Wellness Visit [facility] Start: 2008 RSV Vaccine (1 - 1-d ose 60+ series) RSV Vaccine (1 - 1-dose 60+ series) [facility] Start: 02-14-1998 Pneumococcal Vaccine : 65+ Years (1 of 1 - PCV) Pneumococcal Vaccine: 65+ Years (1 of 1 - PCV) [facility] Start: 02-14-1998 SHINGRIX VACCINE (1 of 2) SHINGRIX VACCINE (1 of 2) [facility] Start: 02-14-1993 COLOGUARD (FIT-DNA) COLOGUARD (FIT-D NA) [facility] Start: 02-14-1993 Colonoscopy COLONOSCOPY [facility] Start: 02-14-1993 COLORECTAL CANCER SCREENING COLORECTAL CANCER SCREENING [facility] Start: 02-14-[address] COLONOGRAPHY [facility] Start: 02-14-1993 FECAL OCCULT BLOOD FECAL OCCULT BLOO D [facility] Start: 02-14-1993 SIGMOIDOSCOPY SIGMOIDOSCOPY [facility] Start: 02-14-1967 Pneumococcal Vaccine : 50+ (1 of 2 - PCV) Pneumococcal Vaccine: 50+ (1 of 2 - PCV) [facility] Start: 02-14-1967 Pneumococcal Vaccine : 65+ Years (1 of 2 - PCV) Pneumococcal Vaccine: 65+ Years (1 of 2 - PCV) [facility] Start: 02-14-1967 Urine microalbumin profile 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 Start: 02-14-1966 Anxiety Screening Anxiety Screening [facility] Start: 02-14-1966 BP CONTROLLED (<130/80) BP CONTROLLE D (<130/80) [facility] Start: 02-14-1966 Depression Screening Depression Scre ening [facility] Start: 02-14-1966 Hepatitis B surface antibody level LDL CHOLESTEROL [facility] Start: 02-14-1966 HEPATITIS C SCREENING HEPATITIS C [facility] Start: 02-14-1966 Hepatitis C screening Hepatitis C [facility] Start: 02-14-1958 3 comp foot exam completed DIABETIC FOOT EXAM [facility] Start: 02-14-1958 Diabetic foot examination Diabetic Foot Exam [facility] Start: 02-14-1958 Glaucoma screening [facility] Start: 02-14-1958 Hepatitis B screening URINE AL BUMIN:CREATININE RATIO [facility] Start: 02-14-1958 Hepatitis C antibody , confirmatory test DILATED RETINAL EXAM [facility] Start: 02-14-1954 Pneumococcal Vaccine : 65+ (1 of 2 - PCV) Pneumococcal Vaccine: 65+ (1 of 2 - PCV) [facility] Start: 02-14-1954 Pneumococcal Vaccine : 65+ Years (1 of 2 - PCV) Pneumococcal Vaccine: 65+ Years (1 of 2 - PCV) [facility] Start: 02-14-1954 PNEUMOCOCCAL: 65+ (1 - PCV) PNEUMOCOCCAL: 65+ (1 - PCV) [facility] Start: 02-14-1953 Hemoglobin A1c/Hemoglobin.total in Blood HBA1C [facility] Start: 1948 ABDOMINAL AORTIC ANEURYSM SCREENING ABDOMINAL AORTIC ANEURYSM SCREENING [facility] End: 04-15-2025 CT Chest WO contrast CT CHEST WO IVCON Radiology Routine 1 Occurrences starting 03/16/2024 until 04/15/2025 [facility] Work Phone: Comment on above: 1 Occurrences starti ng 03/16/2024 until 04/15/2025 End: 03-08-2026 CT Chest WO contrast CT CHEST WO IVCON Radiology Routine Malignant neoplasm of unspecified part of unspecified bronchus or lung (HCC) 1 Occurrences starting 02/06/2025 until 03/08/2026 [facility] Work Phone: Comment on above: 1 Occurrences starti ng 02/06/2025 until 03/08/2026 End: 04-11-2023 Ct thorax w/o contrast material CT CHEST WO IVCON Radiology Routine 1 Occurrences starting 03/12/2022 until 04/11/2023 [facility] Work Phone: Comment on above: 1 Occurrences starti ng 03/12/2022 until 04/11/2023 End: 04-16-2024 Ct thorax w/o contrast material CT CHEST WO IVCON Radiology Routine 1 Occurrences starting 03/18/2023 until 04/16/2024 [facility] Work Phone: Comment on above: 1 Occurrences starti ng 03/18/2023 until 04/16/2024 [facility] Immunizations Immunization Date Immunization Notes Care Provider [facility] 03-20-2024 tetanus toxoid, redu mayte diphtheria toxoid, and acellular pertussis vaccine, adsorbed Anne Camacho DPM Work Phone: [facility] 06-18-2021 influenza, high-dose , quadrivalent vaccine (FLUZONE HIGH DOSE QUADRIVALENT) Abdoulaye Groves MD Work Phone: [facility] 06-18-2021 influenza virus vaccine, unspecified formulation Generic Provider [facility] 06-03-2021 SARS-CoV-2 mRNA (tozinameran 5y-11y) vaccine Beatrizjob LAU [facility] 05-01-2021 influenza nasal, unspecified formulation Abdoulaye Groves MD Work Phone: [facility] 05-01-2021 influenza virus vaccine, unspecified formulation Beatriz LAU [facility] 04-30-2021 SARS-CoV-2 mRNA (tozinameran 5y-11y) vaccine Beatriz LAU [facility] 04-14-2021 Pfizer [facility] Cap SARS-CoV-2 Vaccination Generic Provider [facility] 03-24-2021 SARS-CoV-2 (COVID-19 ) mRNA BNT-162b2 vax Beatrizjob LAU [facility] 06-17-2020 influenza virus vaccine, unspecified formulation Beatriz LAU [facility] 06-17-2020 influenza, high-dose , quadrivalent vaccine (FLUZONE HIGH DOSE QUADRIVALENT) Abdoulaye Groves MD Work Phone: [facility] 06-02-2018 influenza virus vaccine, unspecified formulation Beatriz LAU [facility] 06-02-2018 influenza, high dose seasonal, preservative-free Abdoulaye Groves MD Work Phone: [facility] Payers Date Payer Category Payer Self-pay 2013 Medicare [id number] 1993 Private Health Insurance [id number] 1993 Unknown 1959 Medicare [id number] 1959 Unknown [id number] 1948 Unknown [id number] 2.16.8 40.1.780351.3.579.2.647 1948 Unknown [id number] 2.16.84 0.1.206214.3.579.2.593 1948 Unknown [id number] 2.16.84 0.1.493294.3.579.2.593 1948 Unknown [id number] 2.16.84 0.1.256083.3.579.2.593 1948 Unknown [id number] 2.16.84 0.1.268918.3.579.2.593 1948 Unknown [id number] 2.16.84 0.1.612633.3.579.2.593 1948 Unknown [id number] 2.16.8 40.1.252580.3.579.2.727 1948 Unknown [id number] 2.16.8 40.1.749125.3.579.2.727 1948 Unknown [id number] 2.16.8 40.1.538640.3.579.2.727 1948 Unknown [id number] 2.16.8 40.1.458453.3.579.2.727 194 Unknown [id number] 2.16.8 40.1.294562.3.579.2.727 1948 Unknown [id number] 2.16.8 40.1.942008.3.579.2.727 194 Unknown [id number] 2.16.8 40.1.669830.3.579.2.727 1948 Unknown [id number] 2.16.8 40.1.079007.3.579.2.1259 1948 Unknown [id number] 2.16.84 0.1.628856.3.579.2.1259 1948 Unknown [id number] 2.16.84 0.1.153458.3.579.2.1259 1948 Unknown [id number] 2.16.84 0.1.344109.3.579.2.1259 1948 Unknown [id number] 2.16.84 0.1.744615.3.579.2.1259 1948 Unknown [id number] 2.16.8 40.1.774645.3.579.2. 1948 Unknown [id number] 2.16.8 40.1.904347.3.579.2. 1948 Unknown [id number] 2.16.8 40.1.944697.3.579.2.727 1948 Unknown [id number] 2.16.8 40.1.311031.3.579.2.727 1948 Unknown [id number] 2.16.8 40.1.473462.3.579.2.727 1948 Unknown [id number] 2.16.8 40.1.211317.3.579.2.727 1948 Unknown [id number] 2.16.8 40.1.831553.3.579.2.727 1948 Unknown [id number] 2.16.8 40.1.633108.3.579.2.727 1948 Unknown [id number] 2.16.8 40.1.896900.3.579.2.727 Unknown [id number] 2.16.8 40.1.418980.3.579.2.531 Social History Date Type Detail Facility Start: 01-05-2022 End: 04-05-2025 Tobacco smoking status Ex-smoker (finding) [facility] Janice Comment on above: smoked in high schoo l. not since. Start: 03-18-2023 End: 03-16-2024 Sex Assigned At Male [facility] History of tobacco use Current smoker [facility] History of tobacco use Passive smoker [facility] Start: 03-12-2022 End: 06-28-2023 Tobacco use and exposure Smokeless tobacco non-user [facility] Start: 03-12-2022 End: 03-28-2025 Alcohol intake Current non-drinker of alcohol (finding) [facility] Start: 03-08-2018 End: 03-12-2022 Tobacco Comment during high school [facility] Start: 1950 Sex Assigned At Not on file [facility] Start: 02-27-2022 End: 03-12-2022 Exposure to SARS-CoV-2 (event) Not sure [facility] Start: 03-18-2023 End: 03-16-2024 History of Social function [facility] Start: 06-26-2012 Adult Depression Screening Assessment 0 [facility] Comment on above: smoked in high schoo l. not since. Start: 06-28-2023 Tobacco smoking stat us [facility] Never smoked tobacco [facility] Start: 03-07-2024 End: 03-20-2025 Alcoholic beverage intake Lifetime non-drinker (finding) [facility] Within the last year , have you been afraid of your partner or ex-partner? No [facility] Do you belong to any clubs or organizations such as catholic groups, unions, fraternal or athletic groups, or school groups? Yes [facility] Are you now , , , , never or living with a partner? [facility] How often to you hav e a drink containing alcohol? Never [facility] How hard is it for y ou to pay for the very basics like food, housing, medical care, and heating Somewhat hard [facility] Do you feel stress - tense, restless, nervous, or anxious, or unable to sleep at night because your mind is troubled all the time - these days [OSQ] Only a little [facility] (I/We) worried whemian er (my/our) food would run out before (I/we) got money to buy more. Never true [facility] Start: 03-02-2023 Alcohol Comment caffeine: 1-2 cups/day [facility] Start: 02-22-2019 End: 09-05-2024 Sex Male (finding) [facility] [place] Start: 1950 Sex Assigned At Male F [facility] Sexual Orientation [facility] NEGATED: Highlighted rowStart: NINF History of tobacco use Passive smoker [facility] Medical Equipment Procedure Code Equipment Code Equipment Origin al Text Equipment Identifier Dates Arthroplasty, knee, total, minimally invasive ART SURF RT 12MM 6-9 EF FDA Start: 10-24-2018 Arthroplasty, knee, total, minimally invasive CEMENT BONE 1X40 RADIOPAQUE FDA Start: 10-24-2018 Arthroplasty, knee, total, minimally invasive CEMENT BONE 1X40 RADIOPAQUE FDA Start: 10-24-2018 Arthroplasty, knee, total, minimally invasive FEMUR PERSONA RIGHT SIZE 6 FDA Start: 10-24-2018 Arthroplasty, knee, total, minimally invasive PATELLA PERSONA 32MM FDA Start: 10-24-2018 Arthroplasty, knee, total, minimally invasive TIBIA PERSONA RIGHT SIZE E FDA Start: 10-24-2018 Arthroplasty, knee, total, minimally invasive ART SURF RT 12MM 6-9 EF FDA Start: 10-24-2018 Arthroplasty, knee, total, minimally invasive CEMENT BONE 1X40 RADIOPAQUE FDA Start: 10-24-2018 Arthroplasty, knee, total, minimally invasive CEMENT BONE 1X40 RADIOPAQUE FDA Start: 10-24-2018 Arthroplasty, knee, total, minimally invasive FEMUR PERSONA RIGHT SIZE 6 FDA Start: 10-24-2018 Arthroplasty, knee, total, minimally invasive PATELLA PERSONA 32MM FDA Start: 10-24-2018 Arthroplasty, knee, total, minimally invasive TIBIA PERSONA RIGHT SIZE E FDA Start: 10-24-2018 Arthroplasty, knee, total, minimally invasive ART SURF RT 12MM 6-9 EF FDA Start: 10-24-2018 Arthroplasty, knee, total, minimally invasive CEMENT BONE 1X40 RADIOPAQUE FDA Start: 10-24-2018 Arthroplasty, knee, total, minimally invasive CEMENT BONE 1X40 RADIOPAQUE FDA Start: 10-24-2018 Arthroplasty, knee, total, minimally invasive FEMUR PERSONA RIGHT SIZE 6 FDA Start: 10-24-2018 Arthroplasty, knee, total, minimally invasive PATELLA PERSONA 32MM FDA Start: 10-24-2018 Arthroplasty, knee, total, minimally invasive TIBIA PERSONA RIGHT SIZE E FDA Start: 10-24-2018 Inject 1 Syringe under the skin 4 (four) times a day as needed. Functional Status Date Assessment Result Facility 01-10-2024 Functional Status N/A [facility] 01-08-2023 Functional Status N/A [facility] 01-05-2022 Functional Status N/A [facility] Clinical Notes 02-04-2021 to 04-05-2025 Patient InstructionsAbAxel zhou MD - 03/28/2025 2:00 PM EDTJemargot Camacho DPM - 03/20/2025 1:45 PM EDTTelephone Encounter - Celia Stark RN - 03/20/2025 10:41 AM EDTPatient Instructions Note Date & Type Note Facility 04-05-2025 Hospital Discharge instructions Patient Education 04/05/2025 15:20:09 Hematuria, Adult Hematuria, Adult Hematuria is blood in the urine. Blood may be visible in the urine, or it may be identified with a test. This condition can be caused by infections of the bladder, urethra, kidney, or prostate. Other possible causes include: Kidney stones. Cancer of the urinary tract. Too much calcium in the urine. Conditions that are passed from parent to child (inherited conditions). Exercise that requires a lot of energy. Infections can usually be treated with medicine, and a kidney stone usually will pass through your urine. If neither of these is the cause of your hematuria, more tests may be needed to identify the cause of your symptoms. It is very important to tell your health care provider about any blood in your urine, even if it is painless or the blood stops without treatment. Blood in the urine, when it happens and then stops and then happens again, can be a symptom of a very serious condition, including cancer. There is no pain in the initial stages of many urinary cancers. Follow these instructions at home: Medicines Take foxz-foc-nycbdsg and prescription medicines only as told by your health care provider. If you were prescribed an antibiotic medicine, take it as told by your health care provider. Do not stop taking the antibiotic even if you start to feel better. Eating and drinking Drink enough fluid to keep your urine pale yellow. It is recommended that you drink 3 4 quarts (2.8 3.8 L) a day. If you have been diagnosed with an infection, drinking cranberry juice in addition to large amounts of water is recommended. Avoid caffeine, tea, and carbonated beverages. These tend to irritate the bladder. Avoid alcohol because it may irritate the prostate (in males). General instructions If you have been diagnosed with a kidney stone, follow your health care provider's instructions about straining your urine to catch the stone. Empty your bladder often. Avoid holding urine for long periods of time. If you are female: ?After a bowel movement, wipe from front to back and use each piece of toilet paper only once. ?Empty your bladder before and after sex. Pay attention to any changes in your symptoms. Tell your health care provider about any changes or any new symptoms. It is up to you to get the results of any tests. Ask your health care provider, or the department that is doing the test, when your results will be ready. Keep all follow-up visits. This is important. Contact a health care provider if: You develop back pain. You have a fever or chills. You have nausea or vomiting. Your symptoms do not improve after 3 days. Your symptoms get worse. Get help right away if: You develop severe vomiting and are unable to take medicine without vomiting. You develop severe pain in your back or abdomen even though you are taking medicine. You pass a large amount of blood in your urine. You pass blood clots in your urine. You feel very weak or like you might faint. You faint. Summary Hematuria is blood in the urine. It has many possible causes. It is very important that you tell your health care provider about any blood in your urine, even if it is painless or the blood stops without treatment. Take huar-gqh-hzynedt and prescription medicines only as told by your health care provider. Drink enough fluid to keep your urine pale yellow. This information is not intended to replace advice given to you by your health care provider. Make sure you discuss any questions you have with your health care provider. Document Revised: 03/12/2021 Document Reviewed: 03/12/2021 [employer] Patient Education 2023 [employer]. Follow Up Care 04/05/2025 13:17:23 With:JUDI GAMBLE, Beatriz Bell, URL Address: [address] [place] [address] [place] [id number]- When: Unknown Comments:cysto [facility] Janice 04-05-2025 Note Patient Education Urology Hematuria, Adult Hematuria is blood in the urine. Blood may be visible in the urine, or it may be identified with a test. This condition can be caused by infections of the bladder, urethra, kidney, or prostate. Other possible causes include: ??? Kidney stones. ??? Cancer of the urinary tract. ??? Too much calcium in the urine. ??? Conditions that are passed from parent to child (inherited conditions). ??? Exercise that requires a lot of energy. Infections can usually be treated with medicine, and a kidney stone usually will pass through your urine. If neither of these is the cause of your hematuria, more tests may be needed to identify the cause of your symptoms. It is very important to tell your health care provider about any blood in your urine, even if it is painless or the blood stops without treatment. Blood in the urine, when it happens and then stops and then happens again, can be a symptom of a very serious condition, including cancer. There is no pain in the initial stages of many urinary cancers. Follow these instructions at home: Medicines ??? Take qwfz-aru-bxbusiq and prescription medicines only as told by your health care provider. ??? If you were prescribed an antibiotic medicine, take it as told by your health care provider. Do not stop taking the antibiotic even if you start to feel better. Eating and drinking ??? Drink enough fluid to keep your urine pale yellow. It is recommended that you drink 3?4 quarts (2.8?3.8 L) a day. If you have been diagnosed with an infection, drinking cranberry juice in addition to large amounts of water is recommended. ??? Avoid caffeine, tea, and carbonated beverages. These tend to irritate the bladder. ??? Avoid alcohol because it may irritate the prostate (in males). General instructions ??? If you have been diagnosed with a kidney stone, follow your health care provider's instructions about straining your urine to catch the stone. ??? Empty your bladder often. Avoid holding urine for long periods of time. ??? If you are female: ? After a bowel movement, wipe from front to back and use each piece of toilet paper only once. ? Empty your bladder before and after sex. ??? Pay attention to any changes in your symptoms. Tell your health care provider about any changes or any new symptoms. ??? It is up to you to get the results of any tests. Ask your health care provider, or the department that is doing the test, when your results will be ready. ??? Keep all follow-up visits. This is important. Contact a health care provider if: ??? You develop back pain. ??? You have a fever or chills. ??? You have nausea or vomiting. ??? Your symptoms do not improve after 3 days. ??? Your symptoms get worse. Get help right away if: ??? You develop severe vomiting and are unable to take medicine without vomiting. ??? You develop severe pain in your back or abdomen even though you are taking medicine. ??? You pass a large amount of blood in your urine. ??? You pass blood clots in your urine. ??? You feel very weak or like you might faint. ??? You faint. Summary ??? Hematuria is blood in the urine. It has many possible causes. ??? It is very important that you tell your health care provider about any blood in your urine, even if it is painless or the blood stops without treatment. ??? Take dznv-ehr-twvnlix and prescription medicines only as told by your health care provider. ??? Drink enough fluid to keep your urine pale yellow. This information is not intended to replace advice given to you by your health care provider. Make sure you discuss any questions you have with your health care provider. Document Revised: 03/12/2021 Document Reviewed: 03/12/2021 [employer] Patient Education ? 2023 [employer] [facility] 03-28-2025 Instructions Axel Garcia MD - 03/28/2025 2:[address] scans with labs in 51 weeks RTC in 52 weeks. documented in this encounter [facility] 03-28-2025 History of Present illness Narrative Images from the original note were not included. NAME: Jeronimo Gomez [facility] [facility] NO.: [id number] DATE OF SERVICE: March 28, 2025 (Agusto) Some elements in this clinic note that are critical to medical decision making have been carefully reviewed and included from a prior clinic note dated: March 16, 2024 (Agusto) Referring Provider: Additional Clinicians involved in Jeronimo Gomez's care: Dr. Shaikh Dickerson (PCP in [place]), Dr. Alexander, Dr. Barrett, Dr. Morin DIAGNOSIS: [...] escalation as indicated. Currently on Synthroid 125 g daily. We will monitor the patient's TFTs [...] acute CVA. He was initially seen at [place] emergency room and transferred to [facility] for further management. Apparently intervention was not [...] managed with radiation therapy by Dr. Caraballo; ongoing surveillance by Dr. Lau. - Continue routine follow-up with Dr. Lau. CASE HISTORY: Reverse Chronological Order 03/20/2025 - [...] etiologies, stable. 3. Mild groundglass opacities in bilateral lung tobin, decreased. Consider follow-up to complete resolution. 1. No evidence of intra-abdominal/pelvic metastases. No interval change since 09/09/2020. 2. Diffuse colonic diverticulosis without evidence of diverticulitis. 3. Persistent subtle mucosal enhancement of the urinary bladder wall is suggestive of a cystitis. 12/19/[address] ([facility]): No acute intracranial abnormalities 09/09/2020 CT CAP: 1. Stable appearance of the 1.9 cm right lower lobe nodule. 2. Slight interval increase in size of a left lower lobe nodule which now measures 4 mm in size. Other previously visualized subcentimeter nodules are stable. No new nodules are visualized. 3. No evidence of bulky intrathoracic adenopathy. 4. New patchy groundglass opacity noted throughout both [...] etiologies, stable. 3. Mild groundglass opacities in left lower lobe, decreased. 4. No evidence of new intrathoracic abnormalities. 1. No evidence of intra-abdominal/pelvic metastases. No interval change since 11/17/2019. 2. Diffuse colonic diverticulosis without evidence of diverticulitis. 01/19/2019 PET [...] and FDG activity. Now appears as a 1.6 x 1 cm nodule with minimal FDG activity. 3. ABDOMEN/PELVIS: * No FDG avid neoplastic process. 4. EXTREMITIES/SKELETON:* No suspicious FDG avid osseous lesion. HPI: Updated Visit, March 28, 2025: Alone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 [address]653 Assessment/Plan ICD-10-CM 1. Type II or unspecified type diabetes mellitus with neurological manifestations, not stated as uncontrolled(250.60) (CMS/FORMERLY [facility]) E11.49 2. Onychomycosis B35.1 3. Hammer toes of both feet M20.41 M20.42 4. Pain in toes of both feet M79.674 M79.675 Mycotic toenail debridement. All nails debrided in thickness and length. Instrumentation utilized: large and small nail nipper and curette and power bur. Discuss various treatments options including topical therapy vs oral medication. At this time the patient defers these options. Relief of discomfort noted by patient. All nails debrided appropriately. Web spaces inspected and found to be free ofdisease and ulceration. Shoes inspected and hygiene discussed. Advised to RTO on as needed basis This note was created with the assistance of a speech recognition program. While intending to generate a timely document that accurately reflects the content of the visit, no guarantee can be provided that every grammatical or spelling mistake has been or will be identified or corrected. Thank you for your understanding. Anne Camacho DPM documented in this [facility]12-11-2024 Telephone encounter Note* Telephone Encounter - Spring Xiao MA - 07/05/2024 3:39 PM EST YOLA:04/04/2024 NOV:10/03/2024 NOMS [id number] Miscellaneous Notes* Telephone Encounter - Spring Xiao MA - 07/05/2024 3:39 PM EST YOLA:04/04/2024 NOV:10/03/2024 documented in this [facility]12-03-2024 Telephone encounter Note* Telephone Encounter - Spring Xiao MA - 06/27/2024 8:56 AM EST YOLA:04/04/2024 NOV:10/03/2024 NOMS [id number] Miscellaneous Notes* Telephone Encounter - Spring Xiao MA - 06/27/2024 8:56 AM EST YOLA:04/04/2024 NOV:10/03/2024 documented in this [facility]09-10-2024 History of Present illness Narrative* Faye Dickson NP - 04/04/2024 10:38 AM EDTAssociated Problem(s): Type 2 diabetes mellitus with diabetic neuropathy (CMS/HCC) Most recent labs: hemoglobin A1C 7.4% Average [...] noted. Diabetic foot exam: Done @ Dr. Camacho's office in [facility] [place]: 02/2024 DM Eye Exam: Needs done; * Faye Dickson NP - 04/04/2024 10:37 AM EDTAssociated Problem(s): Lung cancer (CMS/HCC) [facility] in [place]; Is in remission currently; Follows Dr. Groves yearly. Recommended yearly CT scans of chest * Faye Dickson NP - 04/04/2024 10:37 AM EDTAssociated Problem(s): Benign prostatic hyperplasia (BPH) with post-void dribbling Follows Dr. [facility]. Continue current regimen * Faye Dickson NP - 04/04/2024 10:32 AM EDTAssociated Problem(s): Hyperlipidemia, mixed (CMS/HCC) Currently taking Atorvastatin 40mg Denies any myalgias. Most recent Lipid panel Triglycerides were elevated slightly. Dietary modifications implemented. Continue current regimen. * Faye Dickson NP - 04/04/2024 10:31 AM EDTAssociated Problem(s): Essential hypertension Currently taking Amlodipine 5mg; Atenolol 50mg Checks BP at home; Averages are 130's Denies orthostatic changes, dizziness, cough, shortness of breath, swelling in extremities. Continue current regimen. Given BP log, advised pt to record BP and bring log back to next visit. * Faye Dickson NP - 04/04/2024 10:00 AM EDT Images from the original note were not included. Subjective Patient ID: Trace Gomez is a 74 y.o. male who presents for Follow-up (3 m f/up). HPI Specialists: Dr. Lau[facility] HTN: Currently taking Amlodipine 5mg; Atenolol 50mg Checks BP at home; Averages are 130's Denies orthostatic changes, dizziness, cough, shortness of breath, swelling in extremities. Continue current regimen. DMII: Most recent labs: hemoglobin A1C 7.4% Average [...] noted. Diabetic foot exam: Done @ Dr. Camacho's office in [facility] [place]: 02/2024 DM Eye Exam: Needs done; HLD: Currently taking Denies any myalgias. Continue current regimen. Component Ref Range & Units 2 wk ago 1 yr ago Cholesterol <200 mg/dL 123 147 CM Comment: <200 mg/dL, Desirable 200-239 mg/dL, Borderline high >239 mg/dL, High Triglycerides <150 mg/dL 172 High 141 CM Comment: <150 mg/dL, Normal 150-199 mg/dL, Borderline high 200-499 mg/dL, High >499 mg/dL, Very high HDL Cholesterol >39 mg/dL 41 37 Low CM Comment: 40-59 mg/dL, Acceptable >59 mg/dL, High: Negative risk factor for coronary heart disease <40 mg/dL, Low: Positive risk factor for coronary heart disease CALCULATED NON HDL <130 mg/dL 82 110 CM Comment: <130 mg/dL, Optimal 130-159 mg/dL, Near optimal/above optimal 160-189 mg/dL, Borderline high 190-219 mg/dL, High >219 mg/dL, Very high Secondary prevention optimal non HDL Cholesterol levels are recommended to be <100 mg/dL Hours Fasting hrs 2 12 Comment: pt not fasting VLDL Cholesterol <30 mg/dL 34 High 28 CHOLESTEROL/HDL RATIO <5.10 3.00 3.97 Low Density Lipoprotein <100 mg/dL 48 82 CM Comment: <100 mg/dL, Optimal 100-129 mg/dL, Near optimal/above optimal 130-159 mg/dL, Borderline high 160-189 mg/dL, High >189 mg/dL, Very high Secondary prevention optimal LDL Cholesterol levels are recommended to be < 70 mg/dL LDL/HDL Ratio <2.54 1.17 2.22 CM Comment: Reference: 1. National Cholesterol Education Program ATP III Guideline At-A-Glance Quick Desk Reference: National Heart, Lung, and Blood [place]. National Institutes of Health. 2001: NIH Publication No. 01-3305. 2. An International Atherosclerosis Society position paper: global recommendations for the management of dyslipidemia: executive summary, Atherosclerosis. 2014: 232(2):410-413. Resulting Agency [facility] [place]; Is in remission currently; Follows Dr. Groves yearly. Recommended yearly CT scans of chest BPH: Follows Dr. [facility]. Continue current regimen Review of Systems Constitutional: Negative for activity change, appetite change, chills, diaphoresis, fatigue, fever and unexpected weight change. HENT: Negative for congestion, ear pain, rhinorrhea, sinus pressure, sinus pain, sneezing, sore throat, trouble swallowing and voice change. Eyes: Negative for visual disturbance. Respiratory: Negative for cough, chest tightness, shortness of breath and wheezing. Cardiovascular: Negative for chest pain, palpitations and leg swelling. Gastrointestinal: Negative for abdominal distention, abdominal pain, blood in stool, constipation, diarrhea and vomiting. Genitourinary: Negative for decreased urine volume, dysuria, flank pain, frequency, hematuria and urgency. Musculoskeletal: Negative for arthralgias, gait problem, joint swelling and myalgias. Skin: Negative for rash. Neurological: Negative for dizziness, tremors, syncope, weakness, light- headedness and headaches. Psychiatric/Behavioral: Negative for decreased concentration and suicidal ideas. The patient is notnervous/anxious. Hematological: Does not bruise/bleed easily. Endocrine: Negative for cold intolerance, heat intolerance, polydipsia, polyphagia and polyuria. Objective Physical Exam Vitals reviewed. Constitutional: Appearance: Normal appearance. HENT: Head: Normocephalic and atraumatic. Right Ear: Tympanic membrane normal. Left Ear: Tympanic membrane normal. Nose: Nose normal. Mouth/Throat: Mouth: Mucous membranes are moist. Pharynx: Oropharynx is clear. Eyes: Pupils: Pupils are equal, round, and reactive to light. Cardiovascular: Rate and Rhythm: Normal rate and regular rhythm. Pulses: Normal pulses. Heart sounds: Normal heart sounds. Pulmonary: Effort: Pulmonary effort is normal. Breath sounds: Normal breath sounds. Abdominal: General: Abdomen is flat. Bowel sounds are normal. Palpations: Abdomen is soft. Musculoskeletal: General: Normal range of motion. Cervical back: Normal range of motion. Right lower leg: Edema present. Left lower leg: Edema present. Comments: Non pitting BLE; Skin: General: Skin is warm and dry. Capillary Refill: Capillary refill takes less than 2 seconds. Neurological: General: No focal deficit present. Mental Status: He is alert and oriented to person, place, and time. Psychiatric: Mood and Affect: Mood normal. Behavior: Behavior normal. Assessment/Plan Problem List Items Addressed This Visit Type 2 diabetes mellitus with diabetic neuropathy ([facility]) Most recent labs: hemoglobin A1C 7.4% Average [...] noted. Diabetic foot exam: Done @ Dr. Camacho's office in [place], [place]: 02/2024 DM Eye Exam: Needs done; Hyperlipidemia, mixed (CMS/HCC) Currently taking Atorvastatin 40mg Denies any myalgias. Most recent Lipid panel Triglycerides were elevated slightly. Dietary modifications implemented. Continue current regimen. Essential hypertension - Primary (Chronic) Currently taking Amlodipine 5mg; Atenolol 50mg Checks BP at home; Averages are 130's Denies orthostatic changes, dizziness, cough, shortness of breath, swelling in extremities. Continue current regimen. Given BP log, advised pt to record BP and bring log back to next visit. Benign prostatic hyperplasia (BPH) with post-void dribbling Follows Dr. [facility]. Continue current regimen documented in this encounterOzarks Community [id number] Instructions* Patient Instructions* Faye Dickson NP - 04/04/2024 10:00 AM EDT Your blood pressure is TOO HIGH in the office today. Check your blood pressure at home 3 times per week, preferably in the afternoon. Goal <130/90. Record results in blood pressure log. Bring back with you to your next visit. Education: Check blood sugars daily, notify if <70 or >200. Take medications (pills or insulin) as directed. Monitor for s/s of hypoglycemia (sweaty, dizziness, nausea, vomiting, or shakiness). Watch for increase in thirst, urination, or appetite. Inspect feet frequently monitoring for open wounds , andalso recommend yearly eye exam. Pt should attempt to remain as physically active as chronic conditions allow, as well as trying to follow a diet low in carbohydrates, and simple sugars. Diet: Eat three meals per day. Breakfast, lunch, and dinner. Avoid snacking. Avoid eating after 5/6pm. Daily protein GOAL 35% of your intake; 30g per meal. Daily calorie GOAL 1,800-2,000 per day. Water: Increase water intake; GOAL 64-80oz of water per day. Exercise: Increase activity. GOAL 30 minutes, 5 days per week. START SLOW. Start with 5 minutes, 5 days per week. Then increase to 10 days, 5 days per week. Continue to increase until you reach the goal. Increase steps; GOAL 10,000 steps per day. Be sure to get adequate sleep; GOAL 6-8 hours of sleep per night. I would recommend lowering your saturated fat intake (fried foods/fast foods) and increasing your cardiovascular exercise. I would recommend lowering your carbohydrate (bread/sugary food/alcohol) intake to improve your triglycerides. I recommend increasing your dietary intake of poultry, fish, low-fat dairy products, vegetables, fruits, whole grains, legumes, and nuts. Decrease your dietary intake of sodium, sweets, sweetened beverages, and red meats. In addition, increase your exercise to include 150 minutes per week of moderate- intensity, and 75 minutes per week of vigorous aerobic activity DASH stands for Dietary Approaches to Stop Hypertension. The DASH diet is a healthy-eating plan designed to help prevent or treat high blood pressure, also called hypertension. It also may help lower cholesterol linked to heart disease, called low density lipoprotein (LDL) cholesterol. High blood pressure and high LDL cholesterol levels are two major risk factors for heart disease and stroke. Foods in the DASH diet are rich in the minerals potassium, calcium and magnesium. The DASH diet focuses on vegetables, fruits and whole grains. It includes fat-free or low-fat dairy products, fish, poultry, beans and nuts. The diet limits foods that are high in salt, also called sodium. It also limits added sugar and saturated fat, such as in fatty meats and full-fat dairy products. DASH diet and sodium The standard DASH diet limits salt to 2,300 milligrams (mg) a day. That amount agrees with the Dietary Guidelines for Americans. That's about the amount of sodium in 1 teaspoon of table salt. A lower sodium version of DASH restricts sodium to 1,500 mg a day. You can choose the version of the diet that meets your health needs. If you aren't sure what sodium level is right for you, talk to your health care provider. DASH diet: What to eat The DASH diet is a balanced eating plan that gives choices of what to eat. The diet helps create a heart-healthy eating style for life. There's no need for special foods or drinks. Foods in the diet are at grocery stores and in most restaurants. When following DASH, it is important to choose foods that are: Rich in potassium, calcium, magnesium, fiber and protein. Low in saturated fat. Low in salt. DASH diet: Suggested servings The DASH diet provides daily and weekly nutritional goals. The number of servings depends on daily calorie needs. Here's a look at the recommended servings from each food group for a 2,810-waoesgb-i-day DASH diet: Grains: 6 to 8 servings a day. One serving may be 1/2 cup of cooked cereal, rice or pasta, 1 slice of bread or 1 ounce dry cereal. Vegetables: 4 to 5 servings a day. One serving is 1 cup raw leafy green vegetable, 1/2 cup cut-up raw or cooked vegetables, or 1/2 cup vegetable juice. Fruits: 4 to 5 servings a day. One serving is one medium fruit, 1/2 cup fresh, frozen or canned fruit, or 1/2 cup fruit juice. Fat-free or low-fat dairy products: 2 to 3 servings a day. One serving is 1 cup milk or yogurt, or 1 1/2 ounces cheese. Lean meats, poultry and fish: six 1-ounce servings or fewer a day. One serving is 1 ounce of cookedmeat, poultry or fish, or 1 egg. Nuts, seeds, or dry beans and peas: 4 to 5 servings a week. One serving is 1/3 cup nuts, 2 tablespoons peanut butter, 2 tablespoons seeds, or 1/2 cup cooked dried beans or peas, also called legumes. Fats and oils: 2 to 3 servings a day. One serving is 1 teaspoon soft margarine, 1 teaspoon vegetable oil, 1 tablespoon mayonnaise or 2 tablespoons salad dressing. Sweets and added sugars: 5 servings or fewer a week. One serving is 1 tablespoon sugar, jelly or jam, 1/2 cup sorbet or 1 cup lemonade. DASH diet: Alcohol and caffeine Drinking too much alcohol can increase blood pressure. The Dietary Guidelines for Americans recommends that men limit alcohol to no more than two drinks a day and women to one or less. The DASH diet doesn't talk about caffeine. How caffeine affects blood pressure isn't clear. But caffeine can cause blood pressure to rise at least briefly. If you have high blood pressure or if you think caffeine affects your blood pressure, think about cutting down. You might talk to your health care provider about caffeine. Take aim at salt The foods at the center of the DASH diet are low in salt. So following the DASH diet is likely to lower salt intake. To further reduce salt: Read food labels and choose low-salt or [id number] options. Use salt-free spices or flavorings instead of salt. Don't add salt when cooking rice, pasta or hot cereal. Choose plain fresh or frozen vegetables. Choose fresh skinless poultry, fish and lean cuts of meat. Eat less restaurant food. When eating at restaurants, ask for dishes with less salt and ask not to have salt added to your order. As you cut back on processed, salty foods, you might notice that food tastes different. It can taketime for your taste buds to adjust. But once they do, you might prefer the DASH way of eating. And you'll be healthier for it. documented in this encounterOzarks Community [id number] Nurse Note* Chiquis Vela MA - 03/16/2024 2:33 PM EDT Patient states that he is losing weight, he states that last time he weighed he thought it was 255#(maybe 245#). Chiquis Major MA [facility]08-22-2024 Nurse Note* Chiquis Major MA - 03/16/2024 2:33 PM EDT Patient states that he is losing weight, he states that last time he weighed he thought it was 255#(maybe 245#). Chiquis Major MA documented in this encounterOhiohealth [facility] History of Present illness Narrative* Abdoulaye Groves MD - 03/15/2024 9:30 PM EDT PATIENT NAME: Jeronimo Gomez DATE: 03/16/2024 PRIMARY CARE PHYSICIAN: Dr. Shaikh Dickerson (PCP in [place]) OTHER PHYSICIANS: Dr. Alexander, Dr. Barrett, Dr. Morin Portions of this encounter note have been copied from the note from 03/18/2023 and has been updated where appropriate, and reflect my current medical decision making from today. CC: This is a 74 year old male with a history of metastatic lung cancer, seen for scheduled follow-up. INTERIM HISTORY: Since the patient's last visit here he has had no significant medical changes. He denies any unusual pain. No significant cough, shortness of breath, or other pulmonary symptoms. 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 He remains very active doing his hobbies and work around his house. MEDICATIONS: Current Outpatient Medications Medication Sig clopidogrel (PLAVIX) 75 mg tablet Take 75 mg by mouth. levothyroxine (SYNTHROID) 125 mcg tablet Take 1 tablet by mouth once daily. aspirin (ASPIR-81 ORAL) Take 81 mg by mouth once daily. solifenacin (VESICARE) 5 mg tablet Take 5 mg by mouth once daily. glipiZIDE (GLUCOTROL) 5 mg tablet Take 10 mg by mouth twice daily. atorvastatin (LIPITOR) 20 mg tablet atorvastatin 20 mg tablet TAKE 1 TABLET BY MOUTH ONE TIME A DAY diclofenac, EC, (VOLTAREN) 75 mg EC tablet Take 75 mg by mouth twice daily. (Patient not taking: Reported on 09/17/2022) tamsulosin (FLOMAX) 0.4 mg Take 0.4 mg [...] mcg/actuation inhaler Inhale 2 Puffs as instructed. (Patient not taking: Reported on 02/02/2022) Cetirizine 10 mg cap Take by mouth. FISH OIL-DHA-EPA ORAL Take by mouth. (Patient not taking: Reported on 09/17/2022) fluticasone (FLONASE) 50 mcg/actuation nasal spray Use 1 [place] in each nostril once daily. lansoprazole (PREVACID) 15 mg capsule Take 15 mg by mouth every other day. No current facility-administered medications for this visit. ALLERGIES: ALLERGIES No Known Allergies PAST MEDICAL HISTORY: PAST MEDICAL HISTORY No date: Carotid artery occlusion No date: COVID No date: Diabetes (HCC) Comment: type 1 No date: History of prostate cancer No date: Hyperlipidemia No date: Hypertension No date: Lung mass No date: Squamous cell carcinoma No date: Stroke (HCC) PAST SURGICAL HISTORY: PAST SURGICAL HISTORY No date: BRONCHOSCOPY 03/05/2023: PAST SURGICAL HISTORY OF; Right Comment: Angioplasty-Rt stent FAMILY HISTORY: FAMILY HISTORY Problem Relation Age of Onset other (lung cancer) Father SOCIAL HISTORY: Social History Tobacco Use Smoking status: Former Passive exposure: Past Smokeless tobacco: Never Tobacco comments: during high school Vaping Use Vaping status: Never Used Substance Use Topics Alcohol use: No Drug use: Never REVIEW OF SYSTEMS: General: No weight loss, malaise or fevers. HEENT: Negative for frequent or significant headaches. No changes in hearing or vision, no nose bleeds or other nasal problems. Respiratory: Negative for cough and wheezing. Chronic shortness of breath. Cardiovascular: Negative for chest pain, leg swelling or palpitations. GI: Negative for abdominal discomfort, blood in stools or black stools or change in bowel habits. : No history of dysuria, frequency or incontinence Musculoskeletal: Negative for joint pain or swelling and muscle pain. Chronic back pain- Spinal stenosis. Skin: Negative for lesions, rash and itching. Hematology/Lymphology: Negative for prolonged bleeding, bruising easily or swollen nodes. Neuro: No history of headaches, syncope, paralysis, seizures or tremors. PHYSICAL EXAM: Vitals: BP 164/82 Pulse 89 Temp 36.1 C (97 F) (Temporal) Resp 16 Ht 175 cm (5' 8.9 ) Wt 106.7 kg (235 lb 3.7 oz) SpO2 98% BMI 34.84 kg/m ECOG 1 Exam limited to gross visualization where appropriate due to COVID-19. Gen.: This is an age-appropriate patient in no acute distress. Head: Appears atraumatic with no visible lesions. Eyes: Pupils equally round and reactive to light, extraocular muscles are intact. Neck: Supple. Mouth: Mucous membranes appeared to be moist. Respiratory: Appears to be respiring comfortably. Neurologic: Nonfocal to gross visualization. Alert and oriented 3. Psychiatric: No evidence of inappropriate anxiety or depression. Skin: Visible areas of skin without rash, lesions, wounds or petechiae. RADIOLOGY/OTHER STUDIES: 03/09/2024 CT chest IMPRESSION: 1. No interval change since 03/11/23. 2. 1.6 cm right lower lobe patchy opacity and additional subcentimeter nodular opacities measuring less than 5 mm. 3. Right perihilar opacities most likely related to post radiation change and other infectious/inflammatory etiologies, stable. 03/11/2023 CT CHEST IMPRESSION: 1. 1.8 cm nodular opacity at the right lower lobe is stable from prior examination of . Additional bilateral subcentimeter pulmonary nodules, unchanged. 2. Right perihilar opacities, stable. 3. No substantial intrathoracic adenopathy is identified. 09/10/2022 CT chest IMPRESSION: 1. Stable appearance of 1.9 cm nodular opacity in the posterior right lower lobe. Additional bilateral nodular opacities also appear unchanged. No new or enlarging nodules are visualized. 2. Increasing consolidative opacity in the right perihilar and infrahilar regions, likely on the basis of evolving posttreatment change. 3. No evidence of bulky intrathoracic lymphadenopathy. 03/09/2022 CT brain IMPRESSION: No evidence of enhancing intracranial lesion to suggest metastasis. 03/09/2022 CT chest IMPRESSION: 1. Dominant, 1.9 cm right lower lobe nodular opacity is again appreciated, stable from the prior summation of 09/10/2021, slightly more conspicuous in size from the more remote examination of 11/17/2019. Correlation with continued follow-up summations is recommended. 2. Numerous additional bilateral subcentimeter pulmonary nodules, unchanged. 3. No substantial intrathoracic adenopathy is identified. 03/09/2022 CT abdomen/pelvis IMPRESSION: Stable CT examination of the abdomen and pelvis, without evidence for metastatic disease. 09/10/2021 CT CHEST IMPRESSION: 1. The dominant, 1.9 cm right lower lobe nodular opacity appears stable from prior study of 03/14/2021. 2. Persistent right perihilar airspace opacities, soft tissue prominence at the right infrahilar region, unchanged. 09/10/2021 CT ABD/PELVIS IMPRESSION: Stable examination of the abdomen and pelvis, without CT evidence for metastatic disease. 03/14/2021 CT Chest IMPRESSION: 1. 1.8 cm right lower lobe patchy opacity and additional subcentimeter nodular opacities measuring less than 5 mm, stable since 09/09/20. 2. Right perihilar opacities most likely related to post radiation change and other infectious/inflammatory etiologies, stable. 3. Mild groundglass opacities in bilateral lung tobin, decreased. Consider follow-up to complete resolution. 03/14/2021 CT abdomen/pelvis IMPRESSION: 1. No evidence of intra-abdominal/pelvic metastases. No interval change since 09/09/2020. 2. Diffuse colonic diverticulosis without evidence of diverticulitis. 3. Persistent subtle mucosal enhancement of the urinary bladder wall is suggestive of a cystitis. 12/19/[address] ([facility]) No acute intracranial abnormalities 09/09/2020 CT Chest IMPRESSION: 1. Stable appearance of the 1.9 cm right lower lobe nodule. 2. Slight interval increase in size of a left lower lobe nodule which now measures 4 mm in size. Other previously visualized subcentimeter nodules are stable. No new nodules are visualized. 3. No evidence of bulky intrathoracic adenopathy. 4. New patchy groundglass opacity noted throughout both lungs, possibly infectious/inflammatory in nature. 09/09/2020 CT abdomen/pelvis IMPRESSION: 1. Stable CT of the abdomen and pelvis. No definite findings to suggest metastatic disease in the abdomen or pelvis. 2. Hepatic steatosis. 3. Colonic diverticulosis without evidence of diverticulitis. 03/11/2020 CT CHEST IMPRESSION: 1. 1.9 cm right lower lobe patchy opacity and additional subcentimeter nodular opacities measuring is a 5 mm, stable since 11/17/2019. 2. Right perihilar opacities most likely related to post radiation change and other infectious/inflammatory etiologies, stable. 3. Mild groundglass opacities in left lower lobe, decreased. 4. No evidence of new intrathoracic abnormalities. 03/11/2020 CT ABD/PELVIS IMPRESSION: 1. No evidence of intra-abdominal/pelvic metastases. No interval change since 11/17/2019. 2. Diffuse colonic diverticulosis without evidence of diverticulitis. 01/19/2019 PET SCAN IMPRESSION: 1. Neck: No suspicious hypermetabolic foci 2. Chest: Relatively stable right hilar/infrahilar soft tissue prominence with mild activity. Relatively stable right lower lobe lung nodule with mild activity with adjacent mildly active consolidative changes. 3. Abdomen and pelvis: No evidence of FDG avid metastases 4. Skeleton: No hypermetabolic osseous lesions 07/11/2018 CT BRAIN IMPRESSION: No new/acute intracranial pathology or abnormal enhancement. 06/02/2018 PET SCAN IMPRESSION: 1. NECK: * No FDG avid neoplastic [...] and FDG activity. Now appears as a 1.6 x 1 cm nodule with minimal FDG activity. 3. ABDOMEN/PELVIS: * No FDG avid neoplastic process. . 4. EXTREMITIES/SKELETON: * No suspicious FDG avid osseous lesion. LABS: Hemoglobin (g/dL) Date Value 03/16/2024 14.4 09/10/2021 14.3 Hematocrit (%) Date Value 03/16/2024 42.0 09/10/2021 42.4 WBC (k/uL) Date Value 03/16/2024 5.79 09/10/2021 6.00 Platelet Count (k/uL) Date Value 03/16/2024 146 09/10/2021 158 ASSESSMENT/PLAN: 1. Malignant neoplasm of lower lobe of [...] escalation as indicated. Currently on Synthroid 125 g daily. We will monitor the patient's TFTs [...] acute CVA. He was initially seen at [place] emergency room and transferred to [facility] for further management. Apparently intervention was not recommended and he was started on antiplatelet agents. With therapy his symptoms resolved. Continue management per PCP/neurology. Abdoulaye Groves MD CC: Dr. Shaikh Dickerson, PCP in [place] documented in this encounterOhio[facility] History of Present illness Narrative* Celia Ramos RT(R) - 03/09/2024 11:00 AM EDT Radiology Service Progress Note PATIENT NAME: Jeronimo Gomez DATE OF SERVICE: March 09, 2024 TIME: 11:14 AM PATIENT IDENTITY VERIFICATION COMPLETED USING TWO (2) IDENTIFIERS: Name and Date of confirmedby patient verbally. FALL SCREENING: Has the patient had 2 falls in the last year or 1 fall with injury or currently using an Ambulatory Assistive Device (Walker, Cane, Wheelchair, Crutches, etc.)? 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06-17-2024 Hospital Discharge instructions Patient Education 01/10/2024 10:18:48 Overactive Bladder, Adult Overactive Bladder, Adult Overactive bladder is a condition in which a person has a sudden and frequent need to urinate. A person might also leak urine if he or she cannot get to the bathroom fast enough (urinary incontinence). Sometimes, symptoms can interfere with work or social activities. What are the causes? Overactive bladder is associated with poor nerve signals between your bladder and your brain. Your bladder may get the signal to empty before it is full. You may also have very sensitive muscles thatmake your bladder squeeze too soon. This condition may also be caused by other factors, such as: Medical conditions: ?Urinary tract infection. ?Infection of nearby tissues. ?Prostate enlargement. ?Bladder stones, inflammation, or tumors. ?Diabetes. ?Muscle or nerve weakness, especially from these conditions: ?A spinal cord injury. ?Stroke. ?Multiple sclerosis. ?Parkinson's disease. Other causes: ?Surgery on the uterus or urethra. ?Drinking too much caffeine or alcohol. ?Certain medicines, especially those that eliminate extra fluid in the body (diuretics). ?Constipation. What increases the risk? You may be at greater risk for overactive bladder if you: Are an older adult. Smoke. Are going through menopause. Have prostate problems. Have a neurological disease, such as stroke, dementia, Parkinson's disease, or multiple sclerosis (MS). Eat or drink alcohol, spicy food, caffeine, and other things that irritate the bladder. Are overweight or obese. What are the signs or symptoms? Symptoms of this condition include a sudden, strong urge to urinate. Other symptoms include: Leaking urine. Urinating 8 or more times a day. Waking up to urinate 2 or more times overnight. How is this diagnosed? This condition may be diagnosed based on: Your symptoms and medical history. A physical exam. Blood or urine tests to check for possible causes, such as infection. You may also need to see a health care provider who specializes in urinary tract problems. This is called a urologist. How is this treated? Treatment for overactive bladder depends on the cause of your condition and whether it is mild or severe. Treatment may include: Bladder training, such as: ?Learning to control the urge to urinate by following a schedule to urinate at regular intervals. ?Doing Kegel exercises to strengthen the pelvic floor muscles that support your bladder. Special devices, such as: ?Biofeedback. This uses sensors to help you become aware of your body's signals. ?Electrical stimulation. This uses electrodes placed inside the body (implanted) or outside the body. These electrodes send gentle pulses of electricity to strengthen the nerves or muscles that control the bladder. ?Women may use a plastic device, called a pessary, that fits into the vagina and supports the bladder. Medicines, such as: ?Antibiotics to treat bladder infection. ?Antispasmodics to stop the bladder from releasing urine at the wrong time. ?Tricyclic antidepressants to relax bladder muscles. ?Injections of botulinum toxin type A directly into the bladder tissue to relax bladder muscles. Surgery, such as: ?A device may be implanted to help manage the nerve signals that control urination. ?An electrode may be implanted to stimulate electrical signals in the bladder. ?A procedure may be done to change the shape of the bladder. This is done only in very severe cases. Follow these instructions at home: Eating and drinking Make diet or lifestyle changes recommended by your health care provider. These may include: ?Drinking fluids throughout the day and not only with meals. ?Cutting down on caffeine or alcohol. ?Eating a healthy and balanced diet to prevent constipation. This may include: ?Choosing foods that are high in fiber, such as beans, whole grains, and fresh fruits and vegetables. ?Limiting foods that are high in fat and processed sugars, such as fried and sweet foods. Lifestyle Lose weight if needed. Do not use any products that contain nicotine or tobacco. These include cigarettes, chewing tobacco, and vaping devices, such as e-cigarettes. If you need help quitting, ask your health care provider. General instructions Take [id number] and prescription medicines only as told by your health care provider. If you were prescribed an antibiotic medicine, take it as told by your health care provider. Do notstop taking the antibiotic even if you start to feel better. Use any implants or pessary as told by your health care provider. If needed, wear pads to absorb urine leakage. Keep a log to track how much and when you drink, and when you need to urinate. This will help your health care provider monitor your condition. Keep all follow-up visits. This is important. Contact a health care provider if: You have a fever or chills. Your symptoms do not get better with treatment. Your pain and discomfort get worse. You have more frequent urges to urinate. Get help right away if: You are not able to control your bladder. Summary Overactive bladder refers to a condition in which a person has a sudden and frequent need to urinate. Several conditions may lead to an overactive bladder. Treatment for overactive bladder depends on the cause and severity of your condition. Making lifestyle changes, doing Kegel exercises, keeping a log, and taking medicines can help with this condition. This information is not intended to replace advice given to you by your health care provider. Make sure you discuss any questions you have with your health care provider. Document Revised: 03/31/2021 Document Reviewed: 03/31/2021 [employer] Patient Education 2022 [employer]. Follow Up Care 01/08/2023 10:40:30 With:JUDI GAMBLE, Beatriz Bell, URL Address: [facility] [address] [place] [address]- When: Unknown [facility] 08-24-2023 History of Present illness Narrative* Abdoulaye Groves MD - 03/18/2023 1:53 PM EDT PATIENT NAME: Jeronimo Gomez DATE: 03/18/2023 PRIMARY CARE PHYSICIAN: Dr. Shaikh Dickerson (PCP in [place]) OTHER PHYSICIANS: Dr. Alexander, Dr. Barrett, Dr. Morin Portions of this encounter note have been copied from the note from 09/17/2022 and has been updated where appropriate, and reflect my current medical decision making from today. CC: This is a 73 year old male with a history of metastatic lung cancer, seen for scheduled follow-up. INTERIM HISTORY: Since the patient's last visit here he apparently developed acute left hand weakness on 02/24/2023, and was diagnosed with an acute CVA. He was initially seen at [place] emergency room, and transferred to [facility] for further management. Apparently intervention was not recommended, and he was started on antiplatelet agents. With therapy his symptoms are slowly resolving. He has had no other medical changes. No other neurological symptoms. Chronic shortness of breath isunchanged, and no new pulmonary symptoms. No unusual pain. 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 However, he plans to retire around . MEDICATIONS: Current Outpatient Medications Medication Sig clopidogrel (PLAVIX) 75 mg tablet Take 75 mg by mouth. aspirin (ASPIR-81 ORAL) Take 81 mg by mouth once daily. levothyroxine (SYNTHROID) 125 mcg tablet Take 1 tablet by mouth once daily. solifenacin (VESICARE) 5 mg tablet Take 5 mg by mouth once daily. glipiZIDE (GLUCOTROL) 5 mg tablet Take 10 mg by mouth twice daily. atorvastatin (LIPITOR) 20 mg tablet atorvastatin 20 mg tablet TAKE 1 TABLET BY MOUTH ONE TIME A DAY tamsulosin (FLOMAX) 0.4 mg Take 0.4 mg by mouth twice daily. atenolol (TENORMIN) 50 mg tablet Take 50 mg by mouth daily at bedtime. metFORMIN (GLUCOPHAGE) 500 mg tablet Take 500 mg by mouth twice daily with meals. amLODIPine (NORVASC) 5 mg tablet Take 5 mg by mouth once daily. insulin NPH-insulin regular injection (HumuLIN, NovoLIN 70/30) Inject subcutaneously twice daily with meals. Cetirizine 10 mg cap Take by mouth. fluticasone (FLONASE) 50 mcg/actuation nasal spray Use 1 Vernon in each nostril once daily. lansoprazole (PREVACID) 15 mg capsule Take 15 mg by mouth every other day. diclofenac, EC, (VOLTAREN) 75 mg EC tablet Take 75 mg by mouth twice daily. (Patient not taking: Reported on 09/17/2022) albuterol HFA (VENTOLIN HFA) 90 mcg/actuation inhaler Inhale 2 Puffs as instructed. (Patient not taking: Reported on 02/02/2022) FISH OIL-DHA-EPA ORAL Take by mouth. (Patient not taking: Reported on 09/17/2022) No current facility-administered medications for this visit. ALLERGIES: ALLERGIES No Known Allergies PAST MEDICAL HISTORY: PAST MEDICAL HISTORY Diagnosis Date Carotid artery occlusion COVID Diabetes (HCC) type 1 History of prostate cancer Hyperlipidemia Hypertension Lung mass Squamous cell carcinoma Stroke (HCC) PAST SURGICAL HISTORY: PAST SURGICAL HISTORY Procedure Laterality Date BRONCHOSCOPY PAST SURGICAL HISTORY OF Right 03/05/2023 Angioplasty-Rt stent FAMILY HISTORY: FAMILY HISTORY Problem Relation Age of Onset other (lung cancer) Father SOCIAL HISTORY: Social History Tobacco Use Smoking status: Former Passive exposure: Past Smokeless tobacco: Never Tobacco comments: during high school Vaping Use Vaping Use: Never used Substance Use Topics Alcohol use: No Drug use: Never REVIEW OF SYSTEMS: General: No weight loss, malaise or fevers. HEENT: Negative for frequent or significant headaches. No changes in hearing or vision, no nose bleeds or other nasal problems. Respiratory: Negative for cough and wheezing. Chronic shortness of breath. Cardiovascular: Negative for chest pain, leg swelling or palpitations. GI: Negative for abdominal discomfort, blood in stools or black stools or change in bowel habits. : No history of dysuria, frequency or incontinence Musculoskeletal: Negative for joint pain or swelling and muscle pain. Chronic back pain- Spinal stenosis. Skin: Negative for lesions, rash and itching. Hematology/Lymphology: Negative for prolonged bleeding, bruising easily or swollen nodes. Neuro: No history of headaches, syncope, paralysis, seizures or tremors. PHYSICAL EXAM: Vitals: BP 142/75 Pulse 79 Temp 36.6 C (97.8 F) (Temporal) Resp 16 Ht 175 cm (5' 8.9 ) Wt109.5 kg (241 lb 6.4 oz) SpO2 97% BMI 35.75 kg/m ECOG 1 Exam limited to gross visualization where appropriate due to COVID-19. Gen.: This is an age-appropriate patient in no acute distress. Head: Appears atraumatic with no visible lesions. Eyes: Pupils equally round and reactive to light, extraocular muscles are intact. Neck: Supple. Mouth: Mucous membranes appeared to be moist. Respiratory: Appears to be respiring comfortably. Neurologic: Nonfocal to gross visualization. Alert and oriented 3. Psychiatric: No evidence of inappropriate anxiety or depression. Skin: Visible areas of skin without rash, lesions, wounds or petechiae. RADIOLOGY/OTHER STUDIES: 03/11/2023 CT CHEST IMPRESSION: 1. 1.8 cm nodular opacity at the right lower lobe is stable from prior examination of . Additional bilateral subcentimeter pulmonary nodules, unchanged. 2. Right perihilar opacities, stable. 3. No substantial intrathoracic adenopathy is identified. 09/10/2022 CT chest IMPRESSION: 1. Stable appearance of 1.9 cm nodular opacity in the posterior right lower lobe. Additional bilateral nodular opacities also appear unchanged. No new or enlarging nodules are visualized. 2. Increasing consolidative opacity in the right perihilar and infrahilar regions, likely on the basis of evolving posttreatment change. 3. No evidence of bulky intrathoracic lymphadenopathy. 03/09/2022 CT brain IMPRESSION: No evidence of enhancing intracranial lesion to suggest metastasis. 03/09/2022 CT chest IMPRESSION: 1. Dominant, 1.9 cm right lower lobe nodular opacity is again appreciated, stable from the prior summation of 09/10/2021, slightly more conspicuous in size from the more remote examination of 11/17/2019. Correlation with continued follow-up summations is recommended. 2. Numerous additional bilateral subcentimeter pulmonary nodules, unchanged. 3. No substantial intrathoracic adenopathy is identified. 03/09/2022 CT abdomen/pelvis IMPRESSION: Stable CT examination of the abdomen and pelvis, without evidence for metastatic disease. 09/10/2021 CT CHEST IMPRESSION: 1. The dominant, 1.9 cm right lower lobe nodular opacity appears stable from prior study of 03/14/2021. 2. Persistent right perihilar airspace opacities, soft tissue prominence at the right infrahilar region, unchanged. 09/10/2021 CT ABD/PELVIS IMPRESSION: Stable examination of the abdomen and pelvis, without CT evidence for metastatic disease. 03/14/2021 CT Chest IMPRESSION: 1. 1.8 cm right lower lobe patchy opacity and additional subcentimeter nodular opacities measuring less than 5 mm, stable since 09/09/20. 2. Right perihilar opacities most likely related to post radiation change and other infectious/inflammatory etiologies, stable. 3. Mild groundglass opacities in bilateral lung tobin, decreased. Consider follow-up to complete resolution. 03/14/2021 CT abdomen/pelvis IMPRESSION: 1. No evidence of intra-abdominal/pelvic metastases. No interval change since 09/09/2020. 2. Diffuse colonic diverticulosis without evidence of diverticulitis. 3. Persistent subtle mucosal enhancement of the urinary bladder wall is suggestive of a cystitis. 12/19/[address] ([facility]) No acute intracranial abnormalities 09/09/2020 CT Chest IMPRESSION: 1. Stable appearance of the 1.9 cm right lower lobe nodule. 2. Slight interval increase in size of a left lower lobe nodule which now measures 4 mm in size. Other previously visualized subcentimeter nodules are stable. No new nodules are visualized. 3. No evidence of bulky intrathoracic adenopathy. 4. New patchy groundglass opacity noted throughout both lungs, possibly infectious/inflammatory in nature. 09/09/2020 CT abdomen/pelvis IMPRESSION: 1. Stable CT of the abdomen and pelvis. No definite findings to suggest metastatic disease in the abdomen or pelvis. 2. Hepatic steatosis. 3. Colonic diverticulosis without evidence of diverticulitis. 03/11/2020 CT CHEST IMPRESSION: 1. 1.9 cm right lower lobe patchy opacity and additional subcentimeter nodular opacities measuring is a 5 mm, stable since 11/17/2019. 2. Right perihilar opacities most likely related to post radiation change and other infectious/inflammatory etiologies, stable. 3. Mild groundglass opacities in left lower lobe, decreased. 4. No evidence of new intrathoracic abnormalities. 03/11/2020 CT ABD/PELVIS IMPRESSION: 1. No evidence of intra-abdominal/pelvic metastases. No interval change since 11/17/2019. 2. Diffuse colonic diverticulosis without evidence of diverticulitis. 01/19/2019 PET SCAN IMPRESSION: 1. Neck: No suspicious hypermetabolic foci 2. Chest: Relatively stable right hilar/infrahilar soft tissue prominence with mild activity. Relatively stable right lower lobe lung nodule with mild activity with adjacent mildly active consolidative changes. 3. Abdomen and pelvis: No evidence of FDG avid metastases 4. Skeleton: No hypermetabolic osseous lesions 07/11/2018 CT BRAIN IMPRESSION: No new/acute intracranial pathology or abnormal enhancement. 06/02/2018 PET SCAN IMPRESSION: 1. NECK: * No FDG avid neoplastic [...] and FDG activity. Now appears as a 1.6 x 1 cm nodule with minimal FDG activity. 3. ABDOMEN/PELVIS: * No FDG avid neoplastic process. . 4. EXTREMITIES/SKELETON: * No suspicious FDG avid osseous lesion. LABS: Hemoglobin (g/dL) Date Value 09/17/2022 14.3 09/10/2021 14.3 Hematocrit (%) Date Value 09/17/2022 43.7 09/10/2021 42.4 WBC (k/uL) Date Value 09/17/2022 6.44 09/10/2021 6.00 Platelet Count (k/uL) Date Value 09/17/2022 163 09/10/2021 158 ASSESSMENT/PLAN: 1. Malignant neoplasm of lower lobe of [...] of disease recurrence. Most recent chest CT stable. At this time we will continue routine surveillance. Now that it has been 5 years from diagnosis I will see him on a yearly basis with labs and a chest CT. 2. Type 2 diabetes mellitus (HCC) - [...] escalation as indicated. Currently on Synthroid 125 g daily. We will monitor the patient's TFTs [...] acute CVA. He was initially seen at [place] emergency room and transferred to [facility] for further management. Apparently intervention was not recommended and he was started on antiplatelet agents. With therapy his symptoms are slowly resolving. Continue management per PCP/neurology. Abdoulaye Groves MD CC: Dr. Shaikh Dickerson, PCP in [place] documented in this encounterOhio[facility]08-17-[facility] History of Present illness Narrative* Celia Ramos, RT(R) - 03/11/2023 9:30 AM EDT Radiology Service Progress Note PATIENT NAME: Jeronimo Gomez DATE OF SERVICE: March 11, 2023 TIME: 10:32 AM PATIENT IDENTITY VERIFICATION COMPLETED USING TWO (2) IDENTIFIERS: Name and Date of confirmedby patient verbally. FALL SCREENING: Has the patient had 2 falls in the last year or 1 fall with injury or currently using an Ambulatory Assistive Device (Walker, Cane, Wheelchair, Crutches, etc.)? No PATIENT GENDER DATA: Male PATIENT RELEVANT IMPLANT DATA REVIEWED: Not Applicable RADIOLOGY DEPARTMENT: CT; Exam(s) Completed: Chest PERIPHERAL IV DATA: Not applicable SIGNED BY: RT Ezio(R) March 11, 2023 10:32 AM documented in this encounterOhiohealth [facility]06-16-[facility]23 Hospital Discharge instructions Patient Education 01/08/2023 10:32:16 Hematuria, Adult Hematuria, Adult Hematuria is blood in the urine. Blood may be visible in the urine, or it may be identified with a test. This condition can be caused by infections of the bladder, urethra, kidney, or prostate. Otherpossible causes include: Kidney stones. Cancer of the urinary tract. Too much calcium in the urine. Conditions that are passed from parent to child (inherited conditions). Exercise that requires a lot of energy. Infections can usually be treated with medicine, and a kidney stone usually will pass through your urine. If neither of these is the cause of your hematuria, more tests may be needed to identify the cause of your symptoms. It is very important to tell your health care provider about any blood in your urine, even if it ispainless or the blood stops without treatment. Blood in the urine, when it happens and then stops and then happens again, can be a symptom of a very serious condition, including cancer. There is no pain in the initial stages of many urinary cancers. Follow these instructions at home: Medicines Take ruhw-tnk-wonloel and prescription medicines only as told by your health care provider. If you were prescribed an antibiotic medicine, take it as told by your health care provider. Do notstop taking the antibiotic even if you start to feel better. Eating and drinking Drink enough fluid to keep your urine pale yellow. It is recommended that you drink 3 4 quarts (2.83.8 L) a day. If you have been diagnosed with an infection, drinking cranberry juice in addition tolarge amounts of water is recommended. Avoid caffeine, tea, and carbonated beverages. These tend to irritate the bladder. Avoid alcohol because it may irritate the prostate (in males). General instructions If you have been diagnosed with a kidney stone, follow your health care provider's instructions about straining your urine to catch the stone. Empty your bladder often. Avoid holding urine for long periods of time. If you are female: ?After a bowel movement, wipe from front to back and use each piece of toilet paper only once. ?Empty your bladder before and after sex. Pay attention to any changes in your symptoms. Tell your health care provider about any changes or any new symptoms. It is up to you to get the results of any tests. Ask your health care provider, or the department that is doing the test, when your results will be ready. Keep all follow-up visits. This is important. Contact a health care provider if: You develop back pain. You have a fever or chills. You have nausea or vomiting. Your symptoms do not improve after 3 days. Your symptoms get worse. Get help right away if: You develop severe vomiting and are unable to take medicine without vomiting. You develop severe pain in your back or abdomen even though you are taking medicine. You pass a large amount of blood in your urine. You pass blood clots in your urine. You feel very weak or like you might faint. You faint. Summary Hematuria is blood in the urine. It has many possible causes. It is very important that you tell your health care provider about any blood in your urine, even ifit is painless or the blood stops without treatment. Take nbzs-ezp-imedvao and prescription medicines only as told by your health care provider. Drink enough fluid to keep your urine pale yellow. This information is not intended to replace advice given to you by your health care provider. Make sure you discuss any questions you have with your health care provider. Document Revised: 03/12/2021 Document Reviewed: 03/12/2021 [employer] Patient Education 2022 [employer]. Follow Up Care 01/05/2022 10:30:58 With:JUDI GAMBLE, Beatriz Bell, URL Address: [facility] [address] [address] [phone] When:Within 1 Year(s) [facility] 02-16-2023 History of Present illness Narrative* Yovanno, Celia, RT(R) - 09/10/2022 12:45 PM EST Radiology Service Progress Note PATIENT NAME: Jeronimo Gomez DATE OF SERVICE: September 10, 2022 TIME: 1:25 PM PATIENT IDENTITY VERIFICATION COMPLETED USING TWO (2) IDENTIFIERS: Name and Date of confirmedby patient verbally. FALL SCREENING: Has the patient had 2 falls in the last year or 1 fall with injury or currently using an Ambulatory Assistive Device (Walker, Cane, Wheelchair, Crutches, etc.)? No PATIENT GENDER DATA: Male PATIENT RELEVANT IMPLANT DATA REVIEWED: Not Applicable RADIOLOGY DEPARTMENT: CT; Exam(s) Completed: Chest PERIPHERAL IV DATA: Not applicable SIGNED BY: RT Ezio(R) September 10, 2022 1:25 PM documented in this encounterOhio[facility] Evaluation note* Encounter Date Diagnosis Assessment Notes Treatment Notes Treatment Clinical Notes Jul, Contact with and (suspected) exposure to other viral communicable diseases (ICD-10 - Z20.828) Jul, Seasonal allergic rhinitis, unspecified trigger (ICD-10 - J30.2) Take medication as directed. Use saline nasal spray may help with symptom relief. OTC medications such as Zyrtec, Ruthie or Claritin can help with symptoms during the peak of allergy season. Follow up with primary care provider if symptoms persist as a therapy plan may need to be made. Jul, Sore throat (ICD-10 - J02.9) [employer] Other 12-30-2022 Miscellaneous Notes* Telephone Encounter - Neetu Mark APRN.CNP - 07/24/2022 10:53 AM EST The following approved medication requests have been transmitted electronically. Requested Prescriptions Signed Prescriptions Disp Refills levothyroxine (SYNTHROID) 125 mcg tablet 90 tablet 1 Sig: Take 1 tablet by mouth once daily. Authorizing Provider: NEETU MARK APRN.CNP documented in this encounterOhiohealth [facility]08-18-2022 History of Present illness Narrative* Abdoulaye Groves MD - 03/12/2022 7:50 AM EDT PATIENT NAME: Jeronimo Gomez DATE: 03/12/2022 PRIMARY CARE PHYSICIAN: Dr. Shaikh Dickerson (PCP in [place]) OTHER PHYSICIANS: Dr. Alexander, Dr. Barrett, Dr. Morin Portions of this encounter note have been copied from the note from 02/02/2022 and has been updated where appropriate, and reflect my current medical decision making from today. CC: This is a 72 year old male with a history of metastatic lung cancer, seen for scheduled follow-up. INTERIM HISTORY: The patient had vertigo at his last visit here. Those symptoms have since resolved. He still has issues with poor short-term memory, otherwise no neurological symptoms. Overall he feels well. No unusual pain. No significant shortness of breath or other pulmonary symptoms. 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 He plans to fully retire next year. MEDICATIONS: Current Outpatient Medications Medication Sig solifenacin (VESICARE) 5 mg tablet Take 5 mg by mouth once daily. levothyroxine (SYNTHROID) 125 mcg tablet Take 1 tablet by mouth once daily. glipiZIDE (GLUCOTROL) 5 mg tablet Take 10 mg by mouth twice daily. atorvastatin (LIPITOR) 20 mg tablet atorvastatin 20 mg tablet TAKE 1 TABLET BY MOUTH ONE TIME A DAY diclofenac, EC, (VOLTAREN) 75 mg EC tablet Take 75 mg by mouth twice daily. tamsulosin ER (FLOMAX) 0.4 mg cap Take 0.4 mg by mouth twice daily. atenolol (TENORMIN) 50 mg tablet Take 50 mg by mouth daily at bedtime. metFORMIN (GLUCOPHAGE) 500 mg tablet Take 500 mg by mouth twice daily with meals. amLODIPine (NORVASC) 5 mg tablet Take 5 mg by mouth once daily. insulin 70/30 NPH/regular units/mL (NOVOLIN 70/30 U-100 INSULIN) Inject subcutaneously twice daily with meals. albuterol HFA (VENTOLIN HFA) 90 mcg/actuation inhaler Inhale 2 Puffs as instructed. (Patient not taking: Reported on 02/02/2022 ) Cetirizine (ZYRTEC) 10 mg cap Take by mouth. FISH OIL-DHA-EPA ORAL Take by mouth. (Patient not taking: Reported on 02/02/2022 ) fluticasone (FLONASE ALLERGY RELIEF) 50 mcg/actuation nasal spray Use 1 [place] in each nostril once daily. lansoprazole (PREVACID) 15 mg capsule Take 15 mg by mouth every other day. No current facility-administered medications for this visit. ALLERGIES: ALLERGIES No Known Allergies PAST MEDICAL HISTORY: PAST MEDICAL HISTORY Diagnosis Date Diabetes (HCC) type 1 History of prostate cancer Hyperlipidemia Hypertension Lung mass Squamous cell carcinoma PAST SURGICAL HISTORY: PAST SURGICAL HISTORY Procedure Laterality Date BRONCHOSCOPY FAMILY HISTORY: FAMILY HISTORY Problem Relation Age of Onset other (lung cancer) Father SOCIAL HISTORY: Social History Tobacco Use Smoking status: Former Smokeless tobacco: Never Tobacco comments: during high school Vaping Use Vaping Use: Never used Substance Use Topics Alcohol use: No Drug use: Never REVIEW OF SYSTEMS: General: No weight loss, malaise or fevers. HEENT: Negative for frequent or significant headaches. No changes in hearing or vision, no nose bleeds or other nasal problems. Respiratory: Negative for cough and wheezing. Chronic shortness of breath. Cardiovascular: Negative for chest pain, leg swelling or palpitations. GI: Negative for abdominal discomfort, blood in stools or black stools or change in bowel habits. : No history of dysuria, frequency or incontinence Musculoskeletal: Negative for joint pain or swelling and muscle pain. Chronic back pain- Spinal stenosis. Skin: Negative for lesions, rash and itching. Hematology/Lymphology: Negative for prolonged bleeding, bruising easily or swollen nodes. Neuro: No history of headaches, syncope, paralysis, seizures or tremors. PHYSICAL EXAM: Vitals: BP 147/70 Pulse 68 Temp 36.2 C (97.2 F) (Temporal) Resp 16 Ht 175 cm (5' 8.9 ) Wt110 kg (242 lb 9.6 oz) SpO2 97% BMI 35.93 kg/m ECOG 1 Exam limited to gross visualization where appropriate due to COVID-19. Gen.: This is an age-appropriate patient in no acute distress. Head: Appears atraumatic with no visible lesions. Eyes: Pupils equally round and reactive to light, extraocular muscles are intact. Neck: Supple. Mouth: Mucous membranes appeared to be moist. Respiratory: Appears to be respiring comfortably. Neurologic: Nonfocal to gross visualization. Alert and oriented 3. Psychiatric: No evidence of inappropriate anxiety or depression. Skin: Visible areas of skin without rash, lesions, wounds or petechiae. RADIOLOGY/OTHER STUDIES: 03/09/2022 CT brain IMPRESSION: No evidence of enhancing intracranial lesion to suggest metastasis. 03/09/2022 CT chest IMPRESSION: 1. Dominant, 1.9 cm right lower lobe nodular opacity is again appreciated, stable from the prior summation of 09/10/2021, slightly more conspicuous in size from the more remote examination of 11/17/2019. Correlation with continued follow-up summations is recommended. 2. Numerous additional bilateral subcentimeter pulmonary nodules, unchanged. 3. No substantial intrathoracic adenopathy is identified. 03/09/2022 CT abdomen/pelvis IMPRESSION: Stable CT examination of the abdomen and pelvis, without evidence for metastatic disease. 09/10/2021 CT CHEST IMPRESSION: 1. The dominant, 1.9 cm right lower lobe nodular opacity appears stable from prior study of 03/14/2021. 2. Persistent right perihilar airspace opacities, soft tissue prominence at the right infrahilar region, unchanged. 09/10/2021 CT ABD/PELVIS IMPRESSION: Stable examination of the abdomen and pelvis, without CT evidence for metastatic disease. 03/14/2021 CT Chest IMPRESSION: 1. 1.8 cm right lower lobe patchy opacity and additional subcentimeter nodular opacities measuring less than 5 mm, stable since 09/09/20. 2. Right perihilar opacities most likely related to post radiation change and other infectious/inflammatory etiologies, stable. 3. Mild groundglass opacities in bilateral lung tobin, decreased. Consider follow-up to complete resolution. 03/14/2021 CT abdomen/pelvis IMPRESSION: 1. No evidence of intra-abdominal/pelvic metastases. No interval change since 09/09/2020. 2. Diffuse colonic diverticulosis without evidence of diverticulitis. 3. Persistent subtle mucosal enhancement of the urinary bladder wall is suggestive of a cystitis. 12/19/[address] ([facility]) No acute intracranial abnormalities 09/09/2020 CT Chest IMPRESSION: 1. Stable appearance of the 1.9 cm right lower lobe nodule. 2. Slight interval increase in size of a left lower lobe nodule which now measures 4 mm in size. Other previously visualized subcentimeter nodules are stable. No new nodules are visualized. 3. No evidence of bulky intrathoracic adenopathy. 4. New patchy groundglass opacity noted throughout both lungs, possibly infectious/inflammatory in nature. 09/09/2020 CT abdomen/pelvis IMPRESSION: 1. Stable CT of the abdomen and pelvis. No definite findings to suggest metastatic disease in the abdomen or pelvis. 2. Hepatic steatosis. 3. Colonic diverticulosis without evidence of diverticulitis. 03/11/2020 CT CHEST IMPRESSION: 1. 1.9 cm right lower lobe patchy opacity and additional subcentimeter nodular opacities measuring is a 5 mm, stable since 11/17/2019. 2. Right perihilar opacities most likely related to post radiation change and other infectious/inflammatory etiologies, stable. 3. Mild groundglass opacities in left lower lobe, decreased. 4. No evidence of new intrathoracic abnormalities. 03/11/2020 CT ABD/PELVIS IMPRESSION: 1. No evidence of intra-abdominal/pelvic metastases. No interval change since 11/17/2019. 2. Diffuse colonic diverticulosis without evidence of diverticulitis. 11/17/2019 CT CHEST IMPRESSION: 1. Right infrahilar consolidative opacity appears slightly increased in size. 2. Right lower lobe consolidative opacity with surrounding curvilinear density is slightly increased in size. This again may represent an organizing pneumonia versus neoplasm. 3. Stable appearance of bilateral nodular opacities. 4. Diffuse patchy groundglass opacity noted throughout both lungs, likely infectious or inflammatory in nature. Findings are less prominent when compared to prior exam. 5. No evidence of bulky intrathoracic lymphadenopathy. 11/17/2019 CT ABD/PELVIS IMPRESSION: 1. Stable CT of the abdomen and pelvis. No definite findings to suggest abdominal or pelvic metastatic disease. 2. Colonic diverticulosis without evidence of diverticulitis. 3. Hepatic steatosis. 08/17/2019 CT Chest IMPRESSION: 1. Overall stable appearance of right infrahilar consolidative opacity. 2. Diffuse patchy groundglass opacity noted throughout both lungs, stable to slightly improved when compared to prior exam. However, there is a new areas of ground glass opacity in the right upper lobe. Findings again likely infectious/inflammatory in nature. 3. Stable appearance of bilateral nodular opacities. No enlarging nodules are visualized. 4. Somewhat nodular subpleural consolidative opacity at the right base which may represent an organizing pneumonia. 01/19/2019 PET SCAN IMPRESSION: 1. Neck: No suspicious hypermetabolic foci 2. Chest: Relatively stable right hilar/infrahilar soft tissue prominence with mild activity. Relatively stable right lower lobe lung nodule with mild activity with adjacent mildly active consolidative changes. 3. Abdomen and pelvis: No evidence of FDG avid metastases 4. Skeleton: No hypermetabolic osseous lesions 07/11/2018 CT BRAIN IMPRESSION: No new/acute intracranial pathology or abnormal enhancement. 06/02/2018 PET SCAN IMPRESSION: 1. NECK: * No FDG avid neoplastic [...] and FDG activity. Now appears as a 1.6 x 1 cm nodule with minimal FDG activity. 3. ABDOMEN/PELVIS: * No FDG avid neoplastic process. . 4. EXTREMITIES/SKELETON: * No suspicious FDG avid osseous lesion. 02/09/2018 CT CHEST ([facility]) IMPRESSION: 3.6 3.4 3.2 cm right lower lobe infrahilar mass suspicious for neoplasm. Mediastinal subcarinal lymphadenopathy. Right basilar atelectasis versus infiltrate/consolidation Small right pleural effusion. LABS: Hemoglobin (g/dL) Date Value 03/09/2022 14.0 09/10/2021 14.3 Hematocrit (%) Date Value 03/09/2022 42.1 09/10/2021 42.4 WBC (k/uL) Date Value 03/09/2022 6.02 09/10/2021 6.00 Platelet Count (k/uL) Date Value 03/09/2022 147 09/10/2021 158 ASSESSMENT/PLAN: 1. Malignant neoplasm of lower lobe of [...] no evidence of disease recurrence. Most recent staging CT scans 03/09/2022 stable. At this time we will continue routine follow-up. We will arrange for a repeat chest CT in 6 months,he will then return for follow-up. 2. Type 2 diabetes mellitus (HCC) - [...] escalation as indicated. Currently on Synthroid 125 g daily. We will monitor the patient's TFTs and adjust accordingly. 7. Chronic lower back pain The patient has a long history of lower back pain, most likely secondary to spinal stenosis and unrelated to his lung cancer and treatment. Continue management per PCP/neurosurgery. 8. History of confusion, suspected TIA, intermittent vertigo The patient developed acute confusion on the evening of 12/18/2020. He had no other obvious neurological deficits, but clearly was disoriented. He was evaluated at the [place] emergency room, and hiswork-up was negative. It was felt he may have suffered a TIA or other transient neurological event.The patient developed acute vertigo 01/25/2022 which has since resolved. Most recent follow-up brain CT 03/09/2022. The patient currently complains of poor short-term memory, otherwise no ongoing neurological symptoms. Continue management per PCP. I did suggest referral to neurology if symptoms worsen. Abdoulaye Groves MD CC: Dr. Shaikh Dickerson, PCP in [place]; Dr. Morin, Endocrinology in [place] documented in this encounterOhiohealth Arthur [facility]08-15-2022 History of Present illness Narrative* Marylin Vaca RN - 03/09/2022 12:45 PM EDT Radiology Service Progress Note DATE OF SERVICE: March 09, 2022 TIME: 1:19 PM PATIENT WEIGHT: 244 LBS PATIENT IDENTITY VERIFICATION COMPLETED USING TWO (2) STANDARD IDENTIFIERS: Name and Date of confirmed by patient verbally. FALL SCREENING: Has the patient had 2 falls in the last year or 1 fall with injury or currently using an Ambulatory Assistive Device (Walker, Cane, Wheelchair, Crutches, etc.)? No PATIENT GENDER DATA: Male ALLERGIES: Reviewed and unchanged CONTRAST ALLERGY: No EXAM: CT -CONTRAST INDUCED NEPHROPATHY RISK FACTORS: Patient age > 60 years and Diabetic: Yes. Current medication(s): glipizide. Patient currently has insulin pump?: No. CREATININE: Creatinine Date Value Ref Range Status 02/02/2022 1.08 0.73 - 1.22 mg/dL Final 09/10/2021 1.11 0.73 - 1.22 mg/dL Final 06/18/2021 1.15 0.73 - 1.22 mg/dL Final Estimated Glomerular Filtration Rate Date Value Ref Range Status 02/02/2022 72 >=60 mL/min/1.73m Final Comment: Estimated Glomerular Filtration Rate (eGFR) is calculated using the 2020 CKD-EPI creatinine equation. This equation utilizes serum creatinine, sex, and age as parameters. The creatinine assay has traceable calibration to isotope dilution- mass spectrometry. Refer to KDIGO guidelines for clinical interpretation. In patients with unstable renal function, e.g. those with acute kidney injury, the eGFRmay not accurately reflect actual GFR. eGFR- Date Value Ref Range Status 09/10/2021 >60 Final P.O.C.T. RESULTS: POC done: Yes, See Lab Tab March 09, 2022 TREATMENT: No Hydration needed. IV SITE: Ambulatory: A peripheral IV was started in the Right antecubital site with a Angio cath: 20 gauge. IV SITE APPEARANCE: Clean,Dry and Intact SIGNATURE: Marylin Vaca RN PATIENT NAME: Jeronimo Gomez DATE: March 09, 2022 TIME: 1:19 PM * Celia Ramos, RT(R) - 03/09/2022 12:45 PM EDT Radiology Service Progress Note PATIENT NAME: Jeronimo Gomez DATE OF SERVICE: March 09, 2022 TIME: 1:22 PM PATIENT IDENTITY VERIFICATION COMPLETED USING TWO (2) IDENTIFIERS: Name and Date of confirmedby patient verbally. FALL SCREENING: Has the patient had 2 falls in the last year or 1 fall with injury or currently using an Ambulatory Assistive Device (Walker, Cane, Wheelchair, Crutches, etc.)? No PATIENT GENDER DATA: Male PATIENT RELEVANT IMPLANT DATA REVIEWED: Not Applicable RADIOLOGY DEPARTMENT: CT; Exam(s) Completed: Brain and Chest Abdomen Pelvis With IV and Oral contrast PERIPHERAL IV DATA: Site assessment: Clean,Dry and Intact, Site disposition Discontinued SIGNED BY: RT Ezio(R) March 09, 2022 1:22 PM documented in this encounterOhiohealth [facility]06-13-2022 Hospital Discharge instructions Patient Education 01/05/2022 10:26:45 Calorie Counting for Weight Loss Calorie Counting for Weight Loss Calories are units of energy. Your body needs a certain amount of calories from food to keep you going throughout the day. When you eat more calories than your body needs, your body stores the extra calories as fat. When you eat fewer calories than your body needs, your body hogan fat to get the energy it needs. Calorie counting means keeping track of how many calories you eat and drink each day. Calorie counting can be helpful if you need to lose weight. If you make sure to eat fewer calories than your bodyneeds, you should lose weight. Ask your health care provider what a healthy weight is for you. For calorie counting to work, you will need to eat the right number of calories in a day in order to lose a healthy amount of weight per week. A dietitian can help you determine how many calories youneed in a day and will give you suggestions on how to reach your calorie goal. A healthy amount of weight to lose per week is usually 1 2 lb (0.5 0.9 kg). This usually means thatyour daily calorie intake should be reduced by 500 750 calories. Eating 1,200 1,500 calories per day can help most women lose weight. Eating 1,500 1,800 calories per day can help most men lose weight. What is my plan? My goal is to have calories per day. If I have this many calories per day, I should lose around pounds per week. What do I need to know about calorie counting? In order to meet your daily calorie goal, you will need to: Find out how many calories are in each food you would like to eat. Try to do this before you eat. Decide how much of the food you plan to eat. Write down what you ate and how many calories it had. Doing this is called keeping a food log. To successfully lose weight, it is important to balance calorie counting with a healthy lifestyle that includes regular activity. Aim for 150 minutes of moderate exercise (such as walking) or 75 minutes of vigorous exercise (such as running) each week. Where do I find calorie information? The number of calories in a food can be found on a Nutrition Facts label. If a food does not have aNutrition Facts label, try to look up the calories online or ask your dietitian for help. Remember that calories are listed per serving. If you choose to have more than one serving of a food, you will have to multiply the calories per serving by the amount of servings you plan to eat. Forexample, the label on a package of bread might say that a serving size is 1 slice and that there are 90 calories in a serving. If you eat 1 slice, you will have eaten 90 calories. If you eat 2 slices, you will have eaten 180 calories. How do I keep a food log? Immediately after each meal, record the following information in your food log: What you ate. Don't forget to include toppings, sauces, and other extras on the food. How much you ate. This can be measured in cups, ounces, or number of items. How many calories each food and drink had. The total number of calories in the meal. Keep your food log near you, such as in a small notebook in your pocket, or use a mobile beth or website. Some programs will calculate calories for you and show you how many calories you have left forthe day to meet your goal. What are some calorie counting tips? Use your calories on foods and drinks that will fill you up and not leave you hungry: ?Some examples of foods that fill you up are nuts and nut butters, vegetables, lean proteins, and high-fiber foods like whole grains. High-fiber foods are foods with more than 5 g fiber per serving. ?Drinks such as sodas, specialty coffee drinks, alcohol, and juices have a lot of calories, yet do not fill you up. Eat nutritious foods and avoid empty calories. Empty calories are calories you get from foods or beverages that do not have many vitamins or protein, such as candy, sweets, and soda. It is better to have a nutritious high-calorie food (such as an avocado) than a food with few nutrients (such as a bag of chips). Know how many calories are in the foods you eat most often. This will help you calculate calorie counts faster. Pay attention to calories in drinks. Low-calorie drinks include water and unsweetened drinks. Pay attention to nutrition labels for low fat or fat free foods. These foods sometimes have thesame amount of calories or more calories than the full fat versions. They also often have added sugar, starch, or salt, to make up for flavor that was removed with the fat. Find a way of tracking calories that works for you. Get creative. Try different apps or programs ifwriting down calories does not work for you. What are some portion control tips? Know how many calories are in a serving. This will help you know how many servings of a certain food you can have. Use a measuring cup to measure serving sizes. You could also try weighing out portions on a kitchenscale. With time, you will be able to estimate serving sizes for some foods. Take some time to put servings of different foods on your favorite plates, bowls, and cups so you know what a serving looks like. Try not to eat straight from a bag or box. Doing this can lead to overeating. Put the amount you would like to eat in a cup or on a plate to make sure you are eating the right portion. Use smaller plates, glasses, and bowls to prevent overeating. Try not to multitask (for example, watch TV or use your computer) while eating. If it is time to eat, sit down at a table and enjoy your food. This will help you to know when you are full. It will also help you to be aware of what you are eating and how much you are eating. What are tips for following this plan? Reading food labels Check the calorie count compared to the serving size. The serving size may be smaller than what youare used to eating. Check the source of the calories. Make sure the food you are eating is high in vitamins and proteinand low in saturated and trans fats. Shopping Read nutrition labels while you shop. This will help you make healthy decisions before you decide to purchase your food. Make a grocery list and stick to it. Cooking Try to cook your favorite foods in a healthier way. For example, try baking instead of frying. Use low-fat dairy products. Meal planning Use more fruits and vegetables. Half of your plate should be fruits and vegetables. Include lean proteins like poultry and fish. How do I count calories when eating out? Ask for smaller portion sizes. Consider sharing an entree and sides instead of getting your own entree. If you get your own entree, eat only half. Ask for a box at the beginning of your meal and put the rest of your entree in it so you are not tempted to eat it. If calories are listed on the menu, choose the lower calorie options. Choose dishes that include vegetables, fruits, whole grains, low-fat dairy products, and lean protein. Choose items that are boiled, broiled, grilled, or steamed. Stay away from items that are buttered,battered, fried, or served with cream sauce. Items labeled crispy are usually fried, unless stated otherwise. Choose water, low-fat milk, unsweetened iced tea, or other drinks without added sugar. If you want an alcoholic beverage, choose a lower calorie option such as a glass of wine or light beer. Ask for dressings, sauces, and syrups on the side. These are usually high in calories, so you should limit the amount you eat. If you want a salad, choose a garden salad and ask for grilled meats. Avoid extra toppings like mathis, cheese, or fried items. Ask for the dressing on the side, or ask for olive oil and vinegar or lemon to use as dressing. Estimate how many servings of a food you are given. For example, a serving of cooked rice is cup orabout the size of half a baseball. Knowing serving sizes will help you be aware of how much food you are eating at restaurants. The list below tells you how big or small some common portion sizes arebased on everyday objects: ?1 oz 4 stacked dice. ?3 oz 1 deck of cards. ?1 tsp 1 . ?1 Tbsp a ping-pong ball. ?2 Tbsp 1 ping-pong ball. ? cup baseball. ?1 cup 1 baseball. Summary Calorie counting means keeping track of how many calories you eat and drink each day. If you eat fewer calories than your body needs, you should lose weight. A healthy amount of weight to lose per week is usually 1 2 lb (0.5 0.9 kg). This usually means reducing your daily calorie intake by 500 750 calories. The number of calories in a food can be found on a Nutrition Facts label. If a food does not have aNutrition Facts label, try to look up the calories online or ask your dietitian for help. Use your calories on foods and drinks that will fill you up, and not on foods and drinks that will leave you hungry. Use smaller plates, glasses, and bowls to prevent overeating. This information is not intended to replace advice given to you by your health care provider. Make sure you discuss any questions you have with your health care provider. Document Released: 07/12/2006 Document Revised: 03/31/2019 Document Reviewed: 06/11/2017 [employer] Patient Education 2020 [employer]. 01/05/2022 10:26:36 Urinary Incontinence Urinary Incontinence Urinary incontinence refers to a condition in which a person is unable to control where and when topass urine. A person with this condition will urinate when he or she does not mean to (involuntarily). What are the causes? This condition may be caused by: Medicines. Infections. Constipation. Overactive bladder muscles. Weak bladder muscles. Weak pelvic floor muscles. These muscles provide support for the bladder, intestine, and, in women,the uterus. Enlarged prostate in men. The prostate is a gland near the bladder. When it gets too big, it can pinch the urethra. With the urethra blocked, the bladder can weaken and lose the ability to empty properly. Surgery. Emotional factors, such as anxiety, stress, or post-traumatic stress disorder (PTSD). Pelvic organ prolapse. This happens in women when organs shift out of place and into the vagina. This shift can prevent the bladder and urethra from working properly. What increases the risk? The following factors may make you more likely to develop this condition: Older age. Obesity and physical inactivity. and childbirth. Menopause. Diseases that affect the nerves or spinal cord (neurological diseases). Long-term (chronic) coughing. This can increase pressure on the bladder and pelvic floor muscles. What are the signs or symptoms? Symptoms may vary depending on the type of urinary incontinence you have. They include: A sudden urge to urinate, but passing urine involuntarily before you can get to a bathroom (urge incontinence). Suddenly passing urine with any activity that forces urine to pass, such as coughing, laughing, exercise, or sneezing (stress incontinence). Needing to urinate often, but urinating only a small amount, or constantly dribbling urine (overflow incontinence). Urinating because you cannot get to the bathroom in time due to a physical disability, such as arthritis or injury, or communication and thinking problems, such as Alzheimer disease (functional incontinence). How is this diagnosed? This condition may be diagnosed based on: Your medical history. A physical exam. Tests, such as: ?Urine tests. ?X-rays of your kidney and bladder. ?Ultrasound. ?CT scan. ?Cystoscopy. In this procedure, a health care provider inserts a tube with a light and camera (cystoscope) through the urethra and into the bladder in order to check for problems. ?Urodynamic testing. These tests assess how well the bladder, urethra, and sphincter can store and release urine. There are different types of urodynamic tests, and they vary depending on what the test is measuring. To help diagnose your condition, your health care provider may recommend that you keep a log of when you urinate and how much you urinate. How is this treated? Treatment for this condition depends on the type of incontinence that you have and its cause. Treatment may include: Lifestyle changes, such as: ?Quitting smoking. ?Maintaining a healthy weight. ?Staying active. Try to get 150 minutes of moderate-intensity exercise every week. Ask your health care provider which activities are safe for you. ?Eating a healthy diet. ?Avoid high-fat foods, like fried foods. ?Avoid refined carbohydrates like white bread and white rice. ?Limit how much alcohol and caffeine you drink. ?Increase your fiber intake. Foods such as fresh fruits, vegetables, beans, and whole grains are healthy sources of fiber. Pelvic floor muscle exercises. Bladder training, such as lengthening the amount of time between bathroom breaks, or using the bathroom at regular intervals. Using techniques to suppress bladder urges. This can include distraction techniques or controlled breathing exercises. Medicines to relax the bladder muscles and prevent bladder spasms. Medicines to help slow or prevent the growth of a man's prostate. Botox injections. These can help relax the bladder muscles. Using pulses of electricity to help change bladder reflexes (electrical nerve stimulation). For women, using a medical lab director to prevent urine leaks. This is a small, tampon-like, disposable device that is inserted into the urethra. Injecting collagen or carbon beads (bulking agents) into the urinary sphincter. These can help thicken tissue and close the bladder opening. Surgery. Follow these instructions at home: Lifestyle Limit alcohol and caffeine. These can fill your bladder quickly and irritate it. Keep yourself clean to help prevent odors and skin damage. Ask your doctor about special skin creams and cleansers that can protect the skin from urine. Consider wearing pads or adult diapers. Make sure to change them regularly, and always change them right after experiencing incontinence. General instructions Take utwb-sah-gncmylb and prescription medicines only as told by your health care provider. Use the bathroom about every 3 4 hours, even if you do not feel the need to urinate. Try to empty your bladder completely every time. After urinating, wait a minute. Then try to urinate again. Make sure you are in a relaxed position while urinating. If your incontinence is caused by nerve problems, keep a log of the medicines you take and the times you go to the bathroom. Keep all follow-up visits as told by your health care provider. This is important. Contact a health care provider if: You have pain that gets worse. Your incontinence gets worse. Get help right away if: You have a fever or chills. You are unable to urinate. You have redness in your groin area or down your legs. Summary Urinary incontinence refers to a condition in which a person is unable to control where and when topass urine. This condition may be caused by medicines, infection, weak bladder muscles, weak pelvic floor muscles, enlargement of the prostate (in men), or surgery. The following factors increase your risk for developing this condition: older age, obesity, and childbirth, menopause, neurological diseases, and chronic coughing. There are several types of urinary incontinence. They include urge incontinence, stress incontinence, overflow incontinence, and functional incontinence. This condition is usually treated first with lifestyle and behavioral changes, such as quitting smoking, eating a healthier diet, and doing regular pelvic floor exercises. Other treatment options include medicines, bulking agents, medical devices, electrical nerve stimulation, or surgery. This information is not intended to replace advice given to you by your health care provider. Make sure you discuss any questions you have with your health care provider. Document Released: 08/19/2005 Document Revised: 07/22/2018 Document Reviewed: 10/21/2017 [employer] Patient Education 2020 [employer]. 01/05/2022 10:26:35 Overactive Bladder, Adult Overactive Bladder, Adult Overactive bladder refers to a condition in which a person has a sudden need to pass urine. The person may leak urine if he or she cannot get to the bathroom fast enough (urinary incontinence). A person with this condition may also wake up several times in the night to go to the bathroom. Overactive bladder is associated with poor nerve signals between your bladder and your brain. Your bladder may get the signal to empty before it is full. You may also have very sensitive muscles thatmake your bladder squeeze too soon. These symptoms might interfere with daily work or social activities. What are the causes? This condition may be associated with or caused by: Urinary tract infection. Infection of nearby tissues, such as the prostate. Prostate enlargement. Surgery on the uterus or urethra. Bladder stones, inflammation, or tumors. Drinking too much caffeine or alcohol. Certain medicines, especially medicines that get rid of extra fluid in the body (diuretics). Muscle or nerve weakness, especially from: ?A spinal cord injury. ?Stroke. ?Multiple sclerosis. ?Parkinson's disease. Diabetes. Constipation. What increases the risk? You may be at greater risk for overactive bladder if you: Are an older adult. Smoke. Are going through menopause. Have prostate problems. Have a neurological disease, such as stroke, dementia, Parkinson's disease, or multiple sclerosis (MS). Eat or drink things that irritate the bladder. These include alcohol, spicy food, and caffeine. Are overweight or obese. What are the signs or symptoms? Symptoms of this condition include: Sudden, strong urge to urinate. Leaking urine. Urinating 8 or more times a day. Waking up to urinate 2 or more times a night. How is this diagnosed? Your health care provider may suspect overactive bladder based on your symptoms. He or she will diagnose this condition by: A physical exam and medical history. Blood or urine tests. You might need bladder or urine tests to help determine what is causing your overactive bladder. You might also need to see a health care provider who specializes in urinary tract problems (urologist). How is this treated? Treatment for overactive bladder depends on the cause of your condition and whether it is mild or severe. You can also make lifestyle changes at home. Options include: Bladder training. This may include: ?Learning to control the urge to urinate by following a schedule that directs you to urinate at regular intervals (timed voiding). ?Doing Kegel exercises to strengthen your pelvic floor muscles, which support your bladder. Toning these muscles can help you control urination, even if your bladder muscles are overactive. Special devices. This may include: ?Biofeedback, which uses sensors to help you become aware of your body's signals. ?Electrical stimulation, which uses electrodes placed inside the body (implanted) or outside the body. These electrodes send gentle pulses of electricity to strengthen the nerves or muscles that control the bladder. ?Women may use a plastic device that fits into the vagina and supports the bladder (pessary). Medicines. ?Antibiotics to treat bladder infection. ?Antispasmodics to stop the bladder from releasing urine at the wrong time. ?Tricyclic antidepressants to relax bladder muscles. ?Injections of botulinum toxin type A directly into the bladder tissue to relax bladder muscles. Lifestyle changes. This may include: ?Weight loss. Talk to your health care provider about weight loss methods that would work best for you. ?Diet changes. This may include reducing how much alcohol and caffeine you consume, or drinking fluids at different times of the day. ?Not smoking. Do not use any products that contain nicotine or tobacco, such as cigarettes and e-cigarettes. If you need help quitting, ask your health care provider. Surgery. ?A device may be implanted to help manage the nerve signals that control urination. ?An electrode may be implanted to stimulate electrical signals in the bladder. ?A procedure may be done to change the shape of the bladder. This is done only in very severe cases. Follow these instructions at home: Lifestyle Make any diet or lifestyle changes that are recommended by your health care provider. These may include: ?Drinking less fluid or drinking fluids at different times of the day. ?Cutting down on caffeine or alcohol. ?Doing Kegel exercises. ?Losing weight if needed. ?Eating a healthy and balanced diet to prevent constipation. This may include: ?Eating foods that are high in fiber, such as fresh fruits and vegetables, whole grains, and beans. ?Limiting foods that are high in fat and processed sugars, such as fried and sweet foods. General instructions Take imsi-ldj-kmrlcot and prescription medicines only as told by your health care provider. If you were prescribed an antibiotic medicine, take it as told by your health care provider. Do notstop taking the antibiotic even if you start to feel better. Use any implants or pessary as told by your health care provider. If needed, wear pads to absorb urine leakage. Keep a journal or log to track how much and when you drink and when you feel the need to urinate. This will help your health care provider monitor your condition. Keep all follow-up visits as told by your health care provider. This is important. Contact a health care provider if: You have a fever. Your symptoms do not get better with treatment. Your pain and discomfort get worse. You have more frequent urges to urinate. Get help right away if: You are not able to control your bladder. Summary Overactive bladder refers to a condition in which a person has a sudden need to pass urine. Several conditions may lead to an overactive bladder. Treatment for overactive bladder depends on the cause and severity of your condition. Follow your health care provider's instructions about lifestyle changes, doing Kegel exercises, keeping a journal, and taking medicines. This information is not intended to replace advice given to you by your health care provider. Make sure you discuss any questions you have with your health care provider. Document Released: 05/08/2010 Document Revised: 11/02/2019 Document Reviewed: 07/28/2018 [employer] Patient Education 2020 [employer]. Follow Up Care 01/03/2021 10:35:49 With:JUDI GAMBLE, Beatriz eBll, URL Address: [address] [place] [phone] When:Within 1 Year(s) Comments:1 year fu with PSA [facility] 02-16-2022 History of Present illness Narrative* Kat Booker RN - 09/10/2021 8:00 AM EST Radiology Service Progress Note DATE OF SERVICE: September 10, 2021 TIME: 8:19 AM PATIENT WEIGHT: 240LBS PATIENT IDENTITY VERIFICATION COMPLETED USING TWO (2) STANDARD IDENTIFIERS: Name and Date of confirmed by patient verbally. FALL SCREENING: Has the patient had 2 falls in the last year or 1 fall with injury or currently using an Ambulatory Assistive Device (Walker, Cane, Wheelchair, Crutches, etc.)? No PATIENT GENDER DATA: Male ALLERGIES: Reviewed and unchanged CONTRAST ALLERGY: No EXAM: CT -CONTRAST INDUCED NEPHROPATHY RISK FACTORS: Patient age > 60 years and Diabetic: Yes. Currentmedication(s): Metformin and Insulin Insulin Pump: NO Insulin Pump Removed: N/A. Patient currently has insulin pump?: No. CREATININE: Creatinine Date Value Ref Range Status 09/10/2021 1.11 0.73 - 1.22 mg/dL Final 06/18/2021 1.15 0.73 - 1.22 mg/dL Final 03/14/2021 1.28 (H) 0.73 - 1.22 mg/dL Final eGFR-All Other Races Date Value Ref Range Status 09/10/2021 >60 . Final Comment: eGFR (Estimated GFR) Units of measure: mL/min/1.73 meters squared eGFR is derived from the reexpressed MDRD Study equation using the following parameters: serum creatinine, age, gender and race. The creatinine assay has been calibrated to be traceable to IDMS. An eGFR <60 mL/min/1.73m2 for >3 months is consistent with chronic kidney disease. Refer to KDOQI guidelines for clinical interpretation. In patients with unstable renal function, e.g. those with acute kidney injury, the eGFR may not accurately reflect actual GFR. Note: On 09/20/2021, the eGFR calculation will be updated to the NKF-ASN Task Force recommended 2020 CKD-EPI creatinine equation which does not include a race variable. For more information or to access a 2020 CKD-EPI calculator, visit the National Kid[employer] website at kidney.org/professionals/kdoqi/gfr_calculator. eGFR- Date Value Ref Range Status 09/10/2021 >60 Final P.O.C.T. RESULTS: POC done: Yes, See Lab Tab September 10, 2021 TREATMENT: No Hydration needed. IV SITE: Ambulatory: A peripheral IV was started in the Left antecubital site with a Angio cath: 20gauge. IV SITE APPEARANCE: Clean,Dry and Intact SIGNATURE: Kat Booker RN PATIENT NAME: Jeronimo Gomez DATE: September 10, 2021 TIME: 8:19 AM * Celia Ramos RT(R) - 09/10/2021 8:00 AM EST Radiology Service Progress Note PATIENT NAME: Jeronimo Gomez DATE OF SERVICE: September 10, 2021 TIME: 8:46 AM PATIENT IDENTITY VERIFICATION COMPLETED USING TWO (2) IDENTIFIERS: Name and Date of confirmedby patient verbally. FALL SCREENING: Has the patient had 2 falls in the last year or 1 fall with injury or currently using an Ambulatory Assistive Device (Walker, Cane, Wheelchair, Crutches, etc.)? No PATIENT GENDER DATA: Male PATIENT RELEVANT IMPLANT DATA REVIEWED: Not Applicable RADIOLOGY DEPARTMENT: CT; Exam(s) Completed: Chest Abdomen Pelvis With IV and Oral contrast PERIPHERAL IV DATA: Site assessment: Clean,Dry and Intact, Site disposition Discontinued SIGNED BY: RT Ezio(R) September 10, 2021 8:46 AM documented in this encounterOhio[facility]21 [facility] [place] SLEEP STUDY Ordering Physician: Dr. Cevallos Procedure Date: 02-04-21 CLINICAL HISTORY: This is a 70 year-old male who is 69 inches tall, weighs 240 pounds with a body mass index of 35.4. The patient was referred for a home sleep study due to loud snoring, witnessed episodes of apnea, daytime somnolence, obesity, weight gain, irregular heartbeat, frequent nocturnal urination, decreased concentration, high blood pressure, frequent wakening at night, jerking and twitching of the leg, and fatigue. RECORDING TIME: The total recording time was 7 hours and 33 minutes, total monitoring time was 7 hours and 21 minutes. COMPREHENSIVE VENTILATORY MONITORING: The patient had 17 apneas and 124 hypopneas. This led to an apnea/hypopnea index of 19 per hour. The average oxygenation while awake was 93% with a minimum oxygen saturation down to 65%. PULSE DATA: The average pulse rate 62 bpm, maximum pulse rate was 82 bpm and minimum pulse rate was 55 bpm. BREATHING DATA: The patient had 3,654 snoring occurrences. IMPRESSION: 1. This patient does meet criteria for a moderate obstructive sleep apnea with a more profound hypoxia down to 65%. The patient would benefit from an in-house CPAP titration to be sure that the oxygenation normalizes with the treatment of CPAP. The patient does not need oxygen bled into the system. 2. This patient does have snoring and would benefit from maintaining lean body weight in order to minimized snoring. 3. This patient does meed criteria for obesity on a body mass index scale and would benefit from aggressive weight loss measures. 4. This patient would benefit from treatment of any other coexisting medical condition including insomnia, anxiety or depression. 5. Please correlate clinically.[facility]ments Appointment Date:01/08/2023 09:30:00 AM Scheduled Provider:Beatriz LAU MD Location:[facility] Appointment Type:URO Office Visit Diagnostic Tests Pending * PSA Total 01/05/22 [facility] evaluation + Plan note Future Appointments Appointment Date:01/10/2024 09:45:00 AM Scheduled Provider:Beatriz LAU MD Location:[facility] Appointment Type:URO Office Visit Diagnostic Tests Pending * PSA Total 01/08/23 [facility] evaluation + Plan note Future Appointments Appointment Date:01/10/2024 09:45:00 AM Scheduled Provider:Beatriz LAU MD Location:[facility] Appointment Type:URO Office Visit [facility] evaluation + Plan note Future Appointments Appointment Date:04/17/2024 10:30:00 AM Scheduled Provider:Beatriz LAU MD Location:[facility] Appointment Type:URO Office Visit Diagnostic Tests Pending * PSA Total 01/10/24 [facility] evaluation + Plan note Future Appointments Appointment Date:01/02/2025 09:30:00 AM Scheduled Provider: Location:[facility] Appointment Type: Medicare Wellness Initial Appointment Date:01/02/2025 10:40:00 AM Scheduled Provider:Abbey Cevallos MD Location:[facility] Appointment Type:[facility] evaluation + Plan note Future Appointments Appointment Date:12/27/2024 10:00:00 AM Scheduled Provider: Location:[facility] Appointment Type: Nurse Visit Appointment Date:01/02/2025 09:30:00 AM Scheduled Provider: Location:[facility] Appointment Type: Medicare Wellness Initial Appointment Date:01/02/2025 10:40:00 AM Scheduled Provider:Abbey Cevallos MD Location:[facility] Appointment Type:[facility] evaluation + Plan note Future Appointments Appointment Date:07/05/2025 01:40:00 PM Scheduled Provider:Abbey Cevallos MD Location:[facility] Appointment Type: Open Appointment Date:01/02/2026 01:00:00 PM Scheduled Provider: Location:[facility] Appointment Type: Medicare Wellness Subsequent Appointment Date:02/18/2026 01:15:00 PM Scheduled Provider:Beatriz LAU MD Location:[facility] Appointment Type:URO Office Visit Future Scheduled Tests Laboratory* HCV Antibody RFX to Quant PCR 01/02/25 [facility] evaluation + Plan note Future Appointments Appointment Date:07/05/2025 01:40:00 PM Scheduled Provider:Abbey Cevallos MD Location:[facility] Appointment Type: Open Appointment Date:01/02/2026 01:00:00 PM Scheduled Provider: Location:[facility] Appointment Type: Medicare Wellness Subsequent Appointment Date:02/18/2026 01:15:00 PM Scheduled Provider:Beatriz LAU MD Location:[facility] Appointment Type:URO Office Visit Diagnostic Tests Pending * Creatinine 04/05/25 Future Scheduled Tests Laboratory* HCV Antibody RFX to Quant PCR 01/02/25 [facility] evaluation note* Diagnosis 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)- Primary Hypothyroidism due to medication History of prostate cancer Personal history of malignant neoplasm of prostate Type 2 diabetes mellitus without complication, without long-term current use of insulin (HCC) Essential hypertension Unspecified essential hypertension [facility] Diagnosis Type 2 diabetes mellitus without complication, without long-term current use of insulin (HCC)- Primary Hyperlipidemia, unspecified hyperlipidemia type [facility] Diagnosis 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)- Primary [facility] Diagnosis 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) Hypothyroidism due to medication [facility] Diagnosis Malignant neoplasm of lower lobe of right lung (HCC) [facility] Diagnosis Essential hypertension- Primary Unspecified essential hypertension Type 2 diabetes mellitus without complication, with long-term current use of insulin (CMS/HCC) Hypothyroidism, adult (CMS/HCC) Other specified acquired hypothyroidism Hyperlipidemia, mixed (CMS/HCC) Mixed hyperlipidemia H/O: CVA (cerebrovascular accident) Occlusion of left carotid artery Occlusion and stenosis of carotid artery without mention of cerebral infarction Encounter for Medicare annual wellness exam Type 2 diabetes mellitus with diabetic neuropathy, with long-term current use of insulin (CMS/HCC)- Primary Hypothyroidism, adult (CMS/HCC) Other specified acquired hypothyroidism Essential hypertension Unspecified essential hypertension Essential hypertension Unspecified essential hypertension Hypothyroidism, adult (CMS/HCC) Other specified acquired hypothyroidism Type 2 diabetes mellitus without complication, without long-term current use of insulin (CMS/HCC) Hyperlipidemia, mixed (CMS/HCC) Mixed hyperlipidemia Essential hypertension- Primary Unspecified essential hypertension Benign prostatic hyperplasia (BPH) with post-void dribbling Hyperlipidemia, mixed (CMS/HCC) Mixed hyperlipidemia Type 2 diabetes mellitus with diabetic neuropathy, with long-term current use of insulin (CMS/HCC) Hypothyroidism, adult (CMS/HCC) Other specified acquired hypothyroidism [facility] Essential hypertension- Primary Unspecified essential hypertension Type 2 diabetes mellitus without complication, with long-term current use of insulin (CMS/HCC) Hypothyroidism, adult (CMS/HCC) Other specified acquired hypothyroidism Hyperlipidemia, mixed ([facility]) Mixed hyperlipidemia H/O: CVA (cerebrovascular accident) Occlusion of left carotid artery Occlusion and stenosis of carotid artery without mention of cerebral infarction Encounter for Medicare annual wellness exam Type 2 diabetes mellitus with diabetic neuropathy, with long-term current use of insulin ([facility])- Primary Hypothyroidism, adult ([facility]) Other specified acquired hypothyroidism Essential hypertension Unspecified essential hypertension Essential hypertension Unspecified essential hypertension Hypothyroidism, adult ([facility]) Other specified acquired hypothyroidism Type 2 diabetes mellitus without complication, without long-term current use of insulin ([facility]) Hyperlipidemia, mixed ([facility]) Mixed hyperlipidemia Essential hypertension- Primary Unspecified essential hypertension Benign prostatic hyperplasia (BPH) with post-void dribbling Hyperlipidemia, mixed ([facility]) Mixed hyperlipidemia Type 2 diabetes mellitus with diabetic neuropathy, with long-term current use of insulin ([facility]) Type 2 diabetes mellitus with hyperglycemia ([facility]) [facility]* Diagnosis Essential hypertension- Primary Unspecified essential hypertension Type 2 diabetes mellitus without complication, with long-term current use of insulin ([facility]) Hypothyroidism, adult ([facility]) Other specified acquired hypothyroidism Hyperlipidemia, mixed ([facility]) Mixed hyperlipidemia H/O: CVA (cerebrovascular accident) Occlusion of left carotid artery Occlusion and stenosis of carotid artery without mention of cerebral infarction Encounter for Medicare annual wellness exam Type 2 diabetes mellitus with diabetic neuropathy, with long-term current use of insulin ([facility])- Primary Hypothyroidism, adult ([facility]) Other specified acquired hypothyroidism Essential hypertension Unspecified essential hypertension Essential hypertension Unspecified essential hypertension Hypothyroidism, adult ([facility]) Other specified acquired hypothyroidism Type 2 diabetes mellitus without complication, without long-term current use of insulin ([facility]) Hyperlipidemia, mixed ([facility]) Mixed hyperlipidemia Essential hypertension- Primary Unspecified essential hypertension Benign prostatic hyperplasia (BPH) with post-void dribbling Hyperlipidemia, mixed ([facility]) Mixed hyperlipidemia Type 2 diabetes mellitus with diabetic neuropathy, with long-term current use of insulin ([facility] Essential (primary) hypertension ([facility]) Unspecified essential hypertension documented in this encounter [facility]* Diagnosis Essential hypertension- Primary Unspecified essential hypertension Type 2 diabetes mellitus without complication, with long-term current use of insulin ([facility]) Hypothyroidism, adult ([facility]) Other specified acquired hypothyroidism Hyperlipidemia, mixed ([facility]) Mixed hyperlipidemia H/O: CVA (cerebrovascular accident) Occlusion of left carotid artery Occlusion and stenosis of carotid artery without mention of cerebral infarction Encounter for Medicare annual wellness exam Type 2 diabetes mellitus with diabetic neuropathy, with long-term current use of insulin ([facility])- Primary Hypothyroidism, adult ([facility]) Other specified acquired hypothyroidism Essential hypertension Unspecified essential hypertension Essential hypertension Unspecified essential hypertension Hypothyroidism, adult ([facility]) Other specified acquired hypothyroidism Type 2 diabetes mellitus without complication, without long-term current use of insulin ([facility]) Hyperlipidemia, mixed ([facility]) Mixed hyperlipidemia Essential hypertension- Primary Unspecified essential hypertension Benign prostatic hyperplasia (BPH) with post-void dribbling Hyperlipidemia, mixed ([facility]) Mixed hyperlipidemia Type 2 diabetes mellitus with diabetic neuropathy, with long-term current use of insulin ([facility]) Essential (primary) hypertension ([facility]) Unspecified essential hypertension documented in this encounter [facility]* Diagnosis Essential hypertension- Primary Unspecified essential hypertension Type 2 diabetes mellitus without complication, with long-term current use of insulin ([facility]) Hypothyroidism, adult ([facility]) Other specified acquired hypothyroidism Hyperlipidemia, mixed ([facility]) Mixed hyperlipidemia H/O: CVA (cerebrovascular accident) Occlusion of left carotid artery Occlusion and stenosis of carotid artery without mention of cerebral infarction Encounter for Medicare annual wellness exam Type 2 diabetes mellitus with diabetic neuropathy, with long-term current use of insulin ([facility])- Primary Hypothyroidism, adult ([facility]) Other specified acquired hypothyroidism Essential hypertension Unspecified essential hypertension Essential hypertension Unspecified essential hypertension Hypothyroidism, adult ([facility]) Other specified acquired hypothyroidism Type 2 diabetes mellitus without complication, without long-term current use of insulin ([facility]) Hyperlipidemia, mixed ([facility]) Mixed hyperlipidemia Essential hypertension- Primary Unspecified essential hypertension Benign prostatic hyperplasia (BPH) with post-void dribbling Hyperlipidemia, mixed ([facility]) Mixed hyperlipidemia Type 2 diabetes mellitus with diabetic neuropathy, with long-term current use of insulin ([facility]) Type II or unspecified type diabetes mellitus with neurological manifestations, not stated as uncontrolled(250.60) ([facility])- Primary Type II or unspecified type diabetes mellitus with neurological manifestations, not stated as uncontrolled Onychomycosis Dermatophytosis of nail Hammer toes of both feet Pain in toes of both feet documented in this encounter [facility]* Diagnosis Essential (primary) hypertension ([facility]) Unspecified essential hypertension Hyperlipidemia, unspecified ([facility]) documented in this encounter [facility]* Diagnosis Essential hypertension- Primary Unspecified essential hypertension Benign prostatic hyperplasia (BPH) with post-void dribbling Hyperlipidemia, mixed ([facility]) Mixed hyperlipidemia Type 2 diabetes mellitus with diabetic neuropathy, with long-term current use of insulin ([facility]) documented in this encounter [facility]* Diagnosis Essential hypertension- Primary Unspecified essential hypertension Type 2 diabetes mellitus without complication, with long-term current use of insulin ([facility]) Hypothyroidism, adult ([facility]) Other specified acquired hypothyroidism Hyperlipidemia, mixed ([facility]) Mixed hyperlipidemia H/O: CVA (cerebrovascular accident) Occlusion of left carotid artery Occlusion and stenosis of carotid artery without mention of cerebral infarction Encounter for Medicare annual wellness exam Type 2 diabetes mellitus with diabetic neuropathy, with long-term current use of insulin ([facility])- Primary Hypothyroidism, adult ([facility]) Other specified acquired hypothyroidism Essential hypertension Unspecified essential hypertension Essential hypertension Unspecified essential hypertension Hypothyroidism, adult ([facility]) Other specified acquired hypothyroidism Type 2 diabetes mellitus without complication, without long-term current use of insulin ([facility]) Hyperlipidemia, mixed ([facility]) Mixed hyperlipidemia Essential hypertension- Primary Unspecified essential hypertension Benign prostatic hyperplasia (BPH) with post-void dribbling Hyperlipidemia, mixed ([facility]) Mixed hyperlipidemia Type 2 diabetes mellitus with diabetic neuropathy, with long-term current use of insulin ([facility]) H/O: CVA (cerebrovascular accident)- Primary documented in this encounter [facility]* Diagnosis Onset Date Resolution Status Admit Date Chest congestion noneactive September 05, 2024 2:28pm [facility] Work Phone: Evaluation note* Diagnosis Essential hypertension- Primary Unspecified essential hypertension Type 2 diabetes mellitus without complication, with long-term current use of insulin ([facility]) Hypothyroidism, adult ([facility]) Other specified acquired hypothyroidism Hyperlipidemia, mixed ([facility]) Mixed hyperlipidemia H/O: CVA (cerebrovascular accident) Occlusion of left carotid artery Occlusion and stenosis of carotid artery without mention of cerebral infarction Encounter for Medicare annual wellness exam Type 2 diabetes mellitus with diabetic neuropathy, with long-term current use of insulin ([facility])- Primary Hypothyroidism, adult ([facility]) Other specified acquired hypothyroidism Essential hypertension Unspecified essential hypertension Essential hypertension Unspecified essential hypertension Hypothyroidism, adult ([facility]) Other specified acquired hypothyroidism Type 2 diabetes mellitus without complication, without long-term current use of insulin ([facility]) Hyperlipidemia, mixed ([facility]) Mixed hyperlipidemia Essential hypertension- Primary Unspecified essential hypertension Benign prostatic hyperplasia (BPH) with post-void dribbling Hyperlipidemia, mixed ([facility]) Mixed hyperlipidemia Type 2 diabetes mellitus with diabetic neuropathy, with long-term current use of insulin ([facility]) Community acquired pneumonia due to influenza A virus- Primary documented in this encounter [facility]Evaluation [facility]* Diagnosis Essential hypertension- Primary Unspecified essential hypertension Type 2 diabetes mellitus without complication, with long-term current use of insulin ([facility]) Hypothyroidism, adult ([facility]) Other specified acquired hypothyroidism Hyperlipidemia, mixed ([facility]) Mixed hyperlipidemia H/O: CVA (cerebrovascular accident) Occlusion of left carotid artery Occlusion and stenosis of carotid artery without mention of cerebral infarction Encounter for Medicare annual wellness exam Type 2 diabetes mellitus with diabetic neuropathy, with long-term current use of insulin ([facility])- Primary Hypothyroidism, adult ([facility]) Other specified acquired hypothyroidism Essential hypertension Unspecified essential hypertension Essential hypertension Unspecified essential hypertension Hypothyroidism, adult ([facility]) Other specified acquired hypothyroidism Type 2 diabetes mellitus without complication, without long-term current use of insulin ([facility]) Hyperlipidemia, mixed ([facility]) Mixed hyperlipidemia Essential hypertension- Primary Unspecified essential hypertension Benign prostatic hyperplasia (BPH) with post-void dribbling Hyperlipidemia, mixed ([facility]) Mixed hyperlipidemia Type 2 diabetes mellitus with diabetic neuropathy, with long-term current use of insulin ([facility]) Hyperlipidemia, unspecified ([facility]) documented in this encounter [facility]Evaluation note* Diagnosis Essential hypertension- Primary Unspecified essential hypertension Type 2 diabetes mellitus without complication, with long-term current use of insulin ([facility]) Hypothyroidism, adult ([facility]) Other specified acquired hypothyroidism Hyperlipidemia, mixed ([facility]) Mixed hyperlipidemia H/O: CVA (cerebrovascular accident) Occlusion of left carotid artery Occlusion and stenosis of carotid artery without mention of cerebral infarction Encounter for Medicare annual wellness exam Type 2 diabetes mellitus with diabetic neuropathy, with long-term current use of insulin ([facility])- Primary Hypothyroidism, adult ([facility]) Other specified acquired hypothyroidism Essential hypertension Unspecified essential hypertension Essential hypertension Unspecified essential hypertension Hypothyroidism, adult ([facility]) Other specified acquired hypothyroidism Type 2 diabetes mellitus without complication, without long-term current use of insulin ([facility]) Hyperlipidemia, mixed ([facility]) Mixed hyperlipidemia Essential hypertension- Primary Unspecified essential hypertension Benign prostatic hyperplasia (BPH) with post-void dribbling Hyperlipidemia, mixed ([facility]) Mixed hyperlipidemia Type 2 diabetes mellitus with diabetic neuropathy, with long-term current use of insulin ([facility]) Community acquired pneumonia due to influenza A virus- Primary Community acquired pneumonia due to influenza A virus- Primary documented in this encounter [facility]* Diagnosis Essential hypertension- Primary Unspecified essential hypertension Type 2 diabetes mellitus without complication, with long-term current use of insulin Hypothyroidism, adult ([facility]) Other specified acquired hypothyroidism Hyperlipidemia, mixed ([facility]) Mixed hyperlipidemia H/O: CVA (cerebrovascular accident) Occlusion of left carotid artery Occlusion and stenosis of carotid artery without mention of cerebral infarction Encounter for Medicare annual wellness exam Type 2 diabetes mellitus with diabetic neuropathy, with long-term current use of insulin ([facility])- Primary Hypothyroidism, adult ([facility]) Other specified acquired hypothyroidism Essential hypertension Unspecified essential hypertension Essential hypertension Unspecified essential hypertension Hypothyroidism, adult ([facility]) Other specified acquired hypothyroidism Type 2 diabetes mellitus without complication, without long-term current use of insulin Hyperlipidemia, mixed ([facility]) Mixed hyperlipidemia Essential hypertension- Primary Unspecified essential hypertension Benign prostatic hyperplasia (BPH) with post-void dribbling Hyperlipidemia, mixed ([facility]) Mixed hyperlipidemia Type 2 diabetes mellitus with diabetic neuropathy, with long-term current use of insulin ([facility]) Community acquired pneumonia due to influenza A virus- Primary Type II or unspecified type diabetes mellitus with neurological manifestations, not stated as uncontrolled(250.60) ([facility])- Primary Type II or unspecified type diabetes mellitus with neurological manifestations, not stated as uncontrolled Onychomycosis Dermatophytosis of nail Pain in toes of both feet documented in this encounter [facility] Healthcare[facility] note* Diagnosis Malignant neoplasm of unspecified part of unspecified bronchus or lung (HCC)- Primary [facility] Essential hypertension- Primary Unspecified essential hypertension Type 2 diabetes mellitus without complication, with long-term current use of insulin (HCC) Hypothyroidism, adult Other specified acquired hypothyroidism Hyperlipidemia, mixed Mixed hyperlipidemia H/O: CVA (cerebrovascular accident) Occlusion of left carotid artery Occlusion and stenosis of carotid artery without mention of cerebral infarction Encounter for Medicare annual wellness exam Type 2 diabetes mellitus with diabetic neuropathy, with long-term current use of insulin (HCC)- Primary Hypothyroidism, adult Other specified acquired hypothyroidism Essential hypertension Unspecified essential hypertension Essential hypertension Unspecified essential hypertension Hypothyroidism, adult Other specified acquired hypothyroidism Type 2 diabetes mellitus without complication, without long-term current use of insulin (HCC) Hyperlipidemia, mixed Mixed hyperlipidemia Essential hypertension- Primary Unspecified essential hypertension Benign prostatic hyperplasia (BPH) with post-void dribbling Hyperlipidemia, mixed Mixed hyperlipidemia Type 2 diabetes mellitus with diabetic neuropathy, with long-term current use of insulin (HCC) Community acquired pneumonia due to influenza A virus- Primary Type II or unspecified type diabetes mellitus with neurological manifestations, not stated as uncontrolled(250.60) (HCC)- Primary Type II or unspecified type diabetes mellitus with neurological manifestations, not stated as uncontrolled Onychomycosis Dermatophytosis of nail Pain in toes of both feet Hammer toes of both feet [facility] Diagnosis Malignant neoplasm of unspecified part of unspecified bronchus or lung (HCC) [facility] 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)- Primary Malignant neoplasm of upper lobe, right bronchus or lung (HCC) Personal history of malignant neoplasm of prostate Pneumonitis due to inhalation of other solids and liquids (HCC) documented in this encounter [facility] Narrative - Reported* Type Description Date Medical History HTN Medical History DM II Medical History Prostate cancer 2008 Medical History diverticulosis Medical History stage 4 lung cancer-remission Surgical History prostate beads inserted Surgical History 4 inch removal of large intesti ne 1986 Surgical History RTKA Hospitalization History see above [facility] Other Hospital course Narrative No data available for this section [facility] Hospital Discharge instructions No data available for this section [facility] progress note No data available for this section [facility] Janice Summary Purpose Family History No Family History Records Found Relationship Condition Age at Onset Recorded Date/T tejas father Unknown mother Unknown Hypertension Unknown Advance Directives No Advanced Directives Records Found Advance Directive Response Recorded Date/ Time Advance Directives No June 28, 2017 4:41pm Advance Directive Response Recorded Date/ Time Advance Directives No June 28, 2017 5:41pm Reason for Referral Specialty Diagnoses / Procedures Referred By Contac t Referred To Contact CT IMAGING Diagnoses Malignant neoplasm of unspecified part of unspecified bronchus or lung (HCC) Procedures CT CHEST WO IVCON DIAGNOSTIC COMPUTED TOMOGRAPHY THORAX W/O CNTRST Abdoulaye Groves MD [address] [place] [address] [place] [address] Ct Imaging Referral ID Status Reason Start Date Expiration Date Visits Requested Visits Authorized [id number] Pending Review Auto-Generat ed Referral 03/12/2022 04/11/2023 1 1 Chief Complaint and Reason for Visit Chief Complaint Admit Date cough, congestion, body aches August 262024 2:28pm R09.89 - Other specified symptoms and si gns involv September 05, 2024 3:13pm Reason for Visit Admit Date Chest congestion September 05, 2024 2:28pm Reason for Visit Admit Date Right middle lobe pneumonia August 2:28pm Chest congestion September 05, 2024 2:28pm Chief Complaint Admit Date cough, congestion, body aches August 262024 2:28pm R09.89 - Other specified symptoms and si gns involv September 05, 2024 3:13pm Rash September 29, 2024 9:04 am Reason for Visit Admit Date Right middle lobe pneumonia August 2:28pm Chest congestion September 05, 2024 2:28pm Shingles September 29, 2024 9:04 am Additional Source Comments (unrecognized sect ion and content) No Status Records FoundNo Status Records FoundNo Status Records FoundNo Status Records FoundNo Status Records FoundNo Status Records FoundNo Status Records Found INFORMATION SOURCE (unrecogn ized section and content) DATE CREATED AUTHOR 07/23/2018 [facility] DATE CREATED AUTHOR AUTHOR'S ORGANIZ ATION 01/05/2022 [facility] DATE CREATED AUTHOR AUTHOR'S ORGANIZ ATION 09/07/2024 [facility] DATE CREATED AUTHOR AUTHOR'S ORGANIZ ATION 02/24/2025 Kay Goliad [facility] DATE CREATED AUTHOR AUTHOR'S ORGANIZ ATION 03/22/2025 [facility] EPIC DATE CREATED AUTHOR AUTHOR'S ORGANIZ ATION 03/30/2025 [facility] DATE CREATED AUTHOR AUTHOR'S ORGANIZ ATION 04/08/2025 Chappell Francois [facility] Care Team (unrecognized sect ion and content) Property Coordinator Relationship Specialty Start Date End Date Shaikh Dickerson MD [address] [place], [place] [id number] PCP - General Primary Care 09/17/21 Abdoulaye Groves MD [address] [place] [address] Referring Hematology 03/11/18 Neetu Mark, CALL CENTER RN.VACUUM DRIER OPERATOR [address] [place], [place] [id number] Nurse Practitioner Hematology/Oncology 03/11/18 Celia Stark, RN [address] [place] [address] Specialty Cleaning Matron Hematology/Oncology 03/09/19 Property Coordinator Relationship Specialty Start Date End Date Shaikh Dickerson MD [address] [place] [address] PCP - General Primary Care 09/17/21 Abdoulaye Groves MD [address] [place] [address] Referring Hematology 03/11/18 Neetu Mark, CALL CENTER RN.VACUUM DRIER OPERATOR [address] [place] [address] Nurse Practitioner Hematology/Oncology 03/11/18 Celia Stark, ART [address] [facility] [place] [place] [address] Specialty Cleaning Matron Hematology/Oncology 03/09/19 Property Coordinator Relationship Specialty Start Date End Date Shaikh Dickerson MD [address] [place] [address] PCP - General Primary Care 09/17/21 Abdoulaye Groves MD [address] [facility] [place] [place] [address] Referring Hematology 03/11/18 Neetu Mark, CALL CENTER RN.VACUUM DRIER OPERATOR [address] [place] [address] Nurse Practitioner Hematology/Oncology 03/11/18 Celia Stark RN [address] [facility] [place] [place] [address] Specialty Cleaning Matron Hematology/Oncology 03/09/19 Property Coordinator Relationship Specialty Start Date End Date Shaikh Dickerson MD [address] [place] [address] PCP - General Primary Care 09/17/21 Abdoulaye Groves MD [address] [facility] [place] [place] [address] Referring Hematology 03/11/18 Neetu Mark, CALL CENTER RN.VACUUM DRIER OPERATOR [address] [place] [address] Nurse Practitioner Hematology/Oncology 03/11/18 Celia Stark, ART [address] [facility] [place] [place] [place] [address] Specialty Cleaning Matron Hematology/Oncology 03/09/19 Property Coordinator Relationship Specialty Start Date End Date Shaikh Dickerson MD [address] [place] [address] PCP - General Primary Care 09/17/21 Abdoulaye Groves MD [address] [place] [address] Referring Hematology 03/11/18 Neetu Mark, CLARK.VACUUM DRIER OPERATOR [address] [place] [address] Nurse Practitioner Hematology/Oncology 03/11/18 Celia Stark, ART [address] [facility] [place] [place] [address] Specialty Cleaning Matron Hematology/Oncology 03/09/19 Property Coordinator Relationship Specialty Start Date End Date Shaikh Dickerson MD [address] [place] [address] PCP - General Primary Care 09/17/21 Abdoulaye Groves MD [address] [place] [address] Referring Hematology 03/11/18 Neetu Mark, CALL CENTER RN.VACUUM DRIER OPERATOR [address] [place] [address] Nurse Practitioner Hematology/Oncology 03/11/18 Celia Stark, ART [address] [place] [address] Specialty Cleaning Matron Hematology/Oncology 03/09/19 Property Coordinator Relationship Specialty Start Date End Date Shaikh Dickerson MD [address] [place] [address] PCP - General Primary Care 09/17/21 Abdoulaye Groves MD [address] [facility] [place] [place] [address] Referring Hematology 03/11/18 Neteu Mark, CALL CENTER RN.VACUUM DRIER OPERATOR [address] [facility] [place] [place] [address] Nurse Practitioner Hematology/Oncology 03/11/18 Celia Stark, ART [address] [facility] [place] [place] [address] Specialty Cleaning Matron Hematology/Oncology 03/09/19 Property Coordinator Relationship Specialty Start Date End Date Shaikh Dickerson MD [address] [place] [address] PCP - General Primary Care 09/17/21 Abdoulaye Groves MD [address] [facility] [place] [place] [address] Referring Hematology 03/11/18 Neetu Mark, CALL CENTER RN.VACUUM DRIER OPERATOR [address] [facility] [place] [place] [address] Nurse Practitioner Hematology/Oncology 03/11/18 Celia Stark, RN [address] [facility] [place] [place] [address] Specialty Cleaning Matron Hematology/Oncology 03/09/19 Property Coordinator Relationship Specialty Start Date End Date Fawwad, Khan, MD [address] [place] [address] PCP - General Primary Care 09/17/21 Abdoulaye Groves MD [address] [facility] [place] [place] [address] Referring Hematology 03/11/18 Neetu Mark, CALL CENTER RN.VACUUM DRIER OPERATOR [address] [facility] [place] [place] [address] Nurse Practitioner Hematology/Oncology 03/11/18 Celia Stark, ART [address] [facility] [place] [place] [address] Specialty Cleaning Matron Hematology/Oncology 03/09/19 Property Coordinator Relationship Specialty Start Date End Date Abbey Cevallos MD [address] [facility] [place] [place] [address] PCP - General Family Medicine 11/24/18 09/16/21 Abdoulaye Groves MD [address] [facility] [place] [place] [address] Referring Hematology 03/11/18 Neetu Mark, CALL CENTER RN.VACUUM DRIER OPERATOR [address] [facility] [place] [place] [address] Nurse Practitioner Hematology/Oncology 03/11/18 Celia Stark, ART [address] [facility] [place] [place] [address] Specialty Cleaning Matron Hematology/Oncology 03/09/19 Property Coordinator Relationship Specialty Start Date End Date Kiran Terrell MD [address] [place] [address] PCP - General Family Medicine 03/02/24 Faye Dickson NP [address] [place] [address] Nurse Practitioner Family Medicine 03/02/24 Property Coordinator Relationship Specialty Start Date End Date Kiran Terrell MD [address] [place] [address] PCP - General Family Medicine 03/02/24 Faye Dickson NP [address] [place] [address] Nurse Practitioner Family Medicine 03/02/24 Property Coordinator Relationship Specialty Start Date End Date Kiran Terrell MD [address] [place] [address] PCP - General Family Medicine 03/02/24 Faye Dickson NP [address] [place] [address] Nurse Practitioner Family Medicine 03/02/24 Property Coordinator Relationship Specialty Start Date End Date Kiran Terrell MD [address] [place] [address] PCP - General Family Medicine 03/02/24 Faye Dickson NP [address] [place] [address] Nurse Practitioner Family Medicine 03/02/24 Property Coordinator Relationship Specialty Start Date End Date Kiran Terrell MD [address] [place] [address] PCP - General Family Medicine 03/02/24 Faye Dickson NP [address] [place] [address] Nurse Practitioner Family Medicine 03/02/24 Property Coordinator Relationship Specialty Start Date End Date Kiran Terrell MD [address] [place] [address] PCP - General Family Medicine 03/02/24 Faye Dickson NP [address] [place] [address] Nurse Practitioner Family Medicine 03/02/24 Property Coordinator Relationship Specialty Start Date End Date Kiran Terrell MD [address] [place] [address] PCP - General Family Medicine 03/02/24 Faye Dickson NP [address] [place] [address] Nurse Practitioner Family Medicine 03/02/24 Property Coordinator Relationship Specialty Start Date End Date Kiran Terrell MD [address] [place] [phone] PCP - General Family Medicine 03/02/24 Faye Dickson NP [address] [place] [address] Nurse Practitioner Family Medicine 03/02/24 Property Coordinator Relationship Specialty Start Date End Date Kiran Terrell MD [address] [place] [address] PCP - General Family Medicine 03/02/24 Faye Dickson NP [address] [place] [address] Nurse Practitioner Family Medicine 03/02/24 Team Status: Active Member Role Status Dates Abbey Cevallos MD Primary Care Provider Active Team Status: Inactive Member Role Status Dates Abbey Cevallos MD Primary Care Provider Active Start: September 05, 2024 End: September 05, 2024 Leanna Mckeon APRN Attending Provider Active Start: September 05, 2024 End: September 05, 2024 Team Status: Active Member Role Status Dates Leanna Mckeon APRN Attending Provider Active Start: September 05, 2024 Abbey Cevallos MD Primary Care Provider Active Start: September 05, 2024 Team Status: Inactive Member Role Status Dates Leanna Mckeon APRN Attending Provider Active Start: September 05, 2024 End: September 05, 2024 Abbey Cevallos MD Primary Care Provider Active Start: September 05, 2024 End: September 05, 2024 Property Coordinator Relationship Specialty Start Date End Date Kiran Terrell MD [address] [place] [address] PCP - General Family Medicine 03/02/24 Faye Dickson NP [address] [place] [address] Nurse Practitioner Family Medicine 03/02/24 Property Coordinator Relationship Specialty Start Date End Date Kiran Terrell MD [address] [place] [address] PCP - General Family Medicine 03/02/24 Faye Dickson NP [address] [place] [address] Nurse Practitioner Family Medicine 03/02/24 Team Status: Inactive Member Role Status Dates Abbey Cevallos MD Primary Care Provider Active Start: September 29, 2024 End: September 29, 2024 INA Lr RN FUR BLOWER OPERATOR-C Attending Provider Active Start: September 29 End: September 29, 2024 Property Coordinator Relationship Specialty Start Date End Date Abbey Cevallos MD [address] [place], [place] [id number] PCP - General Family Medicine 11/14/24 Property Coordinator Relationship Specialty Start Date End Date Abbey Cevallos MD [address] [place] [address] PCP - General Family Medicine 11/14/24 Property Coordinator Relationship Specialty Start Date End Date Abbey Cevallos MD [address] [place] [address] PCP - General Family Medicine 11/14/24 Property Coordinator Relationship Specialty Start Date End Date Shaikh Dickerson MD [address] [place] [address] PCP - General Primary Care 09/17/21 Neetu Mark APRN.VACUUM DRIER OPERATOR [address] [place] [address] [address] [place], [place] [phone] Nurse Practitioner Hematology/Oncology 03/11/18 Celia Stark, ART [address] [place] [address] Specialty Cleaning Matron Hematology/Oncology 03/09/19 Axel Garcia MD [address] [place] [place] [address] Physician Hematology/Oncology 01/29/25 Property Coordinator Relationship Specialty Start Date End Date Abbey Cevallos MD [address] [place] [address] PCP - General Family Medicine 11/14/24 Property Coordinator Relationship Specialty Start Date End Date Shaikh Dickerson MD [address] [place] [address] PCP - General Primary Care 09/17/21 Neetu Mark APRN.VACUUM DRIER OPERATOR [address] [place] [address] Nurse Practitioner Hematology/Oncology 03/11/18 Celia Stark, ART [address] [place] [address] Specialty Cleaning Matron Hematology/Oncology 03/09/19 Axel Garcia MD [address] [place] [address] Physician Hematology/Oncology 01/29/25 Property Coordinator Relationship Specialty Start Date End Date Shaikh Dickerson MD [address] [place] [address] PCP - General Primary Care 09/17/21 Neetu Mark APRN.VACUUM DRIER OPERATOR [address] [place] [address] Nurse Practitioner Hematology/Oncology 03/11/18 Celia Stark, ART [address] [place] [address] Specialty Cleaning Matron Hematology/Oncology 03/09/19 Axel Garcia MD [address] [place] [address] Physician Hematology/Oncology 01/29/25 Property Coordinator Relationship Specialty Start Date End Date Shaikh Dickerson MD [address] [place] [address] PCP - General Primary Care 09/17/21 Neetu Mark APRN.VACUUM DRIER OPERATOR [address] [place] [address] Nurse Practitioner Hematology/Oncology 03/11/18 Celia Stark, ART [address] [place] [address] Specialty Cleaning Matron Hematology/Oncology 03/09/19 Axel Garcia MD [address] [place] [address] Physician Hematology/Oncology 01/29/25 Source Comments (unrecognize d section and content) In the event this informatio n is protected by the Federal Confidentiality of Alcohol and Drug Abuse Patient Records regulations: The Federal rules restrict any use of the information to criminally investigate or prosecute any alcohol or drug abuse patient.[facility] the event this information is protected by the Federal Confidentiality of Alcohol and Drug Abuse Patient Records regulations: The Federal rules restrict any use of the information to criminally investigate or prosecute any alcohol or drug abuse patient.[facility] Center[facility] the event this information is protected by the Federal Confidentiality of Alcohol and Drug Abuse Patient Records regulations: The Federal rules restrict any use of the information to criminally investigate or prosecute any alcohol or drug abuse patient.[facility] Center[facility] the event this information is protected by the Federal Confidentiality of Alcohol and Drug Abuse Patient Records regulations: The Federal rules restrict any use of the information to criminally investigate or prosecute any alcohol or drug abuse patient.[facility] Center[facility] the event this information is protected by the Federal Confidentiality of Alcohol and Drug Abuse Patient Records regulations: The Federal rules restrict any use of the information to criminally investigate or prosecute any alcohol or drug abuse patient.[facility] Center[facility] the event this information is protected by the Federal Confidentiality of Alcohol and Drug Abuse Patient Records regulations: The Federal rules restrict any use of the information to criminally investigate or prosecute any alcohol or drug abuse patient.[facility] CenterIn the event this information is protected by the Federal Confidentiality of Alcohol and Drug Abuse Patient Records regulations: The Federal rules restrict any use of the information to criminally investigate or prosecute any alcohol or drug abuse patient.[facility] Center[facility] the event this information is protected by the Federal Confidentiality of Alcohol and Drug Abuse Patient Records regulations: The Federal rules restrict any use of the information to criminally investigate or prosecute any alcohol or drug abuse patient.[facility] Center[facility] the event this information is protected by the Federal Confidentiality of Alcohol and Drug Abuse Patient Records regulations: The Federal rules restrict any use of the information to criminally investigate or prosecute any alcohol or drug abuse patient.[facility] CenterIn the event this information is protected by the Federal Confidentiality of Alcohol and Drug Abuse Patient Records regulations: The Federal rules restrict any use of the information to criminally investigate or prosecute any alcohol or drug abuse patient.[facility] CenterIn the event this information is protected by the Federal Confidentiality of Alcohol and Drug Abuse Patient Records regulations: The Federal rules restrict any use of the information to criminally investigate or prosecute any alcohol or drug abuse patient.[facility] CenterIn the event this information is protected by the Federal Confidentiality of Alcohol and Drug Abuse Patient Records regulations: The Federal rules restrict any use of the information to criminally investigate or prosecute any alcohol or drug abuse patient.[facility] CenterIn the event this information is protected by the Federal Confidentiality of Alcohol and Drug Abuse Patient Records regulations: The Federal rules restrict any use of the information to criminally investigate or prosecute any alcohol or drug abuse patient.[facility] CenterIn the event this information is protected by the Federal Confidentiality of Alcohol and Drug Abuse Patient Records regulations: The Federal rules restrict any use of the information to criminally investigate or prosecute any alcohol or drug abuse patient.[facility] CenterIn the event this information is protected by the Federal Confidentiality of Alcohol and Drug Abuse Patient Records regulations: The Federal rules restrict any use of the information to criminally investigate or prosecute any alcohol or drug abuse patient.[facility] Reason for Visit (unrecogniz ed section and content) Reason Comments Lung Cancer 1 month follow up Reason Onset Date Comments Refill Request 07/24/2022 Reason Onset Date Comments Refill Request 03/18/2023 Reason Comments Lung Cancer Reason Comments Radiology CT Specialty Diagnoses / Procedures Referred By Contac t Referred To Contact CT IMAGING Diagnoses Malignant neoplasm of unspecified part of unspecified bronchus or lung (HCC) Procedures CT CHEST WO IVCON DIAGNOSTIC COMPUTED TOMOGRAPHY THORAX W/O CNTRSAbdoulaye Thomas MD [address] [place] [address] [place] [address] [place] [address] Referral ID Status Reason Start Date Expiration Date V isits Requested Visits Authorized [id number] Closed Auto-Generate d Referral 03/18/2023 04/16/2024 1 1 Referral ID Status Reason Start Date Expiration Date V isits Requested Visits Authorized [id number] Closed Auto-Generate d Referral 09/17/2022 10/17/2023 1 1 Referral ID Status Reason Start Date Expiration Date V isits Requested Visits Authorized [id number] Closed Auto-Generate d Referral 03/12/2022 04/11/2023 [address] Specialty Diagnoses / Procedures Referred By Contac t Referred To Contact CT IMAGING Diagnoses Malignant neoplasm of unspecified part of unspecified bronchus or lung (HCC) Procedures CT CHEST W IVCON DIAGNOSTIC COMPUTED TOMOGRAPHY THORAX W/CONTRAST Abdoulaye Groves MD [address] [place] [address] [place] [address] [place] [address] Referral ID Status Reason Start Date Expiration Date V isits Requested Visits Authorized [id number] Closed Auto-Generate d Referral 02/02/2022 03/04/2023 [address] Specialty Diagnoses / Procedures Referred By Contac t Referred To Contact CT IMAGING Diagnoses Malignant neoplasm of unspecified part of unspecified bronchus or lung (HCC) Procedures CT CHEST W IVCON CAT SCAN OF CHEST CONTRAST Abdoulaye Groves MD [address] [place] [address] [place] [address] [place] [address] Referral ID Status Reason Start Date Expiration Date V isits Requested Visits Authorized [id number] Closed Auto-Generate d Referral 06/18/2021 07/18/2022 1 1 Reason Onset Date Comments Med Refill 06/27/2024 Reason Onset Date Comments Med Refill 06/30/2024 Reason Comments Med Refill Reason Onset Date Comments Med Refill 07/05/2024 Reason Comments DM Foot Care Pt is here today for diabetic foot care. BS: 159 A1C: 7.3 LV FUR BLOWER OPERATOR Yessi 04-04-2024SS: 10 Reason Onset Date Comments Med Refill 03/21/2024 Reason Comments Follow-up 3 m f/up Reason Onset Date Comments Med Refill 08/30/2024 Reason Comments ER Follow-up Reason Comments Nail care Trace Gomez is a [age] y.o. male who presents for DM Foot Care. BS: 159 A1C: 7.3 /LV FUR BLOWER OPERATOR Dickson 04-04-2024/SS: 10). Reason Comments Nail care Trace Gomez is a 5 7 y.o. male who presents for DM Foot Care. BS: 91 A1C: 6.8 /LV FUR BLOWER OPERATOR Dickson 09/11/2024/SS: 10. Reason Onset Date Comments Care Coordination 03/20/2025 CT Results Specialty Diagnoses / Procedures Referred By Leobardo hernandez Referred To Contact CT IMAGING Diagnoses Malignant neoplasm of unspecified part of unspecified bronchus or lung (HCC) Procedures CT CHEST WO IVCON DIAGNOSTIC COMPUTED TOMOGRAPHY THORAX W/O CNTRST Janell Dukes, KEYLA [address] [place] [address] [place] [address] Phone: tel: fax: [place] [phone] Referral ID Status Reason Start Date Expiration Date V isits Requested Visits Authorized [id number] Closed Auto-Generate d Referral 02/06/2025 03/08/2026 1 1 Reason Comments Lung Cancer KEY Goals (unrecognized section and content) Goals may be documented in a n alternate section FOR RECORDS PERTAINING TO PATIENTS WHO ARE OR HAVE BEEN ENROLLED IN A CHEMICAL DEPENDENCY/SUBSTANCEABUSE PROGRAM, SOME INFORMATION MAY BE OMITTED. This clinical summary was aggregated from multiple sources. Caution should be exercised in using it in the provision of clinical care. This summary normalizes information from multiple sources, and as a consequence, information in this document may materially change the coding, format and clinical context of patient data. In addition, data may be omitted in some cases. CLINICAL DECISIONS SHOULD BE BASED ON THE PRIMARY CLINICAL RECORDS. [employer] provides no warranty or guarantee of the accuracy or completeness of information in this document.
== END 2025-04-09 10:09 | disposition home or self-care (01) ==
LOC: CT 10:08
PROVIDERS: Visit Provider Nurse Practitioner Family
DX: R31.0 Gross hematuria (principal); Z85.46 Personal history of malignant neoplasm of prostate; N31.9 Neuromuscular dysfunction of bladder, unspecified; N40.1 Benign prostatic hyperplasia with lower urinary tract symptoms; Z79.02 Long term (current) use of antithrombotics/antiplatelets
CPT/HCPCS: 74178; 82565; Q9967